=== PATIENT | male | born 1960 | race Caucasian/White ===

== ENCOUNTER 2017-09-15 20:49 | Emergency (ER) | payer MEDICARE, SELFPAY ==
[2017-09-15 20:50] VITALS: BP 157/110; PULSE 115; RESP 22; TEMP 37.2; O2SAT 95; BMI 29.1
[2017-09-15] MEDS: Silver Nitrate (BKC) 1 EACH TOPICAL (22:16)
[2017-09-15] MEDS: proCHLORPERazine 10 MG/2 ML Vial IV (22:17)
[2017-09-15] MEDS: Ketorolac 30 MG/ML Syringe IV (22:17)
[2017-09-15] MEDS: DiphenhydrAMINE 50 MG/ML Syringe 25 MG IV (22:17)
[2017-09-15] MEDS: 0.9% Normal Saline 1,000 ML 999 ML IV (22:17)
--- NOTE | 2017-09-15 22:54 | ED.DCSUM_ITS ---
- ER Visit Summary Date of Service: 09/15/17 Chief Complaint: Headache History of Present Illness: The patient is a 56 M with a history of migraine headaches. Patient states he developed a frontal migraine last evening around 9 PM that gradually worsened. He missed a few days of his migraine medications and he thinks this led to the current migraine. He denies trauma or URI symptoms. He has restarted his migraine medication and states he knows it will take a couple days to get built back up in his system. Patient states tonight while resting he scratched the left side of his nose and started bleeding. Is having difficulty controlling the area of bleeding. He is currently on Plavix. Physical Examination: Blood pressure is 157/110, heart rate 115, otherwise vitals normal. Patient sitting upright in bed no acute distress. Head and neck examination was a 2 mm round skin avulsion to the left lateral nose. There is no active bleeding at this time. Neck is supple with no meningismus. Heart is regular rate and rhythm. Lung sounds are clear. Abdomen is soft nontender. Neuro exam is normal. Test Results: [] Emergency Department Course and Treatment: Patient was treated Toradol, Compazine, Benadryl, and IV fluids. The skin avulsion area on his nose was cauterized with silver nitrate. On repeat evaluation patient's headache is significantly improved. He has had no further bleeding from the area of skin avulsion. He will be discharged home to continue his migraine medications at this time. Treatment Plan: [] Disposition: Discharge Impression: 1. Migraine, improved 2. Skin avulsion This note was generated with [employer] dictation software. It may contain incorrect words, spelling, and punctuation that were not noted in review of the chart prior to signing ED Disposition - Plan for ED Patient: Disposition: Home or Assisted Living Chief Complaint: Headache Instructions: ED Headache Migraine Referrals: Awa Chavez MD [Primary Care Provider] - As Needed
[2017-09-15 23:36] VITALS: BP 142/82; PULSE 80; RESP 18; O2SAT 96
== END 2017-09-15 23:42 | disposition home or self-care (01) ==
PROVIDERS: Emergency Provider Emergency Medicine; Family Provider Internal Medicine; PCP Internal Medicine
DX: G43.909 Migraine, unspecified, not intractable, without status migrainosus (principal); S01.20XA Unspecified open wound of nose, initial encounter; I25.10 Atherosclerotic heart disease of native coronary artery without angina pectoris; I10 Essential (primary) hypertension; E78.00 Pure hypercholesterolemia, unspecified; J44.9 Chronic obstructive pulmonary disease, unspecified; Z72.0 Tobacco use; W50.4XXA Accidental scratch by another person, initial encounter; Y93.9 Activity, unspecified; Y92.89 Other specified places as the place of occurrence of the external cause; Y99.9 Unspecified external cause status
CPT/HCPCS: 96361; 96374; 96375; 99283; J7030; A4216

== ENCOUNTER 2017-11-13 11:34 | Emergency (ER) | payer MEDICARE, SELFPAY ==
[2017-11-13 11:39] VITALS: BP 134/94; PULSE 76; RESP 16; TEMP 36.9; O2SAT 96; BMI 29.3
--- NOTE | 2017-11-13 12:11 | RAD_ITS ---
STUDY: X-RAY - RIGHT SHOULDER REASON FOR EXAM: Male, 57 years old. Shoulder pain following injury. TECHNIQUE: 4 view(s) of the shoulder. COMPARISON: Comparison is made with prior study dated October 26, 2016. FINDINGS: Normal glenohumeral articulation. Normal acromioclavicular joint. Normal acromion. Normal humeral head and visualized proximal humerus. The soft tissue structures are unremarkable. Normal visualized pulmonary apex. RAD/Shoulder min 2 Views IMPRESSION: Normal x-ray examination of the shoulder. Electronically Signed: Damir Cisneros MD at 12:45 EDT Tel [phone], Service support ,
[2017-11-13] MEDS: oxyCODONE 5 MG Tablet 10 MG PO (12:17)
--- NOTE | 2017-11-13 13:00 | ED.VISSUMM ---
- ER Visit Summary Date of Service: 11/13/17 Chief Complaint: [] Right shoulder pain History of Present Illness: The patient is a 57 M [] patient reports he was doing some weeding in his lawn using a weeding tool and felt a sudden pop in his right shoulder and is concerned for the possibility of a rotator cuff tear. Patient reports difficulty moving the right shoulder without significant pain. Reports minimal relief with NSAID use prior to arrival. No other complaints at this time. Physical Examination: [] Afebrile, vital signs stable. Examination of the right shoulder reveals tenderness over the supraspinatus insertion. Patient is unable to extend the shoulder without significant discomfort. There is no gross deformity noted. Axillary nerve is intact. Patient is neurovascularly intact distally to the right upper extremity. Test Results: [] 2 view right shoulder x-ray negative. Emergency Department Course and Treatment: [] Patient evaluated for right shoulder injury with concern for rotator cuff damage. Patient provided oxycodone orally in the emergency department. He reports he has a ride home. X-rays are negative. He is encouraged to follow-up with his primary care physician and return if symptoms worsen. Treatment Plan: [] Follow-up with PCP for possible MRI. Disposition: [] Discharge, stable. Impression: [] Right shoulder injury This note was generated with [employer] dictation software. It may contain incorrect words, spelling, and punctuation that were not noted in review of the chart prior to signing ED Disposition - Plan for ED Patient: Chief Complaint: Upper Extremity Injury Referrals: Awa Chavez MD [Primary Care Provider] -
--- NOTE | 2017-11-13 13:02 | ED.DEP ---
ED Disposition - Plan for ED Patient: Disposition: Home or Assisted Living Chief Complaint: Upper Extremity Injury Instructions: ED Sprain Shoulder Prescriptions: Naproxen [Naprosyn] 500 mg PO BID PRN PRN #20 tab PRN Reason: Pain Referrals: Awa Chavez MD [Primary Care Provider] -
[2017-11-13 13:11] VITALS: BP 132/90; PULSE 80; RESP 16; O2SAT 96
== END 2017-11-13 13:12 | disposition home or self-care (01) ==
PROVIDERS: Emergency Provider Emergency Medicine; Family Provider Internal Medicine; PCP Internal Medicine
DX: S49.91XA Unspecified injury of right shoulder and upper arm, initial encounter (principal); X50.3XXA Overexertion from repetitive movements, initial encounter; Y93.H2 Activity, gardening and landscaping; Y92.007 Garden or yard of unspecified non-institutional (private) residence as the place of occurrence of the external cause; Y99.8 Other external cause status; I25.10 Atherosclerotic heart disease of native coronary artery without angina pectoris; I10 Essential (primary) hypertension; E78.00 Pure hypercholesterolemia, unspecified; Z72.0 Tobacco use
CPT/HCPCS: 73030; 99283

== ENCOUNTER 2017-12-19 11:25 | Emergency (ER) | payer MEDICARE, SELFPAY ==
[2017-12-19 11:26] VITALS: BP 141/102; PULSE 111; RESP 18; TEMP 36.8; O2SAT 97
--- NOTE | 2017-12-19 12:08 | ED.VISSUMM ---
- ER Visit Summary Date of Service: 12/19/17 Chief Complaint: Shoulder pain History of Present Illness: The patient is a 57 M with bilateral shoulder pain for 3 weeks. Left side is worse than the right. It is worse with abduction more than 90?. No trauma. He has no neck pain, no fever or chills. His pain is confined between the shoulder and the elbow it does not radiate into his forearms or fingers or hand. Physical Examination: Patient has clear lungs, soft abdomen, he has no neck pain to palpation with full range of motion movement of the neck. He has normal strength in his hands. He has tenderness to palpation over both shoulders mostly posteriorly and superiorly. He has pain with abduction greater than 90? and with me placing his hand behind his back. He is otherwise neurovascularly intact. Test Results: [] Emergency Department Course and Treatment: This is likely rotator cuff in etiology, he has no neck pain no paresthesias no weakness. He is to follow-up with his primary care physician who had seen him for this in the past and wants to set him up with physical therapy, however the patient does not want to go. I did teach him some stretching exercises, if there are any new symptoms needs to return to the emergency department. He understands this. Disposition: Discharge stable condition Impression: Bilateral shoulder pain This note was generated with [employer] dictation software. It may contain incorrect words, spelling, and punctuation that were not noted in review of the chart prior to signing ED Disposition - Plan for ED Patient: Chief Complaint: Upper Extremity Injury Referrals: Awa Chavez MD [Primary Care Provider] -
--- NOTE | 2017-12-19 12:11 | ED.DEP ---
ED Disposition - Plan for ED Patient: Disposition: Home or Assisted Living Chief Complaint: Upper Extremity Injury Instructions: ED Shoulder Pain [facility] Referrals: Awa Chavez MD [Primary Care Provider] - 3-5 Days
== END 2017-12-19 12:21 | disposition home or self-care (01) ==
PROVIDERS: Emergency Provider Emergency Medicine; Family Provider Internal Medicine; PCP Internal Medicine
DX: M25.512 Pain in left shoulder (principal); M25.511 Pain in right shoulder; Z72.0 Tobacco use
CPT/HCPCS: 99282

== ENCOUNTER 2017-12-23 06:57 | Observation (INO) | payer MEDICARE, SELFPAY ==
[2017-12-23] VITALS (21 sets, daily range): BP systolic 130–164; BP diastolic 82–100; PULSE 66–104; RESP 16–24; TEMP 36.7–36.9; O2SAT 94–100; BMI 32.3; BMI 31.0; BMI 31.1
--- NOTE | 2017-12-23 07:00 | RAD_ITS ---
STUDY: X-RAY CHEST REASON FOR EXAM: Male, 57 years old. Intermittent chest pain TECHNIQUE: Single AP portable view of the chest. COMPARISON: None. FINDINGS: The lungs are clear and expanded. There is no demonstrated pleural abnormality. Normal size heart. Normal mediastinum and moni. Normal visualized pulmonary arteries. Normal visualized aortic arch and descending thoracic aorta. Normal visualized thoracic spine. Normal visualized ribs, clavicles, and shoulders. There is no demonstrated abnormality of the visualized soft tissue structures of the upper abdomen. RAD/Chest 1 View (Portable) IMPRESSION: Normal x-ray examination of the chest. Electronically Signed: Facundo Gonzalez DO at 7:27 EDT Tel , Service support ,
--- NOTE | 2017-12-23 07:00 | EKG12_ITS ---
Test Reason : CP Blood Pressure : / mmHG Vent. Rate : 085 BPM Atrial Rate : 085 BPM P-R Int : 140 ms QRS Dur : 098 ms QT Int : 368 ms P-R-T Axes : 000 080 061 degrees QTc Int : 437 ms Normal sinus rhythm Normal ECG Confirmed by BLESSING JONES, LEIGH ANN ([id number]), newspaper editor managing PRADIP ÁLVAREZ ([id number]) on 12/25/2017 2:12:07 PM Referred By: FELTON Confirmed By:LEIGH ANN FUNK MD
[2017-12-23] MEDS: Aspirin 81 MG TAB.CHEW 324 MG PO (07:05)
[2017-12-23 07:18] LABS: Absolute Lymphocyte Count 2.65 X10^3/ul (0.83-4.51); Absolute Neutrophil Count 2.9 X10^3/uL (2.0-7.7); Basophil# 0.02 X10^3/uL; Basophil% 0.3 % (0-1); Eosinophil# 0.25 X10^3/uL; Eosinophils% 4.1 % (0-5); Hematocrit 46.5 % (40-54); Lymphocyte # 2.65 X10^3/ul (4.0); Lymphocyte % 43.6 % (19-41); Mean Corp Hgb Conc 32.3 g/gl (32-36); Mean Corpuscular Hgb 30.1 pg (27.0-32.0); Mean Corpuscular Volume 93.2 fL (80-94); Mean Platelet Vol. 9.7 fl (6.2-12.0); Monocyte# 0.29 X10^3/uL; Monocyte% 4.8 % (0-10); Neutrophil # 2.87 X10^3/uL (2.7-7.7); Neutrophil % 47.2 % (47-70); Platelet Count 244 K/mm3 (150-450); RBC Distribution Width CV 13.8 % (11.6-14.6); RBC Distribution Width SD 46.8 fl (35.1-43.9); Red Blood Count 4.99 M/mm3 (4.6-6.2); White Blood Count 6.1 K/mm3 (4.4-11.0)
[2017-12-23 07:19] LABS: POSITIVE COUNT NO; POSITIVE DIFFERENTIAL NO; POSITIVE MORPHOLOGY NO
[2017-12-23] MEDS: Albuterol 2.5 MG/3 ML VIAL.NEB. INHALATION ×2 (07:27→19:35)
[2017-12-23 07:35] LABS: Anion Gap 6 (5-15); BUN 16 mg/dL (7-18); BUN/Creat Ratio 12.7 RATIO (10-20); Calcium,Total 8.9 mg/dL (8.5-10.1); Chloride 106 mmol/L (98-107); Creatinine, Serum 1.26 mg/dL (0.70-1.30); EST Glomerular Filtration Rate 63 mL/min (>60); Est Glom Filt Rate - Afr Amer 76 mL/min (>60); Estimated Creatinine Clearance 59.07 ml/min; Glucose 103 mg/dL (74-106); Potassium 3.4 mmol/L (3.5-5.1); Sodium Level 140 mmol/L (136-145)
--- NOTE | 2017-12-23 08:12 | ED.VISSUMM ---
- ER Visit Summary Date of Service: 12/23/17 Chief Complaint: Chest pain History of Present Illness: The patient is a [address] Roger Chavez. He reports that he was awakened from sleep at 2 AM by a substernal chest pain lasts approximately 30 seconds. States that it was a heaviness that was 6 out of 10 in severity. Seemed to resolve after drinking cold water. He went back to sleep and at 4:00 he was awakened by a similar pain. This time it resolved with nitro spray. He went back to sleep and at 615 he was awakened by similar pain and came to the emergency department. Patient reports the pain is accompanied by shortness of breath and nausea. He denies any vomiting or diaphoresis with this. It is worsened by nothing including exertion or breathing. Physical Examination: Vitals: Stable. Afebrile. General: Well-nourished and well-developed. Head: Normocephalic atraumatic. Neck: Supple, no lymphadenopathy. No JVD. Nontender. Cardiovascular: Regular rate and rhythm. No murmurs. Respiratory: No respiratory distress. Mild wheezing bilaterally with good air movement. Abdominal: Soft, nontender, nondistended, normal bowel sounds. No guarding, rebound, or peritoneal signs. Back: Nontender. Extremities: Nontender, no edema. Skin: Normal color, no rash. Neurologic: Alert and oriented ?3. Cranial nerves II through XII are intact. Normal strength and sensation. Psych: Normal affect. Test Results: EKG is sinus at 85 and is unchanged from December 2016. Troponins negative. Chem-7 marked potassium 3.4. CBC is more for lymphs at 44. Chest x-ray is normal. Emergency Department Course and Treatment: Patient was treated with aspirin and albuterol aerosol. He is resting comfortably and is pain-free. Treatment Plan: Patient was discussed with Dr. Duran. He will be admitted to the hospital for further evaluation and treatment. Disposition: Admitted in improved condition. Impression: 1. Chest pain. 2. DAVON score of 3. This note was generated with [employer] dictation software. It may contain incorrect words, spelling, and punctuation that were not noted in review of the chart prior to signing ED Disposition - Plan for ED Patient: Chief Complaint: Chest Pain Referrals: Awa Chavez MD [Primary Care Provider] -
--- NOTE | 2017-12-23 08:15 | ED.DCSUM_ITS ---
- ER Visit Summary Date of Service: 12/23/17 Chief Complaint: Chest pain History of Present Illness: The patient is a [address] Roger Chavez. He reports that he was awakened from sleep at 2 AM by a substernal chest pain lasts approximately 30 seconds. States that it was a heaviness that was 6 out of 10 in severity. Seemed to resolve after drinking cold water. He went back to sleep and at 4:00 he was awakened by a similar pain. This time it resolved with nitro spray. He went back to sleep and at 615 he was awakened by similar pain and came to the emergency department. Patient reports the pain is accompanied by shortness of breath and nausea. He denies any vomiting or diaphoresis with this. It is worsened by nothing including exertion or breathing. Physical Examination: Vitals: Stable. Afebrile. General: Well-nourished and well-developed. Head: Normocephalic atraumatic. Neck: Supple, no lymphadenopathy. No JVD. Nontender. Cardiovascular: Regular rate and rhythm. No murmurs. Respiratory: No respiratory distress. Mild wheezing bilaterally with good air movement. Abdominal: Soft, nontender, nondistended, normal bowel sounds. No guarding, rebound, or peritoneal signs. Back: Nontender. Extremities: Nontender, no edema. Skin: Normal color, no rash. Neurologic: Alert and oriented ?3. Cranial nerves II through XII are intact. Normal strength and sensation. Psych: Normal affect. Test Results: EKG is sinus at 85 and is unchanged from December 2016. Troponins negative. Chem-7 marked potassium 3.4. CBC is more for lymphs at 44. Chest x- ray is normal. Emergency Department Course and Treatment: Patient was treated with aspirin and albuterol aerosol. He is resting comfortably and is pain-free. Treatment Plan: Patient was discussed with Dr. Duran. He will be admitted to the hospital for further evaluation and treatment. Disposition: Admitted in improved condition. Impression: 1. Chest pain. 2. DAVON score of 3. This note was generated with [employer] dictation software. It may contain incorrect words, spelling, and punctuation that were not noted in review of the chart prior to signing ED Disposition - Plan for ED Patient: Chief Complaint: Chest Pain Referrals: Awa Chavez MD [Primary Care Provider] -
--- NOTE | 2017-12-23 08:33 | HP.PCM_ITS ---
Problem List (1) Chest pain Status: Acute (2) Benign essential hypertension Status: Chronic (3) CAD (coronary artery disease) Status: Chronic Qualifiers: Coronary Disease-Associated Artery/Lesion type: unspecified vessel or lesion type [place] vs. transplanted heart: unspecified whether [place] or transplanted heart Associated angina: angina presence unspecified Qualified Code(s): I25.10 - Atherosclerotic heart disease of [place] coronary artery without angina pectoris Comment: status post stent in LAD 2008; status post cardiac catheterization 2013 showing coronary artery disease but not requiring intervention, recommended aggressive medical management (4) COPD (chronic obstructive pulmonary disease) Status: Chronic Qualifiers: COPD type: unspecified COPD Qualified Code(s): J44.9 - Chronic obstructive pulmonary disease, unspecified (5) Complicated migraine Status: Chronic (6) Depression Status: Chronic Qualifiers: Depression Type: unspecified Qualified Code(s): F32.9 - Major depressive disorder, single episode, unspecified (7) HLD (hyperlipidemia) Status: Chronic Qualifiers: Hyperlipidemia type: unspecified Qualified Code(s): E78.5 - Hyperlipidemia , unspecified (8) History of coronary angioplasty Status: Chronic (9) History of medication noncompliance Status: Chronic (10) History of migraine Status: Chronic (11) Lumbar radiculopathy Status: Chronic (12) Tobacco user Status: Chronic History of Present Illness Date of Admission: 12/23/17 Chief Complaint: Chest pain today The patient is a 57 year old M with history of coronary artery disease with a stent in LAD 2008 with repeat cath in October 2013 which did not require PCI 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 Patient complained he felt chest heaviness that radiated to his right carotid and woke him up at 2 AM which lasted for about a minute and then it subsided after drinking cold water. He felt similar chest heaviness about 4 AM but subsided after taking nitro spray and repeat chest heaviness at 6 AM which made him to come to ER. He also felt mild shortness of breath at the time of chest pain, nausea but no palpitation or diaphoresis. He had some chest heaviness during lawnmowing about a week ago. He had last admission in December 2016 for chest pain. He had nuclear stress test done which was negative. He also had chest CTA which was negative for PE. In ER, his vitals were stable. EKG shows normal sinus rhythm at 85 bpm with no significant change from previous EKG of December 2016. Basic lab work in ER shows K3.4. [] Past Medical History Past Medical History (Chronic Problems): Chronic Problems History of coronary angioplasty (Chronic) History of medication noncompliance (Chronic) History of migraine (Chronic) Lumbar radiculopathy (Chronic) HLD (hyperlipidemia) (Chronic) Depression (Chronic) CAD (coronary artery disease) (Chronic) status post stent in LAD 2008; status post cardiac catheterization 10/2013 showing coronary artery disease but not requiring intervention, recommended aggressive medical management Complicated migraine (Chronic) COPD (chronic obstructive pulmonary disease) (Chronic) Tobacco user (Chronic) Benign essential hypertension (Chronic) Allergies celecoxib [From Celebrex] Allergy (Verified 12/23/17 07:00) Swelling pregabalin [From Lyrica] Allergy (Verified 12/23/17 07:00) Swelling Home Medications: Ambulatory Orders Medication Instructions Recorded Atorvastatin Calcium [Lipitor] 80 mg PO QHS 02/03/15 Metoprolol Tartrate [Lopressor 50 mg PO BID 02/03/15 (beta randa)] Pramipexole Di-HCl [Mirapex] 0.25 mg PO TID 02/03/15 Clopidogrel Bisulfate [Plavix] 75 mg PO DAILY 10/26/16 Surgical History: herniorrhaphy, - - Ready extent placement, bilateral carpal tunnel surgery, PCI x 1. Psychiatric History: Depression Smoking Status: Current every day smoker - *Family History Maternal History Items: No pertinent history Paternal History Items: Heart Disease Review of Systems Constitutional: Denies: Chills, Fever, Weight Change HEENT: Denies: Head Aches, Sinus Congestion, Sinus Drainage Cardiovascular: Reports: Chest Pressure. Denies: Palpitations Respiratory: Reports: Shortness of Breath. Denies: Cough, Shortness of breath at rest, Sputum production Gastrointestinal: Reports: Nausea. Denies: Abdominal Pain, Vomiting Genitourinary: Denies: Dysuria Musculoskeletal: Denies: Joint Pain, Joint Tenderness Skin: Denies: Rash, Wounds Neurological: Denies: Numbness, Tingling, Focal weakness Psychiatric: Denies: Anxiety, Depression, Homicidal Ideations, Suicidal Ideations Hematologic/ Lymphatic: Denies: Easy Bruising, Easy Bleeding VTE Information - Inpt Only VTE Present on Admission: No VTE Mechan Device Prophylaxis: SCD's VTE Pharm Prophylaxis ordered?: Yes - Physical Exam General: Alert, Oriented x3, Cooperative HEENT: Atraumatic, PERRLA, EOMI, Normocephalic Neck: Supple, No JVD, Negative Carotid Bruits Lungs: Clear to auscultation, Normal air movement, No rhonchi, No wheeze Cardiovascular: Regular rate, Regular Rhythm, Normal S1, Normal S2, No murmurs Abdomen: Bowel Sounds Present, Soft, Non Tender Extremities: No edema, Capillary Refill Less than 3 Seconds Skin: No rashes, No breakdown Musculoskeletal: No Tenderness to Palpation of Joints or Extremities Neurological: Cranial nerves II-XII grossly intact Psych/Mental Status: Normal Affect, Appropriate Vital Signs Temp Pulse Resp BP Pulse Ox 98.4 F 94 20 H 130/86 H 95 12/23/17 06:58 12/23/17 08:25 12/23/17 08:25 12/23/17 08:25 12/23/17 08:25 Oxygen Flow Rate (L/min) 1.5 Oxygen Delivery Method Nasal Cannula Weight: 199 lb 15.348 oz Body Mass Index (BMI) 32.3 Finger Stick Blood Glucose 120 Laboratory Tests Past 24 Hrs 12/23/17 12/23/17 07:00 07:00 WBC 6.1 RBC 4.99 Hgb 15.0 Hct 46.5 MCV 93.2 MCH 30.1 MCHC 32.3 RDW 13.8 RDW Differential 46.8 H Plt Count 244 MPV 9.7 Immature Gran % (Auto) 0.000 Neut % (Auto) 47.2 Lymph % (Auto) 43.6 H [place] % (Auto) 4.8 Eos % (Auto) 4.1 Baso % (Auto) 0.3 Absolute Neuts (auto) 2.9 Absolute Lymphs (auto) 2.65 Total Counted Not Reportable Sodium 140 Potassium 3.4 L Chloride 106 Carbon Dioxide 28.0 Anion Gap 6 BUN 16 Creatinine 1.26 Estim Creat Clear Calc 59.07 Est GFR (MDRD) Af Amer 76 Est GFR (MDRD) Non-Af 63 BUN/Creatinine Ratio 12.7 Glucose 103 Calcium 8.9 Troponin I < 0.015 Assessment/Plan All Active Problems Chest pain (Acute) The patient is a 57 year old M with history of coronary artery disease with a stent in LAD 2008 with repeat cath in October 2013 which did not require PCI 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 Patient complained he felt chest heaviness that radiated to his right carotid and woke him up at 2 AM which lasted for about a minute and then it subsided after drinking cold water. He felt similar chest heaviness about 4 AM but subsided after taking nitro spray and repeat chest heaviness at 6 AM which made him to come to ER. He also felt mild shortness of breath at the time of chest pain, nausea but no palpitation or diaphoresis. He had some chest heaviness during lawnmowing about a week ago. He had last admission in December 2016 for chest pain. He had nuclear stress test done which was negative. He also had chest CTA which was negative for PE. In ER, his vitals were stable. EKG shows normal sinus rhythm at 85 bpm with no significant change from previous EKG of December 2016. Basic lab work in ER shows K3.4. The patient follows Dr. Duran. 1. Atypical chest pressure with concern of unstable angina: Patient is being admitted in PCU. On ACS protocol with serial troponin enzymes. Patient is already on Plavix, metoprolol and atorvastatin but he is noncompliant and he agreed to that. Continue Plavix, metoprolol and atorvastatin. 2. Coronary artery disease status post stent: Currently on medical management as mentioned above 3. Dyslipidemia most probably secondary to noncompliance: Fasting lipid profile shows triglyceride 507, total cholesterol 256. Total cholesterol and VLDL could not be estimated because of triglyceride being too high. Continue atorvastatin. 3. COPD with chronic smoker: Patient said he is diagnosed COPD most probably based on PFT but the report is not available. Currently not in exacerbation. Continue inhalers. Mild hypokalemia, K3.4: Potassium replaced Mild hypertension: Blood pressure is 144/92. Start on low-dose of lisinopril. DVT prophylaxis: On heparin 5000 SQ twice daily and bilateral SCDs This note was generated with [employer] dictation software. Every effort was made to ensure accuracy, however computerized net front end developer mistakes may persist. Laboratory Results 12/23/17 07:00: WBC 6.1, RBC 4.99, Hgb 15.0, Hct 46.5, MCV 93.2, MCH 30.1, MCHC 32.3, RDW 13.8, RDW Differential 46.8 H, Plt Count 244, MPV 9.7, Immature Gran % (Auto) 0.000, Neut % (Auto) 47.2, Lymph % (Auto) 43.6 H, [place] % (Auto) 4.8, Eos % (Auto) 4.1, Baso % (Auto) 0.3, Absolute Neuts (auto) 2.9, Absolute Lymphs (auto) 2.65, Total Counted Not Reportable 12/23/17 07:00: Sodium 140, Potassium 3.4 L, Chloride 106, Carbon Dioxide 28.0, Anion Gap 6, BUN 16, Creatinine 1.26, Estim Creat Clear Calc 59.07, Est GFR ( MDRD) Af Amer 76, Est GFR (MDRD) Non-Af 63, BUN/Creatinine Ratio 12.7, Glucose 103, Calcium 8.9, Troponin I < 0.015 12/23/17 07:00: Triglycerides 507 H, Cholesterol 256 H, LDL Cholesterol TNP, VLDL Cholesterol TNP, HDL Cholesterol 30 L, TSH 2.95 12/23/17 10:18: Troponin I Pending Clinical Impression(s) from Imaging Studies Chest X-Ray 12/23/17 07:00 IMPRESSION: Normal x-ray examination of the chest. Code Visit OBSV E&M: 39064 Initial observation care L3
[2017-12-23 09:51] LABS: Cholesterol 256 mg/dL (200); High Density Lipoprotein 30 mg/dL; Thyroid Stim Hormone (TSH) 2.95 uIU/mL (0.358-3.74); Triglycerides 507 mg/dL
[2017-12-23] MEDS: Clopidogrel Bisulfate 75 MG Tablet PO (10:07)
[2017-12-23] MEDS: Metoprolol Tartrate 50 MG Tablet PO ×2 (10:07→21:29)
[2017-12-23] MEDS: Pramipexole Di-HCl 0.25 MG Tablet PO ×2 (12:48→21:30)
[2017-12-23] MEDS: Lisinopril 5 MG Tablet PO (12:48)
--- NOTE | 2017-12-23 14:00 | PCM.CONS.C ---
Problem List (1) Unstable angina Status: Acute (2) CAD (coronary artery disease) Status: Chronic Qualifiers: Coronary Disease-Associated Artery/Lesion type: unspecified vessel or lesion type [place] vs. transplanted heart: unspecified whether [place] or transplanted heart Associated angina: angina presence unspecified Qualified Code(s): I25.10 - Atherosclerotic heart disease of [place] coronary artery without angina pectoris Comment: status post stent in LAD 2008; status post cardiac catheterization 10/2013 showing coronary artery disease but not requiring intervention, recommended aggressive medical management (3) S/P PTCA (percutaneous transluminal coronary angioplasty) Status: Chronic (4) HLD (hyperlipidemia) Status: Chronic Qualifiers: Hyperlipidemia type: unspecified Qualified Code(s): E78.5 - Hyperlipidemia, unspecified (5) Benign essential hypertension Status: Chronic (6) COPD (chronic obstructive pulmonary disease) Status: Chronic Qualifiers: COPD type: unspecified COPD Qualified Code(s): J44.9 - Chronic obstructive pulmonary disease, unspecified (7) History of medication noncompliance Status: Chronic (8) History of illicit drug use Status: Chronic Reason for Consult Date of Consultation: 12/23/17 History of Present Illness: The patient is a 57 year old white male with a past cardiovascular history which is included underlying CAD, status post previous LAD PCI/stent, hyperlipidemia, hypertension, superimposed upon underlying COPD, medication noncompliance, and illicit drug use who was referred for evaluation of unstable angina pectoris. The patient's last outpatient cardiovascular visit appears to be on 04/13/2014. He admits since that time that he has been noncompliant with his outpatient cardiovascular visits as well as his medications. He states that he has been having increasing chest discomfort only with exertional activities but also at rest and at night requiring use of nitroglycerin sublingual spray. He has had shortness of breath and dyspnea. He has denied orthopnea, PND, peripheral pitting edema, near syncope or syncope. He states that he has undergone drug rehabilitation and has not been using any illicit substances as he has had in the past other than intermittent use of marijuana. He states he uses this for his back discomfort. He presented to the emergency department as he was having more nocturnal chest discomfort. He was using nitroglycerin sublingual spray. He was subsequently evaluated and brought into the hospital for further evaluation care. His cardiac enzymes have been negative thus far. His ECG demonstrated sinus rhythm with no acute ECG changes. He states he has not undergone any other outpatient or inpatient cardiovascular testing since his previous [facility] evaluation which included a pharmacologic stress nuclear imaging study performed on 12/27/2016 stated at that time he had underlying perfusion changes potentially compatible previous inferior infarct with no reversibility. [] Past Medical History Allergies/Adverse Reactions: Allergies celecoxib [From Celebrex] Allergy (Verified 12/23/17 07:00) Swelling pregabalin [From Lyrica] Allergy (Verified 12/23/17 07:00) Swelling Home Medications: Ambulatory Orders Medication Instructions Recorded Atorvastatin Calcium [Lipitor] 80 mg PO QHS 02/03/15 Metoprolol Tartrate [Lopressor 50 mg PO BID 02/03/15 (beta randa)] Pramipexole Di-HCl [Mirapex] 0.25 mg PO TID 02/03/15 Clopidogrel Bisulfate [Plavix] 75 mg PO DAILY 10/26/16 Past Medical History (Chronic Problems): Chronic Problems S/P PTCA (percutaneous transluminal coronary angioplasty) (Chronic) History of illicit drug use (Chronic) History of coronary angioplasty (Chronic) History of medication noncompliance (Chronic) History of migraine (Chronic) Lumbar radiculopathy (Chronic) HLD (hyperlipidemia) (Chronic) Depression (Chronic) CAD (coronary artery disease) (Chronic) status post stent in LAD 2008; status post cardiac catheterization 10/2013 showing coronary artery disease but not requiring intervention, recommended aggressive medical management Complicated migraine (Chronic) COPD (chronic obstructive pulmonary disease) (Chronic) Tobacco user (Chronic) Benign essential hypertension (Chronic) Surgical History: angioplasty, herniorrhaphy, - - Ready extent placement, bilateral carpal tunnel surgery, PCI x 1. Psychiatric History: Depression - *Family History Maternal History Items: No pertinent history Paternal History Items: Heart Disease Lives: Spouse/ Significant Other Smoking Status: Current every day smoker Alcohol: None Drugs: Marijuana Review of Systems - Review of Systems General: Denies: Fever, Night Sweats, Fatigue Cardiovascular: Reports: Chest Discomfort, Chest Discomfort at Rest, Chest Discomfort with Exertion, Shortness of Breath, Shortness of Breath with Exertion. Denies: Orthopnea, PND, Peripheral Edema, Palpitations, Lightheadedness, Dizziness, Near Syncope, Syncope Respiratory: Reports: Shortness of Breath. Denies: Cough, Sputum Production, Hemoptysis Gastrointestinal: Denies: Hematemesis, Hematochezia, Melena Genitourinary: Denies: Dysuria, Hematuria Skin: Denies: Rash Subjectve: This is a 57-year-old white male who appears to be resting reasonably comfortably at the moment in no acute distress. Objective: Vital Signs Temp Pulse Resp BP Pulse Ox 98.4 F 73 16 144/92 H 95 12/23/17 09:01 12/23/17 11:58 12/23/17 09:01 12/23/17 09:01 12/23/17 11:00 Oxygen Delivery Method Room Air Weight: 192 lb 7.417 oz Body Mass Index (BMI) 31.0 Intake and Output for Last 24 Hours 12/21/17 12/22/17 12/23/17 23:59 23:59 23:59 Intake Total 480 / 480 Balance 480 / 480 General: Awake, Alert, Oriented x 3, Cooperative, No Acute Distress HEENT: Atraumatic, Normocephalic, PERRL, EOMI, Sclera Non Icteric Oral: Moist Mucosa Neck: Supple, Good ROM, No JVD Lungs: Clear to auscultation Cardiovascular: Regular Rhythm, Normal S1, Normal S2 Vascular: No Carotid Bruits Abdomen: Bowel Sounds Present, Soft, Non Tender Extremities: No Cyanosis, No Clubbing, No edema Neurological: No Focal Motor or Sensory Deficit Psych/Mental Status: Flat Affect 12/23/17 10:18: Troponin I < 0.015 Rhythm: Sinus rhythm EKG: Sinus rhythm ECHO: 11/12/2013: Left ventricle: Normal LV systolic function; LVEF 65%; trivial MR/TR; mild focal aortic valve thickening; trivial PI; decreased diastolic compliance Stress Test: As noted above Cardiac Cath: 11/12/2013: Elevated left ventricular end-diastolic pressure; left ventricle normal with respect to LV size, wall motion, and systolic function with an estimated LVEF of 60%; left main coronary artery normal; LAD with a proximal to mid calcification and proximal to mid stent which was patent with minimal luminal irregularities; LCx being a small caliber vessel with following the OM the appearance of a 50-75% eccentric appearing stenosis at the level of the [place] band; RCA being a very large dominant vessel with proximal 25% appearing concentric stenosis followed by minimal luminal irregularities PCI: 06/04/2011: Oh issue: Summary: Single-vessel CAD with hemodynamically significant lesion in the LCx with an FFR greater than 0.76 with a comment that the LCx is a very small vessel-2 mm vessel in diameter-with recommendations for medical therapy and tobacco cessation unless angina pectoris refractory then would consider PCI CXR: Preliminary evaluation: No acute cardiopulmonary disease process appreciated: Please see official report Assessment/Plan 1. Unstable angina pectoris The patient presents with symptoms concerning for unstable angina pectoris. He is undergoing a rule out GA protocol which is been negative by cardiac enzymes and ECG changes thus far. At the present time the patient will be recommended for reinitiation of appropriate medical management. This would include his aspirin, antiplatelets as needed, nitrates, beta-blockers, possible afterload reducing agents, lipid-lowering agents, etc. However based upon the patient's symptom complex superimposed upon his previous cardiovascular history it was felt the patient should undergo reevaluation with diagnostic cardiac catheterization. The procedure and risks were discussed with him. He was agreeable to this approach. 2. CAD status post LAD PTCA/stent-remote She does have history of underlying CAD as noted above. He has been evaluated locally and at [facility] in the past. He does have residual LCx disease with a small caliber LCx with recommendations for continued medical management and smoking cessation and only if refractory to consider PCI. This was based upon the vessel being a small caliber vessel and not ideally amenable to a PCI procedure. Thus the patient is undergoing evaluation as noted above. In the interim he will need to continue medical management. 3. Hyperlipidemia The patient admits that he has not been compliant with medications. His lipids have been evaluated and the are elevated. He will need to reinitiate lipid-lowering therapy for cardiovascular risk factor modulation. 4. Hypertension The patient will need continue antihypertensive therapy as deemed appropriate. 5. COPD Patient will need continue I wish care by internal medicine and if need be by pulmonology. 6. Medication noncompliance The patient admits to medication noncompliance. He is been counseled on the importance of taking medications as directed to assist with his cardiovascular status. 7. Illicit medication use The patient midst of previous illicit medication use. However he states after drug rehabilitation he has not used any illicit medications other than marijuana which he claims to be using for medicinal purposes based upon his underlying chronic back discomfort. Of note, the patient does state he has been undergoing pain management. He states that he has been on antiplatelet therapy but it has been interrupted for upcoming pain management injections. He knows that if he does, from a cardiac standpoint, requiring new percutaneous intervention that he may be committed to antiplatelet therapy for prolonged period of time and his pain management back injections would most likely need to be placed on hold. He acknowledges this information as does his spouse. Comment: The patient's case was discussed with the patient and the [facility] emergency department staff and the [facility] hospitalist staff. This note was generated with [employer] dictation software. It may contain incorrect words, spelling, and punctuation that were not noted in checking the note before signing.
--- NOTE | 2017-12-23 14:15 | CON.PCM_ITS ---
Problem List (1) Unstable angina Status: Acute (2) CAD (coronary artery disease) Status: Chronic Qualifiers: Coronary Disease-Associated Artery/Lesion type: unspecified vessel or lesion type [place] vs. transplanted heart: unspecified whether [place] or transplanted heart Associated angina: angina presence unspecified Qualified Code(s): I25.10 - Atherosclerotic heart disease of [place] coronary artery without angina pectoris Comment: status post stent in LAD 2008; status post cardiac catheterization 2013 showing coronary artery disease but not requiring intervention, recommended aggressive medical management (3) S/P PTCA (percutaneous transluminal coronary angioplasty) Status: Chronic (4) HLD (hyperlipidemia) Status: Chronic Qualifiers: Hyperlipidemia type: unspecified Qualified Code(s): E78.5 - Hyperlipidemia , unspecified (5) Benign essential hypertension Status: Chronic (6) COPD (chronic obstructive pulmonary disease) Status: Chronic Qualifiers: COPD type: unspecified COPD Qualified Code(s): J44.9 - Chronic obstructive pulmonary disease, unspecified (7) History of medication noncompliance Status: Chronic (8) History of illicit drug use Status: Chronic Reason for Consult Date of Consultation: 12/23/17 History of Present Illness: The patient is a 57 year old white male with a past cardiovascular history which is included underlying CAD, status post previous LAD PCI/stent, hyperlipidemia, hypertension, superimposed upon underlying COPD, medication noncompliance, and illicit drug use who was referred for evaluation of unstable angina pectoris. The patient's last outpatient cardiovascular visit appears to be on 04/13/2014. He admits since that time that he has been noncompliant with his outpatient cardiovascular visits as well as his medications. He states that he has been having increasing chest discomfort only with exertional activities but also at rest and at night requiring use of nitroglycerin sublingual spray. He has had shortness of breath and dyspnea. He has denied orthopnea, PND, peripheral pitting edema, near syncope or syncope. He states that he has undergone drug rehabilitation and has not been using any illicit substances as he has had in the past other than intermittent use of marijuana. He states he uses this for his back discomfort. He presented to the emergency department as he was having more nocturnal chest discomfort. He was using nitroglycerin sublingual spray. He was subsequently evaluated and brought into the hospital for further evaluation care. His cardiac enzymes have been negative thus far. His ECG demonstrated sinus rhythm with no acute ECG changes. He states he has not undergone any other outpatient or inpatient cardiovascular testing since his previous [facility] evaluation which included a pharmacologic stress nuclear imaging study performed on 12/27/2016 stated at that time he had underlying perfusion changes potentially compatible previous inferior infarct with no reversibility. [] Past Medical History Allergies/Adverse Reactions: Allergies celecoxib [From Celebrex] Allergy (Verified 12/23/17 07:00) Swelling pregabalin [From Lyrica] Allergy (Verified 12/23/17 07:00) Swelling Home Medications: Ambulatory Orders Medication Instructions Recorded Atorvastatin Calcium [Lipitor] 80 mg PO QHS 02/03/15 Metoprolol Tartrate [Lopressor 50 mg PO BID 02/03/15 (beta randa)] Pramipexole Di-HCl [Mirapex] 0.25 mg PO TID 02/03/15 Clopidogrel Bisulfate [Plavix] 75 mg PO DAILY 10/26/16 Past Medical History (Chronic Problems): Chronic Problems S/P PTCA (percutaneous transluminal coronary angioplasty) (Chronic) History of illicit drug use (Chronic) History of coronary angioplasty (Chronic) History of medication noncompliance (Chronic) History of migraine (Chronic) Lumbar radiculopathy (Chronic) HLD (hyperlipidemia) (Chronic) Depression (Chronic) CAD (coronary artery disease) (Chronic) status post stent in LAD 2008; status post cardiac catheterization 10/2013 showing coronary artery disease but not requiring intervention, recommended aggressive medical management Complicated migraine (Chronic) COPD (chronic obstructive pulmonary disease) (Chronic) Tobacco user (Chronic) Benign essential hypertension (Chronic) Surgical History: angioplasty, herniorrhaphy, - - Ready extent placement, bilateral carpal tunnel surgery, PCI x 1. Psychiatric History: Depression - *Family History Maternal History Items: No pertinent history Paternal History Items: Heart Disease Lives: Spouse/ Significant Other Smoking Status: Current every day smoker Alcohol: None Drugs: Marijuana Review of Systems - Review of Systems General: Denies: Fever, Night Sweats, Fatigue Cardiovascular: Reports: Chest Discomfort, Chest Discomfort at Rest, Chest Discomfort with Exertion, Shortness of Breath, Shortness of Breath with Exertion. Denies: Orthopnea, PND, Peripheral Edema, Palpitations, Lightheadedness, Dizziness, Near Syncope, Syncope Respiratory: Reports: Shortness of Breath. Denies: Cough, Sputum Production, Hemoptysis Gastrointestinal: Denies: Hematemesis, Hematochezia, Melena Genitourinary: Denies: Dysuria, Hematuria Skin: Denies: Rash Subjectve: This is a 57-year-old white male who appears to be resting reasonably comfortably at the moment in no acute distress. Objective: Vital Signs Temp Pulse Resp BP Pulse Ox 98.4 F 73 16 144/92 H 95 12/23/17 09:01 12/23/17 11:58 12/23/17 09:01 12/23/17 09:01 12/23/17 11:00 Oxygen Delivery Method Room Air Weight: 192 lb 7.417 oz Body Mass Index (BMI) 31.0 Intake and Output for Last 24 Hours 12/21/17 12/22/17 12/23/17 23:59 23:59 23:59 Intake Total 480 / 480 Balance 480 / 480 General: Awake, Alert, Oriented x 3, Cooperative, No Acute Distress HEENT: Atraumatic, Normocephalic, PERRL, EOMI, Sclera Non Icteric Oral: Moist Mucosa Neck: Supple, Good ROM, No JVD Lungs: Clear to auscultation Cardiovascular: Regular Rhythm, Normal S1, Normal S2 Vascular: No Carotid Bruits Abdomen: Bowel Sounds Present, Soft, Non Tender Extremities: No Cyanosis, No Clubbing, No edema Neurological: No Focal Motor or Sensory Deficit Psych/Mental Status: Flat Affect 12/23/17 10:18: Troponin I < 0.015 Rhythm: Sinus rhythm EKG: Sinus rhythm ECHO: 11/12/2013: Left ventricle: Normal LV systolic function; LVEF 65%; trivial MR/TR; mild focal aortic valve thickening; trivial PI; decreased diastolic compliance Stress Test: As noted above Cardiac Cath: 11/12/2013: Elevated left ventricular end-diastolic pressure; left ventricle normal with respect to LV size, wall motion, and systolic function with an estimated LVEF of 60%; left main coronary artery normal; LAD with a proximal to mid calcification and proximal to mid stent which was patent with minimal luminal irregularities; LCx being a small caliber vessel with following the OM the appearance of a 50-75% eccentric appearing stenosis at the level of the [place] band; RCA being a very large dominant vessel with proximal 25% appearing concentric stenosis followed by minimal luminal irregularities PCI: 06/04/2011: Oh issue: Summary: Single-vessel CAD with hemodynamically significant lesion in the LCx with an FFR greater than 0.76 with a comment that the LCx is a very small vessel-2 mm vessel in diameter-with recommendations for medical therapy and tobacco cessation unless angina pectoris refractory then would consider PCI CXR: Preliminary evaluation: No acute cardiopulmonary disease process appreciated: Please see official report Assessment/Plan 1. Unstable angina pectoris The patient presents with symptoms concerning for unstable angina pectoris. He is undergoing a rule out [place] protocol which is been negative by cardiac enzymes and ECG changes thus far. At the present time the patient will be recommended for reinitiation of appropriate medical management. This would include his aspirin, antiplatelets as needed, nitrates, beta-blockers, possible afterload reducing agents, lipid- lowering agents, etc. However based upon the patient's symptom complex superimposed upon his previous cardiovascular history it was felt the patient should undergo reevaluation with diagnostic cardiac catheterization. The procedure and risks were discussed with him. He was agreeable to this approach. 2. CAD status post LAD PTCA/stent-remote She does have history of underlying CAD as noted above. He has been evaluated locally and at [facility] in the past. He does have residual LCx disease with a small caliber LCx with recommendations for continued medical management and smoking cessation and only if refractory to consider PCI. This was based upon the vessel being a small caliber vessel and not ideally amenable to a PCI procedure. Thus the patient is undergoing evaluation as noted above. In the interim he will need to continue medical management. 3. Hyperlipidemia The patient admits that he has not been compliant with medications. His lipids have been evaluated and the are elevated. He will need to reinitiate lipid- lowering therapy for cardiovascular risk factor modulation. 4. Hypertension The patient will need continue antihypertensive therapy as deemed appropriate. 5. COPD Patient will need continue I wish care by internal medicine and if need be by pulmonology. 6. Medication noncompliance The patient admits to medication noncompliance. He is been counseled on the importance of taking medications as directed to assist with his cardiovascular status. 7. Illicit medication use The patient midst of previous illicit medication use. However he states after drug rehabilitation he has not used any illicit medications other than marijuana which he claims to be using for medicinal purposes based upon his underlying chronic back discomfort. Of note, the patient does state he has been undergoing pain management. He states that he has been on antiplatelet therapy but it has been interrupted for upcoming pain management injections. He knows that if he does, from a cardiac standpoint, requiring new percutaneous intervention that he may be committed to antiplatelet therapy for prolonged period of time and his pain management back injections would most likely need to be placed on hold. He acknowledges this information as does his spouse. Comment: The patient's case was discussed with the patient and the [facility] emergency department staff and the [facility] hospitalist staff. This note was generated with [employer] dictation software. It may contain incorrect words, spelling, and punctuation that were not noted in checking the note before signing.
[2017-12-23] MEDS: Aspirin 325 MG Tablet PO (14:41)
[2017-12-23] MEDS: 0.9% Normal Saline 1,000 ML 15 ML IV (14:45)
[2017-12-23] MEDS: TICAGRELOR 90 MG TABLET 180 MG PO (14:47)
--- NOTE | 2017-12-23 15:00 | NURSING ---
report given to laboratory sample carrier SUDEEP kingsley
--- NOTE | 2017-12-23 16:27 | CL.D_ITS ---
Patient Name: BALJINDER CABRERA Study Date: 12/23/2017 Performing: Mesfin Duran MD Ht: 66.14 inches 168 cm : 1960 Wt: 191.8 lbs 87 kg Age: 57 Gender: male BSA: 1.97 PROCEDURE(S) PERFORMED [id number] CLINICAL PROFILE AND INDICATIONS Indications: Worsening Angina Heart Failure: None Stress/Imaging Stress/Image Study Performed: No Angina Classification Anginal Classification w/in 2 Weeks: CCS III CAD Presentations: Unstable angina. CONCLUSIONS Elevated Left Ventricular End Diastolic Pressure Segmented LV systolic dysfunction- Mild LVEF: by LV gram 50 % [place] Multivessel CAD RECOMMENDATIONS Risk factor modification Medical therapy Surgery consult for coronary revascularization DESCRIPTION OF PROCEDURE The patient arrived to the procedure lab. The risks and benefits of the procedure as well as a full d escription of our services here and current unavailability of surgical backup were fully explained to the patient and/or their significant other prior to the catheterization. The Timeout was completed, verifying the correct patient and procedure. The patient's procedural site was prepped and draped in the usual fashion. Local anesthetic was given subcutaneously to right groin region with Lidocaine 2%. Using a modified Seldinger technique, arterial access was obtained via the right femoral artery, a 4 Fr sheath was inserted Left Coronary Artery selective angiography was performed in multiple views us ing a 4 Fr. JL5 catheter. Right Coronary Artery selective angiography was then performed in multiple views using a 4 Fr. 3DRC catheter. Left Ventriculography was performed in HARVEY projection using a 4 Fr . Pigtail catheter. LV to AO pullback pressures were then recorded.The arterial sheath was pulled and manual compression applied until hemostasis is achieved. CORONARY ANGIOGRAPHY DOMINANCE: Right Dominant LEFT HEART ASSESSMENT Left Ventricular Ejection Fraction: by LV Gram 50 % Inferior Basal Hypokinesis - Severe. Inferior Mid Hypokinesis Elevated Left Ventricular End Diastolic Pressure LVEDP: 19 mmHg LEFT MAIN: Angiographically normal LEFT ANTERIOR DECENDING ARTERY: MID LAD: Previously placed stent is patent with minimal luminal irregularities CIRCUMFLEX ARTERY: PROX CIRC: Eccentric: 85 % Stenosis RIGHT CORONARY ARTERY: PROX RCA: is occluded DISTAL RCA: RPDA: RAVS: Fills from left to right collateral flow COLLATERAL FLOW: Collateral flow from Left to Right VALVE FINDINGS: Normal Aortic Valve function Normal Mitral Valve function AORTIC ROOT: Angiographically normal COMPLICATIONS No Complications PROCEDURE MEDICATIONS Versed 1 mg IV Versed 1 mg IV Oxygen: 2 L/min via nasal cannula Brilinta 180 mg PO @ 12/23/2017 14:48:40 SUMMARY OF HEMODYNAMIC DATA Time AIR REST ECG 15:18:06 AO 140/94 (115) SA 15:48:02 LV 137/13, 21 15:58:55 LV 138/14, 19 15:59:01 LV 140/8, 22 15:59:59 LVp 142/4, 15 16:00:05 AOp 143/87 (110) 16:00:10 Signed By Mesfin Duran MD On 12/23/2017 16:26:28 Mesfin Duran MD
--- NOTE | 2017-12-23 16:48 | NURSING ---
[facility]sa VS TAKEN LATE DUE TO PT OFF FLOOR FOR PROCEDURE
--- NOTE | 2017-12-23 16:56 | NURSING ---
juancarlos from transfer line wanted report on pt and will get transfer paper started.
--- NOTE | 2017-12-23 17:10 | PCM.DC.SUM ---
Discharge Date and Diagnosis Date of Admission: 12/23/17 Date of Discharge: 12/23/17 - Primary Discharge Diagnosis Active and Suspected Problems Unstable angina (Acute) unstable angina secondary to multivessel coronary artery disease and progression of coronary atherosclerosis Patient requires CABG and being transferred to [facility], CT surgery - Secondary Discharge Diagnosis Chronic Problems S/P PTCA (percutaneous transluminal coronary angioplasty) (Chronic) History of illicit drug use (Chronic) History of coronary angioplasty (Chronic) History of medication noncompliance (Chronic) History of migraine (Chronic) Lumbar radiculopathy (Chronic) HLD (hyperlipidemia) (Chronic) Depression (Chronic) CAD (coronary artery disease) (Chronic) status post stent in LAD 2008; status post cardiac catheterization 10/2013 showing coronary artery disease but not requiring intervention, recommended aggressive medical management Complicated migraine (Chronic) COPD (chronic obstructive pulmonary disease) (Chronic) Tobacco user (Chronic) Benign essential hypertension (Chronic) Hospital Course and Treatment Summary of Care Provided: [] The patient is a 57 year old M with history of coronary artery disease with a stent in LAD 2008 with repeat cath in October 2013 which did not require PCI and noncompliant to medications and office follow-up came to ER with chest pain that happened noteman on 12/23/2017. Patient complained he felt chest heaviness that radiated to his right carotid and woke him up at 2 AM which lasted for about a minute and then it subsided after drinking cold water. He felt similar chest heaviness about 4 AM but subsided after taking nitro spray and repeat chest heaviness at 6 AM which made him to come to ER. He also felt mild shortness of breath at the time of chest pain, nausea but no palpitation or diaphoresis. He had some chest heaviness during lawnmowing about a week ago. He had last admission in December 2016 for chest pain. He had nuclear stress test done which was negative. He also had chest CTA which was negative for PE. In ER, his vitals were stable. EKG shows normal sinus rhythm at 85 bpm with no significant change from previous EKG of December 2016. Basic lab work in ER shows K3.4. The patient follows Dr. Duran. 1. unstable angina secondary to multivessel coronary artery disease and progression of coronary atherosclerosis: Patient was being admitted in PCU. On ACS protocol. 3 serial troponin enzymes are negative patient is already on Plavix, metoprolol and atorvastatin but he is noncompliant. Patient was given Brilinta by government minister prior to cardiac cath. The patient had cardiac cath today through right femoral art access and reported as right dominant circulation with EF 50% by LV gram. Severe inferior mid hypokinesis with elevated left ventricular end-diastolic pressure. Proximal circumflex eccentric 85% stenosis. Proximal RCA occluded with distal RCA fills from left to right collateral flow. Normal mitral and aortic valve function. Previously placed stent in mid LAD patent. Continue Plavix, metoprolol and atorvastatin. 2. Coronary artery disease status post stent: 3. Dyslipidemia most probably secondary to noncompliance: Fasting lipid profile shows triglyceride 507, total cholesterol 256. Total cholesterol and VLDL could not be estimated because of triglyceride being too high. Continue atorvastatin. 3. COPD with chronic smoker: Patient said he is diagnosed COPD most probably based on PFT but the report is not available. Currently not in exacerbation. Continue inhalers. Started on Symbicort Mild hypokalemia, K3.4: Potassium replaced Mild hypertension: Blood pressure is 144/92. Start on low-dose of lisinopril. DVT prophylaxis: On heparin 5000 SQ twice daily and bilateral SCDs. Hold heparin for about 10-12 hours because of right femoral cardiac cath Refractive Surgeon, Dr. Duran discussed with Dr. Spencer, CT surgeon at [facility] and patient is accepted for cardiac bypass surgery. The patient is being transferred to [facility] for evaluation of CABG. This note was generated with [employer] dictation software. Every effort was made to ensure accuracy, however computerized board writer mistakes may persist. Home Medications: Medications to take at Discharge Atorvastatin Calcium [Lipitor] 80 mg PO QHS 02/03/15 Metoprolol Tartrate [Lopressor (beta randa)] 50 mg PO BID 02/03/15 Pramipexole Di-HCl [Mirapex] 0.25 mg PO TID 02/03/15 Clopidogrel Bisulfate [Plavix] 75 mg PO DAILY 10/26/16 Primary Care Physician: Awa Chavez MD [Primary Care Provider] - Medical Necessity - Tobacco Use Smoking Status: Current every day smoker Meaningful Use Info Meaningful Use Diagnoses (Choose all that apply): None applicable Code Visit OBSV E&M: 54908 Observ/hosp same date L3
--- NOTE | 2017-12-23 17:19 | DS.PCM_ITS ---
Discharge Date and Diagnosis Date of Admission: 12/23/17 Date of Discharge: 12/23/17 - Primary Discharge Diagnosis Active and Suspected Problems Unstable angina (Acute) unstable angina secondary to multivessel coronary artery disease and progression of coronary atherosclerosis Patient requires CABG and being transferred to [facility], CT surgery - Secondary Discharge Diagnosis Chronic Problems S/P PTCA (percutaneous transluminal coronary angioplasty) (Chronic) History of illicit drug use (Chronic) History of coronary angioplasty (Chronic) History of medication noncompliance (Chronic) History of migraine (Chronic) Lumbar radiculopathy (Chronic) HLD (hyperlipidemia) (Chronic) Depression (Chronic) CAD (coronary artery disease) (Chronic) status post stent in LAD 2008; status post cardiac catheterization 10/2013 showing coronary artery disease but not requiring intervention, recommended aggressive medical management Complicated migraine (Chronic) COPD (chronic obstructive pulmonary disease) (Chronic) Tobacco user (Chronic) Benign essential hypertension (Chronic) Hospital Course and Treatment Summary of Care Provided: [] The patient is a 57 year old M with history of coronary artery disease with a stent in LAD 2008 with repeat cath in October 2013 which did not require PCI and noncompliant to medications and office follow-up 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 Patient complained he felt chest heaviness that radiated to his right carotid and woke him up at 2 AM which lasted for about a minute and then it subsided after drinking cold water. He felt similar chest heaviness about 4 AM but subsided after taking nitro spray and repeat chest heaviness at 6 AM which made him to come to ER. He also felt mild shortness of breath at the time of chest pain, nausea but no palpitation or diaphoresis. He had some chest heaviness during lawnmowing about a week ago. He had last admission in December 2016 for chest pain. He had nuclear stress test done which was negative. He also had chest CTA which was negative for PE. In ER, his vitals were stable. EKG shows normal sinus rhythm at 85 bpm with no significant change from previous EKG of December 2016. Basic lab work in ER shows K3.4. The patient follows Dr. Duran. 1. unstable angina secondary to multivessel coronary artery disease and progression of coronary atherosclerosis: Patient was being admitted in PCU. On ACS protocol. 3 serial troponin enzymes are negative patient is already on Plavix, metoprolol and atorvastatin but he is noncompliant. Patient was given Brilinta by paver prior to cardiac cath. The patient had cardiac cath today through right femoral art access and reported as right dominant circulation with EF 50% by LV gram. Severe inferior mid hypokinesis with elevated left ventricular end-diastolic pressure. Proximal circumflex eccentric 85% stenosis. Proximal RCA occluded with distal RCA fills from left to right collateral flow. Normal mitral and aortic valve function. Previously placed stent in mid LAD patent. Continue Plavix, metoprolol and atorvastatin. 2. Coronary artery disease status post stent: 3. Dyslipidemia most probably secondary to noncompliance: Fasting lipid profile shows triglyceride 507, total cholesterol 256. Total cholesterol and VLDL could not be estimated because of triglyceride being too high. Continue atorvastatin. 3. COPD with chronic smoker: Patient said he is diagnosed COPD most probably based on PFT but the report is not available. Currently not in exacerbation. Continue inhalers. Started on Symbicort Mild hypokalemia, K3.4: Potassium replaced Mild hypertension: Blood pressure is 144/92. Start on low-dose of lisinopril. DVT prophylaxis: On heparin 5000 SQ twice daily and bilateral SCDs. Hold heparin for about 10-12 hours because of right femoral cardiac cath [facility] Office Supervisor, Dr. Duran discussed with Dr. Spencer, CT surgeon at [facility] and patient is accepted for cardiac bypass surgery. The patient is being transferred to [facility] for evaluation of CABG. This note was generated with [employer] dictation software. Every effort was made to ensure accuracy, however computerized instructor military science mistakes may persist. Home Medications: Medications to take at Discharge Atorvastatin Calcium [Lipitor] 80 mg PO QHS 02/03/15 Metoprolol Tartrate [Lopressor (beta randa)] 50 mg PO BID 02/03/15 Pramipexole Di-HCl [Mirapex] 0.25 mg PO TID 02/03/15 Clopidogrel Bisulfate [Plavix] 75 mg PO DAILY 10/26/16 Primary Care Physician: Awa Chavez MD [Primary Care Provider] - Medical Necessity - Tobacco Use Smoking Status: Current every day smoker Meaningful Use Info Meaningful Use Diagnoses (Choose all that apply): None applicable Code Visit OBSV E&M: 71754 Observ/hosp same date L3
[2017-12-23] MEDS: Budesonide Respules 0.5 MG/2 ML AMPUL.NEB. INHALATION (19:35)
--- NOTE | 2017-12-23 19:45 | NURSING ---
Received call from [facility] requesting report on patient Jeff Beckwith. Nurse Chrissie Cox from [facility] stated they had bed number [id number] available. report was given to this nurse and informed [facility] nurse that pt. was on bedrest until 2044. [facility] nurse verbalized understanding. [facility] nurse to be called when pt. leaving [facility].
--- NOTE | 2017-12-23 20:45 | NURSING ---
Pt. up out of bed walking, no distress noted,R groin site WNL. No bleeding , no edema, slight ecchymosis, no change from previous.
[2017-12-23] MEDS: Atorvastatin Calcium 80 MG Tablet PO (21:30)
[2017-12-23] MEDS: 0.9% NaCl Peripheral Flush Adult/Peds IV (22:00)
[2017-12-23] MEDS: HYDROmorphone 1 MG/ML Syringe IV (22:00)
== END 2017-12-23 23:05 | disposition short-term general hospital (02) ==
LOC: ED 07:34 → PCU 08:31
PROVIDERS: Admitting Provider Internal Medicine; Emergency Provider Emergency Medicine; Family Provider Internal Medicine; PCP Internal Medicine; Visit Provider Internal Medicine
DX: I25.110 Atherosclerotic heart disease of native coronary artery with unstable angina pectoris (principal); I10 Essential (primary) hypertension; E78.5 Hyperlipidemia, unspecified; J44.9 Chronic obstructive pulmonary disease, unspecified; Z91.14 Patient's other noncompliance with medication regimen; F12.90 Cannabis use, unspecified, uncomplicated; G43.909 Migraine, unspecified, not intractable, without status migrainosus; F17.200 Nicotine dependence, unspecified, uncomplicated; E87.6 Hypokalemia; Z95.5 Presence of coronary angioplasty implant and graft; Z79.02 Long term (current) use of antithrombotics/antiplatelets; Z79.899 Other long term (current) drug therapy
CPT/HCPCS: 36415; 71045; 80048; 80061; 84443; 84484; 85025; 93005; 93458; 94640; 96374; 99152; 99153; 99218; 99285; 99406; J7030; Q9967; A4216; C1769; C1894; G0378

== ENCOUNTER 2018-02-27 17:52 | Emergency (ER) | payer MEDICARE, SELFPAY ==
[2018-02-27 17:52] VITALS: BP 129/83; PULSE 95; RESP 16; TEMP 36.6; O2SAT 99; BMI 29.0
[2018-02-27 18:36] VITALS: PULSE 84; RESP 16; O2SAT 95
--- NOTE | 2018-02-27 18:39 | EKG12_ITS ---
Test Reason : CP RIGHT SIDED Blood Pressure : / mmHG Vent. Rate : 083 BPM Atrial Rate : 083 BPM P-R Int : 146 ms QRS Dur : 088 ms QT Int : 366 ms P-R-T Axes : 019 090 064 degrees QTc Int : 430 ms Normal sinus rhythm Possible Left atrial enlargement Rightward axis Borderline ECG Confirmed by JEFFERSON WHITAKER ([id number]), news editor PRADIP ÁLVAREZ ([id number]) on 03/03/2018 2:22:12 PM Referred By: Lj Ackerman Confirmed By:JEFFERSON WHITAKER
[2018-02-27] MEDS: Aspirin 81 MG TAB.CHEW 324 MG PO (19:11)
[2018-02-27 19:31] VITALS: BP 114/83; PULSE 82; RESP 15; O2SAT 98
[2018-02-27 19:35] LABS: Absolute Lymphocyte Count 2.02 X10^3/ul (0.83-4.51); Absolute Neutrophil Count 3.2 X10^3/uL (2.0-7.7); Basophil# 0.03 X10^3/uL; Basophil% 0.5 % (0-1); Eosinophils% 3.4 % (0-5); Hematocrit 42.9 % (40-54); Hemoglobin 13.8 g/dl (13.0-16.5); Lymphocyte # 2.02 X10^3/ul (4.0); Lymphocyte % 34.6 % (19-41); Mean Corp Hgb Conc 32.2 g/gl (32-36); Mean Corpuscular Hgb 29.2 pg (27.0-32.0); Mean Corpuscular Volume 90.9 fL (80-94); Mean Platelet Vol. 10.2 fl (6.2-12.0); Monocyte# 0.34 X10^3/uL; Monocyte% 5.8 % (0-10); Neutrophil # 3.24 X10^3/uL (2.7-7.7); Neutrophil % 55.5 % (47-70); Platelet Count 263 K/mm3 (150-450); RBC Distribution Width SD 46.1 fl (35.1-43.9); Red Blood Count 4.72 M/mm3 (4.6-6.2); White Blood Count 5.8 K/mm3 (4.4-11.0)
[2018-02-27 19:40] LABS: Anion Gap 7 (5-15); BUN 15 mg/dL (7-18); BUN/Creat Ratio 12.6 RATIO (10-20); Calcium,Total 9.2 mg/dL (8.5-10.1); Chloride 110 mmol/L (98-107); Creatinine, Serum 1.19 mg/dL (0.70-1.30); Differential Indicated SCAN CRITERIA MET; EST Glomerular Filtration Rate 67 mL/min (>60); Est Glom Filt Rate - Afr Amer 81 mL/min (>60); Estimated Creatinine Clearance 62.55 ml/min; Glucose 85 mg/dL (74-106); POSITIVE COUNT NO; POSITIVE DIFFERENTIAL NO; POSITIVE MORPHOLOGY YES; Potassium 4.1 mmol/L (3.5-5.1); Sodium Level 141 mmol/L (136-145)
[2018-02-27 21:04] LABS: Differential Comment SCANNED; Platelet Estimate ADEQUATE (ADEQ)
--- NOTE | 2018-02-27 21:46 | ED.DCSUM_ITS ---
- ER Visit Summary Date of Service: 02/27/18 Chief Complaint: Chest pain History of Present Illness: The patient is a [address] Roger Chavez. Patient has a history of a 2 vessel CABG December 27 at [facility]. Reports that yesterday he developed episodes of right-sided chest pain that are intermittent and lasts seconds at a time. Patient states pain is 410 at worst and is pain-free currently. Is brought on by laying on his right side or stooping down. Patient does report that he has been slightly short of breath. However, he denies any chest pain with exertion. He does state that he has been more fatigued than usual. He is actually scheduled to have a stress test in 4 days. Physical Examination: Vitals: Stable. Afebrile. General: Well-nourished and well-developed. Head: Normocephalic atraumatic. Neck: Supple, no lymphadenopathy. No JVD. Nontender. Cardiovascular: Regular rate and rhythm. No murmurs. Respiratory: No respiratory distress. Clear to auscultation bilaterally. Abdominal: Soft, nontender, nondistended, normal bowel sounds. No guarding, rebound, or peritoneal signs. Back: Nontender. Extremities: Nontender, no edema. Skin: Normal color, no rash. Neurologic: Alert and oriented ?3. Cranial nerves II through XII are intact. Normal strength and sensation. Psych: Normal affect. Test Results: EKG is sinus at 83 with no acute changes. CBC is normal. Chem-7 is remarkable for chloride 110. Troponin is negative. Chest x-ray is normal. Emergency Department Course and Treatment: Patient feels well. He refused pain medications. Treatment Plan: Patient was discussed with Dr. Cruz. His pain is very atypical. It is felt that he is a suitable candidate for outpatient stress test in 4 days as previously scheduled. Patient is happy with this plan. Return to the emergency department for any worsening symptoms. Disposition: To home in improved and stable condition. Impression: 1. Atypical chest pain. This note was generated with [employer] Data[employer] software. It may contain incorrect words, spelling, and punctuation that were not noted in review of the chart prior to signing ED Disposition - Plan for ED Patient: Disposition: Home or Assisted Living Chief Complaint: Chest Other Instructions: ED Chest Pain Atypical Unkn Cause Referrals: Mesfin Duran MD [STAFF PHYSICIAN] - Keep George appointment
[2018-02-27 22:03] VITALS: BP 122/86; PULSE 88; RESP 16; O2SAT 95
== END 2018-02-27 22:03 | disposition home or self-care (01) ==
PROVIDERS: Emergency Provider Emergency Medicine; Family Provider Internal Medicine; PCP Internal Medicine
DX: R07.89 Other chest pain (principal); R06.00 Dyspnea, unspecified; R61 Generalized hyperhidrosis; R53.83 Other fatigue; I25.10 Atherosclerotic heart disease of native coronary artery without angina pectoris; J44.9 Chronic obstructive pulmonary disease, unspecified; I10 Essential (primary) hypertension; E78.00 Pure hypercholesterolemia, unspecified; Z86.73 Personal history of transient ischemic attack (TIA), and cerebral infarction without residual deficits; Z95.1 Presence of aortocoronary bypass graft; Z79.82 Long term (current) use of aspirin; Z79.899 Other long term (current) drug therapy; F17.200 Nicotine dependence, unspecified, uncomplicated
CPT/HCPCS: 71045; 80048; 84484; 85025; 93005; 99285

== ENCOUNTER → 2018-03-10 11:50 | Outpatient (CLI) | payer MEDICARE, SELFPAY ==
--- NOTE | 2018-03-10 19:43 | STRESSREP_ITS ---
Stress Test Report Date: 03/10/2018 Procedure: Exercise tolerance test Indications: CAD; status post PCI; status post CABG; precardiac rehabilitation evaluation Consent: Per the patient Procedure: The patient exercised on a Wolfgang protocol for 9 minutes completing Stage 3 achieving a peak heart rate of 155 bpm (94 % predicted maximal heart rate) with a peak blood pressure 158/90 mmHg and a peak MET capacity of approximately 10 MET's. The baseline ECG demonstrated normal sinus rhythm. The peak exercise ECG demonstrated no obvious ECG changes. There a rare PVC during exercise and recovery. The functional capacity was considered good. The patient had no complaint of chest discomfort during exercise or recovery. The examination was discontinued secondary to dyspnea. Impression: 1. Technically adequate (percent predicted maximal heart rate greater than 85% ) exercise tolerance test 2. Peak exercise ECG with no obvious ECG changes 3. There was a rare PVC during exercise and recovery This note was generated with [employer] software. It may contain incorrect words, spelling, and punctuation that were not noted in checking the note before signing.
== END ==
PROVIDERS: Family Provider Internal Medicine; PCP Internal Medicine; Visit Provider Internal Medicine Cardiovascular Disease
DX: I25.10 Atherosclerotic heart disease of native coronary artery without angina pectoris (principal); Z95.5 Presence of coronary angioplasty implant and graft
CPT/HCPCS: 93017

== ENCOUNTER → 2018-03-30 13:04 | Outpatient (CLI) | payer MEDICARE, SELFPAY ==
--- NOTE | 2018-03-30 13:09 | PCM.CR.HP2 ---
CR - History & Physical - General Arrival date:: 03/30/18 Arrival time:: 13:09 Date of Referral:: 12/27/17 Date of CR Evaluation:: 03/30/18 Referring Physician: Dr. Mesfin Duran Primary Diagnosis: Z95.1 CABG - History of Present Cardiac Event Onset Date: Enter Onset Date of cardiac illnesses in Comment field below Coronary Artery Bypass Graft:: Yes - Medications Home Medications: Ambulatory Orders Medication Instructions Recorded Atorvastatin Calcium [Lipitor] 80 mg PO QHS 02/03/15 aspirin 81 mg tablet,delayed 81 mg PO QDAY 01/05/18 release escitalopram 20 mg tablet 20 mg PO QDAY 01/05/18 metoprolol tartrate 25 mg tablet 25 mg PO BID tab 01/05/18 multivitamin tablet 1 tab PO QAM 01/05/18 cyclobenzaprine 10 mg tablet 10 mg PO BID tab 01/15/18 mirtazapine 15 mg tablet 15 mg PO QHS tab 01/15/18 - Allergies Allergies/Adverse Reactions: Allergies celecoxib [From Celebrex] Allergy (Verified 02/27/18 17:54) Swelling pregabalin [From Lyrica] Allergy (Verified 02/27/18 17:54) Swelling - Sleep Disorder Evaluation Hx of Sleep Apnea: Yes Do you snore loudly (louder than talking or can be heard through closed doors)?: Yes Do you often feel tired/ fatigued/ sleepy during daytime?: Yes Has anyone observed you stop breathing during sleep?: Yes History of Hypertension (for STOP score): Yes - pt declines for now STOP Results: Positive Advanced Directives - Advanced Directives Power of Management Trainer: No Living Will: No Advance Directives Information Provided: No Advance Directives on File: No DNR Order?:: No Past Medical History - Past Medical Illness Medical History: Past Medical History (Last Reviewed 01/15/18 @ 15:16 by Radha Hyde) Atherosclerotic heart disease of [place] coronary artery without angina pectoris (Chronic) I25.10 PTCA/Stent to LAD 2008; CABG x2- AVALOS to OM, DANYELL to RCA 12/27/17 History of illicit drug use (Chronic) Z87.898 History of medication noncompliance (Chronic) Z91.14 Lumbar radiculopathy (Chronic) M54.16 HLD (hyperlipidemia) (Chronic) E78.5 Depression (Chronic) F32.9 Complicated migraine (Chronic) G43.109 COPD (chronic obstructive pulmonary disease) (Chronic) J44.9 Tobacco user (Chronic) Z72.0 Benign essential hypertension (Chronic) I10 Chest pain (Resolved) R07.9 Unstable angina (Resolved) I20.0 - Past Surgical History Surgical History: Past Surgical History (Last Updated 02/06/18 @ 08:20 by Anita Merritt) Aortocoronary bypass status (Chronic) Onset Date: ~12/27/17 Z95.1 CABG x2- AVALOS to OM2, DANYELL to RCA 12/27/17 @[facility] Surgical History: angioplasty, herniorrhaphy, - - Ready extent placement, bilateral carpal tunnel surgery, PCI x 1. - Family History Summary Family History: Family History (Last Updated 01/15/18 @ 15:34 by Radha Hyde) Father Myocardial infarction from [place] age 48 Uncle Myocardial infarction from [place] in 50's Social History - Smoking History Smoking Status: Current every day smoker Years Smokin Packs Smoked per Day: 1.5 Hx Tobacco Use: Yes - Alcohol Use Alcohol Usage: No - Substance Abuse Hx Substance Use: No - Occupation Occupation (List type of work in comments):: Unemployed - Hobbies, Recreation, Social Activities Hobbies: Other - [employer] pool Recreational Activities: I am able to engage in all my recreational activities Social Environment - Status Marital Status: - Current Living Arrangements Living Environment:: Spouse - Children How many children do you have?: 2 Do any of your children live nearby?: Yes - Safety Do you feel safe in your surroundings?: Yes - Assistance Do you need any assistance at home?: none Review of Systems - Review of Systems Hints: Right click = Denies (Slash). Left click = Reports ([place]) Review of Present Symptoms: Reports: Shortness of Breath at Rest, Shortness of Breath with Exertion, Fatigue, Appetite - Normal. Denies: PVD, Operative Discomfort, Angina, Wound Healing, Dizziness/Lightheadedness, Heart Arrhythmia/Irregularities, Appetite - Special Diet, Sleep - Normal, Sexual Changes - Pain Is Patient Pain Free?: Yes Pain Location: back Pain Level: 09/30 Risk Factor Assessment - Chief Complaint Chief Complaint: CABG - Vital Signs Pulse Ox: 95 - Pulse Pulse Rate: 84 Pulse Rhythm: Regular - Hypertension How long have you been treated?: 2008 Blood Pressure Sitting - Left Arm: 122/80 - Diabetes Nutrition Referral for Diabetes: No - Obesity Height: 1.68 m Weight:: 83.915 kg Weight in Pounds: 185.0 lbs Body Mass Index (BMI): 29.8 Nutritional Referral for Obesity: No - Physical Inactivity Physical Inactivity: Recreational activity - Risk Stratification Risk Guidelines: Moderate Risk: Risk Factor for Diabetes, Risk Factor for Obesity, Risk Factor for Sedentary Lifestyle, Risk Factor for Depression, Highest Risk: Risk Factor for Smoking, Risk Factor for Dyslipidemia, Risk Factor for Hypertension - For Smoking Smoking Risk Guidelines: Smoking Low Risk: None or quit greater than 6 months ago. Smoking Moderate Risk: Smoker or quit 6 months or less ago. Smoking High Risk: Smoker - For Dyslipidemia Dyslipidemia Risk Guidelines: Low Risk: Moderate Risk: High Risk: 15-25% fat 25.1-29% fat >/= 30% fat. <7% sat fat 7-9% sat fat >9% sat fat. <150 mg chol 150-299 mg chol >/= 300 mg chol. LDL <100 LDL 100-129 LDL >/= 130. Chol/HDL ratio <5.0 Chol/HDL ratio 5.0-6.0 Chol/HDL ratio >6.0. Triglycerides <100 Triglycerides 100-149 Triglycerides >/= 150 - For Diabetes Mellitus Diabetes Risk Guidelines: Diabetes Low Risk: HgA1c <6.5% and/or FBG <120. Diabetes Moderate Risk: HgA1c 6.6-7.9% and/or FBG 120-180. Diabetes High Risk: HgA1c >/= 8% and/or FBG >180 - For Obesity/Overweight Obesity/Overweight Risk Guidelines: Obesity Low Risk: BMI <25.0. Obesity Moderate Risk: BMI 25-29.9. Obesity High Risk: BMI >/= 30.0 - For Hypertension Hypertension Risk Guidelines: Hypertension Low Risk: Systolic <120 and Diastolic <80. Hypertension Moderate Risk: Systolic 120-139 and Diastolic 80-89. Hypertension High Risk: Systolic >/= 140 and Diastolic >/= 90 - For Sedentary Lifestyle Sedentary Lifestyle Risk Guidelines: Sedentary Lifestyle Low Risk: >/= 1,500 kcal/week. Sedentary Lifestyle Moderate Risk: 700-1,499 kcal/week. Sedentary Lifestyle High Risk: < 700 kcal/week - For Depression Depression Risk Guidelines: Depression Low Risk: Not clinically depressed. Depression Moderate Risk: Mildly depressed. Depression High Risk: Clinically depressed - Family History Family History: Family History (Last Updated 01/15/18 @ 15:34 by Radha Hyde) Father Myocardial infarction Uncle Myocardial infarction Motivation - Motivation to Participate On a scale of 1 to 10, how prepared are you to commit to attending program?: 7 What do you see as barriers to successfully being able to complete the program?: none What do you see as the benefits of succesfully completing the program? In other words, what do you hope to get out of participating in the program?: strenghten heart Are there issues you are dealing with that will interfere with completing the program?: none Do you have a spouse or signficant other, family or friends who will help support you to complete the program?: yes
[2018-03-30 13:57] VITALS: BP 122/80; PULSE 84; O2SAT 95; BMI 29.8
--- NOTE | 2018-03-30 13:58 | PCM.CR.ITP ---
General Information - General Information Admitting Diagnosis: Z95.1 CABG - Education/Goals Individual Counseling: Initial Assessment: Nicotine/Smoking Cardiac Rehabilitation Goals: 1. Maintain the individual as the primary focus of care. 2. To improve the patient's quality of life. 3. Identification of cardiac risk factors and provide cardiac risk factor management. 4. Enhance the psychosocial status of the patient. 5. Reconditioning enough to allow the patient to resume customary activities. 6. Control symptoms of cardiac disease Scale for measuring improvement of personal goals: Enter appropriate number in Comments. 2 = Unchanged. 3 = Slightly Better. 4 = Moderate Improvement. 5 = Met my Goal Personal Goals: Initial Assessment: Quit smoking (participate in smoking cessation, Improve energy level, Get back to work, or to resume activities faster, Improve knowledge of cardiac disease, Improve muscle strength and endurance, Improve diet and eating habits (eat healthier), Control risk factors (learn risk factor modification) Exercise - Initial Assessment - Visit Date of Eval: 03/30/18 - Inital Evvt - Stages of Change Stages of Change:: Contemplate - Exercise Prescription Mode:: Treadmill, Biodyne, Airdyne, NuStep, Arm Ergometer Angina with exercise?: No Target Heart Rate:: 122-131 - Hypertension Do any of the following apply?: Yes Resting Blood Pressure:: 122/80 - Intervention Home Exercise/Activity Goal:: Sitting Time <3 hrs/day - Education Goals:: Warm-up, RPE NATE Scale, S/S, Safe Exercise, Self-Monitoring - Exercise Program Goals Exercise Program Goals: Aerobic Activity >30 min, B/P <130/80 Nutrition - Initial Assessment - Program Goals Nutrition Program Goals: LDL <70. Total Cholesterol <200. HDL >45. Triglycerides <150. HgbA1C <7%. BMI <25 - Visit Date of Assessment:: 03/30/18 - Stages of Change Stages of Change:: Action - Diabetes Diabetes:: No - Weight Management Height: 1.68 m Weight:: 83.915 kg Total Score:: 5 - Intervention Referral to dietitian:: No Referral to Diabetic Clinic:: No Will attend diet classes:: Yes - Education Gave educational materials for:: Signs & symptoms of hypoglycemia, Signs & symptoms of hyperglycemia, Relate diabetes to coronary artery disease, Healthy eating Tobacco - Initial Assessment - Program Goals Tobacco Program Goals: Complete smoking cessation. Attend education classes. Improve Knowledge Test score - Stage of Change Stages of Change:: Maintenance - Learning Barriers Total Score:: 14 - Family Support Do you have family support?: Yes - Tobacco Use Tobacco Use: Cigarettes How many cigarettes do you smoke per day?: 30 Years Smokin Do you use smokeless tobacco?: No - Intervention Smoking Cessation Referral:: Yes Individual Education/Counseling:: Yes Education Schedule Given:: Yes - Education Gave educational material for:: Tobacco triggers, Coronary artery disease, Risk factors, Sexuality, Medical compliance, Cardiac A&P, Angina signs & symptoms Psychosocial - Initial Assess - Target Goals Target Goals: Assess presence or absence of depression. Using a valid screening tool, maximizes coping skills. Positive support system - Stages of Change Stages of Change:: Action - Psychosocial Test Tool Used:: HANDS Depression Questionnaire Total Mood Screening Score:: 17 Self-Efficacy Score:: 2 - Intervention PS - Interventions: Yes Attend Stress Management Classes, Yes Uses Stress Management Skills, No Referral to Mental Health, No Referral to [facility] Case Management, No Referral to Physician - Education Gave educational materials for:: Coping techniques, Signs & symptoms of depression, Stress management, Relaxation techniques - Assistive Devices Assistive Devices:: None Fall Risk Assessed:: Yes Patient Health Questionnaire Initial Assessment 1. Little interest or pleasure in doing things: Not at all 2. Feeling down, depressed, or hopeless: More than half the days 3. Trouble falling or staying asleep, or sleeping too much: Nearly every day 4. Feeling tired or having little energy: More than half the days 5. Poor appetite or overeating: Nearly every day 6. Feeling bad about yourself -- or that you are a failure or have let yourself or your family down: More than half the days 7. Trouble concentrating on things, such as reading the newspaper or watching television: Several days 8. Moving or speaking so slowly that other people could have noticed. Or the opposite - being so fidgety or restless that you have been moving around a lot more than usual: More than half the days 9. Thoughts that you would be better off , or of hurting yourself in some way: More than half the days - Information given for mental health eval. Pt an spouse decline at this time. How difficult have these problems made it for you to do your work, take care of things at home, or get along with other people?: Somewhat difficult Total Score: 17 JUVENAL-Q SV Test - Statements CAD is a disease of the arteries in the heart: True Examples of risk factors for heart disease: True Angina is chest pain or discomfort: True The benefits of resistance training include: True Eating more meat and dairy products: False Anti-platelet medications such as aspirin are important: True The only effective way to manage stress: True An exercise warm-up slowly increases heart rate: True Prepared, processed foods usually have high sodium: False Depression is common after a heart attack: False The statin medications lower cholesterol: True To control blood pressure, lower the amount of sodium: True If someone gets chest discomfort during walking: False Transfats are partially hydrogenated vegetable oils: True Sleep apnea that is not treated increases the risk: False To control cholesterol, one should become a vegetarian: True Someone knows if he/she is exercising at the right level: False Diabetes cannot be prevented with exercise & health eating: False Stress is a large risk for heart attack: True A diet that can help lower blood pressure is rich in: True - Total Score Total Correct Responses: 14 Self-Efficacy Initial Assessment We would like to know how confident you are in doing certain activities. Please select your confidence level for:: Select your confidence level for the following using the scale 1-10 where 1 is not at all confident and 10 is totally confident. Your score is the average of all 6 responses. Fatigue: How confident are you that you can keep the fatigue caused by your disease from interfering with the things you want to do? Select Number: 1 Physical Discomfort or Pain: How confident are you that you can keep the physical discomfort or pain of your disease from interfering with the things you want to do? Select Number: 3 Emotional Distress: How confident are you that you can keep the emotional distress caused by your disease from interfering with the things you want to do? Select Number: 2 Other Symptoms or Health Problems: How confident are you that you can keep other symptoms or health problems from interfering with the things you want to do? Select Number: 4 Different Tasks and Activities: How confident are you that you can do the different tasks and activities needed to manage your health condition so as to reduce your need to see a doctor? Select Number: 1 Medication: How confident are you that you can do things other than just taking medication to reduce how much your illness affects your everyday life? Select Number: 4 Total Score:: 2 Nutrition Survey - Nutrition Survey Instructions Scoring Instructions: Scoring is as follows: Yes = 1 points. No = 0 point. Patient score that is >/=12 is considered to be at potential nutritional risk and could benefit from a referral to a registered dietitian. - Nutrition Survey Initial Have you lost >10 lbs over the past 2 months without trying?: Yes Are you following a special diet at home for diabetes, low fat, or low salt?: Yes Are you interested in meeting with a dietitian for help understanding your diet?: No Do you eat less than 3 meals a day?: Yes Do you eat fatty meats (villafuerte, sausage, ribs, etc), fried foods, desserts, large amounts of salad dressings, margarine, butter, or cheese most days?: No Do you have food allergies? [Enter types in comment field]: No Do you eat in restaurants more than 3 times a week?: No Do you season food with salt, seasoning salt, or garlic salt?: Yes Do you used canned, boxed, frozen meals, or soups, seasoning packets?: Yes Total Score:: 5
[2018-03-30 14:15] VITALS: BP 122/80
== END ==
PROVIDERS: Family Provider Internal Medicine; PCP Internal Medicine; Referring Provider Internal Medicine Cardiovascular Disease; Visit Provider Internal Medicine Cardiovascular Disease
DX: Z95.1 Presence of aortocoronary bypass graft (principal)

== ENCOUNTER 2018-04-14 01:02 | Emergency (ER) | payer MEDICARE, SELFPAY ==
[2018-04-14 01:04] VITALS: BP 163/91; PULSE 98; RESP 13; TEMP 36.9; O2SAT 99; BMI 29.5
--- NOTE | 2018-04-14 01:15 | RAD_ITS ---
STUDY: X-RAY CHEST REASON FOR EXAM: Male, 57 years old. Chest pain TECHNIQUE: Single AP portable view of the chest. COMPARISON: None. FINDINGS: Segmental atelectases are noted in the right and left lung bases. There is no demonstrated pleural abnormality. Sternal cerclage wires are present from a prior sternotomy. Normal mediastinum and moni. Normal visualized pulmonary arteries. Normal visualized aortic arch and descending thoracic aorta. Normal visualized thoracic spine. There is degenerative osteoarthritis of the bilateral shoulders. There is no demonstrated abnormality of the visualized soft tissue structures of the upper abdomen. RAD/Chest 1 View (Portable) IMPRESSION: Degenerative changes, as described above. No demonstrated acute cardiopulmonary process. Electronically Signed: Geraldo Burleson MD at 1:49 EDT Tel , Service support ,
--- NOTE | 2018-04-14 01:15 | EKG12_ITS ---
Test Reason : CP Blood Pressure : / mmHG Vent. Rate : 101 BPM Atrial Rate : 101 BPM P-R Int : 150 ms QRS Dur : 094 ms QT Int : 348 ms P-R-T Axes : 073 090 061 degrees QTc Int : 451 ms Sinus tachycardia Possible Left atrial enlargement Rightward axis Borderline ECG Confirmed by ADRYAN JONES, MESFIN ([id number]), sound editor PRADIP ÁLVAREZ ([id number]) on 04/15/2018 1:31:54 PM Referred By: Mesfin Cornelius Confirmed By:MESFIN CORNELIUS MD
[2018-04-14 01:28] VITALS: BP 113/81; PULSE 98; RESP 15; O2SAT 94
[2018-04-14 01:30] LABS: Absolute Lymphocyte Count 2.68 X10^3/ul (0.83-4.51); Absolute Neutrophil Count 4.6 X10^3/uL (2.0-7.7); Basophil# 0.03 X10^3/uL; Basophil% 0.4 % (0-1); Eosinophil# 0.29 X10^3/uL; Eosinophils% 3.6 % (0-5); Hematocrit 43.8 % (40-54); Hemoglobin 14.5 g/dl (13.0-16.5); Lymphocyte # 2.68 X10^3/ul (4.0); Lymphocyte % 33.3 % (19-41); Mean Corp Hgb Conc 33.1 g/gl (32-36); Mean Corpuscular Hgb 29.2 pg (27.0-32.0); Mean Corpuscular Volume 88.1 fL (80-94); Mean Platelet Vol. 10.4 fl (6.2-12.0); Monocyte# 0.41 X10^3/uL; Monocyte% 5.1 % (0-10); Neutrophil # 4.62 X10^3/uL (2.7-7.7); Neutrophil % 57.5 % (47-70); Platelet Count 286 K/mm3 (150-450); RBC Distribution Width CV 14.2 % (11.6-14.6); RBC Distribution Width SD 45.5 fl (35.1-43.9); Red Blood Count 4.97 M/mm3 (4.6-6.2)
[2018-04-14 01:31] LABS: POSITIVE COUNT NO; POSITIVE DIFFERENTIAL NO; POSITIVE MORPHOLOGY NO
[2018-04-14] MEDS: Aspirin 81 MG TAB.CHEW 324 MG PO (01:31)
[2018-04-14] MEDS: Morphine 4 MG/ML Syringe IV (01:32)
[2018-04-14] MEDS: Ondansetron 4 MG/2 ML Vial IV (01:32)
[2018-04-14 01:37] LABS: Anion Gap 9 (5-15); BUN 12 mg/dL (7-18); BUN/Creat Ratio 10.2 RATIO (10-20); Calcium,Total 8.8 mg/dL (8.5-10.1); Chloride 105 mmol/L (98-107); Creatinine, Serum 1.18 mg/dL (0.70-1.30); EST Glomerular Filtration Rate 68 mL/min (>60); Est Glom Filt Rate - Afr Amer 82 mL/min (>60); Estimated Creatinine Clearance 63.08 ml/min; Glucose 111 mg/dL (74-106); Potassium 3.4 mmol/L (3.5-5.1); Sodium Level 140 mmol/L (136-145)
--- NOTE | 2018-04-14 01:38 | CT_ITS ---
STUDY: CTA CHEST REASON FOR EXAM: Male, 57 years old. Chest pain. Elevated d-dimer. RADIATION DOSAGE (If Supplied By Facility): CTDIvol = ( 11.92 ) mGy, DLP = ( 654.29 ) mGycm TECHNIQUE: The examination was performed with the intravenous administration of 100ML ml of Isovue 370 contrast material. Post-processing of the angiographic images was performed, with multiplanar reformation and 3D reconstruction. Individualized dose optimization techniques were used for this CT. COMPARISON: December 27, 2016. Chest x-ray April 14, 2018. FINDINGS: Normal enhancement of the main pulmonary artery and right and left pulmonary arteries. Normal enhancement of the bilateral peripheral pulmonary arteries. There is no demonstrated pulmonary embolism. Normal thoracic aorta and visualized great vessels. There is no demonstrated aortic dissection. The heart is not enlarged. Coronary artery calcifications. No pericardial effusion. Normal mediastinum. Normal hilar regions. Normal visualized trachea and bronchi. The lungs are well expanded. Lungs are hyperinflated. Bilateral lower lobe subsegmental atelectasis. No effusions. No pneumothorax. Normal pleura. Normal chest wall structures. Sternal wires are present. Mild degenerative changes of the thoracic spine. Normal visualized upper abdomen. CT/CTA Chest W/WO Contrast IMPRESSION: No pulmonary embolus or thoracic aortic dissection. COPD. Bilateral lower lobe subsegmental atelectasis unchanged. Coronary artery calcifications. Electronically Signed: Harsh Alvarez MD at 2:42 EDT , Service support ,
--- NOTE | 2018-04-14 01:40 | ED.RN ---
lab called with critical lab results. D dimer 0.7. Dr. Chery made aware. No new orders at this time
--- NOTE | 2018-04-14 01:51 | ED.DCSUM_ITS ---
- ER Visit Summary Date of Service: 04/14/18 Chief Complaint: Chest pain History of Present Illness: The patient is a 57 M presenting with chest pain. He states this started around 10 PM tonight. He states he has had daily chest pain since his CABG in December. He states he was told it was due to the way his chest was opened. He states the chest pain is really no different than previous. He complains of bilateral hand tingling. He has had this in the past also. He states this is worsened with laying down. He states when he sits or stands this tingling goes away. He is a smoker. Denies other complaints. Physical Examination: Vitals are stable. Patient is afebrile. Alert no acute distress. HEENT exam is unremarkable. Neck is supple. Lungs are clear and equal bilaterally. Heart is regular rate and rhythm. Abdomen is soft nontender nondistended. Extremities are unremarkable. Skin is warm and dry. No focal neurologic deficit. Normal strength and sensation. Remainder of exam is unremarkable. Emergency Department Course and Treatment: EKG is sinus tachycardia rate of 101 with no acute ischemic changes. He was given aspirin, morphine, Zofran. Chest x-ray shows no acute process. CBC, chemistries unremarkable other than potassium 3.4, glucose 111. Troponin is negative. D-dimer is elevated 0.70. Due to elevated d-dimer, CTA chest was obtained and shows no PE or dissection. Delta troponin was obtained and is negative. Patient has an appointment with his pain management physician today. He states he is awaiting MRI because of his hand tingling. He is advised to follow-up as scheduled. Advised return to ED for worsening complaints. Disposition: Discharge home Impression: Chest pain, bilateral hand paresthesias This note was generated with [employer] dictation software. It may contain incorrect words, spelling, and punctuation that were not noted in review of the chart prior to signing ED Disposition - Plan for ED Patient: Chief Complaint: Chest Pain Instructions: ED Chest Pain Atypical Unkn Cause Referrals: Awa Chavez MD [Primary Care Provider] - Mesfin Duran MD [STAFF PHYSICIAN] -
[2018-04-14 03:03] VITALS: BP 129/89; PULSE 92; RESP 16; O2SAT 93
[2018-04-14 04:44] VITALS: BP 114/71; PULSE 83; RESP 13; O2SAT 91
--- NOTE | 2018-04-14 04:58 | ED.DEP ---
ED Disposition - Plan for ED Patient: Chief Complaint: Chest Pain Instructions: ED Chest Pain Atypical Unkn Cause Referrals: Awa Chavez MD [Primary Care Provider] - Mesfin Duran MD [STAFF PHYSICIAN] -
[2018-04-14 05:18] VITALS: BP 138/93; PULSE 87; RESP 17; O2SAT 99
--- NOTE | 2018-04-14 05:19 | ED.RN ---
PT GIVEN WRITTEN AND VERBAL DISCHARGE INSTRUCTIONS. PT EDUCATED NOT TO DRIVE FOR 6 HOURS AFTER HAVING NARCOTIC MEDICATION. PT VERBALIZES UNDERSTANDING OF INSTRUCTIONS, AND REPORT HE IS CALLING HIS SON FOR A RIDE HOME. PT IV D/C AND COVERED WITH 2X2 GAUZE DRESSING AND PAPER TAPE. PT DRESSES SELF AND AMBULATES OUT OF DEPT BY SELF.
== END 2018-04-14 05:22 | disposition home or self-care (01) ==
PROVIDERS: Emergency Provider Emergency Medicine; Family Provider Internal Medicine; PCP Internal Medicine
DX: R07.9 Chest pain, unspecified (principal); R20.2 Paresthesia of skin; R00.0 Tachycardia, unspecified; F17.200 Nicotine dependence, unspecified, uncomplicated; Z95.1 Presence of aortocoronary bypass graft; I10 Essential (primary) hypertension; E78.00 Pure hypercholesterolemia, unspecified; R06.00 Dyspnea, unspecified; R19.7 Diarrhea, unspecified
CPT/HCPCS: 71045; 71275; 80048; 84484; 85025; 85379; 93005; 96374; 96375; 99284; Q9967; A4216; J2405

== ENCOUNTER 2018-04-22 14:15 | Outpatient (RCR) | payer MEDICARE, SELFPAY | END 2018-04-22 23:59 | LOC: CR 14:15 | PROVIDERS: Family Provider Internal Medicine; PCP Internal Medicine; Referring Provider Internal Medicine Cardiovascular Disease; Visit Provider Internal Medicine Cardiovascular Disease | DX: Z95.1 Presence of aortocoronary bypass graft (principal); E78.5 Hyperlipidemia, unspecified | CPT/HCPCS: 93798 ==

== ENCOUNTER 2018-05-22 14:15 | Outpatient (RCR) | payer MEDICARE, SELFPAY ==
--- NOTE | 2018-05-01 10:06 | PCM.CR.ITP ---
Exercise - 30-day Assessment - Visit Date of Eval: 05/01/18 Session #:: 12 - Stages of Change Stages of Change:: Action - Exercise Prescription Mode:: Treadmill, Rower, Airdyne, NuStep Frequency (x/week): 3 Duration:: 35 METs - Progression: 0.5-1 MET as tolerated: 5.5 Target Heart Rate:: 122-131 w.max HR 136 - Hypertension Resting Blood Pressure:: 152/90 - caffeine/smoking Peak Exercise Blood Pressure:: 152/90 Medication Changes:: No - Intervention Home Exercise/Activity Goal:: Moderate Exercise 30 min/day x 5 days/wk - Education Goals:: Warm-up, RPE NATE Scale, S/S, Safe Exercise, Self-Monitoring - Exercise Program Goals Exercise Program Goals: Aerobic Activity >30 min Nutrition - 30-Day Assessment - Program Goals Nutrition Program Goals: LDL <70. Total Cholesterol <200. HDL >45. Triglycerides <150. HgbA1C <7%. BMI <25 - Visit Date of Eval: 05/01/18 - Stages of Change Stages of Change:: Action - Lipids Has the patient seen the dietitian?: No - Diabetes Diabetes:: No - Weight Management Weight:: 180 lb - loss of 5 pounds - Intervention Referral to dietitian:: No Referral to Diabetic Clinic:: No Will attend diet classes:: Yes - Education Attended class for:: Healthy eating Tobacco - 30-Day Assessment - Program Goals Tobacco Program Goals: Complete smoking cessation. Attend education classes. Improve Knowledge Test score - Stage of Change Stages of Change:: Action - Learning Barriers Learning Barriers: Participates in education - Family Support Do you have family support?: Yes - Tobacco Use Tobacco Use: Cigarettes How many cigarettes do you smoke per day?: 20 - currently smoking Do you use smokeless tobacco?: No - Intervention Smoking Cessation Referral:: Yes - Smoking Cessation to see patient in CR Individual Education/Counseling:: Yes - Individual counseling with Smoking Cessation Education Schedule Given:: Yes - Education Attended class for:: Tobacco triggers, Coronary artery disease, Risk factors, Sexuality, Medical compliance, Cardiac A&P, Angina signs & symptoms Psychosocial - Initial Assess - Target Goals Target Goals: Assess presence or absence of depression. Using a valid screening tool, maximizes coping skills. Positive support system - Psychosocial Test Tool Used:: HANDS Depression Questionnaire - Assistive Devices Fall Risk Assessed:: Yes Psychosocial - 30-Day Assess - Target Goals Target Goals: Assess presence or absence of depression. Using a valid screening tool, maximizes coping skills. Positive support system - Stages of Change Stages of Change:: Action - Psychosocial Test Tool Used:: HANDS Depression Questionnaire - Intervention PS - Interventions: Yes Referral to Mental Health - Recommend referral to Behavioral Health Services, Yes Referral to Physician - Patient scored high on PHQ-9 , Yes Attend Stress Management Classes, No Referral to [facility] Case Management, No Uses Stress Management Skills - Education Attended classes for:: Coping techniques, Signs & symptoms of depression, Stress management, Relaxation techniques - Patient/Program Goal Preventative Medication(s):: Aspirin, Clopidogrel, Beta randa, Statin/lipid - Assistive Devices Assistive Devices:: None Fall Risk Assessed:: Yes Psychosocial - 60-Day Assess - Target Goals Target Goals: Assess presence or absence of depression. Using a valid screening tool, maximizes coping skills. Positive support system - Stages of Change Stages of Change:: Action - Psychosocial Test Tool Used:: HANDS Depression Questionnaire Patient Health Questionnaire 30-Day Re-eval Assessment 1. Little interest or pleasure in doing things: Not at all 2. Feeling down, depressed, or hopeless: Several days 3. Trouble falling or staying asleep, or sleeping too much: More than half the days 4. Feeling tired or having little energy: Several days 5. Poor appetite or overeating: More than half the days 6. Feeling bad about yourself -- or that you are a failure or have let yourself or your family down: Several days 7. Trouble concentrating on things, such as reading the newspaper or watching television: Not at all 8. Moving or speaking so slowly that other people could have noticed. Or the opposite - being so fidgety or restless that you have been moving around a lot more than usual: Several days 9. Thoughts that you would be better off , or of hurting yourself in some way: Several days How difficult have these problems made it for you to do your work, take care of things at home, or get along with other people?: Somewhat difficult Total Score: 9 Self-Efficacy 30-Day Re-eval Assessment We would like to know how confident you are in doing certain activities. Please select your confidence level for:: Select your confidence level for the following using the scale 1-10 where 1 is not at all confident and 10 is totally confident. Your score is the average of all 6 responses. Fatigue: How confident are you that you can keep the fatigue caused by your disease from interfering with the things you want to do? Select Number: 2 Physical Discomfort or Pain: How confident are you that you can keep the physical discomfort or pain of your disease from interfering with the things you want to do? Select Number: 4 Emotional Distress: How confident are you that you can keep the emotional distress caused by your disease from interfering with the things you want to do? Select Number: 3 Other Symptoms or Health Problems: How confident are you that you can keep other symptoms or health problems from interfering with the things you want to do? Select Number: 5 Different Tasks and Activities: How confident are you that you can do the different tasks and activities needed to manage your health condition so as to reduce your need to see a doctor? Select Number: 3 Medication: How confident are you that you can do things other than just taking medication to reduce how much your illness affects your everyday life? Select Number: 6 Total Score:: 3
[2018-05-01 10:13] VITALS: BP 152/90
== END 2018-05-22 23:59 ==
LOC: CR 14:15
PROVIDERS: Family Provider Internal Medicine; PCP Internal Medicine; Referring Provider Internal Medicine Cardiovascular Disease; Visit Provider Internal Medicine Cardiovascular Disease
DX: I25.10 Atherosclerotic heart disease of native coronary artery without angina pectoris (principal); E78.5 Hyperlipidemia, unspecified; Z95.1 Presence of aortocoronary bypass graft; Z95.5 Presence of coronary angioplasty implant and graft
CPT/HCPCS: 93798

== ENCOUNTER 2018-06-12 16:36 | Emergency (ER) | payer MEDICARE, SELFPAY ==
[2018-06-12 16:37] VITALS: BP 147/90; PULSE 86; RESP 16; TEMP 36.8; O2SAT 98; BMI 27.7
--- NOTE | 2018-06-12 17:39 | ED.VISSUMM ---
- ER Visit Summary Date of Service: 06/12/18 Chief Complaint: Not taking his medications History of Present Illness: The patient is a 57 M who is been off of his medications for 2-1/2 months. His crisis counselor was concerned and sent him in. He states he has been hallucinating since been off of his medications. When I asked about suicidal ideation he says he has no suicidal thoughts that I need to talk about. Physical Examination: Vital signs reviewed. HEENT exam unremarkable. Heart is regular rate and rhythm without murmurs. Lungs are clear to auscultation. Abdomen is soft and nontender. Extremities reveal no edema. Skin exam normal. Neurologic exam normal. Patient is hallucinating. He has poor insight and poor judgment. Test Results: Laboratory studies are unremarkable except for cannabis in the tox screen Emergency Department Course and Treatment: Patient was evaluated by crisis. This is more of a behavioral issue because he is off of his medications. He told the crisis counselor that he was not hallucinating. He is not suicidal. He never said he was suicidal to me. He states that when he is off his medications his serotonin levels go low. He is agreed to go back on all of his medications. He has these at home and will follow up with Dr. Chavez Treatment Plan: [] Disposition: Discharge Impression: Medication noncompliance This note was generated with [employer] dictation software. It may contain incorrect words, spelling, and punctuation that were not noted in review of the chart prior to signing ED Disposition - Plan for ED Patient: Chief Complaint: Mental Health Referrals: Awa Chavez MD [Primary Care Provider] -
[2018-06-12 18:41] LABS: Anion Gap 9 (5-15); BUN 14 mg/dL (7-18); BUN/Creat Ratio 15.4 RATIO (10-20); Calcium,Total 9.3 mg/dL (8.5-10.1); Chloride 106 mmol/L (98-107); Creatinine, Serum 0.91 mg/dL (0.70-1.30); EST Glomerular Filtration Rate 91 mL/min (>60); Est Glom Filt Rate - Afr Amer 111 mL/min (>60); Estimated Creatinine Clearance 81.79 ml/min; Glucose 94 mg/dL (74-106); Potassium 3.9 mmol/L (3.5-5.1); Sodium Level 139 mmol/L (136-145)
[2018-06-12 18:42] LABS: Absolute Lymphocyte Count 1.29 X10^3/ul (0.83-4.51); Absolute Neutrophil Count 3.3 X10^3/uL (2.0-7.7); Basophil# 0.02 X10^3/uL; Basophil% 0.4 % (0-1); Hematocrit 45.2 % (40-54); Hemoglobin 14.9 g/dl (13.0-16.5); Lymphocyte # 1.29 X10^3/ul (4.0); Lymphocyte % 25.9 % (19-41); Mean Corpuscular Hgb 29.4 pg (27.0-32.0); Mean Corpuscular Volume 89.2 fL (80-94); Mean Platelet Vol. 10.4 fl (6.2-12.0); Neutrophil # 3.28 X10^3/uL (2.7-7.7); Neutrophil % 65.7 % (47-70); Platelet Count 264 K/mm3 (150-450); RBC Distribution Width CV 14.3 % (11.6-14.6); RBC Distribution Width SD 46.1 fl (35.1-43.9); Red Blood Count 5.07 M/mm3 (4.6-6.2)
[2018-06-12 18:43] LABS: POSITIVE COUNT NO; POSITIVE DIFFERENTIAL NO; POSITIVE MORPHOLOGY NO
--- NOTE | 2018-06-12 18:52 | ED.RN ---
PT REPEATEDLY TELLING STAFF THAT HE IS GOING TO RUN. PT AWARE OF PINK SLIP STATUS.PT TELLS HOSPITAL RESOURCE OFFICER REMAINS IN DEPARTMENT AT THIS TIME
[2018-06-12 19:15] LABS: Amphetamine Urine VISTA NEGATIVE (<1000 ng/mL); Barbiturate Urine VISTA NEGATIVE (< 200 ng/mL); Benzodiazepine Urine VISTA NEGATIVE (< 200 ng/mL); Cocaine Urine VISTA NEGATIVE (< 300 ng/mL); Ecstacy Urine VISTA NEGATIVE (< 500 ng/mL); Methadone Urine VISTA NEGATIVE (< 300 ng/mL); PCP Urine VISTA NEGATIVE (< 25 ng/mL); THC Urine VISTA POSITIVE (< 50 ng/mL); Vista UDS pH Range 6
--- NOTE | 2018-06-12 19:28 | ED.RN ---
CALLED COUNSELING CENTER. BULKING MACHINE OPERATOR STATED SULMA WILL BE HERE TO SEE PT AFTER SHE IS DONE AT A DIFFERENT FACILITY.
[2018-06-12 19:29] VITALS: RESP 18
[2018-06-12 20:00] VITALS: RESP 18
--- NOTE | 2018-06-12 20:55 | ED.RN ---
SULMA FROM [facility] IS ON HER WAY FROM [facility].
[2018-06-12 21:00] VITALS: BP 157/104; PULSE 92; RESP 20; O2SAT 96
--- NOTE | 2018-06-12 21:28 | ED.RN ---
THIS RN DISCUSSED WITH PATIENT THAT HE WAS PINK SLIPPED AND NOT ALLOWED TO LEAVE. HE STATES HE WANTS THE DOCTOR IN HERE NOW. WHEN TOLD THE DOCTOR WAS SEEING OTHER PATIENTS AND THE CRISIS COUNSELORS ARE ON THEIR WAY TO THIS FACILITY NOW PT STATES I AM GOING TO LEAVE. HRO OFFICER HENRI INFORMED OF SITUATION
--- NOTE | 2018-06-12 21:32 | ED.RN ---
SULMA FROM CRISIS HERE TO SEE PT.
--- NOTE | 2018-06-12 21:45 | ED.RN ---
PT CAME TO THE NURSES STATION AND STATES I'M DONE WAITING. I'M GOING HOME. WHETHER THIS NEEDS TO GET VIOLENT OR WHATEVER I'M LEAVING. THIS NURSE INFORMED THE PT THAT HE IS PINK SLIPPED HE IS NOT ABLE TO LEAVE. THE PT CONTINUED TO GET CLOSER TO THIS NURSE. PT INFORMED HE NEEDED TO GO BACK TO HIS ROOM. PT STATES I'M LEAVING NO MATTER WHAT IT TAKES. PT CONTINUED TO STAND AT THE NURSES STATION. THIS NURSE INFORMED THAT MOTEL MANAGER TO CALL THE POLICE. DR SALGUERO INFORMED OF THE SITUATION. PT RELUCTANTLY RETURNED TO HIS ROOM.
[2018-06-12 22:00] VITALS: RESP 18
--- NOTE | 2018-06-12 22:05 | ED.RN ---
[employer] UP SPEAKING WITH THE PT. PT STATES I'M LEAVING. WILSON MILLER INFORMED THE PT HE IS NOT PERMITTED TO LEAVE BECAUSE HE IS PINK SLIPPED. PT CONFRONTATIONAL WITH THE WILDLIFE BIOSTATION RESEARCH ECOLOGIST. PT STATES GO AHEAD AND CALL YOUR BUDDIES. ABBIE RN IN THE ROOM AND SPOKE WITH THE PT. AFTER SPEAKING WITH THE PT FOR AN EXTENDED PERIOD OF TIME. THIS NURSE ALSO IN THE ROOM SPEAKING WITH THE PT. PT AGREED TO STAY IN THE BED AND COOPERATE. PT REQUESTING SOMETHING TO HELP HIM RELAX AND FOR HIS MIGRAINE
[2018-06-12] MEDS: LORazepam 0.5 MG Tablet PO (22:06)
[2018-06-12] MEDS: Topiramate 50 MG Tablet PO (22:13)
[2018-06-12 23:00] VITALS: RESP 18
--- NOTE | 2018-06-12 23:31 | ED.DEP ---
ED Disposition - Plan for ED Patient: Disposition: Home or Assisted Living Chief Complaint: Mental Health Instructions: Taking Your Medications Referrals: Awa Chavez MD [Primary Care Provider] -
--- NOTE | 2018-06-12 23:40 | ED.RN ---
PT BELONGINGS RETURNED TO THE PT. SITTER DISCONTINUED
--- NOTE | 2018-06-12 23:49 | ED.RN ---
PER CRISIS COUNSELOR PATIENT TO BE DISCHARGED AFTER HE SIGNS A SAFETY PLAN. PT GIVEN HIS CLOTHES AND SIGNED A SAFETY PLAN. PT THEN LEFT PRIOR TO BEING GIVEN HIS WRITTEN HOSPITAL D/C INSTRUCTIONS
== END 2018-06-12 23:53 | disposition home or self-care (01) ==
PROVIDERS: Emergency Provider Emergency Medicine; Family Provider Internal Medicine; PCP Internal Medicine
DX: R44.3 Hallucinations, unspecified (principal); Z91.14 Patient's other noncompliance with medication regimen; I25.10 Atherosclerotic heart disease of native coronary artery without angina pectoris; I10 Essential (primary) hypertension; Z72.0 Tobacco use; Z79.82 Long term (current) use of aspirin
CPT/HCPCS: 80048; 80307; 80320; 85025; 93798; 99285; A4216; G0480

== ENCOUNTER 2018-06-22 14:15 | Outpatient (RCR) | payer MEDICARE, SELFPAY ==
[2018-05-23 01:34] VITALS: BP 152/90
--- NOTE | 2018-06-01 09:13 | CR.ITP_ITS ---
General Information - General Information Admitting Diagnosis: CABG - Education/Goals Barriers to Learning: None Cardiac Rehabilitation Goals: 1. Maintain the individual as the primary focus of care. 2. To improve the patient's quality of life. 3. Identification of cardiac risk factors and provide cardiac risk factor management. 4. Enhance the psychosocial status of the patient. 5. Reconditioning enough to allow the patient to resume customary activities. 6. Control symptoms of cardiac disease Scale for measuring improvement of personal goals: Enter appropriate number in Comments. 2 = Unchanged. 3 = Slightly Better. 4 = Moderate Improvement. 5 = Met my Goal Exercise - 60-Day Assessment - Visit Date of Eval: 06/01/18 - ITP delayed due to technical issues Session #:: 24 - Stages of Change Stages of Change:: Action - Exercise Prescription Mode:: Treadmill, Rower, Airdyne Frequency (x/week): 3 Duration:: 35 METs: 5.5 Target Heart Rate:: 131-139 Max HR 132 - Hypertension Resting Blood Pressure:: 114/72 Peak Exercise Blood Pressure:: 162/80 - Intervention Home Exercise/Activity Goal:: Sitting Time <3 hrs/day - Education Goals:: Warm-up, RPE NATE Scale, S/S, Safe Exercise, Self-Monitoring - Exercise Program Goals Exercise Program Goals: Aerobic Activity >30 min, B/P <130/80 Nutrition - 60-Day Assessment - Program Goals Nutrition Program Goals: LDL <70. Total Cholesterol <200. HDL >45. Triglycerides <150. HgbA1C <7%. BMI <25 - Visit Date of Eval: 06/01/18 - Stages of Change Stages of Change:: Action - Weight Management Weight:: 79.379 kg - Intervention Referral to dietitian:: No Referral to Diabetic Clinic:: No Will attend diet classes:: Yes - Education Attended class for:: Signs & symptoms of hypoglycemia, Signs & symptoms of hyperglycemia, Relate diabetes to coronary artery disease, Healthy eating Tobacco - 60-Day Assessment - Program Goals Tobacco Program Goals: Complete smoking cessation. Attend education classes. Improve Knowledge Test score - Stage of Change Stages of Change:: Action - Learning Barriers Learning Barriers: Participates in education - Family Support Do you have family support?: Yes - Tobacco Use Tobacco Use: Cigarettes How many cigarettes do you smoke per day?: 20 Do you use smokeless tobacco?: No - Intervention Smoking Cessation Referral:: Yes Individual Education/Counseling:: Yes Education Schedule Given:: Yes - Education Attended class for:: Tobacco triggers, Coronary artery disease, Risk factors, Sexuality, Medical compliance, Cardiac A&P, Angina signs & symptoms Psychosocial - Initial Assess - Target Goals Target Goals: Assess presence or absence of depression. Using a valid screening tool, maximizes coping skills. Positive support system - Psychosocial Test Tool Used:: HANDS Depression Questionnaire - Assistive Devices Fall Risk Assessed:: Yes Psychosocial - 60-Day Assess - Target Goals Target Goals: Assess presence or absence of depression. Using a valid screening tool, maximizes coping skills. Positive support system - Stages of Change Stages of Change:: Action - Psychosocial Test Tool Used:: HANDS Depression Questionnaire - Intervention PS - Interventions: Yes Attend Stress Management Classes, Yes Uses Stress Management Skills, No Referral to Mental Health, No Referral to [facility] Case Management, No Referral to Physician Patient Health Questionnaire 60-Day Re-eval Assessment 1. Little interest or pleasure in doing things: Not at all 2. Feeling down, depressed, or hopeless: Several days 3. Trouble falling or staying asleep, or sleeping too much: More than half the days 4. Feeling tired or having little energy: Several days 5. Poor appetite or overeating: More than half the days 6. Feeling bad about yourself -- or that you are a failure or have let yourself or your family down: Several days 7. Trouble concentrating on things, such as reading the newspaper or watching television: Not at all 8. Moving or speaking so slowly that other people could have noticed. Or the opposite - being so fidgety or restless that you have been moving around a lot more than usual: Several days 9. Thoughts that you would be better off , or of hurting yourself in some way: Several days How difficult have these problems made it for you to do your work, take care of things at home, or get along with other people?: Somewhat difficult - pt has counselor Total Score: 9 Self-Efficacy 60-Day Re-eval Assessment We would like to know how confident you are in doing certain activities. Please select your confidence level for:: Select your confidence level for the following using the scale 1-10 where 1 is not at all confident and 10 is totally confident. Your score is the average of all 6 responses. Fatigue: How confident are you that you can keep the fatigue caused by your disease from interfering with the things you want to do? Select Number: 2 Physical Discomfort or Pain: How confident are you that you can keep the physical discomfort or pain of your disease from interfering with the things you want to do? Select Number: 4 Emotional Distress: How confident are you that you can keep the emotional distress caused by your disease from interfering with the things you want to do? Select Number: 3 Other Symptoms or Health Problems: How confident are you that you can keep other symptoms or health problems from interfering with the things you want to do? Select Number: 5 Different Tasks and Activities: How confident are you that you can do the different tasks and activities needed to manage your health condition so as to reduce your need to see a doctor? Select Number: 3 Medication: How confident are you that you can do things other than just taking medication to reduce how much your illness affects your everyday life? Select Number: 6 Total Score:: 3
[2018-06-01 09:18] VITALS: BP 114/72; BP 162/80
== END 2018-06-22 23:59 ==
LOC: CR 14:15
PROVIDERS: Family Provider Internal Medicine; PCP Internal Medicine; Referring Provider Internal Medicine Cardiovascular Disease; Visit Provider Internal Medicine Cardiovascular Disease
DX: I25.10 Atherosclerotic heart disease of native coronary artery without angina pectoris (principal); E78.5 Hyperlipidemia, unspecified; Z95.1 Presence of aortocoronary bypass graft; Z95.5 Presence of coronary angioplasty implant and graft
CPT/HCPCS: 93798

== ENCOUNTER 2018-10-05 21:22 | Emergency (ER) | payer MEDICARE, SELFPAY ==
[2018-07-13 15:14] VITALS: BMI 27.7
[2018-10-05 21:22] VITALS: BP 140/95; PULSE 99; RESP 18; TEMP 36.2; O2SAT 97; BMI 27.3
--- NOTE | 2018-10-05 22:22 | ED.VIS.GEN ---
History of Present Illness Chief Complaint: Wound Detail of Chief Complaint: Bleeding varicose vein left side of patient's nose Informant: Patient Onset: Today Context: Sudden Onset Timing: Continuous Quality: Bleeding from varicose vein Location: Left side near the bridge of the nose Current Severity: - - Slight ooze Maximum Severity: Moderate Worsened by: Blunt trauma Relieved by: Pressure Associated Symptoms: None Narrative: Patient is a middle-aged male who admits he scratched/picked at the outside of his nose. He reports bleeding secondary to varicose vein. He denies any other problems. He states this is happened in the past. Prior similar symptoms: Yes Recent Illness/Hospitalization: No - Past Medical History (1) Atherosclerotic heart disease of [place] coronary artery without angina pectoris Status: Chronic Comment: PTCA/Stent to LAD 2008; CABG x2- AVALOS to OM, DANYELL to RCA 12/27/17 (2) Benign essential hypertension Status: Chronic (3) COPD (chronic obstructive pulmonary disease) Status: Chronic (4) Complicated migraine Status: Chronic (5) Depression Status: Chronic (6) HLD (hyperlipidemia) Status: Chronic (7) History of illicit drug use Status: Chronic (8) Lumbar radiculopathy Status: Chronic (9) Tobacco user Status: Chronic Past Medical History - Allergies and Home Meds Allergies/Adverse Reactions: Allergies celecoxib [From Celebrex] Allergy (Verified 10/05/18 21:25) Swelling pregabalin [From Lyrica] Allergy (Verified 10/05/18 21:25) Swelling Primary Care Physician: Awa Chavez MD [Primary Care Provider] - Prior records reviewed: Yes - Patient is on aspirin no anticoagulant Surgical History: angioplasty, herniorrhaphy, - - Ready extent placement, bilateral carpal tunnel surgery, PCI x 1. Lives: Alone Smoking Status: Current every day smoker Alcohol: None - Family History Maternal Family History: Family History (Last Reviewed 07/13/18 @ 15:10 by Anita Merritt) Father Myocardial infarction Uncle Myocardial infarction Family History: Reports: No pertinent history Paternal Family History: Family History (Last Reviewed 07/13/18 @ 15:10 by Anita Merritt) Father Myocardial infarction Uncle Myocardial infarction Family History: Reports: Heart Disease Review of Systems Eyes: Denies: Visual changes - bilaterally, Blurred Vision - bilaterally, Diplopia ENT: Denies: Bilateral ear pain, Rhinorrhea, Sore throat Skin: Reports: Wounds - Left side of the nose near the bridge of the nose.. Denies: Rash Neurological: Denies: Headache Hematologic: Denies: Easy bruising, Easy bleeding Allergy: Denies: Uticaria Physical Exam Vital Signs/Narrative: Vital Signs Temp Pulse Resp BP Pulse Ox 10/05/18 21:22 97.2 F L 99 18 140/95 H 97 Inital Vital Signs reviewed: Yes General: Well nourished, Well developed, No Acute Distress Head: Normocephalic, Trauma - Bleeding noted varicosity near the bridge of the nose on the left side Eyes: Perrl, EOMI. Negative for: Pale conjunctiva, Scleral icterus ENT: Moist mucous membranes, No rhinorrhea Skin: Normal color, No rash, Trauma - Described in ENT portion of the physical exam Neurological: Alert, Oriented x3, Cranial nerves II-XII grossly intact Psychological: Normal affect, Normal Mood Diagnostic/Tx/Re-eval - Medical Decision Making There is slight oozing noted at this time. Will have nurse applied left. If this resolves the issue no further treatment is needed. If this does not resolve the issue patient will be anesthetized and will place a figure of 8 stitch using 6-0 Vicryl. Let was removed approximately half hour prior to reassessment. He was reassessed at midnight. There is no oozing or bleeding. Therefore patient be discharged to home ED Disposition - Plan for ED Patient: Disposition: Home or Assisted Living Diagnosis: Bleeding from varicose vein Instructions: ED Veins Varicose Referrals: Awa Chavez MD [Primary Care Provider] - As Needed
[2018-10-05] MEDS: Lidocaine/Epi/Tetracaine 50 ML 1 APPLIC TOPICAL (22:25)
[2018-10-06 00:16] VITALS: BP 131/80; PULSE 81; RESP 18; O2SAT 99
== END 2018-10-06 00:17 | disposition home or self-care (01) ==
PROVIDERS: Emergency Provider Emergency Medicine; Family Provider Internal Medicine; PCP Internal Medicine
DX: R58 Hemorrhage, not elsewhere classified (principal); I83.92 Asymptomatic varicose veins of left lower extremity; Z79.82 Long term (current) use of aspirin; I10 Essential (primary) hypertension; I25.10 Atherosclerotic heart disease of native coronary artery without angina pectoris; J44.9 Chronic obstructive pulmonary disease, unspecified; F32.9 Major depressive disorder, single episode, unspecified; E78.5 Hyperlipidemia, unspecified; M54.16 Radiculopathy, lumbar region; G43.109 Migraine with aura, not intractable, without status migrainosus; Z72.0 Tobacco use
CPT/HCPCS: 99282

== ENCOUNTER 2019-08-04 00:12 | Emergency (ER) | payer MEDICARE, SELFPAY ==
[2018-12-21 15:34] VITALS: BMI 28.4
[2019-08-04 00:13] VITALS: BP 152/88; PULSE 104; RESP 18; TEMP 36.6; O2SAT 99; BMI 27.9
--- NOTE | 2019-08-04 00:27 | ED.DCSUM_ITS ---
History of Present Illness Chief Complaint: Back Informant: Patient Narrative: Patient presents status post upper thoracic injection earlier today. Done by Dr. Quintero. Stated has not taken effect. He has chronic pain and arthritis. He denies any swelling or redness to the injection site. He is unsure if he had a facet injection or epidural. Patient was upset after the procedure as he did have procedural sedation. He stated they tried an IV 3 times in the left arm and one time infiltrated. He stated he did not feel the sedative and felt the pain of the procedure which angered him. He takes Tylenol for chronic pain. Comes in for pain control as well as evaluation of his left forearm as it is swollen after the infiltration. Wanted to make sure he did have a DVT or thrombophlebitis. Current severity is mild. Denies any other symptoms. - Past Medical History (1) Aortocoronary bypass status Status: Chronic Comment: CABG x2- AVALOS to OM2, DANYELL to RCA 12/27/17 @[facility] (2) Atherosclerotic heart disease of [place] coronary artery without angina pectoris Status: Chronic Comment: PTCA/Stent to LAD 2008; CABG x2- AVALOS to OM, DANYELL to RCA 12/27/17 (3) Benign essential hypertension Status: Chronic (4) COPD (chronic obstructive pulmonary disease) Status: Chronic (5) Complicated migraine Status: Chronic (6) Depression Status: Chronic (7) HLD (hyperlipidemia) Status: Chronic (8) History of coronary artery stent placement Status: Chronic Comment: PTCA/Stent to LAD 2008 (9) History of illicit drug use Status: Chronic (10) History of medication noncompliance Status: Chronic (11) Lumbar radiculopathy Status: Chronic (12) Tobacco user Status: Chronic Past Medical History - Allergies and Home Meds Allergies/Adverse Reactions: Allergies celecoxib [From Celebrex] Allergy (Verified 08/04/19 00:12) Swelling pregabalin [From Lyrica] Allergy (Verified 08/04/19 00:12) Swelling Primary Care Physician: Awa Chavez MD [Primary Care Provider] - Prior records reviewed: Yes Past Medical History: - - See problem list Surgical History: angioplasty, herniorrhaphy, - - Ready extent placement, bilateral carpal tunnel surgery, PCI x 1. Lives: With Family Smoking Status: Current every day smoker Alcohol: None Drugs: None - Family History Maternal Family History: Family History (Last Reviewed 12/21/18 @ 15:36 by Anita Merritt) Father Myocardial infarction Uncle Myocardial infarction Family History: Reports: No pertinent history Paternal Family History: Family History (Last Reviewed 12/21/18 @ 15:36 by Anita Merritt) Father Myocardial infarction Uncle Myocardial infarction Family History: Reports: Heart Disease Review of Systems General: Denies: Chills, Fever, Sweats Eyes: Denies: Visual changes - bilaterally, Diplopia ENT: Denies: Rhinorrhea, Sore throat Cardiovascular: Denies: Chest pain, Palpitations Respiratory: Denies: Dyspnea, Cough, Dyspnea on exertion Gastrointestinal: Denies: Abdominal pain, Nausea, Vomiting, Diarrhea, Melena, Hematochezia Genitourinary: Denies: Dysuria, Hematuria, Frequency Musculoskeletal: Reports: Neck pain, Back pain, Extremity Pain Skin: Denies: Rash, Wounds Neurological: Denies: Headache, Weakness, Numbness Physical Exam Vital Signs/Narrative: Vital Signs Temp Pulse Resp BP Pulse Ox 08/04/19 00:13 97.9 F 104 H 18 152/88 H 99 General: Well nourished, Well developed, No Acute Distress Head: Normocephalic, Atraumatic Eyes: Perrl, EOMI ENT: Moist mucous membranes, No rhinorrhea Neck: Supple, Nontender Cardiovascular: Regular rate, Regular rhythm, No murmurs Respiratory: No distress, CTA bilaterally, Chest nontender Abdomen: Soft, Nontender, Nondistended, Normal bowel sounds Back: Nontender, Normal Inspection, - - Patient's injection site in his upper thoracic midline of his spine is clean dry and intact. There is a pinpoint injection location. There is no swelling or deformity redness or warmth.. Negative for: Spinal tenderness Extremities: Tenderness, Edema - She has mild infiltration of his IV with mild soft tissue swelling measuring 2 cm x 2 cm. It is raised approximately 0.5 cm. There is no redness or warmth. There is no thrombophlebitis. It is not circumferential to suggest a DVT.. Negative for: Nontender, No edema Skin: Normal color, No rash Neurological: Alert, Oriented x3, Cranial nerves II-XII grossly intact, Normal S trength, Normal Sensation Psychological: Normal affect, Normal Mood Diagnostic/Tx/Re-eval - Medical Decision Making Patient has 2 separate complaints. Given a dose of morphine for his chronic upper back pain. I do not think he has a need for imaging at this time. It appears that the injection has not helped this pain however it may take several days for the steroid component to kick in. Patient understands this. Patient's left arm shows very mild swelling from infiltration. There is no infection or clot. He was reassured. Given Scout wrap for this. To follow-up as an outpatient ED Disposition - Plan for ED Patient: Disposition: Home or Assisted Living Diagnosis: Upper back pain, chronic, Edema of upper extremity Instructions: BACK PAIN (Acute or Chronic) Referrals: Awa Chavez MD [Primary Care Provider] -
[2019-08-04] MEDS: Morphine 4 MG/ML Syringe IM (00:37)
--- NOTE | 2019-08-04 00:56 | ED.RN ---
PT OBSERVED FOR SHOT TIME FOR GREATER THAN 15 MINUTES. NO REACTION NOTED BY THIS NURSE. PT D/C.
== END 2019-08-04 00:57 | disposition home or self-care (01) ==
PROVIDERS: Emergency Provider Emergency Medicine; PCP Internal Medicine
DX: M54.6 Pain in thoracic spine (principal); G89.29 Other chronic pain; R60.0 Localized edema; E78.5 Hyperlipidemia, unspecified; F32.9 Major depressive disorder, single episode, unspecified; I10 Essential (primary) hypertension; I25.10 Atherosclerotic heart disease of native coronary artery without angina pectoris; J44.9 Chronic obstructive pulmonary disease, unspecified; M19.90 Unspecified osteoarthritis, unspecified site; F17.200 Nicotine dependence, unspecified, uncomplicated; Z82.49 Family history of ischemic heart disease and other diseases of the circulatory system; Z88.6 Allergy status to analgesic agent; Z95.1 Presence of aortocoronary bypass graft; Z95.5 Presence of coronary angioplasty implant and graft
CPT/HCPCS: 99283

== ENCOUNTER 2019-11-27 10:49 | Emergency (ER) | payer MEDICARE, SELFPAY ==
[2019-11-27 10:50] VITALS: BP 131/78; PULSE 96; RESP 17; TEMP 36.3; O2SAT 96; BMI 25.4
--- NOTE | 2019-11-27 11:00 | ED.VISSUMM ---
- ER Visit Summary Date of Service: 11/27/19 Chief Complaint: [Laceration right hand] History of Present Illness: The patient is a 59 M [presents the emergency department with complaint of a laceration to his right hand sustained while trying to open up a paint can with a 5 and 1 tool. She is left-hand dominant. Patient is up-to-date on tetanus. Patient denies any difficulty using his thumb. Patient was seen in conjunction with physician kennel assistant Pedro Sorenson.] Physical Examination: [Right hand-patient has a 2.5 cm laceration over the thenar eminence of the right hand. Patient has normal range of motion of the thumb in flexion extension. He is neurovascular intact distally.] Test Results: [None indicated] Emergency Department Course and Treatment: [Laceration repair performed by physician kennel assistant Pedro Sorenson please see his report.] Treatment Plan: [Follow-up with primary care physician in 10 days for suture removal] Disposition: [Discharged home in stable condition] Impression: [Laceration right hand 2.5 cm-simple repair] This note was generated with [employer] dictation software. It may contain incorrect words, spelling, and punctuation that were not noted in review of the chart prior to signing ED Disposition - Plan for ED Patient: Referrals: Awa Chavez MD [Primary Care Provider] -
--- NOTE | 2019-11-27 11:02 | ED.DEP ---
ED Disposition - Plan for ED Patient: Instructions: ED Laceration Hand Referrals: Awa Chavez MD [Primary Care Provider] - 10 Day for suture removal
--- NOTE | 2019-11-27 11:15 | ED.VIS.UPPEX ---
History of Present Illness Chief Complaint: Laceration Informant: Patient Occurred: Today Mechanism/Context: Incised Onset: Today Context: Sudden Onset Timing: Continuous Quality of Pain: Sharp Current Severity: Mild Maximum Severity: Mild Worsened by: movement Relieved by: rest Associated Symptoms: Negative for: Parasthesia, Weakness, Loss of Funtion Narrative: 59-year-old [id number] male presents with a right hand laceration from a razor just prior to arrival. He is not on blood thinners. He denies numbness tingling or weakness. He denies any other injuries. Tetanus Immunization: 5-10 years Prior similar symptoms: No Recent Illness/Hospitalization: No Past Medical History - Allergies and Home Meds Allergies/Adverse Reactions: Allergies celecoxib [From Celebrex] Allergy (Verified 11/27/19 10:50) Swelling pregabalin [From Lyrica] Allergy (Verified 11/27/19 10:50) Swelling Primary Care Physician: Awa Chavez MD [Primary Care Provider] - 10 Day for suture removal Prior records reviewed: Yes Past Medical History: - - CAD, HTN, HPL, COPD Surgical History: angioplasty, herniorrhaphy, - - Ready extent placement, bilateral carpal tunnel surgery, PCI x 1. Lives: With Family Smoking Status: Current every day smoker Alcohol: Occasional Drugs: None - Family History Maternal Family History: Family History (Last Reviewed 12/21/18 @ 15:36 by Anita Merritt) Father Myocardial infarction Uncle Myocardial infarction Family History: Reports: No pertinent history Paternal Family History: Family History (Last Reviewed 12/21/18 @ 15:36 by Anita Merritt) Father Myocardial infarction Uncle Myocardial infarction Family History: Reports: Heart Disease Review of Systems All systems negative except as indicated General: Denies: Chills, Fever, Malaise Eyes: Denies: Visual changes - bilaterally, Diplopia ENT: Denies: Rhinorrhea, Sore throat Cardiovascular: Denies: Chest pain, Palpitations Respiratory: Denies: Dyspnea, Cough, Dyspnea on exertion Gastrointestinal: Denies: Abdominal pain, Nausea, Vomiting, Diarrhea, Melena, Hematochezia Genitourinary: Denies: Dysuria, Hematuria, Frequency Musculoskeletal: Denies: Back pain, Extremity Pain Skin: Reports: Abrasions, Wounds. Denies: Rash, Abscess Neurological: Denies: Headache, Weakness, Numbness Physical Exam Vital Signs/Narrative: Vital Signs Temp Pulse Resp BP Pulse Ox 11/27/19 10:50 97.3 F L 96 17 131/78 H 96 Inital Vital Signs reviewed: Yes Right Hand: - - 2.5 cm laceration over the right thenar eminence. No active bleeding. He has normal range of motion actively of his right thumb and all 4 of his other fingers including at his wrist. Normal radial pulse. Normal cap refill sensation all 5 fingers General: Well nourished, Well developed Head: Normocephalic, Atraumatic Eyes: Perrl, EOMI ENT: No Trauma, Moist Mucous Membranes Neck: Nontender, Full ROM Cardiovascular: Regular rate, Regular rhythm, No murmurs Respiratory: No distress, CTA bilaterally, Chest nontender Abdomen: Soft, Nontender, Nondistended, Normal bowel sounds Back: Nontender Skin: Normal color, No rash, No Trauma Neurological: Alert, Oriented x3, Cranial nerves II-XII grossly intact, Normal Strength, Normal Sensation Psychological: Normal affect, Normal Mood Diagnostic/Tx/Re-eval - Medical Decision Making Tetanus up-to-date. Laceration was anesthetized irrigated cleansed and closed with sutures. See procedure note. Advised to have sutures removed in 10 days. Will discharge home. Discussed proper wound care and signs of infection to monitor for. Procedures - Lacerations No standard instances Length: 2.5 cm Depth: Skin Shape: Linear Prep: Sterile Conditions, Betadine Laceration Repair: Lidocaine, Local, Nerve block, Wound explored Irrigated (ml): 120 Number of Sutures/[place]: 6 Suture Information: Ethilon, Simple, 4-0 ED Disposition - Plan for ED Patient: Disposition: Home or Assisted Living Diagnosis: Laceration of right hand, Atherosclerotic heart disease of [place] coronary artery without angina pectoris, Benign essential hypertension, COPD (chronic obstructive pulmonary disease), HLD (hyperlipidemia), History of coronary artery stent placement, Tobacco user Instructions: ED Laceration Hand Referrals: Awa Chavez MD [Primary Care Provider] - 10 Day for suture removal
[2019-11-27 11:38] VITALS: BP 121/84; PULSE 76; RESP 18
--- OUTSIDE RECORDS SUMMARY | 2020-04-09 08:57 | XMS RPT_ITS | CCD ---
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 Restless leg syndrome [G25.81] 11/24/2014 More... Low back pain with right-sided sciatica [M54.41]11/09/2015 Acute pain of right knee [M25.561] 12/18/2015 11/14/2017 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] 12/18/2015 Encounter Status:Closed by VIMAL BATISTA [facility] CNPN Telephone (NAVWST) Normal 04-03-2020 [facility] [place] BALJINDER BECKWITH ([id number]) 1960 [facility] Date Time Provider Department ([id number]) 04/03/20 KIARA LOMAX (GABBY) CYNTHIAWSRupert During your visit today, we recorded the following informati on about you: DESIREE Woody-SELENE 04/03/2020 12:37 PM Signed Patient and Sw spoke and he wanted Sw to give him referral to specialist at [place]. Gabby noted that referrals for specialist chang gonsalez come from primary care provider and or nurse practitioners. Juan valle states that recent pcp appt was cancelled due to computers being down. Sw advised patient to call in and request appt with ELECTRIC DEICER ASSEMBLER to see about discussing referral to [facility]. Patient states that he will call and see about seeing ELECTRIC DEICER ASSEMBLER for referral. Allergies As of Date: 04/03/2020 Noted Allergy Reaction CELECOXIB 11/15/2015 7 - Swelling PREGABALIN 10/26/2016 7 - Swelling Date Reviewed: 02/05/2020 Reviewed by: Rayna Raines Ma - Fully Assessed Reason for Visit: Social Work Services [507] Prescriptions as of 04/03/2020 Sig: CYCLOBENZAPRINE 10 MG TABLET Take 1 tablet by mouth at bed* ATORVASTATIN 80 MG TABLET Take 1 tablet by mouth once d* METOPROLOL SUCCINATE ER 25 MG* Take 1 tablet by mouth twice * ESCITALOPRAM 20 MG TABLET Take 1 tablet by mouth once d* GABAPENTIN 100 MG CAPSULE Take 3 capsules by mouth krysten* ASPIRIN 81 MG TABLET,DELAYED * Take 1 tablet by mouth once d * THERAPEUTIC MULTIVITAMIN TABL* Take 1 tablet by mouth once d * NITROGLYCERIN 400 MCG/SPRAY T* Dissolve 1 [place] under the to * Patient not taking: Reported on 12/09/2019 ALBUTEROL SULFATE HFA 90 MCG/* Inhale 2 Puffs as instructed * Patient not taking: Reported on 12/06/2019 Problem List As Of Date 04/03/2020 Noted Resolved Umbilical hernia without mention of obstruction*12/01/2007 0 02/01/2013 CAD (coronary artery disease) [I25.10] More... COPD (chronic obstructive pulmonary disease) (H* More... Hyperlipidemia [E78.5] More... Migraine headache [G43.909] More... Depression [F32.9] More... Anxiety [F41.9] More... History of drug abuse [F19.11] More... Tobacco use disorder [F17.200] More... Chronic pain [G89.29] 05/18/2014 More... Restless leg syndrome [G25.81] 11/24/2014 More... Low back pain with right-sided sciatica [M54.41]11/09/2015 Acute pain of right knee [M25.561] 12/18/2015 11/14/2017 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] 12/18/2015 Encounter Status:Closed by KIARA FROST on 04/03/20 obsolete on 2020-03 OBSOLETE Refill (INTMWS) Normal 03-30-2020 [facility] BALJINDER Castellanos ([id number]) 1960 [facility] Date Time Provider Department ([id number]) 03/30/20 VIMAL BATISTA INTMWS During your visit today, we recorded the following informati on about you: Apolonia Johns 03/30/2020 1:44 PM Signed Patient has been identified by name and date of : Yes Pending Prescriptions Disp Refills CYCLOBENZAPRINE 10 MG TABLET 30 tablet 1 Sig: Take 1 tablet by mouth at bedtime as needed for Muscle Spasm. RILEY: No RX INSTRUCTIONS: Patient aware RX will be sent to pharmacy. No need to notify patient. Apolonia Johns Celena Perera RN 03/30/2020 3:29 PM Signed Patient has been identified by name and date of : Yes Patient phones for refill(s): Pending Prescriptions Disp Refills CYCLOBENZAPRINE 10 MG TABLET 30 tablet 1 Sig: Take 1 tablet by mouth at bedtime as needed for Muscle Spasm. RILEY: No Date of last office visit in primary care: 01/26/20. No future appointment scheduled yet. Last 2 Encounter Wt Readings: Date: Wt: 02/05/2020 73 kg (161 lb) 01/28/2020 74.8 kg (165 lb) Previous labs/tests for medication: Blood Pressure: BUN (mg/dL) Date Value 05/03/2019 16 Sodium (mmol/L) Date Value 05/03/2019 142 Last 1 Encounter BP Readings: Date: BP: 02/05/2020 106/68 Liver Function: ALT (U/L) Date Value 09/16/2016 13 AST (U/L) Date Value 09/16/2016 20 Please advise. Thank you. Celena Sanders APRN.RADHA 03/30/2020 4:31 PM Signed The following approved medic ation requests have been transmitted electronically. Signed Prescriptions Disp Refills cyclobenzaprine (FLEXERIL) 10 mg tablet 30 tablet 1 Sig: Take 1 tablet by mouth at bedtime as needed for Muscle Spasm. RILEY: No Authorizing Provider: KERRY SANDERS ([facility]) Kerry Sanders APRN.POULTRY FARM WORKER Allergies As of Date: 03/30/2020 Noted Allergy Reaction CELECOXIB 11/15/2015 7 - Swelling PREGABALIN 10/26/2016 7 - Swelling Date Reviewed: 02/05/2020 Reviewed by: Rayna Raines Ma - Fully Assessed Reason for Visit: Refill Request [94] Visit Diagnosis:Chronic right-sided low back pain with rig ht-sided sciatica [M54.41, G89.29] Order(s):cyclobenzaprine (FLEXERIL) 10 mg tabletTake 1 table t by mouth at bedtime as needed for Muscle Spasm.Disp: 30 tabletRfl: 1 Prescriptions as of 03/30/2020 Sig: CYCLOBENZAPRINE 10 MG TABLET Take 1 tablet by mouth at bed* ATORVASTATIN 80 MG TABLET Take 1 tablet by mouth once d* METOPROLOL SUCCINATE ER 25 MG* Take 1 tablet by mouth twice * ESCITALOPRAM 20 MG TABLET Take 1 tablet by mouth once d* GABAPENTIN 100 MG CAPSULE Take 3 capsules by mouth krysten* ASPIRIN 81 MG TABLET,DELAYED * Take 1 tablet by mouth once d * THERAPEUTIC MULTIVITAMIN TABL* Take 1 tablet by mouth once d * NITROGLYCERIN 400 MCG/SPRAY T* Dissolve 1 [place] under the to * Patient not taking: Reported on 12/09/2019 ALBUTEROL SULFATE HFA 90 MCG/* Inhale 2 Puffs as instructed * Patient not taking: Reported on 12/06/2019 Problem List As Of Date 03/30/2020 Noted Resolved Umbilical hernia without mention of obstruction*12/01/2007 0 02/01/2013 CAD (coronary artery disease) [I25.10] More... COPD (chronic obstructive pulmonary disease) (H* More... Hyperlipidemia [E78.5] More... Migraine headache [G43.909] More... Depression [F32.9] More... Anxiety [F41.9] More... History of drug abuse [F19.11] More... Tobacco use disorder [F17.200] More... Chronic pain [G89.29] 05/18/2014 More... Restless leg syndrome [G25.81] 11/24/2014 More... Low back pain with right-sided sciatica [M54.41]11/09/2015 Acute pain of right knee [M25.561] 12/18/2015 11/14/2017 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] 12/18/2015 Prescriptions ordered this encounter Disp Refills Start End CYCLOBENZAPRINE 10 MG TABLET 30 t* 1 03/30/2020 Route: ORAL Sig: Take 1 tablet by mouth at bedtime as needed for Muscle Spasm. Medications Discontinued During This Encounter Prescriptions - cyclobenzaprine (FLEXERIL) 10 mg tablet (Discontinued) Take 1 tablet by mouth at bedtime as needed for Muscle Spasm . Encounter Status:Closed by KERRY SANDERS CNP on 03/30/20 cnpn on 2020-03-28 CNPN Telephone (NAVWST) Normal 03-28-2020 [facility] [place] BALJINDER BECKWITH ([id number]) 1960 [facility] Date Time Provider Department ([id number]) 03/28/20 KIARA LOMAX (GABBY) CYNTHIAWSRupert During your visit today, we recorded the following informati on about you: DESIREE Woody-NUTTER UP 03/28/2020 3:29 PM Signed Gabby received note that patient requesting call back. Gabby called patient and he was concerned that his appt was cancelled today due to feelings of conflict with is healthcare provider . Patient found out that appt was cancelled due to provider computer system be ing down. He is going to have phone call with provider for office visit. Zarina schuler notes that he has no other issues or concerns at this time. Allergies As of Date: 03/28/2020 Noted Allergy Reaction CELECOXIB 11/15/2015 7 - Swelling PREGABALIN 10/26/2016 7 - Swelling Date Reviewed: 02/05/2020 Reviewed by: Rayna Raines Ma - Fully Assessed Reason for Visit: Social Work Services [507] Prescriptions as of 03/28/2020 Sig: CYCLOBENZAPRINE 10 MG TABLET Take 1 tablet by mouth at bed* ATORVASTATIN 80 MG TABLET Take 1 tablet by mouth once d* METOPROLOL SUCCINATE ER 25 MG* Take 1 tablet by mouth twice * ESCITALOPRAM 20 MG TABLET Take 1 tablet by mouth once d* GABAPENTIN 100 MG CAPSULE Take 3 capsules by mouth krysten* ASPIRIN 81 MG TABLET,DELAYED * Take 1 tablet by mouth once d * THERAPEUTIC MULTIVITAMIN TABL* Take 1 tablet by mouth once d * NITROGLYCERIN 400 MCG/SPRAY T* Dissolve 1 [place] under the to * Patient not taking: Reported on 12/09/2019 ALBUTEROL SULFATE HFA 90 MCG/* Inhale 2 Puffs as instructed * Patient not taking: Reported on 12/06/2019 Problem List As Of Date 03/28/2020 Noted Resolved Umbilical hernia without mention of obstruction*12/01/2007 0 02/01/2013 CAD (coronary artery disease) [I25.10] More... COPD (chronic obstructive pulmonary disease) (H* More... Hyperlipidemia [E78.5] More... Migraine headache [G43.909] More... Depression [F32.9] More... Anxiety [F41.9] More... History of drug abuse [F19.11] More... Tobacco use disorder [F17.200] More... Chronic pain [G89.29] 05/18/2014 More... Restless leg syndrome [G25.81] 11/24/2014 More... Low back pain with right-sided sciatica [M54.41]11/09/2015 Acute pain of right knee [M25.561] 12/18/2015 11/14/2017 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] 12/18/2015 Encounter Status:Closed by KIARA FROST on 03/29/20 [facility]pn [facility]) [facility]-2020 [facility] [place] BALJINDER BECKWITH ([id number]) 1960 [facility] Date Time Provider Department ([id number]) 02/25/20 VIMAL BATISTA INTMWS During your visit today, we recorded the following informati on about you: Angelia Ackerman RN 02/25/2020 11:03 AM Signed Pt called, verified by name and birthdate. Pt states he wants to talk to Gianna. Offered to talk to pt and help him. Pt r efused. Offered to send her a message. Pt hung up call. Called pt and he did not answer phone Angelia Ackerman RN Allergies As of Date: 02/25/2020 Noted Allergy Reaction CELECOXIB 11/15/2015 7 - Swelling PREGABALIN 10/26/2016 7 - Swelling Date Reviewed: 02/05/2020 Reviewed by: Rayna Raines Ma - Fully Assessed Reason for Visit: Patient Question [9127] Reason For Visit History Recorded Prescriptions as of 02/25/2020 Sig: CYCLOBENZAPRINE 10 MG TABLET Take 1 tablet by mouth at bed* ATORVASTATIN 80 MG TABLET Take 1 tablet by mouth once d* METOPROLOL SUCCINATE ER 25 MG* Take 1 tablet by mouth twice * ESCITALOPRAM 20 MG TABLET Take 1 tablet by mouth once d* GABAPENTIN 100 MG CAPSULE Take 3 capsules by mouth krysten* ASPIRIN 81 MG TABLET,DELAYED * Take 1 tablet by mouth once d * THERAPEUTIC MULTIVITAMIN TABL* Take 1 tablet by mouth once d * NITROGLYCERIN 400 MCG/SPRAY T* Dissolve 1 [place] under the to * Patient not taking: Reported on 12/09/2019 ALBUTEROL SULFATE HFA 90 MCG/* Inhale 2 Puffs as instructed * Patient not taking: Reported on 12/06/2019 Problem List As Of Date 02/25/2020 Noted Resolved Umbilical hernia without mention of obstruction*12/01/2007 0 02/01/2013 CAD (coronary artery disease) [I25.10] More... COPD (chronic obstructive pulmonary disease) (H* More... Hyperlipidemia [E78.5] More... Migraine headache [G43.909] More... Depression [F32.9] More... Anxiety [F41.9] More... History of drug abuse [F19.11] More... Tobacco use disorder [F17.200] More... Chronic pain [G89.29] 05/18/2014 More... Restless leg syndrome [G25.81] 11/24/2014 More... Low back pain with right-sided sciatica [M54.41]11/09/2015 Acute pain of right knee [M25.561] 12/18/2015 11/14/2017 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] 12/18/2015 Encounter Status:Closed by ANGELIA ACKERMAN RN on 02/25/20 obsolete on 2020-02 OBSOLETE Refill (INTMWS) Normal 02-23-2020 [place] [facility] [place] BALJINDER BECKWITH ([id number]) 1960 [facility] Time Provider Department ([id number]) 02/23/20 VIMAL BATISTA During your visit today, we recorded the following informati on about you: Kaleigh Cannon 02/23/2020 1:51 PM Signed Patient has been identified by name and date of : Yes Pending Prescriptions Disp Refills CYCLOBENZAPRINE 10 MG TABLET 30 tablet 1 Sig: Take 1 tablet by mouth at bedtime as needed for Muscle Spasm. RILEY: No RX INSTRUCTIONS: Patient aware RX will be sent to pharmacy. No need to notify patient. Kaleigh Chaney LPN 02/23/2020 2:20 PM Signed Patient has been identified by name and date of : Yes Patient phones for refill(s): Pending Prescriptions Disp Refills CYCLOBENZAPRINE 10 MG TABLET 30 tablet 1 Sig: Take 1 tablet by mouth at bedtime as needed for Muscle Spasm. RILEY: No Date of last office visit in primary care: 01/26/2020 No future appt scheduled. Jennifer Chaney LPN Allergies As of Date: 02/23/2020 Noted Allergy Reaction CELECOXIB 11/15/2015 7 - Swelling PREGABALIN 10/26/2016 7 - Swelling Date Reviewed: 02/05/2020 Reviewed by: Rayna Raines Ma - Fully Assessed Reason for Visit: Refill Request [94] Visit Diagnosis:Chronic right-sided low back pain with rig ht-sided sciatica [M54.41, G89.29] Order(s):cyclobenzaprine (FLEXERIL) 10 mg tabletTake 1 table t by mouth at bedtime as needed for Muscle Spasm.Disp: 30 tabletRfl: 1 Prescriptions as of 02/23/2020 Sig: CYCLOBENZAPRINE 10 MG TABLET Take 1 tablet by mouth at bed* ATORVASTATIN 80 MG TABLET Take 1 tablet by mouth once d* METOPROLOL SUCCINATE ER 25 MG* Take 1 tablet by mouth twice * ESCITALOPRAM 20 MG TABLET Take 1 tablet by mouth once d* GABAPENTIN 100 MG CAPSULE Take 3 capsules by mouth krysten* ASPIRIN 81 MG TABLET,DELAYED * Take 1 tablet by mouth once d * THERAPEUTIC MULTIVITAMIN TABL* Take 1 tablet by mouth once d * NITROGLYCERIN 400 MCG/SPRAY T* Dissolve 1 [place] under the to * Patient not taking: Reported on 12/09/2019 ALBUTEROL SULFATE HFA 90 MCG/* Inhale 2 Puffs as instructed * Patient not taking: Reported on 12/06/2019 Problem List As Of Date 02/23/2020 Noted Resolved Umbilical hernia without mention of obstruction*12/01/2007 0 02/01/2013 CAD (coronary artery disease) [I25.10] More... COPD (chronic obstructive pulmonary disease) (H* More... Hyperlipidemia [E78.5] More... Migraine headache [G43.909] More... Depression [F32.9] More... Anxiety [F41.9] More... History of drug abuse [F19.11] More... Tobacco use disorder [F17.200] More... Chronic pain [G89.29] 05/18/2014 More... Restless leg syndrome [G25.81] 11/24/2014 More... Low back pain with right-sided sciatica [M54.41]11/09/2015 Acute pain of right knee [M25.561] 12/18/2015 11/14/2017 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] 12/18/2015 Prescriptions ordered this encounter Disp Refills Start End CYCLOBENZAPRINE 10 MG TABLET 30 t* 1 02/23/2020 Route: ORAL Sig: Take 1 tablet by mouth at bedtime as needed for Muscle Spasm. Medications Discontinued During This Encounter Prescriptions - cyclobenzaprine (FLEXERIL) 10 mg tablet (Discontinued) Take 1 tablet by mouth at bedtime as needed for Muscle Spasm . Encounter Status:Closed by DAT KABA CNP on 02/23/20 progress on 2020-01 PROGRESS HNO ID: [id number] Normal 02-05-2020 [facility] Author: Nereida Brantley (Dry Press Operator Poultry Hatchery Supervisor) Brandon Raymond ([id number]) Service: ? Author Type: Nurse Practitioner Type: Progress Notes Filed: 02/05/2020 3:12 PM Note Text: Baljinder Beckwith is a 59 year old male who presents with continue runny nose, body aches, and cough for the last 8 days. Improvements seen since last week. Patient here asking about his COVID-19 testing- says lito barriga went over to [facility] after my order was faxed and had an attempted test, but he could not tolerate it. He did not hear anything about the results- the re is none in the [facility] system per Rayna Raines MA. He is in no acute dis tress. VSS. Encouraged the patient to return to [facility] to see if COVID-19 t esting can be re-attempted. Nereida Taylor APRN.RAHDA cnov on 2020-02-05 CNOV Office Visit (UCWSTR) Normal 02-05-[address] [place] [address] [facility] [place] BALJINDRE BECKWITH ([id number]) 1960 [place] Date Time Provider Department ([id number]) 02/05/20 2:30 PM NEREIDA TAYLOR (TOOL POLISHING MACHINE OPERATOR, POULTRY FARM WORKER)[facility] During your visit today, we recorded the following informati on about you: Temperature Pulse Respiration Blood pressure 97.4 degrees 82/minute 16/minute 106/68 Weight 73 kg Nereida Taylor APRN.POULTRY FARM WORKER 02/05/2020 3:12 PM Signed Baljinder Beckwith is a 59 year old male who presents w ith continue runny nose, body aches, and cough for the last 8 days. Improvements seen sin e last week. Patient here asking about his COVID-19 t esting- says he went over to [facility] after my order was faxed and had an attempted test, but he could not tolerate it. He did not hear anything about the results- there is none in the [facility] system per Rayna Raines MA. He is in no acute di stress. VSS. Encouraged the patient to return to [facility] to see if COVID-19 testing can be re-attempted . Nereida Taylor, TOOL POLISHING MACHINE OPERATOR.POULTRY FARM WORKER Referring Provider: SELF [200] Allergies As of Date: 02/05/2020 Noted Allergy Reaction CELECOXIB 11/15/2015 7 - Swelling PREGABALIN 10/26/2016 7 - Swelling Date Reviewed: 02/05/2020 Reviewed by: Rayna Raines Ma - Fully Assessed Reason for Visit: Diarrhea [35] Cmt: muscle pain, runny nose and cough x 8 day s Primary Visit Diagnosis:Suspected COVID-19 virus infection [ Z20.828] Prescriptions as of 02/05/2020 Sig: ATORVASTATIN 80 MG TABLET Take 1 tablet by mouth once d* METOPROLOL SUCCINATE ER 25 MG* Take 1 tablet by mouth twice * ESCITALOPRAM 20 MG TABLET Take 1 tablet by mouth once d* CYCLOBENZAPRINE 10 MG TABLET Take 1 tablet by mouth at bed* GABAPENTIN 100 MG CAPSULE Take 3 capsules by mouth krysten* ASPIRIN 81 MG TABLET,DELAYED * Take 1 tablet by mouth once d * THERAPEUTIC MULTIVITAMIN TABL* Take 1 tablet by mouth once d * NITROGLYCERIN 400 MCG/SPRAY T* Dissolve 1 [place] under the to * Patient not taking: Reported on 12/09/2019 ALBUTEROL SULFATE HFA 90 MCG/* Inhale 2 Puffs as instructed * Patient not taking: Reported on 12/06/2019 Problem List As Of Date 02/05/2020 Noted Resolved Umbilical hernia without mention of obstruction*12/01/2007 0 02/01/2013 CAD (coronary artery disease) [I25.10] More... COPD (chronic obstructive pulmonary disease) (H* More... Hyperlipidemia [E78.5] More... Migraine headache [G43.909] More... Depression [F32.9] More... Anxiety [F41.9] More... History of drug abuse [F19.11] More... Tobacco use disorder [F17.200] More... Chronic pain [G89.29] 05/18/2014 More... Restless leg syndrome [G25.81] 11/24/2014 More... Low back pain with right-sided sciatica [M54.41]11/09/2015 Acute pain of right knee [M25.561] 12/18/2015 11/14/2017 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] 12/18/2015 Encounter Status:Closed by BRANDON LEPE.NEREIDA RAND on 02/04 progress on 2020-01 PROGRESS HNO ID: [id number] Normal 01-28-2020 [facility] Author: Nereida Brantley (Steven Rand) Brandon Raymond ([id number]) Service: ? Author Type: Nurse Practitioner Type: Progress Notes Filed: 01/28/2020 1:00 PM Note Text: This Team Access Model visit is a walk in encounter. It requ ired patient-provider interaction for the medical decision making as documented below. No video was used for evaluation of this patient. Location of patient: [facility] Telemedicine Evaluation for COVID-19 Infection SUBJECTIVE: Baljinder Beckwith is a 59 year old year old male who presents for the past 1 day with symptoms that are:gradually worsening. Symptoms include: Positive for Fever, Chills/Sweats, Cough, Nasal congestion, Rhinorrhea, Headache, Sore throat and Fatigue, Negative for Face pain/pr essure, Teeth pain , Otalgia, Nausea, Emesis and Diarrhea Oral intake: decreased Tobacco use: Yes Recent exposure to strep:No Recent travel: none OTC meds/remedies that patient has tried: none. Has the patient had any ill contacts? No Has the patient had contact with anyone confirmed or a proba ble case with COVID-19 infection in the last 14 days? No Does the patient have family with confirmed COVID-19 infecti on: No Has the patient traveled or resided in an area with sustaine d or ongoing community transmission of COVID-19? No REVIEW OF SYSTEMS: Nasal congestion: Yes Decreased appetite: No Signs of dehydration (low fluid intake or voiding, diarrhea, dry mucus membranes): No Decreased level of consciousness: No MAJOR COVID-19 SYMPTOMS: *Coughing: Yes *Shortness of breath: Yes *Difficulty breathing: No MINOR COVID-19 SYMPTOMS: Fever: (Temp 100.4F or greater) Yes Chills: Yes Headache: Yes Acute loss of smell or taste: No Sore throat: Yes Muscle aches: Yes Vomiting: No Diarrhea: No *If the patient has one major COVID-19 symptom or two minor COVID-19 symptoms, may clinically have COVID-19 as long as there is n o other clinical explanation for the symptom(s). *If the patient is in [place] and in a high risk category and h as at least 2 symptoms of : fever, cough, shortness of breath, myalgia, di arrhea, anosmia, loss of taste, and sore throat then the patient may qualify for an ambulatory [facility] COVID-19 test. Route the chart to the COVID-19 HOTLINE POOL for testing determination. PATIENT'S HIGH RISK CATEGORY ASSESSMENT: Coronary artery disease Chronic lung disease One major COVID-19 symptom or two minor COVID-19 symptoms OBJECTIVE: Physical Exam Constitutional: He is oriented to person, place, and time an d well-developed, well-nourished, and in no distress. HENT: Head: Normocephalic and atraumatic. Mouth/Throat: No uvula swelling. Posterior oropharyngeal loy thema present. No oropharyngeal exudate or posterior oropharyngeal edema. Eyes: Conjunctivae are normal. Cardiovascular: Normal rate, regular rhythm, normal heart so unds and intact distal pulses. Exam reveals no gallop and no friction rub. No murmur heard. Pulmonary/Chest: Effort normal and breath sounds normal. No respiratory distress. He has no wheezes. He has no rales. He exhibits no tenderness. Musculoskeletal: General: No edema. Lymphadenopathy: He has no cervical adenopathy. Neurological: He is alert and oriented to person, place, and time. Gait normal. Skin: Skin is warm and dry. He is not diaphoretic. Centor Criteria - Age (2-14=+1, 15-44=0, >=45 -1): -1 - Tonsillar exudates: 0 - Tender anterior cervical adenopathy: 0 - Fever by history (>38 or 100.4): +1 - Absence of cough: 0 0 points- probability of strep is 1-2.5% 1 point- probability of strep is 5-10% 2 points- probability of strep is 11-17% 3 points- probability of strep is 28-35% 4 points- probability of strep is 51-53% ASSESSMENT/PLAN: See encounter diagnoses and orders for additional plan. ASSESSMENT/PLAN: 1. Suspected COVID-19 virus infection - ICD9: , ICD10: Z20.8 28 Baljinder eBckwith is an 59 year old who appears to have COVID-19 i nfection and is high risk or with concerning symptoms, recommend COVID-19 testing. This patient encounter involved the screening or treatment o f novel coronavirus infection (COVID-19). Order faxed to [facility]. Patient given number to call and schedul e for COVID-19 testing. - Red flags discussed for need for in person care - All questions answered SIGNATURE: Nereida Taylor APRN.RADHA DATE: January 28, 2020 cnov on 2020-01-28 CNOV Office Visit (UCWSTR) Normal 01-28-20 20 [facility] DEBORAHBALJINDER ADAMS ([id number]) 1960 M [facility] Time Provider Department ([id number]) 01/28/20 12:15 PM NEREIDA TAYLOR (TOOL POLISHING MACHINE OPERATOR, POULTRY FARM WORKER)WSTR During your visit today, we recorded the following informati on about you: Temperature Pulse Respiration Blood pressure 97.6 degrees 100/minute 18/minute 134/80 Weight 74.8 kg Nereida Taylor APRN.POULTRY FARM WORKER 01/28/2020 12:33 PM Signed Avoid Tobacco Smoke ? Tobacco smoke makes coughs much worse. ? Separate yourself from other people in your home, this is kn own as home isolation. Stay away from others: As mu ch as possible, you should stay in a specific ?sick room? and away from other people in your home. Use a separat e bathroom, if available. Limit contact with pets AND animals: You should restrict contact with pets and other animals, just like you would around other people. Although there have not been reports of pets or other anim als becoming sick with COVID-19, it is still r ecommended that people with the virus limit contact with animals until more information is known. When possible, have another member of your household care fo r your animals while you are sick with COVID-19. If you must care for your pet or be around animals while you are sick, wash your dominguez nds before and after you interact with them. Nereida Taylor APRN.RADHA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 mcg/spray spray - albuterol HFA (PROAIR HFA) 90 mcg/actuation inhaler Review of Systems CONSTITUTIONAL: No fevers, chills night sweats, unintended w eight loss CARDIOVASCULAR: No chest pain, dyspnea, palpitations, orth opnea, PND, ankle edema. PULM: No dyspnea, unexplained cough. GI: No dysphagia/odynophagia, problematic reflux, constipati on, diarrhea, changes in stool habits, hematochezia, melena. : No new urinary complaints, including dysuria, abi s hematuria or pyuria. NEURO: No new balance problems, peripheral weakness/pa resthesias or numbness of concern. Physical Exam BP 112/80 (BP Site: Left Arm, BP Position: Sitting, BP Cuff Size: Regular Adult) Pulse 84 Resp 16 Wt 74.4 kg (164 lb) BMI 26.4 7 kg/m? General appearance: Well jenn earing, alert, in no acute distress, well nourished. Skin: Skin color, texture, turgor normal, no suspicious rash es or lesions Head: Normocephalic, no masses, lesions, tenderness or abnor malities Eyes: Anicteric sclera. Pupils are equally round and reactiv e to light. Extraocular movements are intact. Lungs: Lungs clear to auscultation. No wheezing, rhonchi, ra les Heart: RRR without murmur, gallop, or rubs. Extremities: No deformities, edema, skin discolo ration, clubbing or cyanosis. Good capillary refill. ASSESSMENT/PLAN: 1. Coronary artery disease involving iliamna coronary arter y of iliamna heart without angina pectoris - ICD9: 414.01, ICD10: I25.10 (prima ry diagnosis) No chest pain or sob 2. Need for vaccination - ICD9: V05.9, ICD10: Z23 - INFLUENZA VACCINE QUADRIVALENT AGE 3 YRS PLUS + IM 3. Mixed hyperlipidemia - ICD9: 272.2, ICD10: E78.2 - good control - Continue current medication. 4. Anxiety - ICD9: 300.00, ICD10: F41.9 5. Severe episode of recurrent major depressive disorder, without psychotic features (HCC) - ICD9: 296.33, ICD10: F33.2 6. Other migraine with status migrainosus, not intractable - ICD9: 346.82, ICD10: G43.801 - KETOROLAC 60 MG/2 ML INTRAMUSCULAR SOLUTION 7. Chronic right-sided low back pain with right- sided sciatica - ICD9: 724.2, 724.3, 338.29, ICD10: M54.41, - CYCLOBENZAPRINE 10 MG TABLET 8. Non-compliant patient - ICD9: V15.81, ICD10: Z91.19 VIMAL BATISTA MD Referring Provider: VIMAL BATISTA [[id number]] Allergies As of Date: 05/14/2019 Noted Allergy Reaction CELECOXIB 11/15/2015 7 - Swelling PREGABALIN 10/26/2016 7 - Swelling Date Reviewed: 05/14/2019 Reviewed by: Re Ludwig LPN - Fully Assessed Reason for Visit: F/U 3 Month [443] Imm/Inj [58] Cmt: Flu Vaccine Reason For Visit History Recorded Primary Visit Diagnosis:Coronary artery disease involving na tive coronary artery of iliamna heart without angina pectoris [I25.10] Other Visit Diagnoses:Need for vaccination [Z23] Mixed hyperlipidemia [E78.2] Anxiety [F41.9] Severe episode of recurrent major depressive disorder, without psychotic features (HCC) [F33.2] Other migraine with status migrainosus, not intractable [G43.801] Chronic right-sided low back pain with right-sided sciatica [M54.41, G89.29] Non-compliant patient [Z91.19] Order(s):INFLUENZA VACCINE QUADRIVALENT AGE 3 YRS PLUS + IM [[id number]] Order #: [id number] [] ketorolac (TORADOL) 60 mg/2 mL solnInject 2 mL intramuscularly one time only for 1 dose.Disp: 1 mLRfl: 0 cyclobenzaprine (FLEXERIL) 10 mg tabletTake 1 tablet by mout h at bedtime as needed for Muscle Spasm.Disp: 15 tabletRfl: 0 [] ketorolac 60 mg injection (TORADOL)Disp: Rfl: Prescriptions as of 05/14/2019 Sig: ATORVASTATIN 80 MG TABLET Take 1 tablet by mouth once d* ESCITALOPRAM 20 MG TABLET Take 1 tablet by mouth once d* ASPIRIN 81 MG TABLET,DELAYED * Take 1 tablet by mouth once d * METOPROLOL SUCCINATE ER 25 MG* Take 1 tablet by mouth twice * KETOROLAC 60 MG/2 ML INTRAMUS* Inject 2 mL intramuscularly o * CYCLOBENZAPRINE 10 MG TABLET Take 1 tablet by mouth at bed* THERAPEUTIC MULTIVITAMIN TABL* Take 1 tablet by mouth once d * NITROGLYCERIN 400 MCG/SPRAY T* Dissolve 1 [place] under the to * Patient not taking: Reported on 05/14/2019 ALBUTEROL SULFATE HFA 90 MCG/* Inhale 2 Puffs as instructed * Problem List As Of Date 05/14/2019 Noted Resolved Umbilical hernia without mention of obstruction*12/01/2007 0 02/01/2013 CAD (coronary artery disease) [I25.10] More... COPD (chronic obstructive pulmonary disease) (H* More... Hyperlipidemia [E78.5] More... Migraine headache [G43.909] More... Depression [F32.9] More... Anxiety [F41.9] More... History of drug abuse [F19.11] More... Tobacco use disorder [F17.200] More... Chronic pain [G89.29] 05/18/2014 More... Restless leg syndrome [G25.81] 11/24/2014 More... Low back pain with right-sided sciatica [M54.41]11/09/2015 Acute pain of right knee [M25.561] 12/18/2015 11/14/2017 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] 12/18/2015 Prescriptions ordered this encounter Disp Refills Start End KETOROLAC 60 MG/2 ML INTRAMUSCULAR S* 1 mL 0 05/14/201904/24 Class: Back Office Route: INTRAMUSCULA Sig: Inject 2 mL intramuscularly one time only for 1 dose. CYCLOBENZAPRINE 10 MG TABLET 15 t* 0 05/14/2019 Route: ORAL Sig: Take 1 tablet by mouth at bedtime as needed for Muscle Spasm. KETOROLAC 60 MG/2 ML INTRAMUSCULAR S* 05/14/2019 05/14/2019 Route: INTRAMUSCULA Encounter Status:Closed by VIMAL BATISTA MD on 05/14/19 lipid panel, basic on 2019-05-03 Cholesterol [Mass/Vol] 181 <200 mg/dL Normal 019 [facility] ([id number]) Comment: Result Comment: <200 mg/dL, Desirable 200-239 mg/dL, Borderline hi gh >239 mg/dL, High Performed By: #### LIPB #### [address] [phone] Cholesterol in HDL 41 >39 mg/dL Normal 05-03-2019 [facility] [Mass/Vol] ([id number]) Comment: Result Comment: 40-59 mg/dL, Acceptable >59 mg/dL, High: Negative ri sk factor for coronary heart disease <40 mg/dL, Low: Positive ris k factor for coronary heart disease Performed By: #### LIPB #### [address] [phone] Cholesterol in LDL 114 <100 mg/dL High 05-03-2019 [facility] [Mass/Vol] ([id number]) Comment: Result Comment: <100 mg/dL, Optimal 100-129 mg/dL, Near optimal/ above optimal 130-159 mg/dL, Borderline hi gh 160-189 mg/dL, High >189 mg/dL, Very high Secondary prevention optimal LDL Cholesterol levels are recommended to be < 70 mg/dL Performed By: #### LIPB #### [address] [phone] Fasting Time 10 hrs Normal 05-03-2019 [facility] ([id number]) Comment: Performed By: #### LIPB #### [id number] [place], [place] [phone]- [phone] LDL:HDL Ratio 2.78 <2.54 High 05-03-2019 [facility] ([id number]) Comment: Result Comment: Reference: 1. National Cholesterol Educ ation Program ATP III Guideline At-A-Glance Quick Desk Reference: National Heart, Lung, and Blood [place]. National Institutes of Health. 2001: NIH Publication No. 01-3305. 2. An International Atherosc lerosis Society position paper: global recommendations for the management of dyslipidemia: executive summary, Atherosclerosis. 2014: 232(2):410-413. Performed By: #### LIPB #### [place] [address], [place] [phone]- [phone] Non HDL Cholesterol 140 <130 mg/dL High 05-03-2019 [facility] ([id number]) Comment: Result Comment: <130 mg/dL, Optimal 130-159 mg/dL, Near optimal/ above optimal 160-189 mg/dL, Borderline hi gh 190-219 mg/dL, High >219 mg/dL, Very high Secondary prevention optimal non HDL Cholesterol levels are recommended to be < 100 mg/dL Performed By: #### LIPB #### [address], [place] [phone] TC:HDL Ratio 4.41 <5.10 Normal 05-03-2019 [facility] (69494) Comment: Performed By: #### LIPB #### [address], [place] [phone]- [phone] Triglyceride [Mass/Vol] 129 <150 mg/dL Normal 2018 [facility] ([id number]) Comment: Result Comment: <150 mg/dL, Normal 150-199 mg/dL, Borderline hi gh 200-499 mg/dL, High >499 mg/dL, Very high Performed By: #### LIPB #### [place] [address], [place] [phone]- [phone] VLDL Cholesterol 26 <30 mg/dL Normal 05-03-2019 [facility] (06085) Comment: Performed By: #### LIPB #### [address], [place] [phone]- [phone] cbc on 2019-05-03 Absolute nRBC <0.01 <0.01 Normal 05-03-2019 [facility] (45696) Comment: Performed By: #### CBC, BMP ####[facility], [place] [phone]- [phone] Erythrocyte distribution 13.2 11.5-15.0 % Normal 05-03 [facility] width (RBC) [Ratio] [facility] (65739) Comment: Performed By: #### CBC, BMP ####[place] [address], [place] [phone]- [phone] Hematocrit (Bld) [Volume 48.5 39.0-51.0 % Normal 05-03 [facility] fraction] [facility] (22770) Comment: Performed By: #### CBC, BMP ####[place] [address], [place] [phone]- [phone] Hemoglobin (Bld) 15.2 13.0-17.0 g/dL Normal 05-03-2019 [facility] [Mass/Vol] [facility] (79094) Comment: Performed By: #### CBC, BMP ####[place] [address], [place] [phone]- [phone] MCH (RBC) [Entitic mass] 30.2 26.0-34.0 pG Normal 05-03 [facility] (81063) Comment: Performed By: #### CBC, BMP ####[address], [place] [phone]- [phone] MCHC (RBC) [Mass/Vol] 31.3 30.5-36.0 g/dL Normal 05-03-20 19 [facility] (30374) Comment: Performed By: #### CBC, BMP ####[place] [address], [place] [phone]- [phone] MCV (RBC) [Entitic vol] 96.4 80.0-100.0 fL Normal 05-03 [facility] (69508) Comment: Performed By: #### CBC, BMP ####[place] [address], [place] [phone]- [phone] Platelet mean volume 10.3 9.0-12.7 fL Normal 9 [facility] (Bld) [Entitic vol] [facility] (14605) Comment: Performed By: #### CBC, BMP ####[place] [address] [place], [place] [phone] Platelets (Bld) [#/Vol] 294 150-400 k/uL Normal 2018 [facility] ([id number]) Comment: Performed By: #### CBC, BMP ####[address] [place], [place] [phone] RBC (Bld) [#/Vol] 5.03 4.20-6.00 m/uL Normal 05-03-2019 [facility] (61653) Comment: Performed By: #### CBC, BMP ####[address] [place], [place] [phone]- [phone] WBC (d) [#/Vol] 5.17 3.70-11.00 k/uL Normal 05-03-2019 [facility] (62690) Comment: Performed By: #### CBC, BMP ####[place] [address] [place], [place] [phone]- [phone] basic metabolic panl on 2019-05-03 Anion gap [Moles/Vol] 12 9-18 mmol/L Normal 05-03-20 19 [facility] (27178) Comment: Performed By: #### CBC, BMP ####[address] [place], [place] [phone] Calcium [Mass/Vol] 9.4 8.5-10.2 mg/dL Normal 05-03-2019 [facility] (21266) Comment: Performed By: #### CBC, BMP ####[address] [place], [place] [phone] Chloride [Moles/Vol] 105 97-105 mmol/L Normal 9 [facility] (93788) Comment: Performed By: #### CBC, BMP ####[facility] [address], [place] [phone]- [phone] CO2 [Moles/Vol] 25 22-30 mmol/L Normal 05-03-2019 [facility] (33393) Comment: Performed By: #### CBC, BMP ####[facility], [place] [phone]- [phone] Creatinine [Mass/Vol] 1.00 0.73-1.22 mg/dL Normal 05-03-20 19 [facility] (45993) Comment: Performed By: #### CBC, BMP ####[facility], [place] [phone]- [phone] eGFR- Amer. >60 Normal 05-03-2019 [facility] (08310) Comment: Performed By: #### CBC, BMP ####[place] [address], [place] [phone]- [phone] GFR/1.73 sq M predicted >60 mL/min/{1.73_m2} Normal 05-03-2019 [facility] among non-blacks [facility] (86846) (S/P/Bld) [Vol rate/Area] Comment: Result Comment: eGFR (Estima michael GFR) Units of measure: mL/min/1.73 meters squared eGFR is derived from the ree xpressed MDRD Study equation using the following parameters: serum creatinine, age, gender and race. The creatinine assay has been calibrated to be traceable to IDMS. An eGFR <60 mL/min/1.73m2 fo r >3 months is consistent with chronic kidney disease. Refer to KDOQI guidelines for clinical interpretation. In patients with unstable re nal function, e.g. those with acute kidney injury, the eGFR may not accurately reflect actual GFR. Performed By: #### CBC, BMP ####[facility], [place] [phone]- [phone] Glucose [Mass/Vol] 86 74-99 mg/dL Normal 05-03-2019 [facility] (70540) Comment: Result Comment: The [place] Diabetes Association (ADA) provides guidance for cutoff values for fasting glucose and random glucose. The ADA defines fasting as no caloric intake for at least 8 hours. Fas ting plasma glucose results between 100 to 125 mg/dL indicate increased risk for diabetes (prediabetes). Fasting plasma glucose resul ts greater than or equal to 126 mg/dL meet the criteria for diagnosis of diabetes. In the absence of unequivocal hyperglycemia, results should be confirmed by repeat testing. In a patient with classic s ymptoms of hyperglycemia or hyperglycemic crisis, random plasma glucose results greater than or equal to 200 mg/dL meet the criteria for diagnosis of diabetes. Reference: Standards of [facility] Care in Diabetes 2016, [place] Diabetes Association. Diabetes Care. 2016.39(Suppl 1). Performed By: #### CBC, BMP ####[address] [phone] Potassium [Moles/Vol] 4.7 3.7-5.1 mmol/L Normal 05-03-20 19 [facility] (50432) Comment: Performed By: #### CBC, BMP ####[address] [phone] Sodium [Moles/Vol] 142 136-144 mmol/L Normal 05-03-2019 [facility] (93764) Comment: Performed By: #### CBC, BMP ####[address] [phone] Urea nitrogen [Mass/Vol] 16 9-24 mg/dL Normal 05-03 [facility] (07629) Comment: Performed By: #### CBC, BMP ####[address] [phone] cnptoutreach on 201 03-03-05 CNPTOUTREACH Patient Outreach (FAMPST) Normal 1 06-27-2018 [facility] DEBORAHBALJINDER ([id number]) 1960 [facility] Date Time Provider Department ([id number]) 04/27/19 VIMAL BATISTA During your visit today, we recorded the following informati on about you: Allergies As of Date: 04/27/2019 Noted Allergy Reaction CELECOXIB 11/15/2015 7 - Swelling PREGABALIN 10/26/2016 7 - Swelling Date Reviewed: 02/09/2019 Reviewed by: Marisol Huffman LPN - Fully Assessed Visit Diagnosis:Medication management [Z79.899] Order(s):BASIC METABOLIC PNL [SQBMP] Order #: [id number] FUT URE Prescriptions as of 04/27/2019 Sig: ATORVASTATIN 80 MG TABLET Take 1 tablet by mouth once d* ESCITALOPRAM 20 MG TABLET Take 1 tablet by mouth once d* ASPIRIN 81 MG TABLET,DELAYED * Take 1 tablet by mouth once d * METOPROLOL SUCCINATE ER 25 MG* Take 1 tablet by mouth twice * THERAPEUTIC MULTIVITAMIN TABL* Take 1 tablet by mouth once d * NITROGLYCERIN 400 MCG/SPRAY T* Dissolve 1 [place] under the to * ALBUTEROL SULFATE HFA 90 MCG/* Inhale 2 Puffs as instructed * Problem List As Of Date 04/27/2019 Noted Resolved Umbilical hernia without mention of obstruction*12/01/2007 0 02/01/2013 CAD (coronary artery disease) [I25.10] More... COPD (chronic obstructive pulmonary disease) (H* More... Hyperlipidemia [E78.5] More... Migraine headache [G43.909] More... Depression [F32.9] More... Anxiety [F41.9] More... History of drug abuse [F19.11] More... Tobacco use disorder [F17.200] More... Chronic pain [G89.29] 05/18/2014 More... Restless leg syndrome [G25.81] 11/24/2014 More... Low back pain with right-sided sciatica [M54.41]11/09/2015 Acute pain of right knee [M25.561] 12/18/2015 11/14/2017 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] 12/18/2015 Encounter Status:Closed by MARYANNE PASTRANAUSER on 05/12/19 *activated*clot time, poc on 2018-01-22 *Activated*Clot Time, poc 551 89-169 sec High 08-0 2-2018 [facility] [place] ([id number]) *Activated*Clot Time, poc 481 89-169 sec High 08-0 -2018 [facility] [place] ([id number]) *Activated*Clot Time, poc 484 89-169 sec High 08-0 2-2018 [facility] [place] ([id number]) *Activated*Clot Time, poc 482 89-169 sec High 08-0 -2018 [facility] [place] (46593) *Activated*Clot Time, poc 108 89-169 sec Normal 08-0 -2017 [facility] [place] ([id number]) *Activated*Clot Time, poc 433 89-169 sec High 08-0 2-2018 [facility] [place] ([id number]) *Activated*Clot Time, poc 108 89-169 sec Normal 08-0 -2018 [facility] [place] ([id number]) xr chest portable o n 2018-01-01 XR CHEST EXAM: XR CHEST PORTABLE, Normal 01-01 [place] [facility] PORTABLE 01/01/2018 06:04 [facility] vers[facility] AMCOMPARISON: 1 day Medical Center earlierCLINICAL INDICATIONS: ([id number]) post op heart surgeryRELEVANT CLINICAL HISTORY:FINDINGS: (Adequate technique)Postop changes. Linear atelectasis at both bases. Stable heart size.IMPRESSION:No change. type and cross on 2 Type and Cross ABO/RH(D): A POSITIVE Normal [facility] ANTIBODY SCREEN: NEGATIVE [facility] (04493) Comment: Performed By: #### PTPTT ### #[facility] (DEFAULT)[address] [place] [address]#### FT4, TSH, PALB ####[facility] [address] [place] [address] 43 210[facility] [place] [address] prealbumin on 01-01 Prealbumin mass conc 14 17-34 mg/dL Low 8 [facility] nter (14325) Comment: Performed By: #### CBCDFC, P TPTT, CA, CHM7, HFP, IPB, MGO, LIPDR, TROP ####[facility] [address] [place] [phone] [facility] Hospital[address] [place] [phone] magnesium on 01-01 Magnesium mass conc 1.9 1.6-2.6 mg/dL Normal 01-01-2018 [facility] nter (30482) Comment: Performed By: #### PTPTT ### #[facility] (DEFAULT)[address] [place] [address]#### FT4, TSH, PALB ####[facility] [place] [address] 43 210[facility] [place] [phone] hemogram (cbc and platelet) on 2018-01-01 Hematocrit Auto Volume 33.4 40.1-51.0 % Low 018 [facility] (67039) Comment: Performed By: #### CBCDFC, P TPTT, CA, CHM7, HFP, IPB, MGO, LIPDR, TROP ####[facility] [address] [place] [address] [place], [place] [phone] [place] [address] Hemoglobin mass conc 10.9 13.7-17.5 g/dL Low 8 [facility] (46238) Comment: Performed By: #### CBCDFC, P TPTT, CA, CHM7, HFP, IPB, MGO, LIPDR, TROP ####[facility] [address] [place] [phone] [place], [place] [phone] [place] [address]9948 MCV Auto Entitic volume 92.3 79.0-92.2 fL High 2017 [facility] (RBC) [facility] (69617) Comment: Performed By: #### CBCDFC, P TPTT, CA, CHM7, HFP, IPB, MGO, LIPDR, TROP ####[facility] [address] [place], [place] [phone] [place] [address] Mean Cell Hgb 30.1 25.7-32.2 pg Normal 01-01-2018 [facility] nter ([id number]) Comment: Performed By: #### CBCDFC, P TPTT, CA, CHM7, HFP, IPB, MGO, LIPDR, TROP ####[facility] [address] [place], [place] [phone] [address] [place] [id number] Mean Cell Hgb Conc 32.6 32.3-36.5 g/dL Normal 01-01-2018 [facility] nter ([id number]) Comment: Performed By: #### CBCDFC, P TPTT, CA, CHM7, HFP, IPB, MGO, LIPDR, TROP ####[facility] [address] [place], [place] [id number] [address] [place] [address] 23819 Nucleated RBC #/vol 0.2 0.0-0.2 /100 WBC Normal 01-01-2018 [facility] (Bld) [facility] (94720) Comment: Performed By: #### CBCDFC, P TPTT, CA, CHM7, HFP, IPB, MGO, LIPDR, TROP ####[facility] [address] [place], [place] [id number] [address] [place] [address] 52339 Platelet mean volume 10.1 9.4-12.4 fL Normal 8 [facility] Auto Entitic volume [facility] ([facility]) (40045) Comment: Performed By: #### CBCDFC, P TPTT, CA, CHM7, HFP, IPB, MGO, LIPDR, TROP ####[facility] [address] [place], [place] [id number] [address] [place] [address] 64896 Platelets Auto #/vol 274 163-337 K/uL Normal 8 [facility] (d) [facility] (06133) Comment: Performed By: #### CBCDFC, P TPTT, CA, CHM7, HFP, IPB, MGO, LIPDR, TROP ####[facility] [address] [place], [place] [id number] [address] [place] [address] 36669 RBC Auto #/vol (d) 13.2 11.6-14.4 % Normal 8 [facility] nter (49362) Comment: Performed By: #### CBCDFC, P TPTT, CA, CHM7, HFP, IPB, MGO, LIPDR, TROP ####[facility] [address] [place], [place] [id number] [address] [place] [address] 65851 RBC Auto #/vol (d) 3.62 4.63-6.08 M/uL Low 8 [facility] nter (65480) Comment: Performed By: #### CBCDFC, P TPTT, CA, CHM7, HFP, IPB, MGO, LIPDR, TROP ####[facility] [address] [place], [place] [id number] [address] [place] [address] 60614 WBC Auto #/vol (Bld) 8.71 4.23-9.07 K/uL Normal 8 [facility] [place] (74106) Comment: Performed By: #### CBCDFC, P TPTT, CA, CHM7, HFP, IPB, MGO, LIPDR, TROP ####[facility] [address] [place], [place] [id number] [address] [place] [address] 19939 chem 7 on 2017-12-21 2 Anion gap 3 molar conc 15 7-17 mmol/L Normal 018 [facility] nter (31611) Comment: Performed By: #### CBCDFC, P TPTT, CA, CHM7, HFP, IPB, MGO, LIPDR, TROP ####[facility] [address] [place], [place] [id number] [address] [place] [address] 30610 Chloride molar conc 100 98-108 mmol/L Normal 01-01-2018 [facility] nter (68981) Comment: Performed By: #### CBCDFC, P TPTT, CA, CHM7, HFP, IPB, MGO, LIPDR, TROP ####[facility] [address] [place], [place] [id number] [address] [place] [address] 34500 CO2 molar conc 23 22-30 mmol/L Normal 01-01-2018 [facility] (00 000) Comment: Performed By: #### CBCDFC, P TPTT, CA, CHM7, HFP, IPB, MGO, LIPDR, TROP ####[facility] [address] [place], [place] [address] [address] [place] [address] 44111 Creatinine mass conc 0.88 0.70-1.30 mg/dL Normal 8 [facility] [place] (24400) Comment: Performed By: #### CBCDFC, P TPTT, CA, CHM7, HFP, IPB, MGO, LIPDR, TROP ####[facility] [address] [place], [place] [address] [address] [place] [address] 69320 Est GFR, >60 >60 Normal 12-21 [facility] nter (83460) Comment: Performed By: #### CBCDFC, P TPTT, CA, CHM7, HFP, IPB, MGO, LIPDR, TROP ####[facility] [address] [place], [place] [address] [address] [place] [address] 72327 Est GFR,non >60 >60 Normal 0 01-01-2018 [facility] nter (26233) Comment: Performed By: #### CBCDFC, P TPTT, CA, CHM7, HFP, IPB, MGO, LIPDR, TROP ####[facility] [address] [place], [place] [address] [address] [place] [address] 96804 Glucose mass conc 131 70-99 mg/dL High 01-01-[address] [facility] nter (38498) Comment: Performed By: #### CBCDFC, P TPTT, CA, CHM7, HFP, IPB, MGO, LIPDR, TROP ####[facility] [address] [place], [place] [address] [address] [place] [address] 69261 Osmolality 284 278-305 mOsm/kg Normal 01-01-2018 [facility] (00 000) Comment: Performed By: #### CBCDFC, P TPTT, CA, CHM7, HFP, IPB, MGO, LIPDR, TROP ####[facility] [address] [place], [place] [address] [place] [address] 93478 Potassium molar conc 3.9 3.5-5.0 mmol/L Normal 8 [facility] [place] (81529) Comment: Performed By: #### CBCDFC, P TPTT, CA, CHM7, HFP, IPB, MGO, LIPDR, TROP ####[facility] [address] [place] [address] [place], [place] [address] [address] [place] [address] 32670 Sodium molar conc 134 133-143 mmol/L Normal 01-01-[address] [facility] nter (42588) Comment: Performed By: #### CBCDFC, P TPTT, CA, CHM7, HFP, IPB, MGO, LIPDR, TROP ####[facility] [address] [place], [place] [id number] [address] [place] [address] 53734 Urea nitrogen mass conc 14 7-22 mg/dL Normal 2017 [facility] nter (38116) Comment: Performed By: #### CBCDFC, P TPTT, CA, CHM7, HFP, IPB, MGO, LIPDR, TROP ####[facility] [address] [place], [place] [address] [place] [address] 42617 Urea nitrogen/Creatinine mass 16 mg/mg Normal 01-01-2018 [facility] (46340) Comment: Performed By: #### CBCDFC, P TPTT, CA, CHM7, HFP, IPB, MGO, LIPDR, TROP ####[facility] [address] [place], [place] [address] [address] [place] [address] 67632 c reactive protein on 2018-01-01 CRP mass conc 114.70 <10.00 mg/L High 01-01-2018 [facility] (00 000) Comment: Performed By: #### CBCDFC, P TPTT, CA, CHM7, HFP, IPB, MGO, LIPDR, TROP ####[facility] [address] [place], [place] [address]AwaxmgPaulding County Hospital[address] [place], [place] [address] *poc glucose battery on 2018-01-01 *POC SAMPLE TYPE Capillary Blood Normal 018 [facility] [place] (63428) Glucose mass conc 103 70-99 mg/dL High 01-01-2018 [facility] (12221) Comment: Result Comment: No BRAVE per RN: PATIENT TYPE xr chest portable o n 2017-12-31 XR CHEST EXAM: XR CHEST PORTABLE, Normal 12-31 [facility] PORTABLE 12/31/2017 05:51 AMCOMPARISON: University Compared to prior day.CLINICAL [facility] INDICATIONS: post op heart Center ([id number]) surgeryRELEVANT CLINICAL HISTORY:FINDINGS: (Adequate technique)Life Support Devices: None Chest Wall: Status post sternotomy.Crissy: NormalMediastinum: Stable.Pleural Spaces: No definite pleural effusion. No definite pneumothorax.Lungs: Bilateral basilar atelectasis.Cardiac Silhouette: Stable contour Thoracic Aorta: NormalPulmonary Vessels: Normal, without PVHIMPRESSION:No significant change from previous examination. magnesium on 12-31 Magnesium mass conc 1.9 1.6-2.6 mg/dL Normal 12-31-2017 [facility] Ce n[facility] (04558) Comment: Performed By: #### CBCDFC, P TPTT, CA, CHM7, HFP, IPB, MGO, LIPDR, TROP ####[facility] [address] [place] [address]MzyyziPaulding County Hospital410 [address] [place] [address] 75048 hemogram (cbc and platelet) on 2017-12-31 Hematocrit Auto Volume 29.9 40.1-51.0 % Low 018 [facility] Fraction (Bld) [facility] (37566) Comment: Performed By: #### CBCDFC, P TPTT, CA, CHM7, HFP, IPB, MGO, LIPDR, TROP ####[facility] [address] [place] [address] [place], [place] [address] [place] [address] 27629 Hemoglobin mass conc (Bld) 9.8 13.7-17.5 g/dL Low [facility] [place] (39673) Comment: Performed By: #### CBCDFC, P TPTT, CA, CHM7, HFP, IPB, MGO, LIPDR, TROP ####[facility] [address] [place], [place] [address] [address] [place] [address] 38530 MCV Auto Entitic volume 91.4 79.0-92.2 fL Normal 2017 [facility] (RBC) [facility] (89195) Comment: Performed By: #### CBCDFC, P TPTT, CA, CHM7, HFP, IPB, MGO, LIPDR, TROP ####[facility] [address] [place], [place] [address] [address] [place] [address] 36867 Mean Cell Hgb 30.0 25.7-32.2 pg Normal 12-31-2017 [facility] Ce nter (15789) Comment: Performed By: #### CBCDFC, P TPTT, CA, CHM7, HFP, IPB, MGO, LIPDR, TROP ####[facility] [address] [place] [address] [place], [place] [address] [place] [address] 39178 Mean Cell Hgb Conc 32.8 32.3-36.5 g/dL Normal 12-31-2017 [facility] nter (54559) Comment: Performed By: #### CBCDFC, P TPTT, CA, CHM7, HFP, IPB, MGO, LIPDR, TROP ####[facility] r[address] [place], [place] [id number] [place] [address] 72923 Nucleated RBC #/vol 0.3 0.0-0.2 /100 WBC High 12-31-2017 [facility] ([facility] (71938) Comment: Performed By: #### CBCDFC, P TPTT, CA, CHM7, HFP, IPB, MGO, LIPDR, TROP ####[facility] [address] [place], [place] [address] [place] [address] 22771 Platelet mean volume 10.2 9.4-12.4 fL Normal 8 [facility] Auto Entitic volume [facility] ([facility]) (23553) Comment: Performed By: #### CBCDFC, P TPTT, CA, CHM7, HFP, IPB, MGO, LIPDR, TROP ####[facility] [address] [place], [place] [address] [place] [address] 42594 Platelets Auto #/vol 226 163-337 K/uL Normal 8 [facility] ([facility]) [facility] (36027) Comment: Performed By: #### CBCDFC, P TPTT, CA, CHM7, HFP, IPB, MGO, LIPDR, TROP ####[facility] [address] [place], [place] [address] [address] [place] [address] 93189 RBC Auto #/vol (d) 13.2 11.6-14.4 % Normal 8 [facility] Ce nter (67110) Comment: Performed By: #### CBCDFC, P TPTT, CA, CHM7, HFP, IPB, MGO, LIPDR, TROP ####[facility] [address] [place], [place] [address] [place] [address] 74172 RBC Auto #/vol (Bld) 3.27 4.63-6.08 M/uL Low 8 [facility] nter (27732) Comment: Performed By: #### CBCDFC, P TPTT, CA, CHM7, HFP, IPB, MGO, LIPDR, TROP ####[facility] [address] [place] [address] [place], [place] [address] [place] [address] 55431 WBC Auto #/vol (Bld) 7.53 4.23-9.07 K/uL Normal 8 [facility] [place] (36461) Comment: Performed By: #### CBCDFC, P TPTT, CA, CHM7, HFP, IPB, MGO, LIPDR, TROP ####[facility] [address] [place], [place] [address] [address] [place] [address] 88585 chem 7 on 2017-12-21 1 Anion gap 3 molar conc 15 7-17 mmol/L Normal 018 [facility] nter (28385) Comment: Performed By: #### CBCDFC, P TPTT, CA, CHM7, HFP, IPB, MGO, LIPDR, TROP ####[facility] [address] [place] [address] [place], [place] [address] [address] [place] [address] 38241 Chloride molar conc 100 98-108 mmol/L Normal 12-31-2017 [facility] nter (44899) Comment: Performed By: #### CBCDFC, P TPTT, CA, CHM7, HFP, IPB, MGO, LIPDR, TROP ####[facility] [address] [place] [address] [place] [address] [place] [address] 37066 CO2 molar conc 24 22-30 mmol/L Normal 12-31-2017 [facility] (00 000) Comment: Performed By: #### CBCDFC, P TPTT, CA, CHM7, HFP, IPB, MGO, LIPDR, TROP ####[facility] [address] [place] [address] [place] [address] [place] [address] 12275 Creatinine mass conc 0.76 0.70-1.30 mg/dL Normal 8 [facility] [place] (32365) Comment: Performed By: #### CBCDFC, P TPTT, CA, CHM7, HFP, IPB, MGO, LIPDR, TROP ####[facility] [address] [place], [place] [address] [address] [place] [address] 37900 Est GFR, >60 >60 Normal 12-21 [facility] nter (99948) Comment: Performed By: #### CBCDFC, P TPTT, CA, CHM7, HFP, IPB, MGO, LIPDR, TROP ####[facility] [address] [place], [place] [address] [place] [address] 29654 Est GFR,non >60 >60 Normal 0 12-31-2017 [facility] nter (77131) Comment: Performed By: #### CBCDFC, P TPTT, CA, CHM7, HFP, IPB, MGO, LIPDR, TROP ####[facility] [address] [place], [place] [address] [place] [address] 39821 Glucose mass conc 109 70-99 mg/dL High 12-31-[address] [facility] nter (72021) Comment: Performed By: #### CBCDFC, P TPTT, CA, CHM7, HFP, IPB, MGO, LIPDR, TROP ####[facility] [address] [place], [place] [address] [place] [address] 86390 Osmolality 284 278-305 mOsm/kg Normal 12-31-2017 [facility] (00 000) Comment: Performed By: #### CBCDFC, P TPTT, CA, CHM7, HFP, IPB, MGO, LIPDR, TROP ####[facility] [address] [place] [address] [place] [address] [place] [address] 58214 Potassium molar conc 3.8 3.5-5.0 mmol/L Normal 8 [facility] [place] (36151) Comment: Performed By: #### CBCDFC, P TPTT, CA, CHM7, HFP, IPB, MGO, LIPDR, TROP ####[facility] [address] [place], [place] [address] [place] [address] 32837 Sodium molar conc 135 133-143 mmol/L Normal 12-31-2017 [facility] Ce nter (74726) Comment: Performed By: #### CBCDFC, P TPTT, CA, CHM7, HFP, IPB, MGO, LIPDR, TROP ####[facility] [address] [place] [address] [place], [place] [address] [place] [address] 56293 Urea nitrogen mass conc 15 7-22 mg/dL Normal 2017 [facility] nter (83916) Comment: Performed By: #### CBCDFC, P TPTT, CA, CHM7, HFP, IPB, MGO, LIPDR, TROP ####[facility] [address] [place], [place] [address] [place] [address] 70396 Urea nitrogen/Creatinine mass 20 mg/mg Normal 12-31-2017 [facility] (30845) Comment: Performed By: #### CBCDFC, P TPTT, CA, CHM7, HFP, IPB, MGO, LIPDR, TROP ####[facility] [address] [place], [place] [address]FfregwPaulding County Hospital[address] [place], [place] [address] *poc glucose battery on 2017-12-31 *POC SAMPLE TYPE Capillary Blood Normal 018 [facility] [place] (86949) Glucose mass conc 111 70-99 mg/dL High 12-31-2017 [facility] (12261) Comment: Result Comment: Notified RNr ead backNo BRAVE per RN: PATIENT TYPE *POC SAMPLE TYPE Capillary Blood Normal 018 [facility] [place] (99189) Glucose mass conc 143 70-99 mg/dL High 12-31-2017 [facility] (25518) Comment: Result Comment: Notified RNr ead backNo BRAVE per RN: PATIENT TYPE *POC SAMPLE TYPE Capillary Blood Normal 018 [facility] [place] (76443) Glucose mass conc 110 70-99 mg/dL High 12-31-2017 [facility] (64711) Comment: Result Comment: Notified RNr ead backNo BRAVE per RN: PATIENT TYPE *POC SAMPLE TYPE Capillary Blood Normal 018 [facility] [place] (36937) Glucose mass conc 113 70-99 mg/dL High 12-31-2017 [facility] (39947) Comment: Result Comment: No BRAVE per RN: PATIENT TYPE xr chest portable o n 2017-12-30 XR CHEST EXAM: XR CHEST PORTABLE, Normal 12-30 [facility] PORTABLE 12/30/2017 15:45 PMCOMPARISON: [facility] December 30[facility] 2017[facility] INDICATIONS: post plueral (83467) chest tube removalRELEVANT CLINICAL HISTORY:FINDINGS: (Adequate technique)Life Support Devices: None Chest Wall: Status post sternotomy.Crissy: NormalMediastinum: Stable.Pleural Spaces: No definite pleural effusion. No definite pneumothorax.Lungs: Patchy bilateral basilar atelectasis.Cardiac Silhouette: Stable. Thoracic Aorta: NormalPulmonary Vessels: Normal, without PVHIMPRESSION:Patchy basilar atelectasis. Stable cardiomegaly, postop changes. CHEST EXAM: XR CHEST PORTABLE, Normal 12-30 [facility] PORTABLE 12/30/2017 06:03 AMCOMPARISON: [facility] Compared to prior day.CLINICAL Medical Center INDICATIONS: post op heart (93056) surgeryRELEVANT CLINICAL HISTORY:FINDINGS: (Adequate technique)Life Support Devices: Stable Chest Wall: Stable sternotomyHila: NormalMediastinum: NormalPleural Spaces: No definite pleural effusion. No definite pneumothoraxLungs: Improved basilar atelectasisCardiac Silhouette: Stable contour Thoracic Aorta: NormalPulmonary Vessels: Normal, without PVHIMPRESSION:Improved basilar atelectasis. magnesium on 12-30 Magnesium mass conc 1.9 1.6-2.6 mg/dL Normal 12-30-2017 [facility] Ce nter (81522) Comment: Performed By: #### CBCDFC, P TPTT, CA, CHM7, HFP, IPB, MGO, LIPDR, TROP ####[facility] [address] [place] [address] 08667 hemogram (cbc and platelet) on 2017-12-30 Hematocrit Auto Volume 31.1 40.1-51.0 % Low 018 [facility] ([facility]) [facility] (14558) Comment: Performed By: #### CBCDFC, P TPTT, CA, CHM7, HFP, IPB, MGO, LIPDR, TROP ####[facility] [address] [place], [place] [address] [address] [place] [address] 96363 Hemoglobin mass conc 10.1 13.7-17.5 g/dL Low 8 [facility] ([facility]) [facility] (73439) Comment: Performed By: #### CBCDFC, P TPTT, CA, CHM7, HFP, IPB, MGO, LIPDR, TROP ####[facility] [address] [place] [address] [place] [address] [place] [address] 91170 MCV Auto Entitic volume 92.0 79.0-92.2 fL Normal 2017 [facility] (RBC) [facility] (56992) Comment: Performed By: #### CBCDFC, P TPTT, CA, CHM7, HFP, IPB, MGO, LIPDR, TROP ####[facility] [address] [place], [place] [address] [place] [address] 96408 Mean Cell Hgb 29.9 25.7-32.2 pg Normal 12-30-2017 [facility] Ce [facility]ter (88441) Comment: Performed By: #### CBCDFC, P TPTT, CA, CHM7, HFP, IPB, MGO, LIPDR, TROP ####[facility] [address] [place], [place] [address] [place] [address] 67834 Mean Cell Hgb Conc 32.5 32.3-36.5 g/dL Normal 12-30-2017 [facility] nter (41967) Comment: Performed By: #### CBCDFC, P TPTT, CA, CHM7, HFP, IPB, MGO, LIPDR, TROP ####[facility] [address] [place], [place] [address] [place] [address] 07112 Nucleated RBC #/vol 0.0 0.0-0.2 /100 WBC Normal 12-30-2017 [facility] (Bld) [facility] (14028) Comment: Performed By: #### CBCDFC, P TPTT, CA, CHM7, HFP, IPB, MGO, LIPDR, TROP ####[facility] [address] [place] [address]MewziyPaulding County Hospital[address] [place] [address] 15295 Platelet mean volume 10.9 9.4-12.4 fL Normal 8 [facility] Auto Entitic volume [facility] ([facility]) (54492) Comment: Performed By: #### CBCDFC, P TPTT, CA, CHM7, HFP, IPB, MGO, LIPDR, TROP ####[facility] [address] [place] [address] [place] [address] [place] [address] 55122 Platelets Auto #/vol 183 163-337 K/uL Normal 8 [facility] (d) [facility] (98356) Comment: Performed By: #### CBCDFC, P TPTT, CA, CHM7, HFP, IPB, MGO, LIPDR, TROP ####[facility] [address] [place] [address] [place], [place] [address] [place] [address] 04894 RBC Auto #/vol (d) 13.2 11.6-14.4 % Normal 8 [facility] Ce [facility] (40641) Comment: Performed By: #### CBCDFC, P TPTT, CA, CHM7, HFP, IPB, MGO, LIPDR, TROP ####[facility] [address] [place] [address] [place], [place] [address] [place] [address] 56192 RBC Auto #/vol (Bld) 3.38 4.63-6.08 M/uL Low 8 [facility] nter (83282) Comment: Performed By: #### CBCDFC, P TPTT, CA, CHM7, HFP, IPB, MGO, LIPDR, TROP ####[facility] [address] [place], [place] [address] [place] [address] 89369 WBC Auto #/vol (Bld) 7.25 4.23-9.07 K/uL Normal 8 [facility] [place] (33399) Comment: Performed By: #### CBCDFC, P TPTT, CA, CHM7, HFP, IPB, MGO, LIPDR, TROP ####[facility] [address] [place], [place] [address] [place] [address] 07037 chem 7 on 2017-12-21 0 Anion gap 3 molar conc 12 7-17 mmol/L Normal 018 [facility] nter (16477) Comment: Performed By: #### CBCDFC, P TPTT, CA, CHM7, HFP, IPB, MGO, LIPDR, TROP ####[facility] [address] [place], [place] [address] [place] [address] 99816 Chloride molar conc 98 98-108 mmol/L Normal 12-30-2017 [facility] nter (44992) Comment: Performed By: #### CBCDFC, P TPTT, CA, CHM7, HFP, IPB, MGO, LIPDR, TROP ####[facility] [address] [place] [address] [place] [address] 77763 CO2 molar conc 26 22-30 mmol/L Normal 12-30-2017 [facility] (00 000) Comment: Performed By: #### CBCDFC, P TPTT, CA, CHM7, HFP, IPB, MGO, LIPDR, TROP ####[facility] [address] [place], [place] [address] [place] [address] 08017 Creatinine mass conc 0.78 0.70-1.30 mg/dL Normal 8 [facility] (52484) Comment: Performed By: #### CBCDFC, P TPTT, CA, CHM7, HFP, IPB, MGO, LIPDR, TROP ####[facility] [address] [place] [address] [place] [address] [place] [address] 37164 Est GFR, >60 >60 Normal 12-21 [facility] nter (32637) Comment: Performed By: #### CBCDFC, P TPTT, CA, CHM7, HFP, IPB, MGO, LIPDR, TROP ####[facility] [address] [place], [place] [address] [place] [address] 05830 Est GFR,non >60 >60 Normal 0 12-30-2017 [facility] nter (56968) Comment: Performed By: #### CBCDFC, P TPTT, CA, CHM7, HFP, IPB, MGO, LIPDR, TROP ####[facility] [address] [place], [place] [address] [place] [address] 13962 Glucose mass conc 99 70-99 mg/dL Normal 12-30-[address] [facility] nter (64679) Comment: Performed By: #### CBCDFC, P TPTT, CA, CHM7, HFP, IPB, MGO, LIPDR, TROP ####[facility] [address] [place], [place] [address] [address] [place] [address] 62918 Osmolality 280 278-305 mOsm/kg Normal 12-30-2017 [facility] (00 000) Comment: Performed By: #### CBCDFC, P TPTT, CA, CHM7, HFP, IPB, MGO, LIPDR, TROP ####[facility] [address] [place] [address] [place], [place] [id number] [address] [place] [address] 75719 Potassium molar conc 3.8 3.5-5.0 mmol/L Normal 8 [facility] [place] (03261) Comment: Performed By: #### CBCDFC, P TPTT, CA, CHM7, HFP, IPB, MGO, LIPDR, TROP ####[facility] [address] [place], [place] [id number] [address] [place] [address] 32338 Sodium molar conc 132 133-143 mmol/L Low 12-30-[address] [facility] nter (24778) Comment: Performed By: #### CBCDFC, P TPTT, CA, CHM7, HFP, IPB, MGO, LIPDR, TROP ####[facility] [address] [place], [place] [id number] [address] [place] [address] 88258 Urea nitrogen mass conc 19 7-22 mg/dL Normal 2017 [facility] nter (24672) Comment: Performed By: #### CBCDFC, P TPTT, CA, CHM7, HFP, IPB, MGO, LIPDR, TROP ####[facility] [address] [place], [place] [id number] [address] [place] [address] 99652 Urea nitrogen/Creatinine mass 24 mg/mg Normal 12-30-2017 [facility] (94387) Comment: Performed By: #### CBCDFC, P TPTT, CA, CHM7, HFP, IPB, MGO, LIPDR, TROP ####[facility] [address] [place] [address] [place], [place] [id number] [address] [place] [address] 30057 *poc glucose battery on 2017-12-30 *POC SAMPLE TYPE Capillary Blood Normal 018 [facility] [place] (84838) Glucose mass conc 134 70-99 mg/dL High 12-30-2017 O [facility] (07477) Comment: Result Comment: No BRAVE per RN: PATIENT TYPE *POC SAMPLE TYPE Capillary Blood Normal 018 [facility] [place] (33213) Glucose mass conc 110 70-99 mg/dL High 12-30-2017 O [facility] (38889) Comment: Result Comment: Notified RNr ead backNo BRAVE per RN: PATIENT TYPE *POC SAMPLE TYPE Capillary Blood Normal 018 [facility] [place] (10455) Glucose mass conc 110 70-99 mg/dL High 12-30-2017 O [facility] (94380) Comment: Result Comment: Notified RNr ead backNo BRAVE per RN: PATIENT TYPE *POC SAMPLE TYPE Capillary Blood Normal 018 [facility] [place] (86906) Glucose mass conc 158 70-99 mg/dL High 12-30-2017 [facility] (85369) Comment: Result Comment: No BRAVE per RN: PATIENT TYPE *POC SAMPLE TYPE Capillary Blood Normal 018 [facility] [place] (04377) Glucose mass conc 127 70-99 mg/dL High 12-30-2017 O [facility] (46971) Comment: Result Comment: Notified RNr ead backNo BRAVE per RN: PATIENT TYPE xr chest portable o n 2017-12-29 XR CHEST EXAM: XR CHEST PORTABLE, Normal 12-29 [facility] PORTABLE 12/29/2017 05:31 AMCOMPARISON: University Compared to prior day.CLINICAL [facility] INDICATIONS: post op heart Center ([id number]) surgeryRELEVANT CLINICAL HISTORY:FINDINGS: (Adequate technique)Life Support Devices: Vascular sheath removed, otherwise stable Chest Wall: Stable sternotomyHila: NormalMediastinum: NormalPleural Spaces: No definite pleural effusion. Equivocal tiny right apicalpneumothorax.Lungs: Worsening bilateral basilar aeration Cardiac Silhouette: Stable contour Thoracic Aorta: NormalPulmonary Vessels: Normal, without PVHIMPRESSION:1. Worsening aeration in the lung bases likely from progressed atelectasis.2. Vascular sheath removed with possible small right apical pneumothorax. type and cross on 2 Type and Cross ABO/RH(D): A POSITIVE Normal [facility] ANTIBODY SCREEN: NEGATIVE [facility] (35412) Comment: Performed By: #### CBCDFC, P TPTT, CA, CHM7, HFP, IPB, MGO, LIPDR, TROP ####[facility] [address] [place], [place] [id number] [address] [place] [address] 71276 pt*ptt on aPTT Coag time (Bld) 34.7 24.0-34.3 sec High 8 [facility]ter (68911) Comment: Result Comment: Results inco nsistent with the patient's previous results Performed By: #### CBCDFC, P TPTT, CA, CHM7, HFP, IPB, MGO, LIPDR, TROP ####[facility] [address] [place] [id number] [place], [place] [id number] [address] [place] [address] 12906 INR Coag RelTime (PPP) 1.1 0.9-1.1 {INR} Normal 018 [facility] [place] (43743) Comment: Performed By: #### CBCDFC, P TPTT, CA, CHM7, HFP, IPB, MGO, LIPDR, TROP ####[facility] [address] [place] [address] [place], [place] [address] [address] [place] [address] 14310 Prothrombin time (PT) Coag 14.4 11.9-14.2 sec High [facility] time (PPP) [facility] (90866) Comment: Performed By: #### CBCDFC, P TPTT, CA, CHM7, HFP, IPB, MGO, LIPDR, TROP ####[facility] [address] [place] [address] 82707OkuvqrPaulding County Hospital410 [address] [place] [address] 51869 prealbumin on 12-29 Prealbumin mass conc 17 17-34 mg/dL Normal 8 [facility] nter (85162) Comment: Performed By: #### CBCDFC, P TPTT, CA, CHM7, HFP, IPB, MGO, LIPDR, TROP ####[facility] [address] [place], [place] [id number] [address] [place] [address] 46615 magnesium on 12-29 Magnesium mass conc 2.2 1.6-2.6 mg/dL Normal 12-29-2017 [facility] nter (98285) Comment: Performed By: #### CBCDFC, P TPTT, CA, CHM7, HFP, IPB, MGO, LIPDR, TROP ####[facility] [address] [place], [place] [id number] [address] [place] [address] 73897 hemogram (cbc and platelet) on 2017-12-29 Hematocrit Auto Volume 28.9 40.1-51.0 % Low 018 [facility] Fraction (Bld) [facility] (50169) Comment: Performed By: #### CBCDFC, P TPTT, CA, CHM7, HFP, IPB, MGO, LIPDR, TROP ####[facility] [address] [place] [address] [place] [address] [address] [place] [address] 61631 Hemoglobin mass conc (Bld) 9.8 13.7-17.5 g/dL Low [facility] [place] (23088) Comment: Performed By: #### CBCDFC, P TPTT, CA, CHM7, HFP, IPB, MGO, LIPDR, TROP ####[facility] [address] [place] [address] 60658UmnmurPaulding County Hospital410 [address] [place] [address] 12009 MCV Auto Entitic volume 91.5 79.0-92.2 fL Normal 2017 [facility] (RBC) [facility] (83874) Comment: Performed By: #### CBCDFC, P TPTT, CA, CHM7, HFP, IPB, MGO, LIPDR, TROP ####[facility] [address] [place] [address] [place], [place] [address] [address] [place] [address] 10603 Mean Cell Hgb 31.0 25.7-32.2 pg Normal 12-29-2017 [facility] (40072) Comment: Performed By: #### CBCDFC, P TPTT, CA, CHM7, HFP, IPB, MGO, LIPDR, TROP ####[facility] [address] [place] [address] [place] [address] [address] [place] [address] 79194 Mean Cell Hgb Conc 33.9 32.3-36.5 g/dL Normal 12-29-2017 [facility] nter (74280) Comment: Performed By: #### CBCDFC, P TPTT, CA, CHM7, HFP, IPB, MGO, LIPDR, TROP ####[facility] [address] [place] [address] [place], [place] [address] [address] [place] [address] 63293 Nucleated RBC #/vol 0.0 0.0-0.2 /100 WBC Normal 12-29-2017 [facility] (Bld) [facility] (74299) Comment: Performed By: #### CBCDFC, P TPTT, CA, CHM7, HFP, IPB, MGO, LIPDR, TROP ####[facility] [address] [place] [id number] [address] [place] [address] 32821 Platelet mean volume 10.5 9.4-12.4 fL Normal 8 [facility] Auto Entitic volume [facility] (Bld) (68132) Comment: Performed By: #### CBCDFC, P TPTT, CA, CHM7, HFP, IPB, MGO, LIPDR, TROP ####[facility] [address] [place], [place] [id number] [address] [place] [address] 91392 Platelets Auto #/vol (Bld) 162 163-337 K/uL Low [facility] (87151) Comment: Performed By: #### CBCDFC, P TPTT, CA, CHM7, HFP, IPB, MGO, LIPDR, TROP ####[facility] [address] [place], [place] [id number] [address] [place] [address] 84047 RBC Auto #/vol (Bld) 13.3 11.6-14.4 % Normal 8 [facility] (10104) Comment: Performed By: #### CBCDFC, P TPTT, CA, CHM7, HFP, IPB, MGO, LIPDR, TROP ####[facility] [address] [place], [place] [id number] [address] [place] [address] 18636 RBC Auto #/vol (Bld) 3.16 4.63-6.08 M/uL Low 8 [facility] (53047) Comment: Performed By: #### CBCDFC, P TPTT, CA, CHM7, HFP, IPB, MGO, LIPDR, TROP ####[facility] [address] [place], [place] [id number] [address] [place] [address] 26396 WBC Auto #/vol (Bld) 9.12 4.23-9.07 K/uL High 8 [facility] nter (03485) Comment: Performed By: #### CBCDFC, P TPTT, CA, CHM7, HFP, IPB, MGO, LIPDR, TROP ####[facility] [address] [place], [place] [address] [address] [place] [address] 91290 chem 7 on 9 Anion gap 3 molar conc 10 7-17 mmol/L Normal 018 [facility] nter (82010) Comment: Performed By: #### CBCDFC, P TPTT, CA, CHM7, HFP, IPB, MGO, LIPDR, TROP ####[facility] [address] [place], [place] [address] [address] [place] [address] 65398 Chloride molar conc 101 98-108 mmol/L Normal 12-29-2017 [facility] nter (51300) Comment: Performed By: #### CBCDFC, P TPTT, CA, CHM7, HFP, IPB, MGO, LIPDR, TROP ####[facility] [address] [place], [place] [address] [address] [place] [address] 98444 CO2 molar conc 25 22-30 mmol/L Normal 12-29-2017 [facility] (00 000) Comment: Performed By: #### CBCDFC, P TPTT, CA, CHM7, HFP, IPB, MGO, LIPDR, TROP ####[facility] [address] [place], [place] [address] [address] [place] [address] 31120 Creatinine mass conc 0.83 0.70-1.30 mg/dL Normal 8 [facility] [place] (36049) Comment: Performed By: #### CBCDFC, P TPTT, CA, CHM7, HFP, IPB, MGO, LIPDR, TROP ####[facility] [address] [place] [address] [place], [place] [address] [address] [place] [address] 98359 Est GFR, >60 >60 Normal 07-0 [facility] nter (91325) Comment: Performed By: #### CBCDFC, P TPTT, CA, CHM7, HFP, IPB, MGO, LIPDR, TROP ####[facility] [address] [place], [place] [address] [address] [place] [address] 89374 Est GFR,non >60 >60 Normal 0 12-29-2017 [facility] nter (54706) Comment: Performed By: #### CBCDFC, P TPTT, CA, CHM7, HFP, IPB, MGO, LIPDR, TROP ####[facility] [address] [place], [place] [address] [address] [place] [address] 73482 Glucose mass conc 110 70-99 mg/dL High 12-29-2017 [facility] nter (61954) Comment: Performed By: #### CBCDFC, P TPTT, CA, CHM7, HFP, IPB, MGO, LIPDR, TROP ####[facility] [address] [place], [place] [address] [address] [place] [address] 92163 Osmolality 281 278-305 mOsm/kg Normal 12-29-2017 [facility] (00 000) Comment: Performed By: #### CBCDFC, P TPTT, CA, CHM7, HFP, IPB, MGO, LIPDR, TROP ####[facility] [address] [place], [place] [address] [address] [place] [address] 86978 Potassium molar conc 4.1 3.5-5.0 mmol/L Normal 8 [facility] [place] (12123) Comment: Performed By: #### CBCDFC, P TPTT, CA, CHM7, HFP, IPB, MGO, LIPDR, TROP ####[facility] [address] [place], [place] [address] [address] [place] [address] 40767 Sodium molar conc 132 133-143 mmol/L Low 12-29-[address] [facility] nter (58792) Comment: Performed By: #### CBCDFC, P TPTT, CA, CHM7, HFP, IPB, MGO, LIPDR, TROP ####[facility] [address] [place], [place] [address] [address] [place] [address] 18930 Urea nitrogen mass conc 20 7-22 mg/dL Normal 2017 [facility] nter (41925) Comment: Performed By: #### CBCDFC, P TPTT, CA, CHM7, HFP, IPB, MGO, LIPDR, TROP ####[facility] [address] [place], [place] [address] [address] [place] [address] 59403 Urea nitrogen/Creatinine mass 24 mg/mg Normal 12-29-2017 [facility] (39298) Comment: Performed By: #### CBCDFC, P TPTT, CA, CHM7, HFP, IPB, MGO, LIPDR, TROP ####[facility] [address] [place], [place] [id number] [place] [address] 48024 c reactive protein on 2017-12-29 CRP mass conc 220.70 <10.00 mg/L High 12-29-2017 [facility] (00 000) Comment: Performed By: #### CBCDFC, P TPTT, CA, CHM7, HFP, IPB, MGO, LIPDR, TROP ####[facility] [address] [place], [place] [address]FjobusPaulding County Hospital[address] [place], [place] [address] *poc glucose battery on 2017-12-29 *POC SAMPLE TYPE Capillary Blood Normal 018 [facility] [place] (53426) Glucose mass conc 110 70-99 mg/dL High 12-29-2017 [facility] (25055) Comment: Result Comment: Notified RNr ead backNo BRAVE per RN: PATIENT TYPE *POC SAMPLE TYPE Capillary Blood Normal 018 [facility] [place] (24923) Glucose mass conc 109 70-99 mg/dL High 12-29-2017 [facility] (49508) Comment: Result Comment: Notified RNr ead backNo BRAVE per RN: PATIENT TYPE *POC SAMPLE TYPE Capillary Blood Normal 018 [facility] [place] (86239) Glucose mass conc 152 70-99 mg/dL High 12-29-2017 [facility] (03467) Comment: Result Comment: No BRAVE per RN: PATIENT TYPE *POC SAMPLE TYPE Capillary Blood Normal 018 [facility] [place] (50500) Glucose mass conc 125 70-99 mg/dL High 12-29-2017 [facility] (08055) Comment: Result Comment: No BRAVE per RN: PATIENT TYPE xr chest portable o n 2017-12-28 XR CHEST EXAM: XR CHEST PORTABLE, Normal 12-28 [facility] PORTABLE 12/28/2017 05:34 AMCOMPARISON: University Compared to prior day.CLINICAL [facility] Medical INDICATIONS: post op Center (90075) CABGRELEVANT CLINICAL HISTORY:FINDINGS: (Adequate technique)Life Support Devices: Interval removal of endotracheal tube, nasogastric tubeand Jachin-Ramsey catheter. The right-sided chest tube and right jugular vascularsheath remain in place. Chest Wall: Median sternotomy wires are noted.Crissy: NormalMediastinum: NormalPleural Spaces: No definite pleural effusion. No definite pneumothorax.Lungs: Low lung volumes. Bibasilar atelectasis.Cardiac Silhouette: Stable. Thoracic Aorta: Atheromatous vascular calcifications are present. Tortuousaorta.Pulmonary Vessels: Normal, without PVHIMPRESSION:Interval removal of endotracheal tube, nasogastric tube and Jachin-Ganzcatheter. Remaining life support devices are stable.Low lung volumes with bibasilar atelectasis. xr abdomen 1 view portable on 2017-12-28 XR ABDOMEN 1 EXAM: XR ABDOMEN 1 VIEW Normal [facility] PORTABLE PORTABLE, 12/27/2017 16:55 University PMCOMPARISON: No prior abdominal [facility] radiographs available for Center (66628) comparison.CLINICAL INDICATIONS: post operative heart surgery Upon arrival to unit;FINDINGS: Tubes: Enteric tube tip terminates within the stomach. Multiple large boresurgical drains project over the abdomen and lower chest. Median sternotomywires incidentally noted.No gross free air. Nonobstructive bowel gas pattern. No gross evidenceorganomegaly. No large soft tissue calcifications. Bony structures grosslyintact. IMPRESSION:Nonobstructive bowel gas pattern.Enteric tube positioned within the stomach. pt*ptt on 8 aPTT Coag time (Bld) 28.5 24.0-34.3 sec Normal 8 [facility] [place] (50504) Comment: Performed By: #### CBCDFC, P TPTT, CA, CHM7, HFP, IPB, MGO, LIPDR, TROP ####[facility] [address] [place], [place] [address] [address] [place], [place] [address] INR Coag RelTime (PPP) 1.1 0.9-1.1 {INR} Normal 018 [facility] [place] (34937) Comment: Performed By: #### CBCDFC, P TPTT, CA, CHM7, HFP, IPB, MGO, LIPDR, TROP ####[facility] [address] [place] [address] [place], [place] [address] [address] [place] [address] 85543 Prothrombin time (PT) 14.0 11.9-14.2 sec Normal 12-29-19 18 [facility] Coag time (PPP) [facility] (51570) Comment: Performed By: #### CBCDFC, P TPTT, CA, CHM7, HFP, IPB, MGO, LIPDR, TROP ####[facility] [address] [place], [place] [id number] [address] [place] [address] 98904 potassium on 2017-0 7-08 Potassium molar conc 4.0 3.5-5.0 mmol/L Normal 8 [facility] [place] (87308) Comment: Performed By: #### CBCDFC, P TPTT, CA, CHM7, HFP, IPB, MGO, LIPDR, TROP ####[facility] [address] [place], [place] [address] [address] [place] [address] 98764 magnesium on 2017-0 7-08 Magnesium mass conc 2.4 1.6-2.6 mg/dL Normal 12-28-2017 [facility] nter (78216) Comment: Performed By: #### CBCDFC, P TPTT, CA, CHM7, HFP, IPB, MGO, LIPDR, TROP ####[facility] [address] [place], [place] [address] [address] [place] [address] 21096 Magnesium mass conc 2.8 1.6-2.6 mg/dL High 12-28-2017 [facility] (75125) Comment: Performed By: #### CBCDFC, P TPTT, CA, CHM7, HFP, IPB, MGO, LIPDR, TROP ####[facility] [address] [place] [address] [place], [place] [address] [address] [place] [address] 97567 Magnesium mass conc 2.2 1.6-2.6 mg/dL Normal 12-28-2017 [facility] nter (97302) Comment: Performed By: #### CBCDFC, P TPTT, CA, CHM7, HFP, IPB, MGO, LIPDR, TROP ####[facility] [address] [place] [address] [place], [place] [address] [address] [place] [address] 40642 ionized calcium on 2017-12-28 Ionized Calcium 4.53 4.60-5.30 mg/dL Low 12-28-2017 [facility] nter (94241) Comment: Performed By: #### CBCDFC, P TPTT, CA, CHM7, HFP, IPB, MGO, LIPDR, TROP ####[facility] [address] [place] [address] [place], [place] [address] [place] [address] 96400 hemogram (cbc and platelet) on 2017-12-28 Hematocrit Auto Volume 31.7 40.1-51.0 % Low 018 [facility] (89253) Comment: Performed By: #### CBCDFC, P TPTT, CA, CHM7, HFP, IPB, MGO, LIPDR, TROP ####[facility] [address] [place] [address] [place], [place] [address] [place] [address] 74635 Hemoglobin mass conc 10.7 13.7-17.5 g/dL Low 8 [facility] ([facility]) [facility] (04112) Comment: Performed By: #### CBCDFC, P TPTT, CA, CHM7, HFP, IPB, MGO, LIPDR, TROP ####[facility] [address] [place] [address] [place] [address] [place] [address] 10759 MCV Auto Entitic volume 90.8 79.0-92.2 fL Normal 2017 [facility] (RBC) [facility] (04036) Comment: Performed By: #### CBCDFC, P TPTT, CA, CHM7, HFP, IPB, MGO, LIPDR, TROP ####[facility] [address] [place], [place] [address] [place] [address] 37784 Mean Cell Hgb 30.7 25.7-32.2 pg Normal 12-28-2017 [facility] nter (74871) Comment: Performed By: #### CBCDFC, P TPTT, CA, CHM7, HFP, IPB, MGO, LIPDR, TROP ####[facility] [address] [place], [place] [address] [place] [address] 58648 Mean Cell Hgb Conc 33.8 32.3-36.5 g/dL Normal 12-28-2017 [facility] nter (69054) Comment: Performed By: #### CBCDFC, P TPTT, CA, CHM7, HFP, IPB, MGO, LIPDR, TROP ####[facility] [address] [place], [place] [address] [place] [address] 23757 Nucleated RBC #/vol 0.0 0.0-0.2 /100 WBC Normal 12-28-2017 [facility] (Bld) [facility] (35344) Comment: Performed By: #### CBCDFC, P TPTT, CA, CHM7, HFP, IPB, MGO, LIPDR, TROP ####[facility] [address] [place], [place] [address] [place] [address] 89379 Platelet mean volume 10.4 9.4-12.4 fL Normal 8 [facility] Auto Entitic volume [facility] ([facility] (65985) Comment: Performed By: #### CBCDFC, P TPTT, CA, CHM7, HFP, IPB, MGO, LIPDR, TROP ####[facility] [address] [place] [address] [place] [address] [place] [address] 37780 Platelets Auto #/vol 186 163-337 K/uL Normal 8 [facility] (Bld) [facility] (39837) Comment: Performed By: #### CBCDFC, P TPTT, CA, CHM7, HFP, IPB, MGO, LIPDR, TROP ####[facility] [address] [place], [place] [address] [place] [address] 60421 RBC Auto #/vol (Bld) 13.3 11.6-14.4 % Normal 8 [facility] (59086) Comment: Performed By: #### CBCDFC, P TPTT, CA, CHM7, HFP, IPB, MGO, LIPDR, TROP ####[facility] [address] [place], [place] [address] [place] [address] 96308 RBC Auto #/vol (Bld) 3.49 4.63-6.08 M/uL Low 8 [facility] (32814) Comment: Performed By: #### CBCDFC, P TPTT, CA, CHM7, HFP, IPB, MGO, LIPDR, TROP ####[facility] [address] [place], [place] [address] [place] [address] 67989 WBC Auto #/vol (Bld) 9.63 4.23-9.07 K/uL High 8 [facility] nter (43342) Comment: Performed By: #### CBCDFC, P TPTT, CA, CHM7, HFP, IPB, MGO, LIPDR, TROP ####[facility] [address] [place], [place] [address] [place] [address] 09218 chem 7 on 8 Anion gap 3 molar conc 10 7-17 mmol/L Normal 018 [facility] nter (13656) Comment: Performed By: #### CBCDFC, P TPTT, CA, CHM7, HFP, IPB, MGO, LIPDR, TROP ####[facility] [address] [place], [place] [address] [place] [address] 99251 Chloride molar conc 107 98-108 mmol/L Normal 12-28-2017 [facility] nter (71186) Comment: Performed By: #### CBCDFC, P TPTT, CA, CHM7, HFP, IPB, MGO, LIPDR, TROP ####[facility] [address] [place], [place] [address] [place] [address] 23702 CO2 molar conc 25 22-30 mmol/L Normal 12-28-2017 [facility] (00 000) Comment: Performed By: #### CBCDFC, P TPTT, CA, CHM7, HFP, IPB, MGO, LIPDR, TROP ####[facility] [address] [place], [place] [address] [place] [address] 32979 Creatinine mass conc 0.89 0.70-1.30 mg/dL Normal 8 [facility] ([id number]) Comment: Performed By: #### CBCDFC, P TPTT, CA, CHM7, HFP, IPB, MGO, LIPDR, TROP ####[facility] [address] [place], [place] [id number] [address] [place] [address] 03144 Est GFR, >60 >60 Normal 07-0 [facility] nter (96401) Comment: Performed By: #### CBCDFC, P TPTT, CA, CHM7, HFP, IPB, MGO, LIPDR, TROP ####[facility] [address] [place], [place] [id number] [address] [place] [address] 84760 Est GFR,non >60 >60 Normal 0 12-28-2017 [facility] nter (09781) Comment: Performed By: #### CBCDFC, P TPTT, CA, CHM7, HFP, IPB, MGO, LIPDR, TROP ####[facility] [address] [place], [place] [id number] [address] [place] [address] 37142 Glucose mass conc 130 70-99 mg/dL High 12-28-[address] [facility] nter ([id number]) Comment: Performed By: #### CBCDFC, P TPTT, CA, CHM7, HFP, IPB, MGO, LIPDR, TROP ####[facility] [address] [place], [place] [id number] [address] [place] [address] 41362 Osmolality 294 278-305 mOsm/kg Normal 12-28-2017 [facility] (00 000) Comment: Performed By: #### CBCDFC, P TPTT, CA, CHM7, HFP, IPB, MGO, LIPDR, TROP ####[facility] [address] [place], [place] [id number] [address] [place] [address] 91630 Potassium molar conc 4.3 3.5-5.0 mmol/L Normal 8 [facility] (36026) Comment: Performed By: #### CBCDFC, P TPTT, CA, CHM7, HFP, IPB, MGO, LIPDR, TROP ####[facility] [address] [place], [place] [id number] [address] [place] [address] 33509 Sodium molar conc 138 133-143 mmol/L Normal 12-28-2017 O [facility] nter (26002) Comment: Performed By: #### CBCDFC, P TPTT, CA, CHM7, HFP, IPB, MGO, LIPDR, TROP ####[facility] [address] [place], [place] [id number] [address] [place] [address] 30198 Urea nitrogen mass conc 21 7-22 mg/dL Normal 2017 [facility] nter (13392) Comment: Performed By: #### CBCDFC, P TPTT, CA, CHM7, HFP, IPB, MGO, LIPDR, TROP ####[facility] [address] [place], [place] [id number] [address] [place] [address] 57419 Urea nitrogen/Creatinine mass 24 mg/mg Normal 12-28-2017 [facility] ical [place] (20478) Comment: Performed By: #### CBCDFC, P TPTT, CA, CHM7, HFP, IPB, MGO, LIPDR, TROP ####[facility] [address] [place], [place] [id number] [address] [place] [address] 92549 Anion gap 3 molar conc 11 7-17 mmol/L Normal 018 [facility] nter (37529) Comment: Performed By: #### CBCDFC, P TPTT, CA, CHM7, HFP, IPB, MGO, LIPDR, TROP ####[facility] [address] [place], [place] [id number] [address] [place] [address] 20532 Chloride molar conc 107 98-108 mmol/L Normal 12-28-2017 [facility] nter (36536) Comment: Performed By: #### CBCDFC, P TPTT, CA, CHM7, HFP, IPB, MGO, LIPDR, TROP ####[facility] [address] [place], [place] [id number] [address] [place] [address] 98543 CO2 molar conc 25 22-30 mmol/L Normal 12-28-2017 [facility] (00 000) Comment: Performed By: #### CBCDFC, P TPTT, CA, CHM7, HFP, IPB, MGO, LIPDR, TROP ####[facility] [address] [place], [place] [id number] [address] [place] [address] 71169 Creatinine mass conc 0.91 0.70-1.30 mg/dL Normal 8 [facility] (88949) Comment: Performed By: #### CBCDFC, P TPTT, CA, CHM7, HFP, IPB, MGO, LIPDR, TROP ####[facility] [address] [place], [place] [id number] [address] [place] [address] 91570 Est GFR, >60 >60 Normal 07- [facility] nter (88465) Comment: Performed By: #### CBCDFC, P TPTT, CA, CHM7, HFP, IPB, MGO, LIPDR, TROP ####[facility] [address] [place], [place] [id number] [address] [place] [address] 32545 Est GFR,non >60 >60 Normal 0 12-28-2017 [facility] nter (34417) Comment: Performed By: #### CBCDFC, P TPTT, CA, CHM7, HFP, IPB, MGO, LIPDR, TROP ####[facility] [address] [place] [address] [place], [place] [address] [address] [place] [address] 58771 Glucose mass conc 141 70-99 mg/dL High 12-28-[address] [facility] nter (08328) Comment: Performed By: #### CBCDFC, P TPTT, CA, CHM7, HFP, IPB, MGO, LIPDR, TROP ####[facility] [address] [place], [place] [id number] [address] [place] [address] 18063 Osmolality 296 278-305 mOsm/kg Normal 12-28-2017 [facility] (00 000) Comment: Performed By: #### CBCDFC, P TPTT, CA, CHM7, HFP, IPB, MGO, LIPDR, TROP ####[facility] [address] [place], [place] [id number] [place] [address] 82635 Potassium molar conc 4.1 3.5-5.0 mmol/L Normal 8 [facility] (24289) Comment: Performed By: #### CBCDFC, P TPTT, CA, CHM7, HFP, IPB, MGO, LIPDR, TROP ####[facility] [address] [place], [place] [address] [place] [address] 57872 Sodium molar conc 139 133-143 mmol/L Normal 12-28-2017 [facility] nter (12358) Comment: Performed By: #### CBCDFC, P TPTT, CA, CHM7, HFP, IPB, MGO, LIPDR, TROP ####[facility] [address] [place], [place] [id number] [place] [address] 36922 Urea nitrogen mass conc 20 7-22 mg/dL Normal 2017 [facility] nter (68543) Comment: Performed By: #### CBCDFC, P TPTT, CA, CHM7, HFP, IPB, MGO, LIPDR, TROP ####[facility] [address] [place] [address] 30928HgudtpPaulding County Hospital410 [address] [place] [address] 76871 Urea nitrogen/Creatinine mass 22 mg/mg Normal 12-28-2017 [facility] (26512) Comment: Performed By: #### CBCDFC, P TPTT, CA, CHM7, HFP, IPB, MGO, LIPDR, TROP ####[facility] [address] [place] [address] 24859RzloenPaulding County Hospital[address] [place] [address] 24959 *poc glucose battery on 2017-12-28 *POC SAMPLE TYPE Venous Normal 12-28-2017 [facility] nter (29933) Glucose mass conc 117 70-99 mg/dL High 12-28-[address] [facility] nter (30693) Comment: Result Comment: Meets BRAVE per RN: PATIENT TYPE *POC SAMPLE TYPE Venous Normal 12-28-2017 [facility] nter (68168) Glucose mass conc 131 70-99 mg/dL High 12-28-[address] [facility] nter (65789) Comment: Result Comment: Meets BRAVE per RN: PATIENT TYPE *POC SAMPLE TYPE Capillary Blood Normal 018 [facility] (20814) Glucose mass conc 142 70-99 mg/dL High 12-28-2017 O [facility] (84424) Comment: Result Comment: Notified RNr kai Edouard BRAVE per RN: PATIENT TYPE Result Comment: No BRAVE per RN: PATIENT TYPE xr chest portable o n 2017-12-27 XR CHEST EXAM: XR CHEST PORTABLE, Normal 12-27 [facility] 12/27/2017 16:56 PMCOMPARISON: [place] 12/25/2017CLINICAL INDICATIONS[facility] (82403) CLINICAL HISTORY: On arrival to unit.;FINDINGS: (Adequate technique)FINDINGS: Implanted Devices: Interval placement of endotracheal tube with it's tip atmid trachea, NG tube passing below the left hemidiaphragm with its tip isexcluded from the image, Jachin Ramsey catheter with it's tip in proximal rightpulmonary artery, and bilateral chest tubes with probable mediastinal drain.Chest Wall: Interval median sternotomyHila: IndistinctMediastinum: Post operative surgical clips.Pleural Spaces: No pleural effusion No pneumothorax.Lungs: Bibasilar atelectasis. No consolidation.Cardiac Silhouette: Stable contour. Thoracic Aorta: Stable Pulmonary Vessels: IndistinctIMPRESSION:Status post interval median sternotomy and placement of life support devicesas above. No acute process. pt*ptt on 7 aPTT Coag time (Bld) 37.5 24.0-34.3 sec High 8 [facility] nter (43362) Comment: Result Comment: Results inco nsistent with the patient's previous results Performed By: #### CBCDFC, P TPTT, CA, CHM7, HFP, IPB, MGO, LIPDR, TROP ####[facility] [address] [place] [address] [place] [id number] [place] [address] 17686 INR Coag RelTime (PPP) 1.1 0.9-1.1 {INR} Normal 018 [facility] (07023) Comment: Performed By: #### CBCDFC, P TPTT, CA, CHM7, HFP, IPB, MGO, LIPDR, TROP ####[facility] [address] [place] [address] [place] [address] [place] [address] 15167 Prothrombin time (PT) Coag 14.5 11.9-14.2 sec High [facility] time (PPP) [facility] (02169) Comment: Performed By: #### CBCDFC, P TPTT, CA, CHM7, HFP, IPB, MGO, LIPDR, TROP ####[facility] [place] [address] 71640KpyxgpPaulding County Hospital[address] [place] [address] 97277 aPTT Coag time (Bld) 29.3 24.0-34.3 sec Normal 8 [facility] (85780) Comment: Performed By: #### PTPTT ### #[facility] (DEFAULT)[address] [place] [address] 15062#### FT4, TSH, PALB ####[facility] [place] [address] 43 210[facility] [place] [address] 82692 INR Coag RelTime (PPP) 1.3 0.9-1.1 {INR} High 018 [facility] nter (78157) Comment: Performed By: #### PTPTT ### #[facility] (DEFAULT)[address] [place] [address] 88201#### FT4, TSH, PALB ####[facility] [place] [address] 43 210[facility] [place] [address] 20123 Prothrombin time (PT) Coag 16.0 11.9-14.2 sec High [facility] time (PPP) [facility] (02943) Comment: Performed By: #### PTPTT ### #[facility] (DEFAULT)[address] [place] [address] 26236#### FT4, TSH, PALB ####[facility] [place] [address] 43 210[facility] [place] [address] 29885 magnesium on 12-27 Magnesium mass conc 1.6 1.6-2.6 mg/dL Normal 12-27-2017 [facility] nter (12194) Comment: Performed By: #### CBCDFC, P TPTT, CA, CHM7, HFP, IPB, MGO, LIPDR, TROP ####[facility] [address] [place] [address] 87056YlhyamPaulding County Hospital[address] [place] [address] 11911 ionized calcium on 2017-12-27 Ionized Calcium 4.88 4.60-5.30 mg/dL Normal 12-27-2017 [facility] nter (28112) Comment: Performed By: #### CBCDFC, P TPTT, CA, CHM7, HFP, IPB, MGO, LIPDR, TROP ####[facility] [address] [place] [address] 13848LjejcaPaulding County Hospital[address] [place] [address] 23417 Ionized Calcium 5.06 4.60-5.30 mg/dL Normal 12-27-2017 [facility] nter (71184) Comment: Performed By: #### PTPTT ### #[facility] (DEFAULT)[address] [place] [address] 98907#### FT4, TSH, PALB ####[facility] [place] [address] 43 210[facility] [place] [address] 28462 inorganic phosphate on 2017-12-27 Inorg Phosphate 3.5 2.2-4.6 mg/dL Normal 12-27-2017 [facility] nter (84001) Comment: Performed By: #### CBCDFC, P TPTT, CA, CHM7, HFP, IPB, MGO, LIPDR, TROP ####[facility] [address] [place] [address] [place] [address] [place] [address] 62324 hemogram (cbc and platelet) on 2017-12-27 Hematocrit Auto Volume 32.5 40.1-51.0 % Low 018 [facility] ([facility]) [facility] (87970) Comment: Performed By: #### CBCDFC, P TPTT, CA, CHM7, HFP, IPB, MGO, LIPDR, TROP ####[facility] [address] [place], [place] [address] [address] [place] [address] 84809 Hemoglobin mass conc 11.0 13.7-17.5 g/dL Low 8 [facility] ([facility]) [facility] (17885) Comment: Performed By: #### CBCDFC, P TPTT, CA, CHM7, HFP, IPB, MGO, LIPDR, TROP ####[facility] [address] [place], [place] [address] [address] [place] [address] 51429 MCV Auto Entitic volume 91.0 79.0-92.2 fL Normal 2017 [facility] (RBC) [facility] (13363) Comment: Performed By: #### CBCDFC, P TPTT, CA, CHM7, HFP, IPB, MGO, LIPDR, TROP ####[facility] [address] [place], [place] [address] [address] [place] [address] 55052 Mean Cell Hgb 30.8 25.7-32.2 pg Normal 12-27-2017 [facility] nter (28154) Comment: Performed By: #### CBCDFC, P TPTT, CA, CHM7, HFP, IPB, MGO, LIPDR, TROP ####[facility] [address] [place], [place] [address] [address] [place] [address] 87024 Mean Cell Hgb Conc 33.8 32.3-36.5 g/dL Normal 12-27-2017 [facility] nter (63346) Comment: Performed By: #### CBCDFC, P TPTT, CA, CHM7, HFP, IPB, MGO, LIPDR, TROP ####[facility] [address] [place], [place] [address] [place] [address] [place] [address] 74225 Nucleated RBC #/vol 0.0 0.0-0.2 /100 WBC Normal 12-27-2017 [facility] ([facility]) [facility] (27648) Comment: Performed By: #### CBCDFC, P TPTT, CA, CHM7, HFP, IPB, MGO, LIPDR, TROP ####[facility] [address] [place], [place] [address] [address] [place] [address] 38499 Platelet mean volume 10.3 9.4-12.4 fL Normal 8 [facility] Auto Entitic volume [facility] ([facility]) (65508) Comment: Performed By: #### CBCDFC, P TPTT, CA, CHM7, HFP, IPB, MGO, LIPDR, TROP ####[facility] [address] [place] [address] [place] [address] [place] [address] 60769 Platelets Auto #/vol 194 163-337 K/uL Normal 8 [facility] ([facility]) [facility] (39110) Comment: Performed By: #### CBCDFC, P TPTT, CA, CHM7, HFP, IPB, MGO, LIPDR, TROP ####[facility] r[address] [place], [place] [address] [place] [address] 49494 RBC Auto #/vol ([facility]) 13.2 11.6-14.4 % Normal 8 [facility] Ce nter (21002) Comment: Performed By: #### CBCDFC, P TPTT, CA, CHM7, HFP, IPB, MGO, LIPDR, TROP ####[facility] r[address] [place] [address] 00511AtctjgPaulding County Hospital[address] [place] [address] 93196 RBC Auto #/vol (Bld) 3.57 4.63-6.08 M/uL Low 8 [facility] Ce nter (52289) Comment: Performed By: #### CBCDFC, P TPTT, CA, CHM7, HFP, IPB, MGO, LIPDR, TROP ####[facility] r[address] [place] [address] 98735NehivnPaulding County Hospital[address] [place] [address] 64047 WBC Auto #/vol (Bld) 10.09 4.23-9.07 K/uL High 8 [facility] (94390) Comment: Performed By: #### CBCDFC, P TPTT, CA, CHM7, HFP, IPB, MGO, LIPDR, TROP ####[facility] r[address] [place] [address] 62850HrsnmfPaulding County Hospital[address] [place] [address] 23724 Hematocrit Auto Volume 29.8 40.1-51.0 % Low 018 [facility] Fraction (Bld) [facility] (16593) Comment: Performed By: #### PTPTT ### #[facility] (DEFAULT)[address] [place] [address] 92871#### FT4, TSH, PALB ####[facility] [place] [address] 43 210[facility] [place] [address] 74964 Hemoglobin mass conc (Bld) 9.9 13.7-17.5 g/dL Low [facility] (87189) Comment: Result Comment: Called to an d read back by Performed By: #### PTPTT ### #[facility] (DEFAULT)[address] [place] [address] 37564#### FT4, TSH, PALB ####[facility] [place] [address] 210[facility] [place] [address] 96265 MCV Auto Entitic volume 91.4 79.0-92.2 fL Normal 2017 [facility] (RBC) [facility] (59805) Comment: Performed By: #### PTPTT ### #[facility] (DEFAULT)[address] [place] [address] 05196#### FT4, TSH, PALB ####[facility] [place] [address] 210[facility] [place] [address] 43868 Mean Cell Hgb 30.4 25.7-32.2 pg Normal 12-27-2017 [facility] nter (73956) Comment: Performed By: #### PTPTT ### #[facility] (DEFAULT)[address] [place] [address] 23960#### FT4, TSH, PALB ####[facility] [place], [place] [address] [place] [address] 84701 Mean Cell Hgb Conc 33.2 32.3-36.5 g/dL Normal 12-27-2017 [facility] nter (90699) Comment: Performed By: #### PTPTT ### #[facility] (DEFAULT)[address] [place] [address] 82055#### FT4, TSH, PALB ####[facility] [place] [address] 210[facility] [place] [address] 68754 Nucleated RBC #/vol 0.0 0.0-0.2 /100 WBC Normal 12-27-2017 [facility] (Bld) [facility] (90273) Comment: Performed By: #### PTPTT ### #[facility] (DEFAULT)[address] [place] [address] 63860#### FT4, TSH, PALB ####[facility] [place] [address] 210[facility] [place] [address] 38932 Platelet mean volume Auto 9.9 9.4-12.4 fL Normal 0 [facility] Entitic volume (Bld) [facility] (04088) Comment: Performed By: #### PTPTT ### #[facility] (DEFAULT)[address] [place] [address] 16688#### FT4, TSH, PALB ####[facility] [place] [address] 210[facility] [place] [address] Platelets Auto #/vol (Bld) 151 163-337 K/uL Low [facility] (58522) Comment: Performed By: #### PTPTT ### #[facility] (DEFAULT)[address] [place] [address] 25929#### FT4, TSH, PALB ####[facility] [place] [address] 210[facility] [place] [address] 45890 RBC Auto #/vol (Bld) 13.1 11.6-14.4 % Normal 8 [facility] nter (14594) Comment: Performed By: #### PTPTT ### #[facility] (DEFAULT)[address] [place] [address] 23952#### FT4, TSH, PALB ####[facility] [place] [address] 210[facility] [place] [address] 88623 RBC Auto #/vol (Bld) 3.26 4.63-6.08 M/uL Low 8 [facility] nter (74154) Comment: Performed By: #### PTPTT ### #[facility] (DEFAULT)[address] [place] [address] 81812#### FT4, TSH, PALB ####[facility] [place] [address] 210[facility] [place] [address] 13024 WBC Auto #/vol (Bld) 9.74 4.23-9.07 K/uL High 8 [facility] nter (04684) Comment: Performed By: #### PTPTT ### #[facility] (DEFAULT)[address] [place] [address] 33385#### FT4, TSH, PALB ####[facility] [place] [address] 210[facility] [place] [address] 65756 Hematocrit Auto Volume 46.4 40.1-51.0 % Normal 018 [facility] (Bld) [facility] (62582) Comment: Performed By: #### PTPTT ### #[facility] (DEFAULT)[address] [place] [address] 35618#### FT4, TSH, PALB ####[facility] [place] [address] 210[facility] [place] [address] 63137 Hemoglobin mass conc 15.6 13.7-17.5 g/dL Normal 8 [facility] (Bld) [facility] (76894) Comment: Performed By: #### PTPTT ### #[facility] (DEFAULT)[address] [place] [address] 07280#### FT4, TSH, PALB ####[facility] [place], [place] [address] [place] [address] 14986 MCV Auto Entitic volume 89.9 79.0-92.2 fL Normal 2017 [facility] (RBC) [facility] (05460) Comment: Performed By: #### PTPTT ### #[facility] (DEFAULT)[address] [place] [address] 59890#### FT4, TSH, PALB ####[facility] [place], [place] [address] [place] [address] Mean Cell Hgb 30.2 25.7-32.2 pg Normal 12-27-2017 [facility] nter (74064) Comment: Performed By: #### PTPTT ### #[facility] (DEFAULT)[address] [place] [address] 03019#### FT4, TSH, PALB ####[facility] [place], [place] [address] [place] [address] 57991 Mean Cell Hgb Conc 33.6 32.3-36.5 g/dL Normal 12-27-2017 [facility] nter (35572) Comment: Performed By: #### PTPTT ### #[facility] (DEFAULT)[address] [place] [address] 74226#### FT4, TSH, PALB ####[facility] [place], [place] [address] [place] [address] 38533 Nucleated RBC #/vol 0.0 0.0-0.2 /100 WBC Normal 12-27-2017 [facility] (Bld) [facility] (00599) Comment: Performed By: #### PTPTT ### #[facility] (DEFAULT)[address] [place] [address] 69653#### FT4, TSH, PALB ####[facility] [place] [address] 210[facility] [place] [address] 83767 Platelet mean volume 10.1 9.4-12.4 fL Normal 8 [facility] Auto Entitic volume [facility] ([facility]) (72021) Comment: Performed By: #### PTPTT ### #[facility] (DEFAULT)[address] [place] [address] 63874#### FT4, TSH, PALB ####[facility] [place] [address] 210[facility] [place] [address] 88630 Platelets Auto #/vol 283 163-337 K/uL Normal 8 [facility] (d) [facility] (37890) Comment: Performed By: #### PTPTT ### #[facility] (DEFAULT)[address] [place] [address] 50379#### FT4, TSH, PALB ####[facility] [place] [address] 210[facility] [place] [address] 98059 RBC Auto #/vol (d) 5.16 4.63-6.08 M/uL Normal 8 [facility] (36318) Comment: Performed By: #### PTPTT ### #[facility] (DEFAULT)[address] [place] [address] 58112#### FT4, TSH, PALB ####[facility] [place] [address] [facility] [place] [address] 05941 RBC Auto #/vol (d) 13.1 11.6-14.4 % Normal 8 [facility] nter ([id number]) Comment: Performed By: #### PTPTT ### #[facility] (DEFAULT)[address] [place] [address] 10371#### FT4, TSH, PALB ####[facility] [place] [address] [facility] [place] [address] 92823 WBC Auto #/vol (Bld) 8.17 4.23-9.07 K/uL Normal 8 [facility] ([id number]) Comment: Performed By: #### PTPTT ### #[facility] (DEFAULT)[address] [place] [address] 75701#### FT4, TSH, PALB ####[facility] [place] [address] [facility] [place] [address] 16156 fibrinogen-clottable on 2017-12-27 Fibrinogen-Clottable 205 220-410 mg/dL Low 8 [facility] nter ([id number]) Comment: Performed By: #### PTPTT ### #[facility] (DEFAULT)[address] [place] [address] 26587#### FT4, TSH, PALB ####[facility] [place] [address] [facility] [place] [address] 87545 chem 7 on 7 Anion gap 3 molar conc 9 7-17 mmol/L Normal 018 [facility] nter ([id number]) Comment: Performed By: #### PTPTT ### #[facility] (DEFAULT)[address] [place] [address] 30378#### FT4, TSH, PALB ####[facility] [place] [address] [facility] [place] [address] 00679 Chloride molar conc 109 98-108 mmol/L High 12-27-2017 [facility] nter ([id number]) Comment: Performed By: #### PTPTT ### #[facility] (DEFAULT)[address] [place] [address] 41987#### FT4, TSH, PALB ####[facility] [place] [address] 43 [facility] [place] [address] 88141 CO2 molar conc 25 22-30 mmol/L Normal 12-27-2017 [facility] (00 000) Comment: Performed By: #### PTPTT ### #[facility] (DEFAULT)[address] [place] [address] 85286#### FT4, TSH, PALB ####[facility] [place] [address] [facility] [place] [address] 93321 Creatinine mass conc 0.89 0.70-1.30 mg/dL Normal 8 [facility] ([id number]) Comment: Performed By: #### PTPTT ### #[facility] (DEFAULT)[address] [place] [address] 48349#### FT4, TSH, PALB ####[facility] [place] [address] [facility] [place] [address] 89646 Est GFR, >60 >60 Normal [facility] nter (01219) Comment: Performed By: #### PTPTT ### #[facility] (DEFAULT)[address] [place] [address] 16231#### FT4, TSH, PALB ####[facility] [place] [address] [facility] [place] [address] 48917 Est GFR,non >60 >60 Normal 0 12-27-2017 [facility] nter ([id number]) Comment: Performed By: #### PTPTT ### #[facility] (DEFAULT)[address] [place] [address] 51452#### FT4, TSH, PALB ####[facility] [place] [address] 43 [facility] [place] [address] 54435 Glucose mass conc 142 70-99 mg/dL High 12-27-[address] [facility] nter (27902) Comment: Performed By: #### PTPTT ### #[facility] (DEFAULT)[address] [place] [address] 69743#### FT4, TSH, PALB ####[facility] [place] [address] [facility] [place] [address] 46153 Osmolality 297 278-305 mOsm/kg Normal 12-27-2017 [facility] (00 000) Comment: Performed By: #### PTPTT ### #[facility] (DEFAULT)[address] [place] [address] 38445#### FT4, TSH, PALB ####[facility] [place] [address] 43 [facility] [place] [address] 49860 Potassium molar conc 4.3 3.5-5.0 mmol/L Normal 8 [facility] [place] (48633) Comment: Performed By: #### PTPTT ### #[facility] (DEFAULT)[address] [place] [address] 18503#### FT4, TSH, PALB ####[facility] [place] [address] [facility] [place] [address] 06023 Sodium molar conc 139 133-143 mmol/L Normal 12-27-[address] [facility] nter (87328) Comment: Performed By: #### PTPTT ### #[facility] (DEFAULT)[address] [place] [address] 48437#### FT4, TSH, PALB ####[facility] [place] [address] 43 [facility] [place] [address] 10329 Urea nitrogen mass conc 21 7-22 mg/dL Normal 2017 [facility] nter (74674) Comment: Performed By: #### PTPTT ### #[facility] (DEFAULT)[address] [place] [address] 11937#### FT4, TSH, PALB ####[facility] [place] [address] [facility] [place] [address] 67489 Urea nitrogen/Creatinine mass 24 mg/mg Normal 12-27-2017 [facility] (65537) Comment: Performed By: #### PTPTT ### #[facility] (DEFAULT)[address] [place] [address] 33791#### FT4, TSH, PALB ####[facility] [place] [address] 43 [facility] [place] [address] 56466 Anion gap 3 molar conc 13 7-17 mmol/L Normal 018 [facility] nter (68870) Comment: Performed By: #### PTPTT ### #[facility] (DEFAULT)[address] [place] [address] 72832#### FT4, TSH, PALB ####[facility] [place] [address] 43 [facility] [place] [address] 58679 Chloride molar conc 104 98-108 mmol/L Normal 12-27-2017 [facility] Ce nter (28039) Comment: Performed By: #### PTPTT ### #[facility] (DEFAULT)[address] [place] [address] 14682#### FT4, TSH, PALB ####[facility] [place] [address] 43 [facility] [place] [address] 71139 CO2 molar conc 25 22-30 mmol/L Normal 12-27-2017 [facility] (00 000) Comment: Performed By: #### PTPTT ### #[facility] (DEFAULT)[address] [place] [address] 45628#### FT4, TSH, PALB ####[facility] [place] [address] [facility] [place] [address] 27556 Creatinine mass conc 1.09 0.70-1.30 mg/dL Normal 8 [facility] (42543) Comment: Performed By: #### PTPTT ### #[facility] (DEFAULT)[address] [place] [address] 69308#### FT4, TSH, PALB ####[facility] [place] [address] [facility] [place] [address] 44057 Est GFR, >60 >60 Normal [facility] nter (50693) Comment: Performed By: #### PTPTT ### #[facility] (DEFAULT)[address] [place] [address] 59278#### FT4, TSH, PALB ####[facility] [place] [address] [facility] [place] [address] 26972 Est GFR,non >60 >60 Normal 0 12-27-2017 [facility] nter (00376) Comment: Performed By: #### PTPTT ### #[facility] (DEFAULT)[address] [place] [address] 31597#### FT4, TSH, PALB ####[facility] [place] [address] 43 [facility] [place] [address] 74326 Glucose mass conc 116 70-99 mg/dL High 12-27-[address] [facility] nter (20277) Comment: Performed By: #### PTPTT ### #[facility] (DEFAULT)[address] [place] [address] 09883#### FT4, TSH, PALB ####[facility] [place] [address] [facility] [place] [address] 63148 Osmolality 293 278-305 mOsm/kg Normal 12-27-2017 [facility] (00 000) Comment: Performed By: #### PTPTT ### #[facility] (DEFAULT)[address] [place] [address] 48820#### FT4, TSH, PALB ####[facility] [place] [address] 43 [facility] [place] [address] 09058 Potassium molar conc 3.9 3.5-5.0 mmol/L Normal 8 [facility] [place] (71136) Comment: Performed By: #### PTPTT ### #[facility] (DEFAULT)[address] [place] [address] 56634#### FT4, TSH, PALB ####[facility] [place] [address] [facility] [place] [address] 32283 Sodium molar conc 138 133-143 mmol/L Normal 12-27-2017 [facility] Ce nter (18822) Comment: Performed By: #### PTPTT ### #[facility] (DEFAULT)[address] [place] [address] 92114#### FT4, TSH, PALB ####[facility] [place], [place] 43 210[facility] [place] [address] Urea nitrogen mass conc 21 7-22 mg/dL Normal 2017 [facility] nter (92597) Comment: Performed By: #### PTPTT ### #[facility] (DEFAULT)[address] [place] [address] 86990#### FT4, TSH, PALB ####[facility] [place], [place] 43 210[facility] [place] [address] 28844 Urea nitrogen/Creatinine mass 19 mg/mg Normal 12-27-2017 [facility] (69421) Comment: Performed By: #### PTPTT ### #[facility] (DEFAULT)[address] [place] [address] 29589#### FT4, TSH, PALB ####[facility] [place], [place] 43 210[facility] [place] [address] 45335 *poc glucose battery on 2017-12-27 *POC SAMPLE TYPE Arterial Normal 12-27-2017 [facility] nter (99654) Glucose mass conc 138 70-99 mg/dL High 12-27-[address] [facility] nter (75647) Comment: Result Comment: No BRAVE per RN: PATIENT TYPE *POC SAMPLE TYPE Arterial Normal 12-27-2017 [facility] nter (76292) Glucose mass conc 128 70-99 mg/dL High 12-27-[address] [facility] nter (95971) Comment: Result Comment: Meets BRAVE per RN: PATIENT TYPE Glucose mass conc 127 70-99 mg/dL High 12-27-[address] [facility] nter (22953) Comment: Result Comment: Meets BRAVE per RN: PATIENT TYPE Glucose mass conc 130 70-99 mg/dL High 12-27-[address] [facility] nter (17407) Comment: Result Comment: Meets BRAVE per RN: PATIENT TYPE *POC SAMPLE TYPE Arterial Normal 12-27-2017 [facility] nter (20176) Glucose mass conc 142 70-99 mg/dL High 12-27-[address] [facility] nter (59148) Comment: Result Comment: Meets BRAVE per RN: PATIENT TYPE *blood*gas*panel 1 -ross on 2017-12-27 Base Deficit 3.4 0-3.0 mmol/L High 12-27-2017 [facility] (00 000) COMMENT Yard [employer] Normal 12-27-2017 [facility] (00 000) Glucose mass 156 70-99 mg/dL High 12-27-2017 [facility] (00 000) HCO3 molar conc 22 22-26 mmol/L Normal 12[place]27-2017 [place] [facility] (00 000) Hematocrit Auto 34 40.1-51.0 % Low 12-27-2017 [place] [facility] (Bld) [facility] (00 000) Hemoglobin mass 11.1 13.7-17.5 g/dL Low 12-27-2017 [place] [facility] (Bld[facility] Univers[facility] (00 000) Lactate, Whole 1.2 0.5-1.6 mmol/L Normal 12-27-2017 [facility] (00 000) Oxygen ppres 112 83-108 mm Hg High 12-27-2017 [facility] (BldA) [facility] (00 000) Oxygen 98 94-98 % Normal 12-27-2017 [place] [facility] saturation in Univer sity Blood [facility] (00 000) PCO2 48 32-48 mm Hg Normal 12-27-2017 [place] [facility] ( 000) pH (Bld) 7.29 7.35-7.45 [pH] Low 12-27-2017 [place] [facility] ( 000) Potassium molar 3.8 3.5-5.0 mmol/L Normal 12-27-[address] [facility] ( 000) Sodium molar 138 133-143 mmol/L Normal 12-27-2017 [facility] ( 000) Specimen type Arterial Normal 12-27-2017 [facility] [place] ( 000) Whole Bld 5.07 4.60-5.30 mg/dL Normal 12-27-2017 [place] [facility] [place] Ionized CA [facility] ( 000) Base Deficit 0.6 0-3.0 mmol/L Normal 12-27-2017 [facility] ( 000) COMMENT [employer] Normal 12-27-2017 [facility] ( 000) Glucose mass 175 70-99 mg/dL High 12-27-2017 [facility] ( 000) HCO3 molar conc 24 22-26 mmol/L Normal 12-27-2017 [place] [facility] (d) [facility] ( 000) Hematocrit Auto 35 40.1-51.0 % Low 12-27-2017 [place] [facility] (d) [facility] ( 000) Hemoglobin mass 11.3 13.7-17.5 g/dL Low 12-27-2017 [place] [facility] (d) Univers y [facility] ( 000) Lactate, Whole 1.2 0.5-1.6 mmol/L Normal 12-27-2017 [facility] ( 000) Oxygen ppres >488 83-108 mm[Hg] High 12-27-2017 [facility] (BldA) [facility] (00 000) Oxygen 100 94-98 % High 12-27-2017 [place] [facility] [place] saturation in Univer sity Blood [facility] ( 000) PCO2 46 32-48 mm Hg Normal 12-27-2017 [place] [facility] () pH (Bld) 7.35 7.35-7.45 [pH] Normal 12-27-2017 [place] [facility] ( 000) Potassium molar 4.6 3.5-5.0 mmol/L Normal 12-27-[address] [facility] () Sodium molar 136 133-143 mmol/L Normal 12-27-2017 [facility] () Specimen type Arterial Normal 12-27-2017 [facility] [place] () Whole Bld 4.57 4.60-5.30 mg/dL Low 12-27-2017 [place] [facility] [place] Ionized CA [facility] () BASE EXCESS 0.5 mmol/L Normal 12-27-2017 [facility] () COMMENT [employer] Normal 12-27-2017 [facility] () Glucose mass 165 70-99 mg/dL High 12-27-2017 [facility] ( 000) HCO3 molar conc 25 22-26 mmol/L Normal 12-27-2017 [place] (d[place] [facility] ( 000) Hematocrit Auto 34 40.1-51.0 % Low 12-27-2017 [place] [facility] (Bld) [facility] ( 000) Hemoglobin mass 11.0 13.7-17.5 g/dL Low 12-27-2017 [place] [facility] (Bld) [facility] ( 000) Lactate, Whole 0.9 0.5-1.6 mmol/L Normal 12-27-2017 [facility] ( 000) Oxygen ppres >488 83-108 mm[Hg] High 12-27-2017 [place] (BldA) [facility] ( 000) Oxygen 100 94-98 % High 12-27-2017 [place] [facility] [place] saturation in Univer sity Blood [facility] ( 000) PCO2 45 32-48 mm Hg Normal 12-27-2017 [place] [facility] ( 000) pH (Bld) 7.37 7.35-7.45 [pH] Normal 12-27-2017 [place] [facility] ( 000) Potassium molar 4.6 3.5-5.0 mmol/L Normal 12-27-[address] [facility] ( 000) Sodium molar 138 133-143 mmol/L Normal 12-27-2017 [facility] ( 000) Specimen type Arterial Normal 12-27-2017 [facility] [place] ( 000) Whole Bld 4.45 4.60-5.30 mg/dL Low 12-27-2017 [place] [facility] [place] Ionized CA [facility] () BASE EXCESS 4.2 mmol/L Normal 12-27-2017 [facility] ( 000) COMMENT [employer] Normal 12-27-2017 [facility] ( 000) Glucose mass 141 70-99 mg/dL High 12-27-2017 [facility] ( 000) HCO3 molar conc 27 22-26 mmol/L High 12-27-2017 [place] [facility] ( 000) Hematocrit Auto 35 40.1-51.0 % Low 12-27-2017 [place] [facility] (Bld) [facility] ( 000) Hemoglobin mass 11.5 13.7-17.5 g/dL Low 12-27-2017 [place] (d) [facility] ( 000) Lactate, Whole 0.7 0.5-1.6 mmol/L Normal 12-27-2017 [facility] ( 000) Oxygen ppres >488 83-108 mm[Hg] High 12-27-2017 [facility] (BldA) [facility] ( 000) Oxygen 100 94-98 % High 12-27-2017 [place] [facility] [place] saturation in Univer sity Blood [facility] ( 000) PCO2 51 32-48 mm Hg High 12-27-2017 [place] [facility] [place] [facility] ( 000) pH (Bld) 7.37 7.35-7.45 [pH] Normal 12-27-2017 [place] [facility] [place] [facility] () Potassium molar 4.6 3.5-5.0 mmol/L Normal 12-27-[address] [facility] ( 000) Sodium molar 141 133-143 mmol/L Normal 12-27-2017 [facility] ( 000) Specimen type Arterial Normal 12-27-2017 [facility] [place] ( 000) Whole Bld 4.58 4.60-5.30 mg/dL Low 12-27-2017 [place] [facility] [place] Ionized CA [facility] ( 000) Base Deficit 3.8 0-3.0 mmol/L High 12-27-2017 [facility] ( 000) COMMENT [employer] Normal 12-27-2017 [facility] ( 000) Glucose mass 124 70-99 mg/dL High 12-27-2017 [facility] ( 000) HCO3 molar conc 22 22-26 mmol/L Normal 12-27-2017 [place] [facility]) [facility] ( 000) Hematocrit Auto 39 40.1-51.0 % Low 12-27-2017 [place] [facility] (d) [facility] ( 000) Hemoglobin mass 12.8 13.7-17.5 g/dL Low 12-27-2017 [place] [facility] ( [facility]) Lactate, Whole 0.9 0.5-1.6 mmol/L Normal 12-27-2017 [facility] ( 000) Oxygen ppres 197 83-108 mm Hg High 12-27-2017 [place] (BldA) [facility] ( 000) Oxygen 99 94-98 % High 12-27-2017 [place] [facility] [place] saturation in Univer sity Blood [facility] ( 000) PCO2 40 32-48 mm Hg Normal 12-27-2017 [place] [facility] ( 000) pH (Bld) 7.34 7.35-7.45 [pH] Low 12-27-2017 [place] [facility] [place] [facility] ( 000) Potassium molar 4.1 3.5-5.0 mmol/L Normal 12-27-[address] [facility] () Sodium molar 139 133-143 mmol/L Normal 12-27-2017 [facility] ( 000) Specimen type Arterial Normal 12-27-2017 [facility] [place] () Whole Bld 4.65 4.60-5.30 mg/dL Normal 12-27-2017 [place] [facility] [place] Ionized CA [facility] ( 000) Base Deficit 3.9 0-3.0 mmol/L High 12-27-2017 [facility] ( 000) COMMENT Yard [employer] Normal 12-27-2017 [facility] ( 000) Glucose mass 119 70-99 mg/dL High 12-27-2017 [facility] ( 000) HCO3 molar conc 21 22-26 mmol/L Low 12-27-2017 [place] (Bld) [facility] ( 000) Hematocrit Auto 41 40.1-51.0 % Normal 12-27-2017 [place] [facility] (Bld) [facility] ( 000) Hemoglobin mass 13.5 13.7-17.5 g/dL Low 12-27-2017 [place] (Bld) Universit y [facility] ( 000) Oxygen ppres 91 83-108 mm Hg Normal 12-27-2017 [facility] (BldA) [facility] (00 000) Oxygen 96 94-98 % Normal 12-27-2017 [place] [facility] [place] saturation in Univer sity Blood [facility] ( 000) PCO2 46 32-48 mm Hg Normal 12-27-2017 [place] [facility] [place] [facility] ( 000) pH (Bld) 7.30 7.35-7.45 [pH] Low 12-27-2017 [place] [facility] [place] [facility] ( 000) Potassium molar 3.7 3.5-5.0 mmol/L Normal 12-27-[address] [facility] ( 000) Sodium molar 140 133-143 mmol/L Normal 12-27-2017 [facility] ( 000) Specimen type Arterial Normal 12-27-2017 [facility] [place] ( 000) Whole Bld 4.42 4.60-5.30 mg/dL Low 12-27-2017 [place] [facility] [place] [facility] ( 000) Base Deficit 0.7 0-3.0 mmol/L Normal 12-27-2017 [facility] ( 000) COMMENT Yard [employer] Normal 12-27-2017 [facility] ( 000) Glucose mass 112 70-99 mg/dL High 12-27-2017 [facility] ( 000) HCO3 molar conc 23 22-26 mmol/L Normal 12-27-2017 [facility] [facility]) [facility] ( 000) Hematocrit Auto 44 40.1-51.0 % Normal 12-27-2017 [place] [facility] (Bld) [facility] ( 000) Hemoglobin mass 14.4 13.7-17.5 g/dL Normal 12-27-2017 [place] (Bld) Univers[facility] y [facility] (00 000) Lactate, Whole 0.6 0.5-1.6 mmol/L Normal 12-27-2017 [facility] () Oxygen ppres 261 83-108 mm Hg High 12-27-2017 [place] (BldA) [facility] () Oxygen 99 94-98 % High 12-27-2017 [place] [facility] [place] saturation in Univer sity Blood [facility] () PCO2 54 32-48 mm Hg High 12-27-2017 [place] [facility] [place] [facility] () pH (Bld) 7.29 7.35-7.45 [pH] Low 12-27-2017 [place] [facility] () Potassium molar 4.0 3.5-5.0 mmol/L Normal 12-27-[address] [facility] () Sodium molar 140 133-143 mmol/L Normal 12-27-2017 [facility] () Specimen type Arterial Normal 12-27-2017 [facility] [place] () Whole Bld 4.87 4.60-5.30 mg/dL Normal 12-27-2017 [place] Ionized CA Universit y [facility] () urinalysis reflex culture on 2017-12-26 Appearance Nom (U) Clear Clear Normal 12-26-2017 [facility] nter ([id number]) Comment: Performed By: #### PTPTT ### #[facility] (DEFAULT)[address] [place] [address] 59291#### FT4, TSH, PALB ####[facility] [place] [address] 43 210[facility] [place] [address] 06264 Bacteria Absent Absent Normal 12-26-2017 [place] [facility] ( 000) Comment: Performed By: #### PTPTT ### #[facility] (DEFAULT)[address] [place] [address] 00297#### FT4, TSH, PALB ####[facility] [place] [address] 43 210[facility] [place] [address] 50002 Blood Urine Negative Negative Normal 12-26-2017 [facility] Ce nter ([id number]) Comment: Performed By: #### PTPTT ### #[facility] (DEFAULT)[address] [place] [address] 14509#### FT4, TSH, PALB ####[facility] [place] [address] 43 210[facility] [place] [address] 26525 Color Yellow Yellow Normal 12-26-2017 [facility] ([id number]) Comment: Performed By: #### PTPTT ### #[facility] (DEFAULT)[address] [place] [address] 33444#### FT4, TSH, PALB ####[facility] [place] [address] [facility] [place] [address] 94183 COMMENT URINE None Normal 12-26-2017 [facility] ([id number]) Comment: Performed By: #### PTPTT ### #[facility] (DEFAULT)[address] [place] [address] 00587#### FT4, TSH, PALB ####[facility] [place] [address] 43 210[facility] [place] [address] 56003 Glucose Ql (U) Negative Negative Normal 12-26-2017 [facility] Ce nter ([id number]) Comment: Performed By: #### PTPTT ### #[facility] (DEFAULT)[address] [place] [address] 29628#### FT4, TSH, PALB ####[facility] [place] [address] 43 210[facility] [place] [address] 40008 Ketones Ql (U) Negative Negative Normal 12-26-2017 [facility] (40423) Comment: Performed By: #### PTPTT ### #[facility] (DEFAULT)[address] [place] [address] 85392#### FT4, TSH, PALB ####[facility] [facility], [place] 43 210[facility] [place] [address] 38192 Leukocyte Esterase Negative Negative Normal 12-26-2017 [facility] Ce nter (65721) Comment: Performed By: #### PTPTT ### #[facility] (DEFAULT)[address] [place] [address] 43392#### FT4, TSH, PALB ####[facility] [place] [address], [place] 43 210[facility] [place] [address] 93220 Nitrites Urine Negative Negative Normal 12-26-2017 [facility] nter (28595) Comment: Performed By: #### PTPTT ### #[facility] (DEFAULT)[address] [place] [address] 70373#### FT4, TSH, PALB ####[facility] [place] [address] 43 210[facility] [place] [address] 36043 pH Test strip (U) 5.5 5.0-7.0 [pH] Normal 12-26-[address] [facility] nter (60890) Comment: Performed By: #### PTPTT ### #[facility] (DEFAULT)[address] [place] [address] 19809#### FT4, TSH, PALB ####[facility] [place] [address] 43 210[facility] [place] [address] Protein Urine Negative Negative Normal 12-26-2017 [facility] nter (76540) Comment: Performed By: #### PTPTT ### #[facility] (DEFAULT)[address] [place] [address] 21245#### FT4, TSH, PALB ####[facility] [place] [address], [place] 43 210[facility] [place] [address] 26621 RBC LM.HPF #/area (Urine 0-2 0-2 Normal 12-26 [facility] [place] [facility]) Medical Ce nter (73373) Comment: Performed By: #### PTPTT ### #[facility] (DEFAULT)[address] [place] [address] 98578#### FT4, TSH, PALB ####[facility] [place] [address] 210[facility] [place] [address] 99409 Specific [place] urine 1.019 1.001-1.035 Normal 12-26 [facility] (06990) Comment: Performed By: #### PTPTT ### #[facility] (DEFAULT)[address] [place] [address] 21624#### FT4, TSH, PALB ####[facility] [place] [address] 210[facility] [place] [address] 42444 Squamous Epithelial Absent Normal 12-26-2017 [facility] (00 000) Comment: Performed By: #### PTPTT ### #[facility] (DEFAULT)[address] [place] [address] 20934#### FT4, TSH, PALB ####[facility] [place] [address] 210[facility] [place] [address] 77001 Urobilinogen urine 0.2 <2.0 EU/dL Normal 12-26-2017 [facility] Ce nter (50943) Comment: Performed By: #### PTPTT ### #[facility] (DEFAULT)[address] [place] [address] 44673#### FT4, TSH, PALB ####[facility] [place] [address], [place] 43 210[facility] [place] [address] 36795 WBC LM.HPF #/area (Urine 0-5 0-5 Normal 12-26 [facility] sed) Medical Ce nter (93324) Comment: Performed By: #### PTPTT ### #[facility] (DEFAULT)[address] [place] [address] 86551#### FT4, TSH, PALB ####[facility] [place] [address], [place] 43 210[facility] [place] [address] 35409 type and cross on Type and ABO/RH(D): A POSITIVEANTIBODY Normal 12-26-2017 [facility] SCREEN: NEGATIVEUNIT NUMBER: [facility] [id number] COMPONENT TYPE: [facility] Red Cells, ([id number]) Leukoreduced_[id number] OF UNIT: REL FROM ALLOCTRANSFUSION STATUS: OK TO TRANSFUSECROSSMATCH RESULT: Electronically CompatibleUNIT NUMBER: [id number] COMPONENT TYPE: Red Cells, Leukoreduced_[id number] OF UNIT: REL FROM ALLOCTRANSFUSION STATUS: OK TO TRANSFUSECROSSMATCH RESULT: Electronically Compatible Comment: Performed By: #### CBCDFC, P TPTT, CA, CHM7, HFP, IPB, MGO, LIPDR, TROP ####[facility] [place] [address] 70795Fel[facility] [place] [address] 45138 hemogram (cbc and platelet) on 2017-12-26 Hematocrit Auto Volume 42.0 40.1-51.0 % Normal 018 [facility] Fraction (Bld) [facility] (13489) Comment: Performed By: #### PTPTT ### #[facility] (DEFAULT)[address] [place] [address] 81576#### FT4, TSH, PALB ####[facility] [place] [address] 43 210[facility] [place] [address] 66652 Hemoglobin mass conc 14.0 13.7-17.5 g/dL Normal 8 [facility] (Bld) [facility] (23712) Comment: Performed By: #### PTPTT ### #[facility] (DEFAULT)[address] [place] [address] 18724#### FT4, TSH, PALB ####[facility] [place] [address], [facility] 210[facility] [place] [address] 31043 MCV Auto Entitic volume 90.3 79.0-92.2 fL Normal 2017 [facility] (RBC) [facility] (56284) Comment: Performed By: #### PTPTT ### #[facility] (DEFAULT)[address] [place] [address] 52874#### FT4, TSH, PALB ####[facility] [place] [address] 210[facility] [place] [address] 80307 Mean Cell Hgb 30.1 25.7-32.2 pg Normal 12-26-2017 [facility] nter (89974) Comment: Performed By: #### PTPTT ### #[facility] (DEFAULT)[address] [place] [address] 38605#### FT4, TSH, PALB ####[facility] [place] [address] 43 210[facility] [place] [address] 31875 Mean Cell Hgb Conc 33.3 32.3-36.5 g/dL Normal 12-26-2017 [facility] nter (06091) Comment: Performed By: #### PTPTT ### #[facility] (DEFAULT)[address] [place] [address] 21704#### FT4, TSH, PALB ####[facility] [place] [address] 210[facility] [place] [address] 37146 Nucleated RBC #/vol 0.0 0.0-0.2 /100 WBC Normal - [facility] ([facility]) [facility] (66734) Comment: Performed By: #### PTPTT ### #[facility] (DEFAULT)[address] [place] [address] 11108#### FT4, TSH, PALB ####[facility] [place] [address] 210[facility] [place] [address] Platelet mean volume Auto 9.8 9.4-12.4 fL Normal [facility] Entitic volume (d) [facility] (38688) Comment: Performed By: #### PTPTT ### #[facility] (DEFAULT)[address] [place] [address] 89388#### FT4, TSH, PALB ####[facility] [place] [address] 210[facility] [place] [address] 56905 Platelets Auto #/vol 240 163-337 K/uL Normal 8 [facility] ([facility]) [facility] (20169) Comment: Performed By: #### PTPTT ### #[facility] (DEFAULT)[address] [place] [address] 31809#### FT4, TSH, PALB ####[facility] [place] [address] 210[facility] [place] [address] 16693 RBC Auto #/vol (Bld) 4.65 4.63-6.08 M/uL Normal 8 [facility] [place] (53875) Comment: Performed By: #### PTPTT ### #[facility] (DEFAULT)[address] [place] [address] 48768#### FT4, TSH, PALB ####[facility] [place] [address] 210[facility] [place] [address] 53055 RBC Auto #/vol (Bld) 13.1 11.6-14.4 % Normal 8 [facility] nter (40486) Comment: Performed By: #### PTPTT ### #[facility] (DEFAULT)[address] [place] [address] 94699#### FT4, TSH, PALB ####[facility] [place] [address], [facility] 210[facility] [place] [address] 45368 WBC Auto #/vol (Bld) 5.82 4.23-9.07 K/uL Normal 8 [facility] [place] (58539) Comment: Performed By: #### PTPTT ### #[facility] (DEFAULT)[address] [place] [address] 53932#### FT4, TSH, PALB ####[facility] [place] [address] 210[facility] [place] [address] 46913 echocardiogram on 2 ECHOCARDIOGRAM ? Left Ventricle: Chamber Normal 12-26-2017 [facility] size is normal. Normal wall [facility] thickness. There may be a (80693) subtle apical WMA. Ejection fraction normal (55 %). Diastolic dysfunction is consistent with impaired relaxation (grade I).? Right Ventricle: Chamber size is normal. Normal wall thickness. Segmental wall motion is normal. Systolic function is normal.? Ascending Aorta: Sinuses of Valsalva/aortic root size is mildly enlarged. Ascending aorta size is mildly enlarged.? Trivial pericardial effusion.? No significant valve disease. chem 7 on 6 Anion gap 3 molar conc 10 7-17 mmol/L Normal 018 [facility] nter (33413) Comment: Performed By: #### PTPTT ### #[facility] (DEFAULT)[address] [place] [address] 53869#### FT4, TSH, PALB ####[facility] [place] [address] 210[facility] [place] [address] 26271 Chloride molar conc 107 98-108 mmol/L Normal 12-26-2017 [facility] nter (25781) Comment: Performed By: #### PTPTT ### #[facility] (DEFAULT)[address] [place] [address] 92463#### FT4, TSH, PALB ####[facility] [place] [address] 210[facility] [place] [address] 25236 CO2 molar conc 25 22-30 mmol/L Normal 12-26-2017 [facility] (00 000) Comment: Performed By: #### PTPTT ### #[facility] (DEFAULT)[address] [place] [address] 27938#### FT4, TSH, PALB ####[facility] [place] [address] 210[facility] [place] [address] 05831 Creatinine mass conc 1.02 0.70-1.30 mg/dL Normal 8 [facility] [place] (52790) Comment: Performed By: #### PTPTT ### #[facility] (DEFAULT)[address] [place] [address] 42923#### FT4, TSH, PALB ####[facility] [place] [address], [place] 43 210[facility] [place] [address] 78877 Est GFR, >60 >60 Normal 0 [facility] nter (01965) Comment: Performed By: #### PTPTT ### #[facility] (DEFAULT)[address] [place] [address] 17429#### FT4, TSH, PALB ####[facility] [place] [address] 43 210[facility] [place] [address] 56445 Est GFR,non >60 >60 Normal 0 12-26-2017 [facility] nter (97172) Comment: Performed By: #### PTPTT ### #[facility] (DEFAULT)[address] [place] [address] 75801#### FT4, TSH, PALB ####[facility] [place] [address] 210[facility] [place] [address] 94049 Glucose mass conc 88 70-99 mg/dL Normal 12-26-2017 [facility] nter (77876) Comment: Performed By: #### PTPTT ### #[facility] (DEFAULT)[address] [place] [address] 88885#### FT4, TSH, PALB ####[facility] [place] [address] 43 210[facility] [place] [address] 06046 Osmolality 290 278-305 mOsm/kg Normal 12-26-2017 [facility] (00 000) Comment: Performed By: #### PTPTT ### #[facility] (DEFAULT)[address] [place] [address] 83335#### FT4, TSH, PALB ####[facility] [place] [address] 210[facility] [place] [address] 87462 Potassium molar conc 4.0 3.5-5.0 mmol/L Normal 8 [facility] [place] (73546) Comment: Performed By: #### PTPTT ### #[facility] (DEFAULT)[address] [place] [address] 79006#### FT4, TSH, PALB ####[facility] [place] [address] 43 210[facility] [place] [address] Sodium molar conc 138 133-143 mmol/L Normal 12-26-2017 [facility] nter (27721) Comment: Performed By: #### PTPTT ### #[facility] (DEFAULT)[address] [place] [address] 67547#### FT4, TSH, PALB ####[facility] [place] [address] 210[facility] [place], [place] [address] Urea nitrogen mass conc 18 7-22 mg/dL Normal 2017 [facility] nter (88096) Comment: Performed By: #### PTPTT ### #[facility] (DEFAULT)[address] [place] [address] 38460#### FT4, TSH, PALB ####[facility] [place] [address] 43 210[facility] [place] [address] 29083 Urea nitrogen/Creatinine mass 18 mg/mg Normal 12-26-2017 [facility] (55410) Comment: Performed By: #### PTPTT ### #[facility] (DEFAULT)[address] [place] [address] 47632#### FT4, TSH, PALB ####[facility] [place] [address] 210[facility] [place] [address] 39244 xr chest portable o n 2017-12-25 XR CHEST EXAM: XR CHEST PORTABLE, Normal 12-25 [facility] PORTABLE 12/25/2017 05:54 AMCOMPARISON: [facility] INDICATIONS: pleural (49404) effusionRELEVANT CLINICAL HISTORY:FINDINGS: (Adequate technique)Life Support Devices: None Chest Wall: NormalHila: NormalMediastinum: NormalPleural Spaces: No definite pleural effusion. No definite pneumothorax.Lungs: ClearCardiac Silhouette: Normal, without overall or specific chamber enlargement,or abnormal calcification Thoracic Aorta: NormalPulmonary Vessels: Normal, without PVHIMPRESSION:No acute cardiopulmonary disease. hemogram (cbc and platelet) on 2017-12-25 Hematocrit Auto Volume 41.7 40.1-51.0 % Normal 018 [facility] (d) [facility] (80979) Comment: Performed By: #### PTPTT ### #[facility] (DEFAULT)[address] [place] [address] 11343#### FT4, TSH, PALB ####[facility] [place] [address] 43 210[facility] [place] [address] 28795 Hemoglobin mass conc 13.9 13.7-17.5 g/dL Normal 8 [facility] (d) [facility] (24594) Comment: Performed By: #### PTPTT ### #[facility] (DEFAULT)[address] [place] [address] 66994#### FT4, TSH, PALB ####[facility] [place] [address] 43 210[facility] [place] [address] 35408 MCV Auto Entitic volume 91.4 79.0-92.2 fL Normal 2017 [facility] (RBC) [facility] (58548) Comment: Performed By: #### PTPTT ### #[facility] (DEFAULT)[address] [place] [address] 20112#### FT4, TSH, PALB ####[facility] [place] [address] 210[facility] [place] [address] 75873 Mean Cell Hgb 30.5 25.7-32.2 pg Normal 12-25-2017 [facility] nter (22051) Comment: Performed By: #### PTPTT ### #[facility] (DEFAULT)[address] [place] [address] 81287#### FT4, TSH, PALB ####[facility] [place] [address] 210[facility] [place] [address] 24113 Mean Cell Hgb Conc 33.3 32.3-36.5 g/dL Normal 12-25-2017 [facility] Ce nter (67021) Comment: Performed By: #### PTPTT ### #[facility] (DEFAULT)[address] [place] [address] 19675#### FT4, TSH, PALB ####[facility] [place] [address] 210[facility] [place] [address] 66434 Nucleated RBC #/vol 0.0 0.0-0.2 /100 WBC Normal 12-25-2017 [facility] (Bld) [facility] (63971) Comment: Performed By: #### PTPTT ### #[facility] (DEFAULT)[address] [place] [address] 51218#### FT4, TSH, PALB ####[facility] [place] [address] 210[facility] [place] [address] 84637 Platelet mean volume 10.0 9.4-12.4 fL Normal 8 [facility] Auto Entitic volume [facility] ([facility]) (72672) Comment: Performed By: #### PTPTT ### #[facility] (DEFAULT)[address] [place] [address] 35550#### FT4, TSH, PALB ####[facility] [place] [address] 43 210[facility] [place] [address] 89393 Platelets Auto #/vol 253 163-337 K/uL Normal 8 [facility] (d) [facility] (13404) Comment: Performed By: #### PTPTT ### #[facility] (DEFAULT)[address] [place] [address] 01252#### FT4, TSH, PALB ####[facility] [place] [address] 210[facility] [place] [address] 73406 RBC Auto #/vol (d) 4.56 4.63-6.08 M/uL Low 8 [facility] nter (57350) Comment: Performed By: #### PTPTT ### #[facility] (DEFAULT)[address] [place] [address] 10477#### FT4, TSH, PALB ####[facility] [place] [address] 210[facility] [place] [address] 05060 RBC Auto #/vol (d) 13.3 11.6-14.4 % Normal 8 [facility] nter (08837) Comment: Performed By: #### PTPTT ### #[facility] (DEFAULT)[address] [place] [address] 97361#### FT4, TSH, PALB ####[facility] [place] [address] 43 210[facility] [place] [address] 14668 WBC Auto #/vol (Bld) 7.32 4.23-9.07 K/uL Normal 8 [facility] [place] (48105) Comment: Performed By: #### PTPTT ### #[facility] (DEFAULT)[address] [place] [address] 66747#### FT4, TSH, PALB ####[facility] [place] [address] 210[facility] [place] [address] 20988 chem 7 on 5 Anion gap 3 molar conc 9 7-17 mmol/L Normal 018 [facility] nter (76501) Comment: Performed By: #### PTPTT ### #[facility] (DEFAULT)[address] [place] [address] 01397#### FT4, TSH, PALB ####[facility] [place] [address] 210[facility] [place] [address] 95637 Chloride molar conc 107 98-108 mmol/L Normal 12-25-2017 [facility] nter (55466) Comment: Performed By: #### PTPTT ### #[facility] (DEFAULT)[address] [place] [address] 26270#### FT4, TSH, PALB ####[facility] [place] [address] 210[facility] [place] [address] 86959 CO2 molar conc 24 22-30 mmol/L Normal 12-25-2017 [facility] (00 000) Comment: Performed By: #### PTPTT ### #[facility] (DEFAULT)[address] [place] [address] 51283#### FT4, TSH, PALB ####[facility] [place] [address] 210[facility] [place] [address] 66421 Creatinine mass conc 0.93 0.70-1.30 mg/dL Normal 8 [facility] [place] (48164) Comment: Performed By: #### PTPTT ### #[facility] (DEFAULT)[address] [place] [address] 10271#### FT4, TSH, PALB ####[facility] [place] [address] 43 210[facility] [place] [address] 17862 Est GFR, >60 >60 Normal [facility] nter (43231) Comment: Performed By: #### PTPTT ### #[facility] (DEFAULT)[address] [place] [address] 40985#### FT4, TSH, PALB ####[facility] [place] [address] 43 210[facility] [place] [address] 80827 Est GFR,non >60 >60 Normal 0 12-25-2017 [facility] nter (17450) Comment: Performed By: #### PTPTT ### #[facility] (DEFAULT)[address] [place] [address] 25446#### FT4, TSH, PALB ####[facility] [place] [address] 210[facility] [place] [address] 18699 Glucose mass conc 85 70-99 mg/dL Normal 12-25-[address] [facility] nter (19425) Comment: Performed By: #### PTPTT ### #[facility] (DEFAULT)[address] [place] [address] 92736#### FT4, TSH, PALB ####[facility] [place] [address] 43 210[facility] [place] [address] 66438 Osmolality 286 278-305 mOsm/kg Normal 12-25-2017 [facility] (00 000) Comment: Performed By: #### PTPTT ### #[facility] (DEFAULT)[address] [place] [address] 91276#### FT4, TSH, PALB ####[facility] [place] [address] 43 210[facility] [place] [address] 40702 Potassium molar conc 4.1 3.5-5.0 mmol/L Normal 8 [facility] [place] (36435) Comment: Performed By: #### PTPTT ### #[facility] (DEFAULT)[address] [place] [address] 67942#### FT4, TSH, PALB ####[facility] [place], [place] [id number] [place] [address] 78049 Sodium molar conc 136 133-143 mmol/L Normal 12-25-2017 [facility] Ce nter (63111) Comment: Performed By: #### PTPTT ### #[facility] (DEFAULT)[address] [place] [address] 99810#### FT4, TSH, PALB ####[facility] [place], [place] [id number] [place] [address] 95555 Urea nitrogen mass conc 16 7-22 mg/dL Normal 2017 [facility] nter (08968) Comment: Performed By: #### PTPTT ### #[facility] (DEFAULT)[address] [place] [address] 57383#### FT4, TSH, PALB ####[facility] [place], [place] [id number] [place] [address] 38290 Urea nitrogen/Creatinine mass 17 mg/mg Normal 12-25-2017 [facility] (03462) Comment: Performed By: #### PTPTT ### #[facility] (DEFAULT)[address] [place] [address] 55222#### FT4, TSH, PALB ####[facility] [place] [address] 210[facility] [place] [address] 49116 xr chest portable o n 2017-12-24 XR CHEST EXAM: XR CHEST PORTABLE, Normal 12-24 [facility] [place] 12/24/2017 04:50 AMCOMPARISON: [facility] No prior studies available for Medical Center comparison.CLINICAL ([id number]) INDICATIONS: chest painRELEVANT CLINICAL HISTORY:FINDINGS: (Adequate technique)Life Support Devices: None Chest Wall: NormalHila: NormalMediastinum: NormalPleural Spaces: No definite pleural effusion. No definite pneumothorax.Lungs: ClearCardiac Silhouette: Normal, without overall or specific chamber enlargement,or abnormal calcification Thoracic Aorta: NormalPulmonary Vessels: Normal, without PVHIMPRESSION:No acute cardiopulmonary disease. type and cross on 2 Type and Cross ABO/RH(D): A POSITIVE Normal [facility] ANTIBODY SCREEN: NEGATIVE [facility] (41593) Comment: Performed By: #### PTPTT ### #[facility] (DEFAULT)[address] [place] [address] 79476#### FT4, TSH, PALB ####[facility] [place], [place] [id number] [place] [address] 40166 tsh, high sensitivity on 2017-12-24 Thyrotropin Qn 3.726 0.550-4.780 uIU/mL Normal 12-24-2017 [facility] (26636) Comment: Performed By: #### PTPTT ### #[facility] (DEFAULT)[address] [place] [address], [place] [address]#### FT4, TSH, PALB ####[facility] [place] [address], [place] 43 210[facility] [place] [address] 05603 troponin i on 12-24 Troponin I.cardiac mass 0.01 <0.11 ng/mL Normal 2017 [facility] (99146) Comment: Performed By: #### PTPTT ### #[facility] (DEFAULT)[address] [place] [address], [place] [address]#### FT4, TSH, PALB ####[facility] [place] [address], [place] 43 210[facility] [place] [address] 64445 Troponin I.cardiac mass <0.01 <0.11 ng/mL Normal 2017 [facility] (39193) Comment: Performed By: #### PTPTT ### #[facility] (DEFAULT)[address] [place] [address] 19740#### FT4, TSH, PALB ####[facility] [place] [address], [place] 43 210[facility] [place] [address] 98467 Troponin I.cardiac mass <0.01 <0.11 ng/mL Normal 2017 [facility] (24070) Comment: Performed By: #### PTPTT ### #[facility] (DEFAULT)[address] [place] [address], [place] [address]#### FT4, TSH, PALB ####[facility] [place] [address], [place] 43 210[facility] [place] [address] 12725 screen: resp staph (high risk surgery) - e on 2017-12-24 Screen: Resp NARES:NegativeNegative This Normal 12-24-2017 [facility] (high risk test was performed using [facility]) - E real time PCR assay. Results Medical Center should be interpreted in (97685) conjunction with other clinical and laboratory findings. A positive result does not necessarily indicate the presence of viable organism. This test should not be used as a test of cure. For E-swab specimens, this test was developed and its performance characteristics determined by the Clinical Microbiology Laboratory at [facility]. It has not been cleared or approved by the FDA.The laboratory is regulated under CLIA as qualified to perform high-complexity testing. This test is used for clinical purposes. It should not be regarded as investigational or for research. Comment: Performed By: #### PTPTT ### #[facility] (DEFAULT)[address] [place] [address] 88278#### FT4, TSH, PALB ####[facility] 43 210[facility] [place] [address] 55035 pt*ptt on 4 aPTT Coag time (Bld) 27.6 24.0-34.3 sec Normal 8 [facility] [place] (82657) Comment: Performed By: #### CBCDFC, P TPTT, CA, CHM7, HFP, IPB, MGO, LIPDR, TROP ####[facility] r[address] [place] [address] 76870EbanaiPaulding County Hospital[address] [address] INR Coag RelTime (PPP) 1.0 0.9-1.1 {INR} Normal 018 [facility] [place] (20020) Comment: Performed By: #### CBCDFC, P TPTT, CA, CHM7, HFP, IPB, MGO, LIPDR, TROP ####[facility] r[address] [place] [address] 91766AwwlhuPaulding County Hospital[address] [place] [address] 29726 Prothrombin time (PT) 12.5 11.9-14.2 sec Normal 12-25-19 18 [facility] Coag time (PPP) [facility] (11450) Comment: Performed By: #### CBCDFC, P TPTT, CA, CHM7, HFP, IPB, MGO, LIPDR, TROP ####[facility] r[address] [place] [address] 72492ZrdwzuPaulding County Hospital[address] [place] [address] 88850 aPTT Coag time This result has been Normal [facility] (Bld) cancelled. [facility] (75732) Comment: Performed By: #### PTPTT ### #[facility] (DEFAULT)[address] [place] [address] 82879#### FT4, TSH, PALB ####[facility] [place] [address] 43 210[facility] [place] [address] 88346 prealbumin on 12-24 Prealbumin mass conc 31 17-34 mg/dL Normal 8 [facility] Ce nter (30964) Comment: Performed By: #### PTPTT ### #[facility] (DEFAULT)[address] [place] [address] 13352#### FT4, TSH, PALB ####[facility] [place] [address] 43 210[facility] [place] [address] 36747 magnesium on 12-24 Magnesium mass conc 2.2 1.6-2.6 mg/dL Normal 12-24-2017 [facility] Ce nter (20263) Comment: Performed By: #### PTPTT ### #[facility] (DEFAULT)[address] [place] [address] 71369#### FT4, TSH, PALB ####[facility] [place] [address] 210[facility] [place] [address] 50163 lipid panel with reflex to johnathon ldl on 2017-12-24 Glucose mass conc 114 mg/dL Normal 12-24-2017 [facility] (00 000) Comment: Performed By: #### PTPTT ### #[facility] (DEFAULT)[address] [place] [address] 84051#### FT4, TSH, PALB ####[facility] [place] [address] 210[facility] [place] [address] 43670 Hemoglobin A1c/Hemoglobin.total 5.6 4.7-5.6 % Normal 12-24-2017 [facility] mass fraction (Bld) [facility] (66670) Comment: Performed By: #### PTPTT ### #[facility] (DEFAULT)[address] [place] [address] 75787#### FT4, TSH, PALB ####[facility] [place], [place] [address] [place] [address] 58927 inorganic phosphate on 2017-12-24 Inorg Phosphate 3.3 2.2-4.6 mg/dL Normal 12-24-2017 [facility] Ce nter (94540) Comment: Performed By: #### CBCDFC, P TPTT, CA, CHM7, HFP, IPB, MGO, LIPDR, TROP ####[facility] r[address] [place] [address] 39541EygjmjPaulding County Hospital[address] [place] [address] 09425 hepatic function panel on 2017-12-24 Albumin mass conc 4.0 3.5-5.0 g/dL Normal 12-24-2017 [facility] nter (00542) Comment: Performed By: #### CBCDFC, P TPTT, CA, CHM7, HFP, IPB, MGO, LIPDR, TROP ####[facility] r[address] [place] [address] 44105KiuwtgPaulding County Hospital[address] [place] [address] 89257 ALP enzyme act/vol 99 32-126 U/L Normal 12-24-2017 [facility] nter (49485) Comment: Performed By: #### CBCDFC, P TPTT, CA, CHM7, HFP, IPB, MGO, LIPDR, TROP ####[facility] r[address] [place], [place] [address] [place] [address] 84836 ALT enzyme act/vol 5 10-52 U/L Low 12-24-2017 [facility] (00 000) Comment: Performed By: #### CBCDFC, P TPTT, CA, CHM7, HFP, IPB, MGO, LIPDR, TROP ####[facility] r[address] [place] [address] [place], [place] [address] [place] [address] 25757 AST enzyme act/vol 14 14-40 U/L Normal 12-24-2017 [facility] nter (52355) Comment: Performed By: #### CBCDFC, P TPTT, CA, CHM7, HFP, IPB, MGO, LIPDR, TROP ####[facility] r[address] [place], [place] [address] [place] [address] 00027 Bilirubin mass conc 0.5 <1.5 mg/dL Normal 12-24-2017 [facility] nter (95711) Comment: Performed By: #### CBCDFC, P TPTT, CA, CHM7, HFP, IPB, MGO, LIPDR, TROP ####[facility] r[address] [place] [address] [place] [address] [place] [address] 82534 Bilirubin.direct mass conc 0.1 <0.3 mg/dL Normal [facility] (01299) Comment: Performed By: #### CBCDFC, P TPTT, CA, CHM7, HFP, IPB, MGO, LIPDR, TROP ####[facility] r[address] [place] [address] 65698ItkenuPaulding County Hospital[address] [place] [address] 53041 Protein mass conc 6.5 6.4-8.3 g/dL Normal 12-24-[address] [facility] nter (17160) Comment: Performed By: #### CBCDFC, P TPTT, CA, CHM7, HFP, IPB, MGO, LIPDR, TROP ####[facility] r[address] [place] [address] [place] [address] [place] [address] 79615 free t4 on T4 free mass conc 1.15 0.89-1.76 ng/dL Normal 12-24-[address] [facility] nter (59511) Comment: Performed By: #### PTPTT ### #[facility] (DEFAULT)[address] [place] [address] 47465#### FT4, TSH, PALB ####[facility] [place] [address] 43 210[facility] [place] [address] 56597 chem 7 on 4 Anion gap 3 molar conc 13 7-17 mmol/L Normal 018 [facility] nter (05967) Comment: Performed By: #### CBCDFC, P TPTT, CA, CHM7, HFP, IPB, MGO, LIPDR, TROP ####[facility] r[address] [place] [address] 87117AgbgrsPaulding County Hospital[address] [place] [address] 66729 Chloride molar conc 107 98-108 mmol/L Normal 12-24-2017 [facility] nter (90858) Comment: Performed By: #### CBCDFC, P TPTT, CA, CHM7, HFP, IPB, MGO, LIPDR, TROP ####[facility] r[address] [place] [address] [place], [place] [address] [place] [address] 88711 CO2 molar conc 20 22-30 mmol/L Low 12-24-2017 [facility] (00 000) Comment: Performed By: #### CBCDFC, P TPTT, CA, CHM7, HFP, IPB, MGO, LIPDR, TROP ####[facility] r[address] [place], [place] [address] [place] [address] 25488 Creatinine mass conc 1.04 0.70-1.30 mg/dL Normal 8 [facility] [place] (15485) Comment: Performed By: #### CBCDFC, P TPTT, CA, CHM7, HFP, IPB, MGO, LIPDR, TROP ####[facility] r[address] [place], [place] [address] [place] [address] 08424 Est GFR, >60 >60 Normal 07- [facility] Ce nter (67876) Comment: Performed By: #### CBCDFC, P TPTT, CA, CHM7, HFP, IPB, MGO, LIPDR, TROP ####[facility] r[address] [place], [place] [address] [place] [address] 19327 Est GFR,non >60 >60 Normal 0 12-24-2017 [facility] Ce nter (95715) Comment: Performed By: #### CBCDFC, P TPTT, CA, CHM7, HFP, IPB, MGO, LIPDR, TROP ####[facility] r[address] [place], [place] [address] [place] [address] 22948 Glucose mass conc 107 70-99 mg/dL High 12-24-[address] [facility] nter (23583) Comment: Performed By: #### CBCDFC, P TPTT, CA, CHM7, HFP, IPB, MGO, LIPDR, TROP ####[facility] r[address] [place], [place] [address] [place] [address] 24325 Osmolality 286 278-305 mOsm/kg Normal 12-24-2017 [facility] (00 000) Comment: Performed By: #### CBCDFC, P TPTT, CA, CHM7, HFP, IPB, MGO, LIPDR, TROP ####[facility] r[address] [place], [place] [address] [place] [address] 53285 Potassium molar conc 3.8 3.5-5.0 mmol/L Normal 8 [facility] (56279) Comment: Performed By: #### CBCDFC, P TPTT, CA, CHM7, HFP, IPB, MGO, LIPDR, TROP ####[facility] r[address] [place], [place] [address] [place] [address] 73401 Sodium molar conc 136 133-143 mmol/L Normal 12-24-2017 [facility] nter (25480) Comment: Performed By: #### CBCDFC, P TPTT, CA, CHM7, HFP, IPB, MGO, LIPDR, TROP ####[facility] r[address] [place], [place] [address] [place] [address] 89488 Urea nitrogen mass conc 14 7-22 mg/dL Normal 2017 [facility] nter (21151) Comment: Performed By: #### CBCDFC, P TPTT, CA, CHM7, HFP, IPB, MGO, LIPDR, TROP ####[facility] r[address] [place], [place] [address] [place] [address] 19756 Urea nitrogen/Creatinine mass 13 mg/mg Normal 12-24-2017 [facility] (82237) Comment: Performed By: #### CBCDFC, P TPTT, CA, CHM7, HFP, IPB, MGO, LIPDR, TROP ####[facility] r[address] [place], [place] [address] [place] [address] cbc,platelet,differential - ccl on 2017-12-24 Abs Baso 0.05 <0.09 K/uL Normal 12-24-2017 [facility] (00 000) Comment: Performed By: #### CBCDFC, P TPTT, CA, CHM7, HFP, IPB, MGO, LIPDR, TROP ####[facility] r[address] [place], [place] [address] [place] [address] Abs Eos 0.24 <0.55 K/uL Normal 12-24-2017 [facility] (47424) Comment: Performed By: #### CBCDFC, P TPTT, CA, CHM7, HFP, IPB, MGO, LIPDR, TROP ####[facility] r[address] [place], [place] [address] [place] [address] 07975 Abs Mercer 0.40 0.30-0.82 K/uL Normal 12-24-2017 [facility] (00 000) Comment: Performed By: #### CBCDFC, P TPTT, CA, CHM7, HFP, IPB, MGO, LIPDR, TROP ####[facility] r[address] [place], [place] [address] [place] [address] 89921 Basophils/100 WBC Auto (Bld) 0.8 % Normal 0 12-24-2017 [facility] nter (70530) Comment: Performed By: #### CBCDFC, P TPTT, CA, CHM7, HFP, IPB, MGO, LIPDR, TROP ####[facility] r[address] [place], [place] [address] [place] [address] 30931 DIFFERENTIAL TYPE Electronic Differential Normal 12-24-2017 [facility] [place] (81233) Comment: Performed By: #### CBCDFC, P TPTT, CA, CHM7, HFP, IPB, MGO, LIPDR, TROP ####[facility] r[address] [place], [place] [address] [place] [address] 15512 Eosinophils/100 WBC Auto (Bld) 3.9 % Normal 12-24-2017 [facility] nter (21755) Comment: Performed By: #### CBCDFC, P TPTT, CA, CHM7, HFP, IPB, MGO, LIPDR, TROP ####[facility] r[address] [place], [place] [address] [place] [address] 75446 Hematocrit Auto Volume 42.6 40.1-51.0 % Normal 018 [facility] (d) [facility] (90417) Comment: Performed By: #### CBCDFC, P TPTT, CA, CHM7, HFP, IPB, MGO, LIPDR, TROP ####[facility] r[address] [place], [place] [address] [place] [address] 31788 Hemoglobin mass conc 14.2 13.7-17.5 g/dL Normal 8 [facility] (d) [facility] (78739) Comment: Performed By: #### CBCDFC, P TPTT, CA, CHM7, HFP, IPB, MGO, LIPDR, TROP ####[facility] r[address] [place] [address] [place] [address] [place] [address] 52191 IMMATURE GRANS % 0.6 % Normal 12-24-2017 [facility] (00 000) Comment: Performed By: #### CBCDFC, P TPTT, CA, CHM7, HFP, IPB, MGO, LIPDR, TROP ####[facility] r[address] [place], [place] [address] [place] [address] 84371 IMMATURE GRANS ABSOLUTE 0.04 <0.04 K/uL High 2017 [facility] nter (77266) Comment: Performed By: #### CBCDFC, P TPTT, CA, CHM7, HFP, IPB, MGO, LIPDR, TROP ####[facility] r[address] [place], [place] [address] [place] [address] 95434 Lymphocytes Auto #/vol 2.05 1.32-3.57 K/uL Normal [address] [place] [address] ([facility]) [facility]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 patient.[facility] the event this information is protected by the Federal Confidentiality of Alcohol and Drug Abuse Patient Records regulations: The Federal rules restrict any use of the information to criminally investigate or prosecute any alcohol or drug abuse patient.[facility] the event this information is protected by the Federal Confidentiality of Alcohol and Drug Abuse Patient Records regulations: The Federal rules restrict any use of the information to criminally investigate or prosecute any alcohol or drug abuse patient.[facility] UNRECOGNIZED CONTENT PROVIDED BELOW FOR UNRECOGNIZED SECTION Reason for Visit Reason Comments Diarrhea muscle pain, runny nose and cough x 8 days Reason Onset Date Comments Refill Request 02/23/2020 Reason Onset Date Comments Referral Information 12/08/2019 Reason Onset Date Comments Refill Request 03/30/2020 Reason Comments Social Work Services Reason Comments Established Patient spine surgeon referral UNRECOGNIZED CONTENT PROVIDED BELOW FOR UNRECOGNIZED SECTION Miscellaneous Notes Telephone Encounter - Jennifer Chaney LPN - 02/23/2020 2:19 PM EDT Patient has been identified by name and date of : Yes Patient phones for refill(s): Pending Prescriptions Disp Refills CYCLOBENZAPRINE 10 MG TABLET 30 tablet 1 Sig: Take 1 tablet by mouth at bedtime as needed for Muscle Spasm. RILEY: No Date of last office visit in primary care: 01/26/2020 No future appt scheduled. Jennifer Chaney LPN Telephone Encounter - Kaleigh Cannon - 02/23/2020 1:50 PM EDT Patient has been identified by name and date of : Yes Pending Prescriptions Disp Refills CYCLOBENZAPRINE 10 MG TABLET 30 tablet 1 Sig: Take 1 tablet by mouth at bedtime as needed for Muscle Spasm. RILEY: No RX INSTRUCTIONS: Patient aware RX will be sent to pharmacy. No need to notify patient. Kaleigh Emlectronically signed by Kaleigh Cannon at 02/23/2020 1:51 PM EDTdocumented in this encounterTelephone Encounter - Re Ludwig LPN - 12/09/2019 10:07 AM EDTNo answer and voice mail is not set up. elephone Encounter - Vimal Batista - 12/08/2019 6:39 PM EDTWe have put xr orders elephone Encounter - Marbella Guerra LPN - 12/08/2019 3:[address] Clement d/t unable to travel to [place] for any procedures. Will need updated imaging. 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 Could we possi ble get these so we can fax them AILYN. elephone Encounter - Hope Jordan - 12/08/2019 2:21 PM EDTPain referral, demographics, and last office note was faxed to Dr Clement. Was unable to schedule atthis time as they require imaging and this patient does not currently have any in his chart to provide them today. Please advise Dr Clement office if there is any to provide them. Was advise Dr Clementwidg review. documented in this encounterTelephone Encounter - Kerry Sanders) - 03/30/2020 4:30 PM EDT The following approved medication requests have been transmitted electronically. Signed Prescriptions Disp Refills cyclobenzaprine (FLEXERIL) 10 mg tablet 30 tablet 1 Sig: Take 1 tablet by mouth at bedtime as needed for Muscle Spasm. RILEY: No Authorizing Provider: KERRY SANDERS) Kerry Sanders APRN.[employer] elephone Encounter - Celena Perera RN - 03/30/2020 3:28 PM EDT Patient has been identified by name and date of : Yes Patient phones for refill(s): Pending Prescriptions Disp Refills CYCLOBENZAPRINE 10 MG TABLET 30 tablet 1 Sig: Take 1 tablet by mouth at bedtime as needed for Muscle Spasm. RILEY: No Date of last office visit in primary care: 01/26/20. No future appointment scheduled yet. Last 2 Encounter Wt Readings: Date: Wt: 02/05/2020 73 kg (161 lb) 01/28/2020 74.8 kg (165 lb) Previous labs/tests for medication: Blood Pressure: BUN (mg/dL) Date Value 05/03/2019 16 Sodium (mmol/L) Date Value 05/03/2019 142 Last 1 Encounter BP Readings: Date: BP: 02/05/2020 106/68 Liver Function: ALT (U/L) Date Value 09/16/2016 13 AST (U/L) Date Value 09/16/2016 20 Please advise. Thank you. Celena Perera RN elephone Encounter - Apolonia Johns - 03/30/2020 1:43 PM EDT Patient has been identified by name and date of : Yes Pending Prescriptions Disp Refills CYCLOBENZAPRINE 10 MG TABLET 30 tablet 1 Sig: Take 1 tablet by mouth at bedtime as needed for Muscle Spasm. RILEY: No RX INSTRUCTIONS: Patient aware RX will be sent to pharmacy. No need to notify patient. Apolonia Johns documented in this encounterTelephone Encounter - Kiara Lomax (Gabby) - 04/03/2020 12:32 PM EDTPatient and Gabby spoke and he wanted Sw to give him referral to specialist at [facility]. Gabby noted that referrals for specialist typically come from primary care provider and or nurse practitioners. Patient states that recent pcp appt was cancelled due to computers being down. Gabby advised patient to call in and request appt with [employer] to see about discussing referral to specialist. Patient states that he will call and see about seeing [employer] for referral. documented in this encounter
--- OUTSIDE RECORDS SUMMARY | 2020-04-09 08:57 | XMS RPT_ITS | CCD ---
:1960 External Reference #:[id number] Author Organization [facility] Care Team Providers Name Role Phone LUISNG, D Unavailable Unavailable HERIBERTO, D Unavailable Unavailable MOODISAIAHPALoyd, F Unavailable Unavailable Shayy NUÑEZ Unavailable Unavailable Kathy Primary Care Provider Roger, F Unavailable Allergies Reported Allergen Reaction(s) Severity Date of Onset Location celecoxib Swelling 11-15-2015 - [facility] ([id number]) pregabalin Swelling 10-26-2016 - [facility] ([id number]) Medications Medication Name Sig Date Prescriber Location albuterol HFA (PROAIR albuterol HFA (PROAIR 06-13-2015 [facility] HFA) 90 mcg/actuation HFA) 90 mcg/actuation (58744) inhaler inhaler Indications: Tobacco use disorder Inhale 2 Puffs as instructed every 4 hours as needed. 1 Inhaler 3 06/13/2015 Active albuterol HFA (PROAIR HFA) 90 06-13-2015 [facility] (18392) mcg/actuation inhaler Indications: Tobacco use disorder Inhale 2 Puffs as instructed every 4 hours as needed. 1 Inhaler 3 06/13/2015 Active albuterol HFA (PROAIR HFA) 90 06-13-2015 [facility] (29255) mcg/actuation inhaler Indications: Tobacco use disorder Inhale 2 Puffs as instructed every 4 hours as needed. 1 Inhaler 3 06/13/2015 Active albuterol HFA (PROAIR HFA) 90 06-13-2015 [facility] (87453) mcg/actuation inhaler Indications: Tobacco use disorder Inhale 2 Puffs as instructed every 4 hours as needed. 1 Inhaler 3 06/13/2015 Active albuterol HFA (PROAIR HFA) 90 06-13-2015 [facility] (25887) mcg/actuation inhaler Indications: Tobacco use disorder Inhale 2 Puffs as instructed every 4 hours as needed. 1 Inhaler 3 06/13/2015 Active albuterol HFA (PROAIR HFA) 90 06-13-2015 [facility] (52620) mcg/actuation inhaler Indications: Tobacco use disorder Inhale 2 Puffs as instructed every 4 hours as needed. 1 Inhaler 3 06/13/2015 Active albuterol HFA (PROAIR HFA) 90 06-13-2015 [facility] (13317) mcg/actuation inhaler Indications: Tobacco use disorder Inhale 2 Puffs as instructed every 4 hours as needed. 1 Inhaler 3 06/13/2015 Active Comment: Inhale 2 Puffs as instructed every 4 hours as needed. Aspirin aspirin, enteric coated 09-30-2018 Kerry ([facility] (ASPIRIN, ENTERIC COATED) (4 4195) 81 mg EC tablet Indications: Coronary artery disease involving guid[place] coronary artery of guid[place]le heart without angina pectoris Take 1 tablet by mouth once daily. 30 tablet 5 09/30/2018 Active Comment: Take 1 tablet by mouth once daily. atorvastatin atorvastatin (LIPITOR) 80 01-26-2020 [facility] mg tablet Indications: (4419 5) Mixed hyperlipidemia Take 1 tablet by mouth once daily. 90 tablet 3 01/26/2020 Active Comment: Take 1 tablet by mouth once daily. cyclobenzaprine cyclobenzaprine 12-08-2019 - Kerry ([facility] (FLEXERIL) 10 mg tablet 03-30-2020 [facility] (441 95) Indications: Chronic right-sided low back pain with right-sided sciatica Take 1 tablet by mouth at bedtime as needed for Muscle Spasm. 30 tablet 1 03/30/2020 Active Comment: Take 1 tablet by mouth at be dtime as needed for Muscle Spasm. Escitalopram escitalopram oxalate 01-26-2020 [facility] (LEXAPRO) 20 mg tablet (4419 5) Indications: Severe episode of recurrent major depressive disorder, without psychotic features (HCC) , Depression with anxiety Take 1 tablet by mouth once daily. 90 tablet 3 01/26/2020 Active Comment: Take 1 tablet by mouth once daily. gabapentin gabapentin (NEURONTIN) 11-30-2019 - [facility] 100 mg capsule Take 3 05-28-2020 (50769 ) capsules by mouth daily at bedtime for 180 days. 90 capsule 5 11/30/2019 05/28/2020 Active Comment: Take 3 capsules by mouth adama ly at bedtime for 180 days. Metoprolol metoprolol succinate ER 01-26-2020 [facility] (TOPROL XL) 25 mg 24 hr (441 95) tablet Indications: Coronary artery disease involving guid[place]le coronary artery of guid[place]le heart without angina pectoris Take 1 tablet by mouth twice daily. 90 tablet 3 01/26/2020 Active Comment: Take 1 tablet by mouth twice daily. Nitroglycerin nitroglycerin 06-13-2015 [facility] Cli amanda (NITROLINGUAL) 400 (64572) mcg/spray spray Dissolve 1 Ledbetter under the tongue every 5 minutes as needed. 1 Bottle 0 06/13/2015 Active Comment: Dissolve 1 Ledbetter under the t ongue every 5 minutes as needed. therapeutic therapeutic 01-07-2018 [facility] multivitamin (THERA multivitamin (THERA ( 87490) VITAMIN) tablet VITAMIN) tablet Indications: S/P gastric bypass Take 1 tablet by mouth once daily. 0 01/07/2018 Active therapeutic multivitamin (THERA 01-07-2018 [facility] (31134) VITAMIN) tablet Indications: S/P gastric bypass Take 1 tablet by mouth once daily. 0 01/07/2018 Active therapeutic multivitamin (THERA 01-07-2018 [facility] (39809) VITAMIN) tablet Indications: S/P gastric bypass Take 1 tablet by mouth once daily. 0 01/07/2018 Active therapeutic multivitamin (THERA 01-07-2018 [facility] (68170) VITAMIN) tablet Indications: S/P gastric bypass Take 1 tablet by mouth once daily. 0 01/07/2018 Active therapeutic multivitamin (THERA 01-07-2018 [facility] (65450) VITAMIN) tablet Indications: S/P gastric bypass Take 1 tablet by mouth once daily. 0 01/07/2018 Active therapeutic multivitamin (THERA 01-07-2018 [facility] (27265) VITAMIN) tablet Indications: S/P gastric bypass Take 1 tablet by mouth once daily. 0 01/07/2018 Active therapeutic multivitamin (THERA 01-07-2018 [facility] (11321) VITAMIN) tablet Indications: S/P gastric bypass Take 1 tablet by mouth once daily. 0 01/07/2018 Active Comment: Take 1 tablet by mouth once daily. Problems Active Problems Category Problem Name Status Date Location Anxiety disorders Anxiety Active [place] (24897) Chronic obstructive Chronic obstructive lung Active [place] pulmonary disease and disease (99584 ) bronchiectasis Coronary atherosclerosis Presence of Active 12-24-2017 - [facility] and other heart disease aortocoronary [facility] (24293) Disorders of lipid Hyperlipidemia Active [facility] metabolism (14142) Headache; including Migraine Active [facility] migraine (84366) Immunizations and Contact with and Active [facility] screening for infectious (suspected) exposure to (41290) disease other viral communicable diseases Mood disorders Depressive disorder Active [facility] (62179) Other hereditary and Restless legs Active 11-24-2014 - [facility] degenerative nervous (93764) system conditions Residual codes; Chronic pain Active 05-18-2014 - [facility] inic unclassified (12074) Residual codes; Tobacco user Active [facility] in unclassified (74926) Residual codes; Requires vaccination Active [facility] unclassified (83267) Spondylosis; Lumbago co-occurrent Active 11-09-2015 - [facility] intervertebral disc with right-side sciatica (04849) disorders; other back problems Substance-related History of drug abuse Active [facility] disorders (02034) Unclassified Atherosclerotic heart Active 12-24-2017 - [facility] pickering disease of [facility] coronary artery with Medical Center unspecified angina (24017) pectoris / I25.119(ICD-10) Unclassified Presence of Active 12-24-2017 - [facility] aortocoronary bypass [facility] graft / Z95.1(ICD-10) Medica l Center (95860) Unclassified Encounter for Active 12-24-2017 - [facility] examination / (08324) Z01.810(ICD-10) Past or Other Problems Category Problem Name Status Date Location Other connective Synovial cyst of knee Completed 12-18-2015 - [facility] tissue disease (10649) Unclassified Encounter for 12-24-2017 - [facility] cardiovascular Medical Cent[facility] r examination (24166) Unclassified Atherosclerotic heart 12-24-2017 - [facility] disease [facility] [place] coronary artery with Medical Center unspecified angina (96054) pectoris Results Result Name Value Range Unit Interpretation Flag Date Location cnpn on 2020-04-06 CNPN Telephone (INTMWS) Normal 04-06-2020 [facility] BALJINDER BECKWITH ([id number]) 1960 [facility] Date Time Provider Department ([id number]) 04/06/20 VIMAL BATISTA INTWS During your visit today, we recorded the following informati on about you: Juju Hernandez [facility] 04/06/2020 8:12 AM Signed ----- Message from Vimal Batista sent at 04/05/2020 1:34 PM E DT ----- The xr of the 5 lower vertebrae are really not showing major issues. I will review records from [facility] to see if it i s upper ribs that are causing you the issue. I know the neck is causing you some issues too Juju Hernandez [facility] 04/06/2020 9:43 AM Signed Left message for [...] * NITROGLYCERIN 400 MCG/SPRAY T* Dissolve 1 Ledbetter under the to * Patient not taking: [...] * *Final Report* * * Normal 03-23 [place] AP/LAT/L5-S1 DATE OF EXAM: Apr 04 2020 5:26PM Clinic WOX 5228 - XR LUMBAR 3V AP/LAT/L5-S1 / [place] PROCEDURE REASON: multiple diagnoses (82139) * * * * Physician Interpretation * * * * EXAM TITLE: XR LUMBAR 3V AP/LAT/L5-S1 EXAM DATE/TIME: 04/04/2020 5:26 PM COMPARISON: None. CLINICAL INDICATION/HISTORY: Low back pain. TECHNIQUE: AP, lateral and cone down lateral views of the terry mbar spine are presented. FINDINGS: There are five jdx-trc-[id number] lumbar vertebrae. No fracture or subluxations are noted. The disc spaces are well preserved. There is mild osteophyte formation. Others: Questionable AAA. IMPRESSION: Lumbar spine mild degenerative changes. Detention Officer: PSCB Transcribe Date/Time: Apr 05 2020 11:51A Dictated by : CAITLIN ASH MD This examination was interpreted and the report reviewed and electronically signed by: CAITLIN ASH MD on Apr 05 2020 11:55AM EST [id number] progress on 2020-03 PROGRESS HNO ID: [id number] Normal 04-04-2020 [place] Author: Sharon Cramer (Rt) [place] ([id number]) Service: ? Author Type: Warehouse Coordinator Type: Progress Notes Filed: 04/04/2020 5:28 PM [...] 04, 2020 5:18 PM PROGRESS HNO ID: [id number] Normal 04-04-2020 [place] Author: Vimal Batista [place] ([id number]) Service: ? Author Type: Physician Type: Progress [...] history of suicidal admission - Emphysema lung ([facility]) 02/14/2020 imaging [facility] - History of drug abuse ([facility]) - Hyperlipidemia - Low back pain with right-sided sciatica 11/09/2015 - Migraine headache - Mood disorder ([facility]) - Opioid type dependence, abuse ([facility]) - Restless leg syndrome 11/24/2014 - Tobacco [...] 2020-04-04 CNOV Office Visit (INTMWS) Normal 04-04-[address] [place] [address] Clinic BALJINDER BECKWITH ([id number]) 1960 M [place] Date Time Provider Department ([id number]) 04/04/20 4:00 PM VIMAL BATISTA INTMWS During [...] since. - COPD (chronic obstructive pulmonary disease) ([facility]) - Depression remote history of suicidal admission - Emphysema lung ([facility]) 02/14/2020 imaging [facility] - History of drug abuse ([facility]) - Hyperlipidemia - Low back pain with right-sided sciatica 11/09/2015 - Migraine headache - Mood disorder ([facility]) - Opioid type dependence, abuse ([facility]) - Restless leg syndrome 11/24/2014 - Tobacco [...] sciatica [M54.41, G89.29] Order(s):ADMIN OF INFLUENZA VACCINE [[id number]] Order #: [id number]: 1 INFLUENZA VACCINE QUADRIVALENT 6 MO - 64 YRS IM [[id number]] O rder #: [id number] Prescriptions as of 04/04/2020 Sig: CYCLOBENZAPRINE 10 [...] * NITROGLYCERIN 400 MCG/SPRAY T* Dissolve 1 Ledbetter under the to * Patient not taking: [...] Status:Closed by VIMAL BATISTA MD [facility]04/20 [facility] on 2020-04-03 CNPN Telephone (NAVWST) Normal 04-03-2020 [place] [facility] BALJINDER BECKWITH ([id number]) 1960 [facility] Date Time Provider Department ([id number]) 04/03/20 KIARA LOMAX (GABBY) CYNTHIAWSRupert During your visit today, we recorded the following informati on about you: DESIREE Woody-SELENE 04/03/2020 12:37 PM Signed Patient and Sw spoke and he wanted Sw to give him referral to specialist at [facility]. Gabby noted that referrals for specialist chang gonsalez come from primary care provider and or nurse practitioners. Juan valle states that recent pcp appt was cancelled due to computers being down. Sw advised patient to call in and request appt with AUTO BODY SERVICE MECHANIC to see about discussing referral to [facility]. Patient states that he will call and see about seeing AUTO BODY SERVICE MECHANIC for referral. Allergies As of Date: 04/03/2020 [...] * NITROGLYCERIN 400 MCG/SPRAY T* Dissolve 1 Ledbetter under the to * Patient not taking: [...] on 2020-03 OBSOLETE Refill (INTMWS) Normal 03-30-2020 [facility] BALJINDER Castellanos ([id number]) 1960 [facility] Date Time Provider Department ([id number]) 03/30/20 VIMAL BATISTA INTMWS During your visit [...] Spasm. RILEY: No Authorizing Provider: KERRY SANDERS ([facility]) Kerry Sanders APRN.VENEER REDRIER Allergies As of Date: 03/30/2020 Noted Allergy [...] * NITROGLYCERIN 400 MCG/SPRAY T* Dissolve 1 Ledbetter under the to * Patient not taking: [...] on 2020-03-28 CNPN Telephone (NAVWST) Normal 03-28-2020 [place] [facility] BALJINDER BECKWITH ([id number]) 1960 [facility] Date Time Provider Department ([id number]) 03/28/20 KIARA LOMAX (GABBY) CYNTHIAWSRupert During your visit today, we recorded the following informati on about you: DESIREE Woody-BENDER MACHINE OPERATOR 03/28/2020 3:29 PM Signed Gabby received note [...] * NITROGLYCERIN 400 MCG/SPRAY T* Dissolve 1 Ledbetter under the to * Patient not taking: [...] 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] 12/18/2015 Encounter Status:Closed by KIAAR FROST on 03/29/20 cnpn on 2020-02-25 [facility] Tele[facility] (INTMWS) Normal 02-25-2020 [place] [facility] BALJINDER BECKWITH ([id number]) 1960 [facility] Date Time Provider Department ([id number]) 02/25/20 VIMAL BATISTA INTMWS During your visit [...] Fully Assessed Reason for Visit: Patient Question [4007] Reason For Visit History Recorded Prescriptions as [...] * NITROGLYCERIN 400 MCG/SPRAY T* Dissolve 1 Ledbetter under the to * Patient not taking: [...] OBSOLETE Refill (INTMWS) Normal 02-23-2020 [facility] BALJINDER BECKWITH ([id number]) 1960 [facility] Time Provider Department ([id number]) 02/23/20 VIMAL BATISTA During your visit today, [...] * NITROGLYCERIN 400 MCG/SPRAY T* Dissolve 1 Ledbetter under the to * Patient not taking: [...] 02/23/20 progress on 2020-01 PROGRESS HNO ID: [id number] Normal 02-05-2020 [place] Author: Nereida Brantley (It Coordinator Joiners Supervisor) Brandon Raymond ([id number]) Service: ? Author Type: Nurse Practitioner Type: Progress Notes Filed: 02/05/2020 3:12 PM Note Text: Baljinder Beckwith is a 59 year old male who presents with continue runny nose, body aches, and cough for the last 8 days. Improvements seen since last week. Patient here asking about his COVID-19 testing- says lito barriga went over to [facility] after my order was faxed and had an attempted test, but he could not tolerate it. He did not hear anything about the results- the re is none in the [facility] system per Rayna Raines MA. He is in no acute dis tress. VSS. Encouraged the patient to return to [facility] to see if COVID-19 t esting can be re-attempted. Nereida Taylor APRN.RADHA cnov on 2020-02-05 CNOV Office Visit (UCWSTR) Normal 02-05-[address] [place] [address] [facility] BALJINDER BECKWITH ([id number]) 1960 M [place] Date Time Provider Department ([id number]) 02/05/20 2:30 PM NEREIDA TAYLOR (FINGER WAVER, VENEER REDRIER)[email or web address] During your visit today, we recorded the following informati on about you: Temperature Pulse Respiration Blood pressure 97.4 degrees 82/minute 16/minute 106/68 Weight 73 kg Nereida Taylor APRN.VENEER REDRIER 02/05/2020 3:12 PM Signed Baljinder Beckwith is a 59 year old male who presents w ith continue runny nose, body aches, and cough for the last 8 days. Improvements seen sin e last week. Patient here asking about his COVID-19 t esting- says he went over to [facility] after my order was faxed and had an attempted test, but he could not tolerate it. He did not hear anything about the results- there is none in the [facility] system per Rayna Raines MA. He is in no acute di stress. VSS. Encouraged the patient to return to [facility] to see if COVID-19 testing can be re-attempted . Nereida Taylor, FINGER WAVER.VENEER REDRIER Referring Provider: SELF [200] Allergies As of [...] * NITROGLYCERIN 400 MCG/SPRAY T* Dissolve 1 Ledbetter under the to * Patient not taking: [...] 02/04 progress on 2020-01 PROGRESS HNO ID: [id number] Normal 01-28-2020 [place] Author: Nereida Brantley (Steven Rand) Brandon Raymond ([id number]) Service: ? Author Type: Nurse Practitioner Type: Progress Notes Filed: 01/28/2020 1:00 PM Note Text: This Team Access Model visit is a walk in encounter. It requ ired patient-provider interaction for the medical decision making as documented below. No video was used for evaluation of this patient. Location of patient: [place] Telemedicine Evaluation for COVID-19 Infection SUBJECTIVE: Baljinder [...] the symptom(s). *If the patient is in [place] and in a high risk category and h as at least 2 symptoms of : fever, cough, shortness of breath, myalgia, di arrhea, anosmia, loss of taste, and sore throat then the patient may qualify for an ambulatory [facility] COVID-19 test. Route the chart to [...] novel coronavirus infection (COVID-19). Order faxed to [facility]. Patient given number to call and schedul e for COVID-19 testing. - Red flags discussed for need for in person care - All questions answered SIGNATURE: Nereida Taylor APRN.RADHA DATE: January 28, 2020 cnov on 2020-01-28 CNOV Office Visit (UCWSTR) Normal 01-28-20 20 [place] DEBORAHBALJINDER ADAMS ([id number]) 1960 M [facility] Time Provider Department ([id number]) 01/28/20 12:15 PM NEREIDA TAYLOR (FINGER WAVER, VENEER REDRIER)WSTR During your visit today, we recorded the following informati on about you: Temperature Pulse Respiration Blood pressure 97.6 degrees 100/minute 18/minute 134/80 Weight 74.8 kg Nereida Taylor APRN.VENEER REDRIER 01/28/2020 12:33 PM Signed Avoid Tobacco Smoke [...] evaluation of this patient. Location of patient: [place] Telemedicine Evaluation for COVID-19 Infection SUBJECTIVE: Baljinder [...] the symptom(s). *If the patient is in [place] and in a high risk category and h as at least 2 symptoms of : fever, cough, shortness of breath, myalg ia, diarrhea, anosmia, loss of taste, and sore throat then the patient may qualify for an ambulatory [facility] COVID-19 test. Route the chart t [...] novel coronavirus infection (COVID-19). Order faxed to [facility]. Patient given number to call and schedul e for COVID-19 testing. - Red flags discussed for need for in person care - All questions answered SIGNATURE: Nereida Taylor APRN.VENEER REDRIER DATE: January 28, 2020 Referring Provider: SELF [200] Allergies As of Date: 01/28/2020 Noted Allergy Reaction CELECOXIB 11/15/2015 7 - Swelling PREGABALIN 10/26/2016 7 - Swelling Date Reviewed: 01/28/2020 Reviewed by: Nereida Brantley (It Coordinator [facility]) Brandon - Fully Assessed Reason for Visit: [...] * NITROGLYCERIN 400 MCG/SPRAY T* Dissolve 1 Ledbetter under the to * Patient not taking: [...] on progress on 2020-01 PROGRESS HNO ID: [id number] Normal 01-26-2020 [place] Author: Vimal Raymond ([id number]) Service: ? Author Type: Physician Type: Progress [...] the ER. 59-year-old male sent over from [facility] for [facility] roke symptoms. But the past [...] since. - COPD (chronic obstructive pulmonary disease) ([facility]) - Depression remote history of suicidal admission - History of drug abuse ([facility]) - Hyperlipidemia - Low back pain with right-sided sciatica 11/09/2015 - Migraine headache - Mood disorder ([facility]) - Opioid type dependence, abuse ([facility]) - Restless leg syndrome 11/24/2014 - Tobacco [...] + DIFF 3. Coronary artery disease involving [place] coronary artery of [place] heart without angina pectoris - ICD9: 414.01, [...] 2020-01-26 CNOV Office Visit (INTMWS) Normal 01-26-[address] [place] [address] [facility] BALJINDER BECKWITH ([id number]) 1960 M [place] Date Time Provider Department ([id number]) 01/26/20 3:40 PM VIMAL BATISTA INTMWS During [...] the ER. 59-year-old male sent over from [facility] for stroke symptoms. But the past 3 [...] since. - COPD (chronic obstructive pulmonary disease) ([facility]) - Depression remote history of suicidal admission - History of drug abuse ([facility]) - Hyperlipidemia - Low back pain with right-sided sciatica 11/09/2015 - Migraine headache - Mood disorder ([facility]) - Opioid type dependence, abuse ([facility]) - Restless leg syndrome 11/24/2014 - Tobacco [...] + DIFF 3. Coronary artery disease involving [place] coronary arter y of [place] heart without angina pectoris - ICD9: 414.01, [...] Diagnoses:Mixed hyperlipidemia [E78.2] Coronary artery disease involving [place] coronary artery of [place] heart without angina pectoris [I25.10] Severe episode [...] tabletRfl: 3 TSH BLD [SQTSH] Order #: [id number] FUTURE LIPID PANEL BASIC [SQLIPB] Order #: [id number] FUTURE COMP METABOLIC PANEL [SQCMP] Order #: [id number] FUTURE CBC + DIFF [SQCBCDIF] Order #: [id number] FUTURE Prescriptions as of 01/26/2020 Sig: METOPROLOL [...] * NITROGLYCERIN 400 MCG/SPRAY T* Dissolve 1 Ledbetter under the to * Patient not taking: [...] OBSOLETE Refill (INTMWS) Normal 01-24-2020 [facility] BALJINDER BECKWITH ([id number]) 1960 [facility] Time Provider Department ([id number]) 01/24/20 VIMAL BATISTA During your visit today, we recorded the following informati on about you: Ines Welchmary lou [facility] 01/24/2020 1:19 PM Signed Patient has been [...] No need to notify patient. Ines Fulton [facility] Juju Hernandez [facility] 01/24/2020 1:46 PM Signed [...] 11/30/2019 Please advise. Thank you. Juju Hernandez [facility] Kerry Sanders APRN.CNP 01/24/2020 2:19 PM Signed [...] Authorizing Provider: KERRY SANDERS (RADHA) Kerry Sanders APRN.VENEER REDRIER Allergies As of Date: 01/24/2020 Noted Allergy [...] * NITROGLYCERIN 400 MCG/SPRAY T* Dissolve 1 Ledbetter under the to * Patient not taking: [...] SANDERS CNP on 01/24/20 radhan on 2019-12-27 [facility] Telephone (INTMWS) Normal 12-27-2019 [place] [facility] BALJINDER BECKWITH ([id number]) 1960 [facility] Time Provider Department ([id number]) 12/27/19 VIMAL BATISTA INTMWS During your visit [...] if he is still interested. Kerry Sanders APRN.VENEER REDRIER Allergies As of Date: 12/27/2019 Noted Allergy [...] * NITROGLYCERIN 400 MCG/SPRAY T* Dissolve 1 Ledbetter under the to * Patient not taking: [...] SANDERS CNP on 12/28/19 radhan on 2019-12-13 [facility] Telephone (INTMWS) Normal 12-13-2019 [place] BALJINDER Castellanos ([id number]) 1960 [facility] Date Time Provider Department ([id number]) 12/13/19 VIMAL BATISTA INTMWS During your visit today, we recorded the following informati on about you: Vero Vega 12/13/2019 4:28 PM Signed Patient called to apologize for missing appointment this morning for ER follow up. Patient states he was at [facility] for arm numbness and slight stroke. Patient declined to reschedule when this PSS offered. Patient stat es he has started taking his medication again and his symp toms have calmed down. States he feels fine now. Patient informs this PSS he will plan to be at [facility] for 01/25 appointment with PCP. VIMAL BATISTA [...] * NITROGLYCERIN 400 MCG/SPRAY T* Dissolve 1 Ledbetter under the to * Patient not taking: [...] 12/13/19 progress on 2019-11 PROGRESS HNO ID: [id number] Normal 12-09-2019 [place] Author: Sharath (Joiners Supervisor) [facility] ([id number]) Service: ? Author Type: Nurse Practitioner Type: [...] since. - COPD (chronic obstructive pulmonary disease) ([facility]) - Depression remote history of suicidal admission - History of drug abuse ([facility]) - Hyperlipidemia - Low back pain with right-sided sciatica 11/09/2015 - Migraine headache - Mood disorder ([facility]) - Opioid type dependence, abuse ([facility]) - Restless leg syndrome 11/24/2014 - Tobacco [...] nitroglycerin (NITROLINGUAL) 400 mcg/spray spray Dissolve 1 Ledbetter under the tongue every 5 minutes as [...] crack cocaine use s/p rehab, Currently smokes [employer] twice a month ROS Objective Blood pressure [...] ER evaluation/treatment. Declined squad, to take to [facility] ER via POV. 2. Weakness of right lower extremity - ICD9: 729.89, ICD10: R29.898 As above. Sharath Parsons APRN.CNP cnov on 2019-12-09 CNOV Office Visit (UCWSTR) Normal 12-09-[address] [place] [address] [place] BALJINDER BECKWITH ([id number]) 1960 M [place] Date Time Provider Department ([id number]) 12/09/19 11:15 AM SHARATH PARSONS (RADHA) WSTR During your visit today, we recorded the following informati on about you: Pulse Respiration Blood pressure Weight 108/minute 20/minute 136/100 73.9 kg Sharath Parsons APRN.CNP 12/09/2019 11:58 AM Signed Subjective HPI HPI Baljinder Beckwith is a 59 year [facility] and [...] since. - COPD (chronic obstructive pulmonary disease) ([facility]) - Depression remote history of suicidal admission - History of drug abuse ([facility]) - Hyperlipidemia - Low back pain with right-sided sciatica 11/09/2015 - Migraine headache - Mood disorder ([facility]) - Opioid type dependence, abuse ([facility]) - Restless leg syndrome 11/24/2014 - Tobacco [...] nitroglycerin (NITROLINGUAL) 400 mcg/spray spray Dissolve 1 Ledbetter under the tongue every 5 minutes as [...] evaluation/tr eatment. Declined squad, to take to [facility] ER via POV. 2. Weakness of right lower extremity - ICD9: 729.89, ICD10: R29.898 As above. Sharath Parsons APRN.[facility] Referring Provider: SELF [200] Allergies As of [...] * NITROGLYCERIN 400 MCG/SPRAY T* Dissolve 1 Ledbetter under the to * Patient not taking: [...] on 2019-12-08 CNPN Telephone (INTMWS) Normal 12-08-2019 [place] [facility] BALJINDER BECKWITH ([id number]) 1960 [facility] Date Time Provider Department ([id number]) 12/08/19 VIMAL BATISTA INTMWS During your visit [...] just called me back stated that the [facility] reviewed what we did fax to them and prior to scheduling they would need records faxed to them from Dr Quintero's off ice. Could we possible get these so we can fax them AILYN. Marbella Charlie MANAGER TECHNOLOGY 12/08/2019 3:53 PM Signed Pt prefers Dr. Clement d/t unable to tra pato to [place] for any procedures. Will need updated imaging. VIMAL BATISTA MD 12/08/2019 6:39 PM Signed We have put xr orders Re Ludwig MANAGER TECHNOLOGY 12/09/2019 10:08 AM Signed No answer and [...] G89.29] Order(s):XR LUMBAR GENERAL 3 V AP/LAT/L5-S1 [[id number]] Order #: [id number] FUTURE Prescriptions as of 12/08/2019 Sig: X [...] * NITROGLYCERIN 400 MCG/SPRAY T* Dissolve 1 Ledbetter under the to * Patient not taking: [...] 03/07/20 progress on 2019-11 PROGRESS HNO ID: [id number] Normal 12-06-2019 [place] Author: Jose (Joiners Supervisor) Bernice [place] ([id number]) Service: ? Author Type: Nurse Practitioner Type: Progress Notes Filed: 12/06/2019 8:18 AM Note Text: Subjective HPI Nontoxic male presents urgent care with chief complaint sutu re removal. Patient states he cut his hand so that is here with was a [facility] had 6 sutures placed. Patient denies any [...] since. - COPD (chronic obstructive pulmonary disease) ([facility]) - Depression remote history of suicidal admission - History of drug abuse ([facility]) - Hyperlipidemia - Low back pain with right-sided sciatica 11/09/2015 - Migraine headache - Mood disorder ([facility]) - Opioid type dependence, abuse ([facility]) - Restless leg syndrome 11/24/2014 - Tobacco [...] nitroglycerin (NITROLINGUAL) 400 mcg/spray spray Dissolve 1 Ledbetter under the tongue every 5 minutes as [...] care. This no te was generated using [employer] software. It may contain errors in wo rding, punctuation, or spelling. Jose Queen APRN.RADHA berkowitz on 2019-12-06 CNOV Office Visit (UCWSTR) Normal 12-06-19 [place] BALJINDER Castellanos ([id number]) 1960 M [place] Date Time Provider Department ([id number]) 12/06/19 7:30 AM JOSE QUEEN (RADHA) UCWSTR During your visit today, we recorded the following informati on about you: Temperature Pulse Respiration Blood pressure 98.1 degrees 88/minute 16/minute 122/64 Weight 73.5 kg Jose Queen FINGER WAVER.[facility] REDRIER 12/06/2019 8:18 AM Signed Subjective HPI Nontoxic male presents urgent care with chief complaint sutu re removal. Patient states he cut his hand so that is here with [place] [facility] [place] [facility]ures placed. Patient denies any [...] since. - COPD (chronic obstructive pulmonary disease) ([facility]) - Depression remote history of suicidal admission - History of drug abuse ([facility]) - Hyperlipidemia - Low back pain with right-sided sciatica 11/09/2015 - Migraine headache - Mood disorder ([facility]) - Opioid type dependence, abuse ([facility]) - Restless leg syndrome 11/24/2014 - Tobacco use disorder PAST SURGICAL HISTORY Procedure Laterality Date - CARPAL TUNNEL RIGHT WRIST - EGD [facility] - HEART CATHETERIZATION 04/2009 stent mid LAD [...] nitroglycerin (NITROLINGUAL) 400 mcg/spray spray Dissolve 1 Ledbetter under the tongue every 5 minutes as [...] care . This note was generated using [employer] software. It may contain errors in wording, punctuation, or spelling. Jose Queen APRN.[facility]ER Referring Provider: SELF [200] Allergies As of [...] * NITROGLYCERIN 400 MCG/SPRAY T* Dissolve 1 Ledbetter under the to * Patient not taking: [...] on progress on 2019-11 PROGRESS HNO ID: [id number] Normal 11-30-2019 [place] Author: Vimal Batista [place] ([id number]) Service: ? Author Type: Physician Type: Progress [...] like to try the gabapentin. He will oyster picker a brace , today or tomorrow. [...] MD progress on 2019-09 PROGRESS HNO ID: [id number] Normal 09-24-2019 [place] Author: Vimal Raymond ([id number]) Service: ? Author Type: Physician Type: Progress [...] like to try the gabapentin. He will oyster picker a brace , today or tomorrow, [...] the lexapro. 3. Coronary artery disease involving guid[place] coronary artery of guid[place] heart without angina pectoris - ICD9: 414.01, ICD10: I25.10 To cont the statin ,asa, and the metoprolol the only medicat ion he will take 4. Mixed hyperlipidemia - ICD9: 272.2, ICD10: E78.2 - good control - Continue current medication. Spent 10 mins with the patient MD walter LANDIS [facility] 2019-09-[facility]) Normal 09-21-2019 [place] [facility] BALJINDER BECKWITH ([id number]) 1960 M [place] Date Time Provider Department ([id number]) 09/21/19 VIMAL BATISTA INTWS During your visit [...] Patient given below recommendation. Scheduled Phone Visit [facility] Dr. Batista, 09/23/2019. Jennifer Chaney LPN Allergies [...] * NITROGLYCERIN 400 MCG/SPRAY T* Dissolve 1 Ledbetter under the to * Patient not taking: [...] 09/22/19 progress on 2019-07 PROGRESS HNO ID: [id number] Normal 08-16-2019 [place] Author: Vimal Batista [place] ([id number]) Service: ? Author Type: Physician Type: Progress [...] to RCA and AVALOS To LAD, both guid[place]le arteries w ere severely occluded in the [...] since. - COPD (chronic obstructive pulmonary disease) ([facility]) - Depression remote history of suicidal admission - History of drug abuse ([facility]) - Hyperlipidemia - Low back pain with right-sided sciatica 11/09/2015 - Migraine headache - Mood disorder ([facility]) - Opioid type dependence, abuse ([facility]) - Restless leg syndrome 11/24/2014 - Tobacco [...] crack cocaine use s/p rehab, Currently smokes [facility] twice a month Past medical history, [...] MG TABLET 3. Coronary artery disease involving guidiville coronary artery of guid[place] heart without angina pectoris - ICD9: 414.01, [...] 2019-08-16 CNOV Office Visit (INTMWS) Normal 08-16-[address] [place] [address] [facility] BALJINDER BECKWITH ([id number]) 1960 M [place] Date Time Provider Department ([id number]) 08/16/19 11:00 AM VIMAL BATISTA INTMWS During [...] to RCA and AVALOS To LAD, both [place] arteries w ere severely occluded in the [...] since. - COPD (chronic obstructive pulmonary disease) ([facility]) - Depression remote history of suicidal admission - History of drug abuse ([facility]) - Hyperlipidemia - Low back pain with right-sided sciatica 11/09/2015 - Migraine headache - Mood disorder ([facility]) - Opioid type dependence, abuse ([facility]) - Restless leg syndrome 11/24/2014 - Tobacco [...] MG TABLET 3. Coronary artery disease involving guid[place]le coronary arter y of guid[place]le heart without angina pectoris - ICD9: 414.01, [...] VIMAL BATISTA MD Referring Provider: VIMAL BATISTA [[id number]] Allergies As of Date: 08/16/2019 Noted Allergy Reaction CELECOXIB 11/15/2015 7 - Swelling PREGABALIN 10/26/2016 7 - Swelling Date Reviewed: 08/16/2019 Reviewed by: Adrianna Gonzalez LPN - Fully Assessed Reason for Visit: Established Patient [175] Cmt: 3 month follow up Primary Visit Diagnosis:Tobacco use disorder [F17.200] Other Visit Diagnoses:Chronic right-sided low back pain with right-sided sciatica [M54.41, G89.29] Coronary artery disease involving guidiville coronary artery of guidiville heart without angina pectoris [I25.10] Migraine without [...] * NITROGLYCERIN 400 MCG/SPRAY T* Dissolve 1 Ledbetter under the to * Patient not taking: [...] 08/16/19 progress on 2019-04 PROGRESS HNO ID: [id number] Normal 05-14-2019 [place] Author: Vimal Batista [place] ([id number]) Service: ? Author Type: Physician Type: Progress [...] to RCA and AVALOS To LAD, both [place] arteries w ere severely occluded in the [...] since. - COPD (chronic obstructive pulmonary disease) ([facility]) - Depression remote history of suicidal admission - History of drug abuse ([facility]) - Hyperlipidemia - Low back pain with right-sided sciatica 11/09/2015 - Migraine headache - Mood disorder ([facility]) - Opioid type dependence, abuse ([facility]) - Restless leg syndrome 11/24/2014 - Tobacco [...] cocaine use s/p rehab, Currently smokes [employer] twice a month Past medical history, appointments, [...] refill. ASSESSMENT/PLAN: 1. Coronary artery disease involving guidiville coronary artery of guidiville heart without angina pectoris - ICD9: 414.01, [...] episode of recurrent major depressive disorder, [place] [facility] psychotic features (HCC) - ICD9: 296.33, [...] 2019-05-14 CNOV Office Visit (INTMWS) Normal 05-14-20 [place] BALJINDER Castellanos ([id number]) 1960 M [place] Date Time Provider Department ([id number]) 05/14/19 2:00 PM VIMAL BATISTA During your [...] to RCA and AVALOS To LAD, both guid[place] arteries w ere severely occluded in the [...] since. - COPD (chronic obstructive pulmonary disease) ([facility]) - Depression remote history of suicidal admission - History of drug abuse ([facility]) - Hyperlipidemia - Low back pain with right-sided sciatica 11/09/2015 - Migraine headache - Mood disorder ([facility]) - Opioid type dependence, abuse ([facility]) - Restless leg syndrome 11/24/2014 - Tobacco [...] refill. ASSESSMENT/PLAN: 1. Coronary artery disease involving guidiville coronary arter y of guidiville heart without angina pectoris - ICD9: 414.01, [...] VIMAL BATISTA MD Referring Provider: VIMAL BATISTA [[id number]] Allergies As of Date: 05/14/2019 Noted Allergy Reaction CELECOXIB 11/15/2015 7 - Swelling PREGABALIN 10/26/2016 7 - Swelling Date Reviewed: 05/14/2019 Reviewed by: Re Ludwig LPN - Fully Assessed Reason for Visit: F/U 3 Month [443] Imm/Inj [58] Cmt: Flu Vaccine Reason For Visit History Recorded Primary Visit Diagnosis:Coronary artery disease involving na tive coronary artery of guidiville heart without angina pectoris [I25.10] Other Visit Diagnoses:Need for vaccination [Z23] Mixed hyperlipidemia [E78.2] Anxiety [F41.9] Severe episode of recurrent major depressive disorder, without psychotic features (HCC) [F33.2] Other migraine with status migrainosus, not intractable [G43.801] Chronic right-sided low back pain with right-sided sciatica [M54.41, G89.29] Non-compliant patient [Z91.19] Order(s):INFLUENZA VACCINE QUADRIVALENT AGE 3 YRS PLUS + IM [[id number]] Order #: [id number] [] ketorolac (TORADOL) 60 mg/2 mL solnInject [...] * NITROGLYCERIN 400 MCG/SPRAY T* Dissolve 1 Ledbetter under the to * Patient not taking: [...] Cholesterol [Mass/Vol] 181 <200 mg/dL Normal [address] [facility] ([id number]) Comment: Result Comment: <200 mg/dL, Desirable 200-239 mg/dL, Borderline hi gh >239 mg/dL, High Performed By: #### LIPB #### [address] [phone] Cholesterol in HDL 41 >39 mg/dL Normal 05-03-[address] [facility] [Mass/Vol] ([id number]) Comment: Result Comment: 40-59 mg/dL, Acceptable >59 mg/dL, High: Negative ri sk factor for coronary heart disease <40 mg/dL, Low: Positive ris k factor for coronary heart disease Performed By: #### LIPB #### [address] [phone] Cholesterol in LDL 114 <100 mg/dL High 05-03-[address] [facility] [Mass/Vol] ([id number]) Comment: Result Comment: <100 mg/dL, Optimal 100-129 mg/dL, Near optimal/ above optimal 130-159 mg/dL, Borderline hi gh 160-189 mg/dL, High >189 mg/dL, Very high Secondary prevention optimal LDL Cholesterol levels are recommended to be < 70 mg/dL Performed By: #### LIPB #### [address] [phone] Fasting Time 10 hrs Normal 05-03-2019 [facility] ([id number]) Comment: Performed By: #### LIPB #### [place] [address] [place], [place] [phone]- [phone] LDL:HDL Ratio 2.78 <2.54 High 05-03-2019 [facility] (92705) Comment: Result Comment: Reference: 1. National Cholesterol Educ ation Program ATP III Guideline At-A-Glance Quick Desk Reference: National Heart, Lung, and Blood [place]. National Institutes of Health. 2001: NIH Publication No. 01-3305. 2. An International Atherosc lerosis Society position paper: global recommendations for the management of dyslipidemia: executive summary, Atherosclerosis. 2014: 232(2):410-413. Performed By: #### LIPB #### [place] [address] [address], [place] [phone]- [phone] Non HDL Cholesterol 140 <130 mg/dL High 05-03-[address] [facility] ([id number]) Comment: Result Comment: <130 mg/dL, Optimal 130-159 mg/dL, Near optimal/ above optimal 160-189 mg/dL, Borderline hi gh 190-219 mg/dL, High >219 mg/dL, Very high Secondary prevention optimal non HDL Cholesterol levels are recommended to be < 100 mg/dL Performed By: #### LIPB #### [address], [place] [phone]- [phone] TC:HDL Ratio 4.41 <5.10 Normal 05-03-2019 [facility] (40562) Comment: Performed By: #### LIPB #### [address], [place] [phone]- [phone] Triglyceride [Mass/Vol] 129 <150 mg/dL Normal [address] [facility] (35931) Comment: Result Comment: <150 mg/dL, Normal 150-199 mg/dL, Borderline hi gh 200-499 mg/dL, High >499 mg/dL, Very high Performed By: #### LIPB #### [place] [address] [address], [place] [phone]- [phone] VLDL Cholesterol 26 <30 mg/dL Normal 05-03-2019 [facility] (57088) Comment: Performed By: #### LIPB #### [address], [place] [phone]- [phone] cbc on 2019-05-03 Absolute nRBC <0.01 <0.01 Normal 05-03-2019 [facility] (07999) Comment: Performed By: #### CBC, BMP ####[facility], [place] [phone]- [phone] Erythrocyte distribution 13.2 11.5-15.0 % Normal 05-03 [place] width (RBC) [Ratio] [place] (66564) Comment: Performed By: #### CBC, BMP ####[place] [address] [address], [place] [phone]- [phone] Hematocrit (Bld) [Volume 48.5 39.0-51.0 % Normal 05-03 [place] fraction] [place] (03512) Comment: Performed By: #### CBC, BMP ####[place] [address] [address], [place] [phone]- [phone] Hemoglobin (Bld) 15.2 13.0-17.0 g/dL Normal 05-03-2019 [facility] [Mass/Vol] [place] (70011) Comment: Performed By: #### CBC, BMP ####[place] [address] [address], [place] [phone]- [phone] MCH (RBC) [Entitic mass] 30.2 26.0-34.0 pG Normal 05-[address] [facility] (71989) Comment: Performed By: #### CBC, BMP ####[address], [place] [phone]- [phone] MCHC (RBC) [Mass/Vol] 31.3 30.5-36.0 g/dL Normal 05-03-[address] [facility] (00336) Comment: Performed By: #### CBC, BMP ####[place] [address] [address]level[place], [place] [phone]- [phone] MCV (RBC) [Entitic vol] 96.4 80.0-100.0 fL Normal 05-[address] [facility] (88874) Comment: Performed By: #### CBC, BMP ####[place] [address] [address], [place] [phone]- [phone] Platelet mean volume 10.3 9.0-12.7 fL Normal 9 [place] (Bld) [Entitic vol] [place] (68283) Comment: Performed By: #### CBC, BMP ####[place] [address] [place], [place] [phone] Platelets (Bld) [#/Vol] 294 150-400 k/uL Normal [address] [facility] (29031) Comment: Performed By: #### CBC, BMP ####[address] [place], [place] [phone] RBC (Bld) [#/Vol] 5.03 4.20-6.00 m/uL Normal 05-03-2019 [facility] (73146) Comment: Performed By: #### CBC, BMP ####[address] [place], [place] [phone]- [phone] WBC (d) [#/Vol] 5.17 3.70-11.00 k/uL Normal 05-03-[address] [facility] (90614) Comment: Performed By: #### CBC, BMP ####[place] [address] [address] [place], [place] [phone]- [phone] basic metabolic panl on 2019-05-03 Anion gap [Moles/Vol] 12 9-18 mmol/L Normal 05-03-[address] [facility] (75316) Comment: Performed By: #### CBC, BMP ####[address] [place], [place] [phone] Calcium [Mass/Vol] 9.4 8.5-10.2 mg/dL Normal 05-03-[address] [facility] (29598) Comment: Performed By: #### CBC, BMP ####[address] [place], [place] [phone] Chloride [Moles/Vol] 105 97-105 mmol/L Normal [address] [facility] (90299) Comment: Performed By: #### CBC, BMP ####[place] [address], [place] [phone]- [phone] CO2 [Moles/Vol] 25 22-30 mmol/L Normal 05-03-2019 [facility] (22972) Comment: Performed By: #### CBC, BMP ####[facility], [place] [phone]- [phone] Creatinine [Mass/Vol] 1.00 0.73-1.22 mg/dL Normal 05-03-[address] [facility] (21787) Comment: Performed By: #### CBC, BMP ####[facility], [place] [phone]- [phone] eGFR- Amer. >60 Normal 05-03-[address] [facility] (64660) Comment: Performed By: #### CBC, BMP ####[place] [address] [address], [place] [phone]- [phone] GFR/1.73 sq M predicted >60 mL/min/{1.73_m2} Normal 05-03-2019 [place] among non-blacks [facility] (51945) (S/P/Bld) [Vol rate/Area] Comment: Result Comment: eGFR [...] actual GFR. Performed By: #### CBC, BMP ####[facility], [place] [phone]- [phone] Glucose [Mass/Vol] 86 74-99 mg/dL Normal 05-03-[address] [facility] (15123) Comment: Result Comment: The [place] Diabetes Association (ADA) provides guidance for cutoff [...] for diagnosis of diabetes. Reference: Standards of [facility] Care in Diabetes 2016, [place] Diabetes Association. Diabetes Care. 2016.39(Suppl 1). Performed By: #### CBC, BMP ####[address] [phone]- [phone] Potassium [Moles/Vol] 4.7 3.7-5.1 mmol/L Normal 05-03-[address] [facility] (44809) Comment: Performed By: #### CBC, BMP ####[address] [phone]- [phone] Sodium [Moles/Vol] 142 136-144 mmol/L Normal 05-03-[address] [facility] (18810) Comment: Performed By: #### CBC, BMP ####[address] [phone]- [phone] Urea nitrogen [Mass/Vol] 16 9-24 mg/dL Normal 05-[address] [facility] (94899) Comment: Performed By: #### CBC, BMP ####[address] [phone]- [phone] cnptoutreach on 201 03-03-05 CNPTOUTREACH Patient Outreach (FAMPST) Normal 1 06-27-2018 [place] [facility] DEBORAHBALJINDER ([id number]) 1960 [facility] Date Time Provider Department (78152) 04/27/19 VIMAL BATSITA During your visit today, we recorded the following informati on about you: Allergies As of Date: 04/27/2019 Noted Allergy Reaction CELECOXIB 11/15/2015 7 - Swelling PREGABALIN 10/26/2016 7 - Swelling Date Reviewed: 02/09/2019 Reviewed by: Marisol Huffman LPN - Fully Assessed Visit Diagnosis:Medication management [Z79.899] Order(s):BASIC METABOLIC PNL [SQBMP] Order #: [id number] FUT URE Prescriptions as of 04/27/2019 Sig: [...] * NITROGLYCERIN 400 MCG/SPRAY T* Dissolve 1 Ledbetter under the to * ALBUTEROL SULFATE HFA [...] poc 551 89-169 sec High 08-0 2-2018 [facility] (67096) *Activated*Clot Time, poc 481 89-169 sec High 08-0 -2018 [facility] (10533) *Activated*Clot Time, poc 484 89-169 sec High 08-0 2-2018 [facility] (16976) *Activated*Clot Time, poc 482 89-169 sec High 08-0 -2018 [facility] (37615) *Activated*Clot Time, poc 108 89-169 sec Normal 08-0 -2017 [facility] (37146) *Activated*Clot Time, poc 433 89-169 sec High 08-0 2-2018 [facility] (26583) *Activated*Clot Time, poc 108 89-169 sec Normal 08-0 -2018 [facility] (64515) xr chest portable o n 2018-01-01 XR CHEST EXAM: XR CHEST PORTABLE, Normal 01-01 [facility] PORTABLE 01/01/2018 06:04 [facility] AMCOMPARISON: 1 day Medical Center earlierCLINICAL INDICATIONS: ([id number]) post op heart surgeryRELEVANT CLINICAL HISTORY:FINDINGS: (Adequate technique)Postop changes. Linear atelectasis at both bases. Stable heart size.IMPRESSION:No change. type and cross on 2 Type and Cross ABO/RH(D): A POSITIVE Normal [facility] ANTIBODY SCREEN: NEGATIVE [facility] (02590) Comment: Performed By: #### PTPTT ### #[facility] (DEFAULT)[address] [place] [address]#### FT4, TSH, PALB ####[facility] [address] [place] [address] 43 210[facility] [place] [address] [id number] prealbumin on 01-01 Prealbumin mass conc 14 17-34 mg/dL Low 8 [facility] nter ([id number]) Comment: Performed By: #### CBCDFC, P TPTT, CA, CHM7, HFP, IPB, MGO, LIPDR, TROP ####U [facility] r[address] [place] [address] [id number] Cross Hospital[address] [place] [address] 27423 magnesium on 01-01 Magnesium mass conc 1.9 1.6-2.6 mg/dL Normal 01-01-2018 [facility] nter ([id number]) Comment: Performed By: #### PTPTT ### #[facility] (DEFAULT)[address] [place] [address] [id number]#### FT4, TSH, PALB ####[facility] [place] [address] 43 210[facility] [place] [address] 44253 hemogram (cbc and platelet) on 2018-01-01 Hematocrit Auto Volume 33.4 40.1-51.0 % Low 018 [facility] ([facility]) [facility] (57480) Comment: Performed By: #### CBCDFC, P TPTT, CA, CHM7, HFP, IPB, MGO, LIPDR, TROP ####[facility] r[address] [place] [id number] [place], [place] [id number] [place] [address] 67578 Hemoglobin mass conc 10.9 13.7-17.5 g/dL Low 8 [facility] ([facility]) [facility] (05878) Comment: Performed By: #### CBCDFC, P TPTT, CA, CHM7, HFP, IPB, MGO, LIPDR, TROP ####[facility] r[address] [place] [id number] [place], [place] [id number] [place] [address] 59040 MCV Auto Entitic volume 92.3 79.0-92.2 fL High 2017 [facility] (RBC) [facility] (04293) Comment: Performed By: #### CBCDFC, P TPTT, CA, CHM7, HFP, IPB, MGO, LIPDR, TROP ####U [facility] r[address] [place], [place] [address] [place] [address] 09917 Mean Cell Hgb 30.1 25.7-32.2 pg Normal 01-01-2018 [facility] nter (09989) Comment: Performed By: #### CBCDFC, P TPTT, CA, CHM7, HFP, IPB, MGO, LIPDR, TROP ####[facility] r[address] [place], [place] [address] [place] [address] 80208 Mean Cell Hgb Conc 32.6 32.3-36.5 g/dL Normal 01-01-2018 [facility] n[facility] (50463) Comment: Performed By: #### CBCDFC, P TPTT, CA, CHM7, HFP, IPB, MGO, LIPDR, TROP ####U [facility] r[address] [place], [place] [address] [place] [address] 21803 Nucleated RBC #/vol 0.2 0.0-0.2 /100 WBC Normal 01-01-2018 [facility] (Bld) [facility] (78106) Comment: Performed By: #### CBCDFC, P TPTT, CA, CHM7, HFP, IPB, MGO, LIPDR, TROP ####U [facility] r[address] [place], [place] [address] [place] [address] 63130 Platelet mean volume 10.1 9.4-12.4 fL Normal 8 [facility] Auto Entitic volume [facility] ([facility]) (08203) Comment: Performed By: #### CBCDFC, P TPTT, CA, CHM7, HFP, IPB, MGO, LIPDR, TROP ####[facility] r[address] [place], [place] [address] [place] [address] 39646 Platelets Auto #/vol 274 163-337 K/uL Normal 8 [facility] (d) [facility] (26822) Comment: Performed By: #### CBCDFC, P TPTT, CA, CHM7, HFP, IPB, MGO, LIPDR, TROP ####[facility] r[address] [place], [place] [address] [place] [address] 81157 RBC Auto #/vol (d) 13.2 11.6-14.4 % Normal 8 [facility] nter (51083) Comment: Performed By: #### CBCDFC, P TPTT, CA, CHM7, HFP, IPB, MGO, LIPDR, TROP ####[facility] r[address] [place], [place] [address] [place] [address] 17553 RBC Auto #/vol (d) 3.62 4.63-6.08 M/uL Low 8 [facility] nter (74436) Comment: Performed By: #### CBCDFC, P TPTT, CA, CHM7, HFP, IPB, MGO, LIPDR, TROP ####[facility] r[address] [place], [place] [address] [place] [address] 14109 WBC Auto #/vol (Bld) 8.71 4.23-9.07 K/uL Normal 8 [facility] (52200) Comment: Performed By: #### CBCDFC, P TPTT, CA, CHM7, HFP, IPB, MGO, LIPDR, TROP ####[facility] r[address] [place], [place] [address] [place] [address] 11219 chem 7 on 2017-12-21 2 Anion gap 3 molar conc 15 7-17 mmol/L Normal 018 [facility] n[facility] (72800) Comment: Performed By: #### CBCDFC, P TPTT, CA, CHM7, HFP, IPB, MGO, LIPDR, TROP ####U [facility] r[address] [place], [place] [address] [place] [address] 82757 Chloride molar conc 100 98-108 mmol/L Normal 01-01-2018 [facility] n[facility] (27107) Comment: Performed By: #### CBCDFC, P TPTT, CA, CHM7, HFP, IPB, MGO, LIPDR, TROP ####[facility] r[address] [place], [place] [address] [place] [address] 41458 CO2 molar conc 23 22-30 mmol/L Normal 01-01-2018 [facility] (00 000) Comment: Performed By: #### CBCDFC, P TPTT, CA, CHM7, HFP, IPB, MGO, LIPDR, TROP ####U [facility] r[address] [place], [place] [address] [place] [address] 20559 Creatinine mass conc 0.88 0.70-1.30 mg/dL Normal 8 [facility] (24332) Comment: Performed By: #### CBCDFC, P TPTT, CA, CHM7, HFP, IPB, MGO, LIPDR, TROP ####[facility] r[address] [place], [place] [address] [place] [address] 29561 Est GFR, >60 >60 Normal 12-21 [facility] n[facility] (43878) Comment: Performed By: #### CBCDFC, P TPTT, CA, CHM7, HFP, IPB, MGO, LIPDR, TROP ####U [facility] r[address] [place], [place] [address] [place] [address] 37763 Est GFR,non >60 >60 Normal 0 01-01-2018 [facility] n[facility] (56301) Comment: Performed By: #### CBCDFC, P TPTT, CA, CHM7, HFP, IPB, MGO, LIPDR, TROP ####[facility] r[address] [place], [place] [address] [place] [address] 58535 Glucose mass conc 131 70-99 mg/dL High 01-01-2018 [facility] nter (68364) Comment: Performed By: #### CBCDFC, P TPTT, CA, CHM7, HFP, IPB, MGO, LIPDR, TROP ####[facility] r[address] [place], [place] [address] [place] [address] 73275 Osmolality 284 278-305 mOsm/kg Normal 01-01-2018 [facility] (00 000) Comment: Performed By: #### CBCDFC, P TPTT, CA, CHM7, HFP, IPB, MGO, LIPDR, TROP ####[facility] r[address] [place], [place] [address] [place] [address] 46644 Potassium molar conc 3.9 3.5-5.0 mmol/L Normal 8 [facility] (36854) Comment: Performed By: #### CBCDFC, P TPTT, CA, CHM7, HFP, IPB, MGO, LIPDR, TROP ####[facility] r[address] [place] [address] [place], [place] [id number] [place] [address] 96588 Sodium molar conc 134 133-143 mmol/L Normal 01-01-2018 [facility] nter (48391) Comment: Performed By: #### CBCDFC, P TPTT, CA, CHM7, HFP, IPB, MGO, LIPDR, TROP ####[facility] r[address] [place], [place] [address] [place] [address] 05741 Urea nitrogen mass conc 14 7-22 mg/dL Normal 2017 [facility] n[facility] (93393) Comment: Performed By: #### CBCDFC, P TPTT, CA, CHM7, HFP, IPB, MGO, LIPDR, TROP ####[facility] r[address] [place], [place] [address] [place] [address] 63310 Urea nitrogen/Creatinine mass 16 mg/mg Normal 01-01-2018 [facility] (99411) Comment: Performed By: #### CBCDFC, P TPTT, CA, CHM7, HFP, IPB, MGO, LIPDR, TROP ####[facility] r[address] [place], [place] [address] [place] [address] 43419 c reactive protein on 2018-01-01 CRP mass conc 114.70 <10.00 mg/L High 01-01-2018 [facility] (00 000) Comment: Performed By: #### CBCDFC, P TPTT, CA, CHM7, HFP, IPB, MGO, LIPDR, TROP ####[facility] r[address] [place], [place] [address]YgmajrGreen Cross Hospital[address] [place], [place] [address] *poc glucose battery on 2018-01-01 *POC SAMPLE TYPE Capillary Blood Normal 018 [facility] (79058) Glucose mass conc 103 70-99 mg/dL High 01-01-2018 [facility] (03024) Comment: Result Comment: No BRAVE per RN: PATIENT TYPE xr chest portable o n 2017-12-31 XR CHEST EXAM: XR CHEST PORTABLE, Normal 12-31 [facility] PORTABLE 12/31/2017 05:51 AMCOMPARISON: [facility] Compared to prior day.CLINICAL [facility] INDICATIONS: post op heart Center ([id number]) surgeryRELEVANT CLINICAL HISTORY:FINDINGS: (Adequate technique)Life Support Devices: None Chest Wall: Status post sternotomy.Crissy: NormalMediastinum: Stable.Pleural Spaces: No definite pleural effusion. No definite pneumothorax.Lungs: Bilateral basilar atelectasis.Cardiac Silhouette: Stable contour Thoracic Aorta: NormalPulmonary Vessels: Normal, without PVHIMPRESSION:No significant change from previous examination. magnesium on 12-31 Magnesium mass conc 1.9 1.6-2.6 mg/dL Normal 12-31-2017 [facility] (66484) Comment: Performed By: #### CBCDFC, P TPTT, CA, CHM7, HFP, IPB, MGO, LIPDR, TROP ####[facility] r[address] [place] [address] [id number] Cross Hospital[address] [place] [address] 00499 hemogram (cbc and platelet) on 2017-12-31 Hematocrit Auto Volume 29.9 40.1-51.0 % Low 018 [facility] Fraction (Bld) [facility] (76745) Comment: Performed By: #### CBCDFC, P TPTT, CA, CHM7, HFP, IPB, MGO, LIPDR, TROP ####[facility] [address] [place] [address] [place], [place] [address] [place] [address] 18402 Hemoglobin mass conc (Bld) 9.8 13.7-17.5 g/dL Low [facility] (24992) Comment: Performed By: #### CBCDFC, P TPTT, CA, CHM7, HFP, IPB, MGO, LIPDR, TROP ####[facility] r[address] [place], [place] [address] [place] [address] 07655 MCV Auto Entitic volume 91.4 79.0-92.2 fL Normal 2017 [facility] (RBC) [facility] (02360) Comment: Performed By: #### CBCDFC, P TPTT, CA, CHM7, HFP, IPB, MGO, LIPDR, TROP ####[facility] r[address] [place], [place] [address] [place] [address] 46562 Mean Cell Hgb 30.0 25.7-32.2 pg Normal 12-31-2017 [facility] n[facility] (28794) Comment: Performed By: #### CBCDFC, P TPTT, CA, CHM7, HFP, IPB, MGO, LIPDR, TROP ####[facility] [address] [place] [id number] [place], [place] [address] [place] [address] 08913 Mean Cell Hgb Conc 32.8 32.3-36.5 g/dL Normal 12-31-2017 [facility] n[facility] (09571) Comment: Performed By: #### CBCDFC, P TPTT, CA, CHM7, HFP, IPB, MGO, LIPDR, TROP ####[facility] [place], [place] [address] [place] [address] 95739 Nucleated RBC #/vol 0.3 0.0-0.2 /100 WBC High 12-31-2017 [facility] ([facility] ([id number]) Comment: Performed By: #### CBCDFC, P TPTT, CA, CHM7, HFP, IPB, MGO, LIPDR, TROP ####[facility] r[address] [place], [place] [address] [place] [address] 21725 Platelet mean volume 10.2 9.4-12.4 fL Normal 8 [facility] Auto Entitic volume [facility] ([facility]) (46478) Comment: Performed By: #### CBCDFC, P TPTT, CA, CHM7, HFP, IPB, MGO, LIPDR, TROP ####[facility] r[address] [place], [place] [address] [place] [address] 23098 Platelets Auto #/vol 226 163-337 K/uL Normal 8 [facility] ([facility]) [facility] (31350) Comment: Performed By: #### CBCDFC, P TPTT, CA, CHM7, HFP, IPB, MGO, LIPDR, TROP ####[facility] r[address] [place], [place] [address] [place] [address] 60304 RBC Auto #/vol (d) 13.2 11.6-14.4 % Normal 8 [facility] n[facility] (11448) Comment: Performed By: #### CBCDFC, P TPTT, CA, CHM7, HFP, IPB, MGO, LIPDR, TROP ####[facility] r[address] [place], [place] [address] [place] [address] 87830 RBC Auto #/vol (Bld) 3.27 4.63-6.08 M/uL Low 8 [facility] nter (65714) Comment: Performed By: #### CBCDFC, P TPTT, CA, CHM7, HFP, IPB, MGO, LIPDR, TROP ####[facility] [address] [place] [address] [place], [place] [address] [place] [address] 34552 WBC Auto #/vol (Bld) 7.53 4.23-9.07 K/uL Normal 8 [facility] (65839) Comment: Performed By: #### CBCDFC, P TPTT, CA, CHM7, HFP, IPB, MGO, LIPDR, TROP ####[facility] r[address] [place], [place] [address] [place] [address] 00130 chem 7 on 2017-12-21 1 Anion gap 3 molar conc 15 7-17 mmol/L Normal 018 [facility] nter (90959) Comment: Performed By: #### CBCDFC, P TPTT, CA, CHM7, HFP, IPB, MGO, LIPDR, TROP ####U [facility] [address] [place] [id number] [place] [address] [place] [address] 59450 Chloride molar conc 100 98-108 mmol/L Normal 12-31-2017 [facility] nter (98354) Comment: Performed By: #### CBCDFC, P TPTT, CA, CHM7, HFP, IPB, MGO, LIPDR, TROP ####[facility] [address] [place] [address] [place] [address] [place] [address] 31917 CO2 molar conc 24 22-30 mmol/L Normal 12-31-2017 [facility] (00 000) Comment: Performed By: #### CBCDFC, P TPTT, CA, CHM7, HFP, IPB, MGO, LIPDR, TROP ####[facility] [address] [place] [address] [place], [place] [address] [place] [address] 44463 Creatinine mass conc 0.76 0.70-1.30 mg/dL Normal 8 [facility] (34259) Comment: Performed By: #### CBCDFC, P TPTT, CA, CHM7, HFP, IPB, MGO, LIPDR, TROP ####[facility] [address] [place], [place] [address] [place] [address] 18559 Est GFR, >60 >60 Normal 12-21 [facility] nter (37964) Comment: Performed By: #### CBCDFC, P TPTT, CA, CHM7, HFP, IPB, MGO, LIPDR, TROP ####[facility] [address] [place], [place] [address] [place] [address] 82521 Est GFR,non >60 >60 Normal 0 12-31-2017 [facility] nter (20272) Comment: Performed By: #### CBCDFC, P TPTT, CA, CHM7, HFP, IPB, MGO, LIPDR, TROP ####[facility] [address] [place], [place] [address] [place] [address] 00138 Glucose mass conc 109 70-99 mg/dL High 12-31-2017 [facility] nter (61040) Comment: Performed By: #### CBCDFC, P TPTT, CA, CHM7, HFP, IPB, MGO, LIPDR, TROP ####[facility] [address] [place], [place] [address] [place] [address] 24490 Osmolality 284 278-305 mOsm/kg Normal 12-31-2017 [facility] (00 000) Comment: Performed By: #### CBCDFC, P TPTT, CA, CHM7, HFP, IPB, MGO, LIPDR, TROP ####[facility] [address] [place] [address] [place] [address] [place] [address] 30358 Potassium molar conc 3.8 3.5-5.0 mmol/L Normal 8 [facility] (47766) Comment: Performed By: #### CBCDFC, P TPTT, CA, CHM7, HFP, IPB, MGO, LIPDR, TROP ####[facility] [address] [place], [place] [address] [place] [address] 30947 Sodium molar conc 135 133-143 mmol/L Normal 12-31-2017 [facility] Ce nter (74910) Comment: Performed By: #### CBCDFC, P TPTT, CA, CHM7, HFP, IPB, MGO, LIPDR, TROP ####[facility] [address] [place] [address] [place] [address] [place] [address] 50552 Urea nitrogen mass conc 15 7-22 mg/dL Normal 2017 [facility] n[facility] (83912) Comment: Performed By: #### CBCDFC, P TPTT, CA, CHM7, HFP, IPB, MGO, LIPDR, TROP ####[facility] [address] [place], [place] [address] [place] [address] 22805 Urea nitrogen/Creatinine mass 20 mg/mg Normal 12-31-2017 [facility] (05521) Comment: Performed By: #### CBCDFC, P TPTT, CA, CHM7, HFP, IPB, MGO, LIPDR, TROP ####[facility] [address] [place], [place] [address]OdhjfuGreen Cross Hospital[address] [place], [place] [address] *poc glucose battery on 2017-12-31 *POC SAMPLE TYPE Capillary Blood Normal 018 [facility] (30976) Glucose mass conc 111 70-99 mg/dL High 12-31-2017 [facility] (40962) Comment: Result Comment: Notified RNr ead backNo BRAVE per RN: PATIENT TYPE *POC SAMPLE TYPE Capillary Blood Normal 018 [facility] (23063) Glucose mass conc 143 70-99 mg/dL High 12-31-2017 [facility] (13741) Comment: Result Comment: Notified RNr ead backNo BRAVE per RN: PATIENT TYPE *POC SAMPLE TYPE Capillary Blood Normal 018 [facility] (32715) Glucose mass conc 110 70-99 mg/dL High 12-31-2017 [facility] (48844) Comment: Result Comment: Notified RNr ead backNo BRAVE per RN: PATIENT TYPE *POC SAMPLE TYPE Capillary Blood Normal 018 [facility] (83719) Glucose mass conc 113 70-99 mg/dL High 12-31-2017 [facility] (15224) Comment: Result Comment: No BRAVE per RN: PATIENT TYPE xr chest portable o n 2017-12-30 XR CHEST EXAM: XR CHEST PORTABLE, Normal 12-30 [facility] PORTABLE 12/30/2017 15:45 PMCOMPARISON: [facility] 30[facility] 2017[facility] INDICATIONS: post plueral (04677) chest tube removalRELEVANT CLINICAL HISTORY:FINDINGS: (Adequate technique)Life Support Devices: None Chest Wall: Status post sternotomy.Crissy: NormalMediastinum: Stable.Pleural Spaces: No definite pleural effusion. No definite pneumothorax.Lungs: Patchy bilateral basilar atelectasis.Cardiac Silhouette: Stable. Thoracic Aorta: NormalPulmonary Vessels: Normal, without PVHIMPRESSION:Patchy basilar atelectasis. Stable cardiomegaly, postop changes. CHEST EXAM: XR CHEST PORTABLE, Normal 12-30 [facility] PORTABLE 12/30/2017 06:03 AMCOMPARISON: [facility] Compared to prior day.CLINICAL [facility] INDICATIONS: post op heart ([id number]) surgeryRELEVANT CLINICAL HISTORY:FINDINGS: (Adequate technique)Life Support Devices: Stable Chest Wall: Stable sternotomyHila: NormalMediastinum: NormalPleural Spaces: No definite pleural effusion. No definite pneumothoraxLungs: Improved basilar atelectasisCardiac Silhouette: Stable contour Thoracic Aorta: NormalPulmonary Vessels: Normal, without PVHIMPRESSION:Improved basilar atelectasis. magnesium on 12-30 Magnesium mass conc 1.9 1.6-2.6 mg/dL Normal 12-30-2017 [facility] (72220) Comment: Performed By: #### CBCDFC, P TPTT, CA, CHM7, HFP, IPB, MGO, LIPDR, TROP ####[facility] [address] [place] [address] 98299 hemogram (cbc and platelet) on 2017-12-30 Hematocrit Auto Volume 31.1 40.1-51.0 % Low 018 [facility] ([facility]) [facility] (45208) Comment: Performed By: #### CBCDFC, P TPTT, CA, CHM7, HFP, IPB, MGO, LIPDR, TROP ####[facility] [address] [place], [place] [address] [address] [place] [address] 12197 Hemoglobin mass conc 10.1 13.7-17.5 g/dL Low 8 [facility] ([facility]) [facility] (52069) Comment: Performed By: #### CBCDFC, P TPTT, CA, CHM7, HFP, IPB, MGO, LIPDR, TROP ####[facility] [address] [place] [id number] [place] [address] [place] [address] 46622 MCV Auto Entitic volume 92.0 79.0-92.2 fL Normal 2017 [facility] (RBC) [facility] (29102) Comment: Performed By: #### CBCDFC, P TPTT, CA, CHM7, HFP, IPB, MGO, LIPDR, TROP ####[facility] [address] [place], [place] [address] [place] [address] 77058 Mean Cell Hgb 29.9 25.7-32.2 pg Normal 12-30-2017 [facility] (21175) Comment: Performed By: #### CBCDFC, P TPTT, CA, CHM7, HFP, IPB, MGO, LIPDR, TROP ####[facility] [address] [place], [place] [address] [place] [address] 80583 Mean Cell Hgb Conc 32.5 32.3-36.5 g/dL Normal 12-30-2017 [facility] n[facility] (97645) Comment: Performed By: #### CBCDFC, P TPTT, CA, CHM7, HFP, IPB, MGO, LIPDR, TROP ####[facility] [address] [place], [place] [address] [place] [address] 97786 Nucleated RBC #/vol 0.0 0.0-0.2 /100 WBC Normal 12-30-2017 [facility] (Bld) [facility] (25098) Comment: Performed By: #### CBCDFC, P TPTT, CA, CHM7, HFP, IPB, MGO, LIPDR, TROP ####[facility] [address] [place] [address] 23067UflhdiGreen Cross Hospital[address] [place] [address] 51684 Platelet mean volume 10.9 9.4-12.4 fL Normal 8 [facility] Auto Entitic volume [facility] ([facility]) (67309) Comment: Performed By: #### CBCDFC, P TPTT, CA, CHM7, HFP, IPB, MGO, LIPDR, TROP ####[facility] [address] [place] [address] [place] [address] [place] [address] 74004 Platelets Auto #/vol 183 163-337 K/uL Normal 8 [facility] (d) [facility] (24353) Comment: Performed By: #### CBCDFC, P TPTT, CA, CHM7, HFP, IPB, MGO, LIPDR, TROP ####[facility] [address] [place] [address] [place] [address] [place] [address] 32726 RBC Auto #/vol (d) 13.2 11.6-14.4 % Normal 8 [facility] Ce [facility] (68112) Comment: Performed By: #### CBCDFC, P TPTT, CA, CHM7, HFP, IPB, MGO, LIPDR, TROP ####[facility] [address] [place] [address] [place], [place] [address] [place] [address] 01781 RBC Auto #/vol (Bld) 3.38 4.63-6.08 M/uL Low 8 [facility] nter (89925) Comment: Performed By: #### CBCDFC, P TPTT, CA, CHM7, HFP, IPB, MGO, LIPDR, TROP ####[facility] [address] [place], [place] [address] [place] [address] 95965 WBC Auto #/vol (Bld) 7.25 4.23-9.07 K/uL Normal 8 [facility] (70492) Comment: Performed By: #### CBCDFC, P TPTT, CA, CHM7, HFP, IPB, MGO, LIPDR, TROP ####[facility] [address] [place], [place] [id number] [address] [place] [address] 86870 chem 7 on 2017-12-21 0 Anion gap 3 molar conc 12 7-17 mmol/L Normal 018 [facility] nter ([id number]) Comment: Performed By: #### CBCDFC, P TPTT, CA, CHM7, HFP, IPB, MGO, LIPDR, TROP ####[facility] [address] [place], [place] [id number] [address] [place] [address] 50878 Chloride molar conc 98 98-108 mmol/L Normal 12-30-2017 [facility] nter (67183) Comment: Performed By: #### CBCDFC, P TPTT, CA, CHM7, HFP, IPB, MGO, LIPDR, TROP ####[facility] [address] [place], [place] [address] [address] [place] [address] 93576 CO2 molar conc 26 22-30 mmol/L Normal 12-30-2017 [facility] (00 000) Comment: Performed By: #### CBCDFC, P TPTT, CA, CHM7, HFP, IPB, MGO, LIPDR, TROP ####[facility] [address] [place], [place] [address] [address] [place] [address] 25927 Creatinine mass conc 0.78 0.70-1.30 mg/dL Normal 8 [facility] (80657) Comment: Performed By: #### CBCDFC, P TPTT, CA, CHM7, HFP, IPB, MGO, LIPDR, TROP ####[facility] [address] [place] [id number] [place], [place] [id number] [address] [place] [address] 13511 Est GFR, >60 >60 Normal 12-21 [facility] nter (08497) Comment: Performed By: #### CBCDFC, P TPTT, CA, CHM7, HFP, IPB, MGO, LIPDR, TROP ####[facility] [address] [place], [place] [address] [address] [place] [address] 93353 Est GFR,non >60 >60 Normal 0 12-30-2017 [facility] nter (15570) Comment: Performed By: #### CBCDFC, P TPTT, CA, CHM7, HFP, IPB, MGO, LIPDR, TROP ####[facility] [address] [place], [place] [address] [address] [place] [address] 63436 Glucose mass conc 99 70-99 mg/dL Normal 12-30-2017 [facility] nter ([id number]) Comment: Performed By: #### CBCDFC, P TPTT, CA, CHM7, HFP, IPB, MGO, LIPDR, TROP ####[facility] [address] [place], [place] [address] [address] [place] [address] 44620 Osmolality 280 278-305 mOsm/kg Normal 12-30-2017 [facility] (00 000) Comment: Performed By: #### CBCDFC, P TPTT, CA, CHM7, HFP, IPB, MGO, LIPDR, TROP ####[facility] [address] [place] [address] [place], [place] [id number] [address] [place] [address] 67348 Potassium molar conc 3.8 3.5-5.0 mmol/L Normal 8 [facility] (00147) Comment: Performed By: #### CBCDFC, P TPTT, CA, CHM7, HFP, IPB, MGO, LIPDR, TROP ####[facility] [address] [place], [place] [address] [address] [place] [address] 13253 Sodium molar conc 132 133-143 mmol/L Low 12-30-2017 [facility] nter (09084) Comment: Performed By: #### CBCDFC, P TPTT, CA, CHM7, HFP, IPB, MGO, LIPDR, TROP ####[facility] [address] [place], [place] [address] [address] [place] [address] 79200 Urea nitrogen mass conc 19 7-22 mg/dL Normal 2017 [facility] nter (09695) Comment: Performed By: #### CBCDFC, P TPTT, CA, CHM7, HFP, IPB, MGO, LIPDR, TROP ####[facility] [address] [place], [place] [address] [address] [place] [address] 13175 Urea nitrogen/Creatinine mass 24 mg/mg Normal 12-30-2017 [facility] (70274) Comment: Performed By: #### CBCDFC, P TPTT, CA, CHM7, HFP, IPB, MGO, LIPDR, TROP ####[facility] [address] [place] [id number] [place], [place] [id number] [address] [place] [address] 26385 *poc glucose battery on 2017-12-30 *POC SAMPLE TYPE Capillary Blood Normal 018 [facility] (10643) Glucose mass conc 134 70-99 mg/dL High 12-30-2017 [facility] (78042) Comment: Result Comment: No BRAVE per RN: PATIENT TYPE *POC SAMPLE TYPE Capillary Blood Normal 018 [facility] (31066) Glucose mass conc 110 70-99 mg/dL High 12-30-2017 [facility] (74654) Comment: Result Comment: Notified RNr ead backNo BRAVE per RN: PATIENT TYPE *POC SAMPLE TYPE Capillary Blood Normal 018 [facility] (44993) Glucose mass conc 110 70-99 mg/dL High 12-30-2017 [facility] (90215) Comment: Result Comment: Notified RNr ead backNo BRAVE per RN: PATIENT TYPE *POC SAMPLE TYPE Capillary Blood Normal 018 [facility] (39729) Glucose mass conc 158 70-99 mg/dL High 12-30-2017 [facility] (29621) Comment: Result Comment: No BRAVE per RN: PATIENT TYPE *POC SAMPLE TYPE Capillary Blood Normal 018 [facility] (37201) Glucose mass conc 127 70-99 mg/dL High 12-30-2017 [facility] (46928) Comment: Result Comment: Notified RNr ead backNo BRAVE per RN: PATIENT TYPE xr chest portable o n 2017-12-29 XR CHEST EXAM: XR CHEST PORTABLE, Normal 12-29 [facility] PORTABLE 12/29/2017 05:31 AMCOMPARISON: University Compared to prior day.CLINICAL [facility] INDICATIONS: post op heart Center (64230) surgeryRELEVANT CLINICAL HISTORY:FINDINGS: (Adequate technique)Life Support Devices: [...] Type and Cross ABO/RH(D): A POSITIVE Normal [facility] ANTIBODY SCREEN: NEGATIVE [facility] (83446) Comment: Performed By: #### CBCDFC, P TPTT, CA, CHM7, HFP, IPB, MGO, LIPDR, TROP ####[facility] [address] [place], [place] [address] [address] [place] [address] 84933 pt*ptt on aPTT Coag time (Bld) 34.7 24.0-34.3 sec High 8 [facility] nter (59060) Comment: Result Comment: Results inco nsistent with the patient's previous results Performed By: #### CBCDFC, P TPTT, CA, CHM7, HFP, IPB, MGO, LIPDR, TROP ####[facility] [address] [place] [id number] [place] [id number] [address] [place] [address] 63827 INR Coag RelTime (PPP) 1.1 0.9-1.1 {INR} Normal 018 [facility] (70404) Comment: Performed By: #### CBCDFC, P TPTT, CA, CHM7, HFP, IPB, MGO, LIPDR, TROP ####[facility] [address] [place] [id number] [place] [id number] [address] [place] [address] 44825 Prothrombin time (PT) Coag 14.4 11.9-14.2 sec High [facility] time (PPP) [facility] (61783) Comment: Performed By: #### CBCDFC, P TPTT, CA, CHM7, HFP, IPB, MGO, LIPDR, TROP ####[facility] [address] [place] [address] 02799PhoeraGreen Cross Hospital[address] [place] [address] 80626 prealbumin on 12-29 Prealbumin mass conc 17 17-34 mg/dL Normal 8 [facility] nter (65819) Comment: Performed By: #### CBCDFC, P TPTT, CA, CHM7, HFP, IPB, MGO, LIPDR, TROP ####[facility] [address] [place], [place] [address] [address] [place] [address] 91630 magnesium on 12-29 Magnesium mass conc 2.2 1.6-2.6 mg/dL Normal 12-29-2017 [facility] n[facility] (05217) Comment: Performed By: #### CBCDFC, P TPTT, CA, CHM7, HFP, IPB, MGO, LIPDR, TROP ####[facility] [address] [place], [place] [address] [address] [place] [address] 91266 hemogram (cbc and platelet) on 2017-12-29 Hematocrit Auto Volume 28.9 40.1-51.0 % Low 018 [facility] Fraction (Bld) [facility] (77017) Comment: Performed By: #### CBCDFC, P TPTT, CA, CHM7, HFP, IPB, MGO, LIPDR, TROP ####[facility] [address] [place] [id number] [place] [id number] [address] [place] [address] 48708 Hemoglobin mass conc (Bld) 9.8 13.7-17.5 g/dL Low [facility] (13993) Comment: Performed By: #### CBCDFC, P TPTT, CA, CHM7, HFP, IPB, MGO, LIPDR, TROP ####[facility] [address] [place] [address] 26264TfdhysGreen Cross Hospital[address] [place] [address] 00075 MCV Auto Entitic volume 91.5 79.0-92.2 fL Normal 2017 [facility] (RBC) [facility] (33179) Comment: Performed By: #### CBCDFC, P TPTT, CA, CHM7, HFP, IPB, MGO, LIPDR, TROP ####[facility] [address] [place] [address] [place] [id number] [address] [place] [address] 33674 Mean Cell Hgb 31.0 25.7-32.2 pg Normal 12-29-2017 [facility] nter (00692) Comment: Performed By: #### CBCDFC, P TPTT, CA, CHM7, HFP, IPB, MGO, LIPDR, TROP ####[facility] [address] [place] [address] [place] [address] [address] [place] [address] 67754 Mean Cell Hgb Conc 33.9 32.3-36.5 g/dL Normal 12-29-2017 [facility] nter (69174) Comment: Performed By: #### CBCDFC, P TPTT, CA, CHM7, HFP, IPB, MGO, LIPDR, TROP ####[facility] [address] [place] [address] [place], [place] [id number] [address] [place] [address] 38273 Nucleated RBC #/vol 0.0 0.0-0.2 /100 WBC Normal 12-29-2017 [facility] (Bld) [facility] (04417) Comment: Performed By: #### CBCDFC, P TPTT, CA, CHM7, HFP, IPB, MGO, LIPDR, TROP ####[facility] [address] [place], [place] [address] [address] [place] [address] 08653 Platelet mean volume 10.5 9.4-12.4 fL Normal 8 [facility] Auto Entitic volume [facility] (Bld) (72505) Comment: Performed By: #### CBCDFC, P TPTT, CA, CHM7, HFP, IPB, MGO, LIPDR, TROP ####[facility] [address] [place], [place] [address] [address] [place] [address] 62751 Platelets Auto #/vol (Bld) 162 163-337 K/uL Low [facility] (13796) Comment: Performed By: #### CBCDFC, P TPTT, CA, CHM7, HFP, IPB, MGO, LIPDR, TROP ####[facility] [address] [place], [place] [address] [address] [place] [address] 21938 RBC Auto #/vol (Bld) 13.3 11.6-14.4 % Normal 8 [facility] (36788) Comment: Performed By: #### CBCDFC, P TPTT, CA, CHM7, HFP, IPB, MGO, LIPDR, TROP ####[facility] [address] [place], [place] [address] [address] [place] [address] 25456 RBC Auto #/vol (Bld) 3.16 4.63-6.08 M/uL Low 8 [facility] (96449) Comment: Performed By: #### CBCDFC, P TPTT, CA, CHM7, HFP, IPB, MGO, LIPDR, TROP ####[facility] [address] [place], [place] [address] [address] [place] [address] 76705 WBC Auto #/vol (Bld) 9.12 4.23-9.07 K/uL High 8 [facility] nter (84784) Comment: Performed By: #### CBCDFC, P TPTT, CA, CHM7, HFP, IPB, MGO, LIPDR, TROP ####[facility] [address] [place], [place] [address] [address] [place] [address] 49288 chem 7 on 9 Anion gap 3 molar conc 10 7-17 mmol/L Normal 018 [facility] nter (70497) Comment: Performed By: #### CBCDFC, P TPTT, CA, CHM7, HFP, IPB, MGO, LIPDR, TROP ####[facility] [address] [place], [place] [address] [address] [place] [address] 00315 Chloride molar conc 101 98-108 mmol/L Normal 12-29-2017 [facility] n[facility] (02006) Comment: Performed By: #### CBCDFC, P TPTT, CA, CHM7, HFP, IPB, MGO, LIPDR, TROP ####[facility] [address] [place], [place] [address] [address] [place] [address] 91891 CO2 molar conc 25 22-30 mmol/L Normal 12-29-2017 [facility] (00 000) Comment: Performed By: #### CBCDFC, P TPTT, CA, CHM7, HFP, IPB, MGO, LIPDR, TROP ####[facility] [address] [place], [place] [address] [address] [place] [address] 62697 Creatinine mass conc 0.83 0.70-1.30 mg/dL Normal 8 [facility] (92380) Comment: Performed By: #### CBCDFC, P TPTT, CA, CHM7, HFP, IPB, MGO, LIPDR, TROP ####[facility] [address] [place] [address] [place] [address] [address] [place] [address] 89342 Est GFR, >60 >60 Normal 07-0 [facility] nter (00112) Comment: Performed By: #### CBCDFC, P TPTT, CA, CHM7, HFP, IPB, MGO, LIPDR, TROP ####[facility] [address] [place], [place] [address] [address] [place] [address] 04714 Est GFR,non >60 >60 Normal 0 12-29-2017 [facility] nter (24904) Comment: Performed By: #### CBCDFC, P TPTT, CA, CHM7, HFP, IPB, MGO, LIPDR, TROP ####[facility] [address] [place], [place] [address] [address] [place] [address] 60481 Glucose mass conc 110 70-99 mg/dL High 12-29-2017 [facility] nter (21930) Comment: Performed By: #### CBCDFC, P TPTT, CA, CHM7, HFP, IPB, MGO, LIPDR, TROP ####[facility] [address] [place], [place] [address] [address] [place] [address] 83959 Osmolality 281 278-305 mOsm/kg Normal 12-29-2017 [facility] (00 000) Comment: Performed By: #### CBCDFC, P TPTT, CA, CHM7, HFP, IPB, MGO, LIPDR, TROP ####[facility] [address] [place], [place] [address] [address] [place] [address] 45259 Potassium molar conc 4.1 3.5-5.0 mmol/L Normal 8 [facility] (62381) Comment: Performed By: #### CBCDFC, P TPTT, CA, CHM7, HFP, IPB, MGO, LIPDR, TROP ####[facility] [address] [place], [place] [address] [address] [place] [address] 42821 Sodium molar conc 132 133-143 mmol/L Low 12-29-2017 [facility] nter (36838) Comment: Performed By: #### CBCDFC, P TPTT, CA, CHM7, HFP, IPB, MGO, LIPDR, TROP ####[facility] [address] [place], [place] [address] [address] [place] [address] 49591 Urea nitrogen mass conc 20 7-22 mg/dL Normal 2017 [facility] nter (06379) Comment: Performed By: #### CBCDFC, P TPTT, CA, CHM7, HFP, IPB, MGO, LIPDR, TROP ####[facility] [address] [place], [place] [address] [address] [place] [address] 48340 Urea nitrogen/Creatinine mass 24 mg/mg Normal 12-29-2017 [facility] (56846) Comment: Performed By: #### CBCDFC, P TPTT, CA, CHM7, HFP, IPB, MGO, LIPDR, TROP ####[facility] [address] [place], [place] [address] [address] [place] [address] 14580 c reactive protein on 2017-12-29 CRP mass conc 220.70 <10.00 mg/L High 12-29-2017 [facility] (00 000) Comment: Performed By: #### CBCDFC, P TPTT, CA, CHM7, HFP, IPB, MGO, LIPDR, TROP ####[facility] [address] [place], [place] [address]Ap[facility] Hospital[address] [place], [place] [address] *poc glucose battery on 2017-12-29 *POC SAMPLE TYPE Capillary Blood Normal 018 [facility] (58270) Glucose mass conc 110 70-99 mg/dL High 12-29-2017 [facility] (03046) Comment: Result Comment: Notified RNr ead backNo BRAVE per RN: PATIENT TYPE *POC SAMPLE TYPE Capillary Blood Normal 018 [facility] (90778) Glucose mass conc 109 70-99 mg/dL High 12-29-2017 [facility] (89370) Comment: Result Comment: Notified RNr ead backNo BRAVE per RN: PATIENT TYPE *POC SAMPLE TYPE Capillary Blood Normal 018 [facility] (02778) Glucose mass conc 152 70-99 mg/dL High 12-29-2017 [facility] (39573) Comment: Result Comment: No BRAVE per RN: PATIENT TYPE *POC SAMPLE TYPE Capillary Blood Normal 018 [facility] (10346) Glucose mass conc 125 70-99 mg/dL High 12-29-2017 [facility] (25873) Comment: Result Comment: No BRAVE per RN: PATIENT TYPE xr chest portable o n 2017-12-28 XR CHEST EXAM: XR CHEST PORTABLE, Normal 12-28 [facility] PORTABLE 12/28/2017 05:34 AMCOMPARISON: University Compared to prior day.CLINICAL [facility] Medical INDICATIONS: post op Center (85267) CABGRELEVANT CLINICAL HISTORY:FINDINGS: (Adequate technique)Life Support Devices: Interval removal of endotracheal tube, nasogastric tubeand Leland-Ramsey catheter. The right-sided chest tube and right jugular vascularsheath remain in place. Chest Wall: Median sternotomy wires are noted.Crissy: NormalMediastinum: NormalPleural Spaces: No definite pleural effusion. No definite pneumothorax.Lungs: Low lung volumes. Bibasilar atelectasis.Cardiac Silhouette: Stable. Thoracic Aorta: Atheromatous vascular calcifications are present. Tortuousaorta.Pulmonary Vessels: Normal, without PVHIMPRESSION:Interval removal of endotracheal tube, nasogastric tube and Leland-Ganzcatheter. Remaining life support devices are stable.Low lung volumes with bibasilar atelectasis. xr abdomen 1 view portable on 2017-12-28 XR ABDOMEN 1 EXAM: XR ABDOMEN 1 VIEW Normal [facility] PORTABLE PORTABLE, 12/27/2017 16:55 University PMCOMPARISON: No prior abdominal [facility] radiographs available for Center (11434) comparison.CLINICAL INDICATIONS: post operative heart surgery Upon [...] time (Bld) 28.5 24.0-34.3 sec Normal 8 [facility] (16752) Comment: Performed By: #### CBCDFC, P TPTT, CA, CHM7, HFP, IPB, MGO, LIPDR, TROP ####[facility] [address] [place], [place] [address] [address] [place], [place] [address] INR Coag RelTime (PPP) 1.1 0.9-1.1 {INR} Normal 018 [facility] (08354) Comment: Performed By: #### CBCDFC, P TPTT, CA, CHM7, HFP, IPB, MGO, LIPDR, TROP ####[facility] [address] [place] [address] [place], [place] [address] [address] [place] [address] 48420 Prothrombin time (PT) 14.0 11.9-14.2 sec Normal 12-29-19 18 [facility] Coag time (PPP) [facility] (48165) Comment: Performed By: #### CBCDFC, P TPTT, CA, CHM7, HFP, IPB, MGO, LIPDR, TROP ####[facility] [address] [place], [place] [address] [address] [place] [address] 69832 potassium on 2017-0 7-08 Potassium molar conc 4.0 3.5-5.0 mmol/L Normal 8 [facility] (97550) Comment: Performed By: #### CBCDFC, P TPTT, CA, CHM7, HFP, IPB, MGO, LIPDR, TROP ####[facility] [address] [place], [place] [address] [address] [place] [address] 03527 magnesium on 2017-0 7-08 Magnesium mass conc 2.4 1.6-2.6 mg/dL Normal 12-28-2017 [facility]ter (93521) Comment: Performed By: #### CBCDFC, P TPTT, CA, CHM7, HFP, IPB, MGO, LIPDR, TROP ####[facility] [address] [place], [place] [address] [address] [place] [address] 34451 Magnesium mass conc 2.8 1.6-2.6 mg/dL High 12-28-2017 [facility] (65228) Comment: Performed By: #### CBCDFC, P TPTT, CA, CHM7, HFP, IPB, MGO, LIPDR, TROP ####[facility] [address] [place] [address] [place] [address] [place] [address] 35911 Magnesium mass conc 2.2 1.6-2.6 mg/dL Normal 12-28-2017 [facility] nter (48401) Comment: Performed By: #### CBCDFC, P TPTT, CA, CHM7, HFP, IPB, MGO, LIPDR, TROP ####[facility] [address] [place] [address] [place], [place] [address] [place] [address] 97601 ionized calcium on 2017-12-28 Ionized Calcium 4.53 4.60-5.30 mg/dL Low 12-28-2017 [facility] nter (37541) Comment: Performed By: #### CBCDFC, P TPTT, CA, CHM7, HFP, IPB, MGO, LIPDR, TROP ####[facility] [address] [place] [address] [place], [place] [address] [place] [address] 32601 hemogram (cbc and platelet) on 2017-12-28 Hematocrit Auto Volume 31.7 40.1-51.0 % Low 018 [facility] ([facility] (61101) Comment: Performed By: #### CBCDFC, P TPTT, CA, CHM7, HFP, IPB, MGO, LIPDR, TROP ####[facility] [address] [place] [address] [place] [address] [place] [address] 04283 Hemoglobin mass conc 10.7 13.7-17.5 g/dL Low 8 [facility] ([facility]) [facility] (12570) Comment: Performed By: #### CBCDFC, P TPTT, CA, CHM7, HFP, IPB, MGO, LIPDR, TROP ####[facility] [address] [place] [address] [place] [address] [place] [address] 97123 MCV Auto Entitic volume 90.8 79.0-92.2 fL Normal 2017 [facility] (RBC) [facility] (30929) Comment: Performed By: #### CBCDFC, P TPTT, CA, CHM7, HFP, IPB, MGO, LIPDR, TROP ####[facility] [address] [place], [place] [address] [place] [address] 73127 Mean Cell Hgb 30.7 25.7-32.2 pg Normal 12-28-2017 [facility] nter (49527) Comment: Performed By: #### CBCDFC, P TPTT, CA, CHM7, HFP, IPB, MGO, LIPDR, TROP ####[facility] [address] [place], [place] [address] [place] [address] 55156 Mean Cell Hgb Conc 33.8 32.3-36.5 g/dL Normal 12-28-2017 [facility] nter (39854) Comment: Performed By: #### CBCDFC, P TPTT, CA, CHM7, HFP, IPB, MGO, LIPDR, TROP ####[facility] [address] [place], [place] [address] [place] [address] 39488 Nucleated RBC #/vol 0.0 0.0-0.2 /100 WBC Normal 12-28-2017 [facility] (Bld) [facility] (68959) Comment: Performed By: #### CBCDFC, P TPTT, CA, CHM7, HFP, IPB, MGO, LIPDR, TROP ####[facility] [address] [place], [place] [address] [place] [address] 11511 Platelet mean volume 10.4 9.4-12.4 fL Normal 8 [facility] Auto Entitic volume [facility] ([facility]) (69148) Comment: Performed By: #### CBCDFC, P TPTT, CA, CHM7, HFP, IPB, MGO, LIPDR, TROP ####[facility] [place] [id number] [place] [address] [place] [address] 88677 Platelets Auto #/vol 186 163-337 K/uL Normal 8 [facility] (Bld) [facility] (50260) Comment: Performed By: #### CBCDFC, P TPTT, CA, CHM7, HFP, IPB, MGO, LIPDR, TROP ####[facility] [address] [place], [place] [address] [place] [address] 06752 RBC Auto #/vol (Bld) 13.3 11.6-14.4 % Normal 8 [facility] (35328) Comment: Performed By: #### CBCDFC, P TPTT, CA, CHM7, HFP, IPB, MGO, LIPDR, TROP ####[facility] [place], [place] [address] [place] [address] 52848 RBC Auto #/vol (Bld) 3.49 4.63-6.08 M/uL Low 8 [facility] (80700) Comment: Performed By: #### CBCDFC, P TPTT, CA, CHM7, HFP, IPB, MGO, LIPDR, TROP ####[facility] [address] [place], [place] [id number] [place] [address] 68555 WBC Auto #/vol (Bld) 9.63 4.23-9.07 K/uL High 8 [facility] nter ([id number]) Comment: Performed By: #### CBCDFC, P TPTT, CA, CHM7, HFP, IPB, MGO, LIPDR, TROP ####[facility] r[address] [place], [place] [address] [place] [address] 21803 chem 7 on 8 Anion gap 3 molar conc 10 7-17 mmol/L Normal 018 [facility] nter (85972) Comment: Performed By: #### CBCDFC, P TPTT, CA, CHM7, HFP, IPB, MGO, LIPDR, TROP ####[facility] r[address] [place], [place] [address] [place] [address] 56805 Chloride molar conc 107 98-108 mmol/L Normal 12-28-2017 [facility] nter (15454) Comment: Performed By: #### CBCDFC, P TPTT, CA, CHM7, HFP, IPB, MGO, LIPDR, TROP ####[facility] [address] [place], [place] [address] [place] [address] 06973 CO2 molar conc 25 22-30 mmol/L Normal 12-28-2017 [facility] (00 000) Comment: Performed By: #### CBCDFC, P TPTT, CA, CHM7, HFP, IPB, MGO, LIPDR, TROP ####[facility] [address] [place], [place] [address] [address] [place] [address] 35108 Creatinine mass conc 0.89 0.70-1.30 mg/dL Normal 8 [facility] (83240) Comment: Performed By: #### CBCDFC, P TPTT, CA, CHM7, HFP, IPB, MGO, LIPDR, TROP ####[facility] [address] [place], [place] [address] [place] [address] 51183 Est GFR, >60 >60 Normal 07-0 [facility] nter (60266) Comment: Performed By: #### CBCDFC, P TPTT, CA, CHM7, HFP, IPB, MGO, LIPDR, TROP ####[facility] [address] [place], [place] [address] [place] [address] 92050 Est GFR,non >60 >60 Normal 0 12-28-2017 [facility] nter (06027) Comment: Performed By: #### CBCDFC, P TPTT, CA, CHM7, HFP, IPB, MGO, LIPDR, TROP ####[facility] r[address] [place], [place] [address] [place] [address] 00693 Glucose mass conc 130 70-99 mg/dL High 12-28-2017 [facility] nter (16874) Comment: Performed By: #### CBCDFC, P TPTT, CA, CHM7, HFP, IPB, MGO, LIPDR, TROP ####[facility] [address] [place], [place] [address] [place] [address] 69554 Osmolality 294 278-305 mOsm/kg Normal 12-28-2017 [facility] (00 000) Comment: Performed By: #### CBCDFC, P TPTT, CA, CHM7, HFP, IPB, MGO, LIPDR, TROP ####[facility] [address] [place], [place] [address] [place] [address] 18399 Potassium molar conc 4.3 3.5-5.0 mmol/L Normal 8 [facility] (22766) Comment: Performed By: #### CBCDFC, P TPTT, CA, CHM7, HFP, IPB, MGO, LIPDR, TROP ####[facility] [address] [place], [place] [address] [place] [address] 61365 Sodium molar conc 138 133-143 mmol/L Normal 12-28-2017 O [facility] Ce nter (42304) Comment: Performed By: #### CBCDFC, P TPTT, CA, CHM7, HFP, IPB, MGO, LIPDR, TROP ####[facility] [address] [place], [place] [address] [place] [address] 54644 Urea nitrogen mass conc 21 7-22 mg/dL Normal 2017 [facility] n[facility] (48922) Comment: Performed By: #### CBCDFC, P TPTT, CA, CHM7, HFP, IPB, MGO, LIPDR, TROP ####[facility] [address] [place], [place] [address] [place] [address] 44226 Urea nitrogen/Creatinine mass 24 mg/mg Normal 12-28-2017 [facility] ical [place] (25814) Comment: Performed By: #### CBCDFC, P TPTT, CA, CHM7, HFP, IPB, MGO, LIPDR, TROP ####[facility] [address] [place], [place] [address] [place] [address] 45171 Anion gap 3 molar conc 11 7-17 mmol/L Normal 018 [facility] n[facility] (35659) Comment: Performed By: #### CBCDFC, P TPTT, CA, CHM7, HFP, IPB, MGO, LIPDR, TROP ####[facility] [address] [place], [place] [address] [place] [address] 01216 Chloride molar conc 107 98-108 mmol/L Normal 12-28-2017 [facility] n[facility] (28397) Comment: Performed By: #### CBCDFC, P TPTT, CA, CHM7, HFP, IPB, MGO, LIPDR, TROP ####[facility] [address] [place], [place] [address] [place] [address] 43728 CO2 molar conc 25 22-30 mmol/L Normal 12-28-2017 [facility] (00 000) Comment: Performed By: #### CBCDFC, P TPTT, CA, CHM7, HFP, IPB, MGO, LIPDR, TROP ####[facility] [address] [place], [place] [address] [place] [address] 39153 Creatinine mass conc 0.91 0.70-1.30 mg/dL Normal 8 [facility] (72245) Comment: Performed By: #### CBCDFC, P TPTT, CA, CHM7, HFP, IPB, MGO, LIPDR, TROP ####[facility] [address] [place], [place] [address] [place] [address] 37206 Est GFR, >60 >60 Normal 07- [facility] nter (75806) Comment: Performed By: #### CBCDFC, P TPTT, CA, CHM7, HFP, IPB, MGO, LIPDR, TROP ####[facility] [address] [place], [place] [address] [place] [address] 64960 Est GFR,non >60 >60 Normal 0 12-28-2017 [facility] n[facility] (57171) Comment: Performed By: #### CBCDFC, P TPTT, CA, CHM7, HFP, IPB, MGO, LIPDR, TROP ####[facility] [address] [place] [address] [place], [place] [address] [place] [address] 25781 Glucose mass conc 141 70-99 mg/dL High 12-28-2017 [facility] nter (51977) Comment: Performed By: #### CBCDFC, P TPTT, CA, CHM7, HFP, IPB, MGO, LIPDR, TROP ####[facility] [address] [place], [place] [address] [place] [address] 15940 Osmolality 296 278-305 mOsm/kg Normal 12-28-2017 [facility] (00 000) Comment: Performed By: #### CBCDFC, P TPTT, CA, CHM7, HFP, IPB, MGO, LIPDR, TROP ####[facility] [address] [place], [place] [address] [place] [address] 79718 Potassium molar conc 4.1 3.5-5.0 mmol/L Normal 8 [facility] (97036) Comment: Performed By: #### CBCDFC, P TPTT, CA, CHM7, HFP, IPB, MGO, LIPDR, TROP ####[facility] [address] [place], [place] [address] [place] [address] 30070 Sodium molar conc 139 133-143 mmol/L Normal 12-28-2017 [facility] nter (75506) Comment: Performed By: #### CBCDFC, P TPTT, CA, CHM7, HFP, IPB, MGO, LIPDR, TROP ####[facility] [address] [place], [place] [address] [place] [address] 90684 Urea nitrogen mass conc 20 7-22 mg/dL Normal 2017 [facility] n[facility] (04804) Comment: Performed By: #### CBCDFC, P TPTT, CA, CHM7, HFP, IPB, MGO, LIPDR, TROP ####[facility] [address] [place] [address] 13274WvoimeGreen Cross Hospital[address] [place] [address] 34936 Urea nitrogen/Creatinine mass 22 mg/mg Normal 12-28-2017 [facility] (88674) Comment: Performed By: #### CBCDFC, P TPTT, CA, CHM7, HFP, IPB, MGO, LIPDR, TROP ####[facility] [address] [place] [address] 03112QrojuwGreen Cross Hospital[address] [place] [address] 85445 *poc glucose battery on 2017-12-28 *POC SAMPLE TYPE Venous Normal 12-28-2017 [facility] nter (42326) Glucose mass conc 117 70-99 mg/dL High 12-28-2017 [facility] nter (72656) Comment: Result Comment: Meets BRAVE per RN: PATIENT TYPE *POC SAMPLE TYPE Venous Normal 12-28-2017 [facility] nter (92942) Glucose mass conc 131 70-99 mg/dL High 12-28-2017 [facility] nter (09315) Comment: Result Comment: Meets BRAVE per RN: PATIENT TYPE *POC SAMPLE TYPE Capillary Blood Normal 018 [facility] (85564) Glucose mass conc 142 70-99 mg/dL High 12-28-2017 O [facility] (44919) Comment: Result Comment: Notified RNr kai [place]ou[place] BRAVE per RN: PATIENT TYPE Result Comment: No BRAVE per RN: PATIENT TYPE xr chest portable o n 2017-12-27 XR CHEST EXAM: XR CHEST PORTABLE, Normal 12-27 [facility] 12/27/2017 16:56 PMCOMPARISON: [place] 12/25/2017CLINICAL INDICATIONS[facility] (16652[facility] CLINICAL HISTORY: On arrival to unit.;FINDINGS: (Adequate technique)FINDINGS: Implanted Devices: Interval placement of endotracheal tube with it's tip atmid trachea, NG tube passing below the left hemidiaphragm with its tip isexcluded from the image, Leland Ramsey catheter with it's tip in proximal [...] time (Bld) 37.5 24.0-34.3 sec High 8 [facility] nter (71274) Comment: Result Comment: Results inco nsistent with the patient's previous results Performed By: #### CBCDFC, P TPTT, CA, CHM7, HFP, IPB, MGO, LIPDR, TROP ####[facility] [address] [place] [id number] [place], [place] [address] [address] [place] [address] 83979 INR Coag RelTime (PPP) 1.1 0.9-1.1 {INR} Normal 018 [facility] (52669) Comment: Performed By: #### CBCDFC, P TPTT, CA, CHM7, HFP, IPB, MGO, LIPDR, TROP ####[facility] [address] [place] [address] [place], [place] [address] [place] [address] 19485 Prothrombin time (PT) Coag 14.5 11.9-14.2 sec High [facility] time (PPP) [facility] (92479) Comment: Performed By: #### CBCDFC, P TPTT, CA, CHM7, HFP, IPB, MGO, LIPDR, TROP ####[facility] [place] [address] 89974UumiceGreen Cross Hospital[address] [place] [address] 78469 aPTT Coag time (Bld) 29.3 24.0-34.3 sec Normal 8 [facility] (31392) Comment: Performed By: #### PTPTT ### #[facility] (DEFAULT)[address] [place] [address] 69311#### FT4, TSH, PALB ####[facility] [place] [address] 43 210[facility] [place] [address] 52948 INR Coag RelTime (PPP) 1.3 0.9-1.1 {INR} High 018 [facility] nter (16958) Comment: Performed By: #### PTPTT ### #[facility] (DEFAULT)[address] [place] [address] 26550#### FT4, TSH, PALB ####[facility] [place] [address] 43 210[facility] [place] [address] 25949 Prothrombin time (PT) Coag 16.0 11.9-14.2 sec High [facility] time (PPP) [facility] (25708) Comment: Performed By: #### PTPTT ### #[facility] (DEFAULT)[address] [place] [address] 56072#### FT4, TSH, PALB ####[facility] [place] [address] 43 210[facility] [place] [address] 92695 magnesium on 12-27 Magnesium mass conc 1.6 1.6-2.6 mg/dL Normal 12-27-2017 [facility] n[facility] (78099) Comment: Performed By: #### CBCDFC, P TPTT, CA, CHM7, HFP, IPB, MGO, LIPDR, TROP ####[facility] r[address] [place] [address] 96645NrwebsGreen Cross Hospital[address] [place] [address] 42903 ionized calcium on 2017-12-27 Ionized Calcium 4.88 4.60-5.30 mg/dL Normal 12-27-2017 [facility] nter (74725) Comment: Performed By: #### CBCDFC, P TPTT, CA, CHM7, HFP, IPB, MGO, LIPDR, TROP ####[facility] r[address] [place] [address] 29062YhupevGreen Cross Hospital[address] [place] [address] 15523 Ionized Calcium 5.06 4.60-5.30 mg/dL Normal 12-27-2017 [facility] nter (78936) Comment: Performed By: #### PTPTT ### #[facility] (DEFAULT)[address] [place] [address] 45827#### FT4, TSH, PALB ####[facility] [place] [address] 43 210[facility] [place] [address] 64352 inorganic phosphate on 2017-12-27 Inorg Phosphate 3.5 2.2-4.6 mg/dL Normal 12-27-2017 [facility] nter (32921) Comment: Performed By: #### CBCDFC, P TPTT, CA, CHM7, HFP, IPB, MGO, LIPDR, TROP ####[facility] [address] [place] [address] [place], [place] [address] [place] [address] 99014 hemogram (cbc and platelet) on 2017-12-27 Hematocrit Auto Volume 32.5 40.1-51.0 % Low 018 [facility] ([facility]) [facility] (18209) Comment: Performed By: #### CBCDFC, P TPTT, CA, CHM7, HFP, IPB, MGO, LIPDR, TROP ####[facility] r[address] [place], [place] [address] [place] [address] 98548 Hemoglobin mass conc 11.0 13.7-17.5 g/dL Low 8 [facility] ([facility]) [facility] (82447) Comment: Performed By: #### CBCDFC, P TPTT, CA, CHM7, HFP, IPB, MGO, LIPDR, TROP ####[facility] [address] [place], [place] [address] [place] [address] 86745 MCV Auto Entitic volume 91.0 79.0-92.2 fL Normal 2017 [facility] (RBC) [facility] (54526) Comment: Performed By: #### CBCDFC, P TPTT, CA, CHM7, HFP, IPB, MGO, LIPDR, TROP ####[facility] [address] [place], [place] [address] [place] [address] 55391 Mean Cell Hgb 30.8 25.7-32.2 pg Normal 12-27-2017 [facility] nter (82663) Comment: Performed By: #### CBCDFC, P TPTT, CA, CHM7, HFP, IPB, MGO, LIPDR, TROP ####[facility] [address] [place], [place] [address] [place] [address] 11844 Mean Cell Hgb Conc 33.8 32.3-36.5 g/dL Normal 12-27-2017 [facility] n[facility] (89626) Comment: Performed By: #### CBCDFC, P TPTT, CA, CHM7, HFP, IPB, MGO, LIPDR, TROP ####[facility] r[address] [place], [place] [address] [place], [place] [address] [place] [address] 19900 Nucleated RBC #/vol 0.0 0.0-0.2 /100 WBC Normal 12-27-2017 [facility] ([facility]) [facility] (17798) Comment: Performed By: #### CBCDFC, P TPTT, CA, CHM7, HFP, IPB, MGO, LIPDR, TROP ####[facility] r[address] [place], [place] [address] [place] [address] 83251 Platelet mean volume 10.3 9.4-12.4 fL Normal 8 [facility] Auto Entitic volume [facility] ([facility]) (70967) Comment: Performed By: #### CBCDFC, P TPTT, CA, CHM7, HFP, IPB, MGO, LIPDR, TROP ####[facility] [address] [place] [address] [place], [place] [address] [place] [address] 41078 Platelets Auto #/vol 194 163-337 K/uL Normal 8 [facility] ([facility]) [facility] (62822) Comment: Performed By: #### CBCDFC, P TPTT, CA, CHM7, HFP, IPB, MGO, LIPDR, TROP ####[facility] [address] [place], [place] [address] [place] [address] 19399 RBC Auto #/vol ([facility]) 13.2 11.6-14.4 % Normal 8 [facility] Ce nter (49511) Comment: Performed By: #### CBCDFC, P TPTT, CA, CHM7, HFP, IPB, MGO, LIPDR, TROP ####[facility] r[address] [place] [address] 44642QrtlnwGreen Cross Hospital[address] [place] [address] 15599 RBC Auto #/vol (Bld) 3.57 4.63-6.08 M/uL Low 8 [facility] nter (86204) Comment: Performed By: #### CBCDFC, P TPTT, CA, CHM7, HFP, IPB, MGO, LIPDR, TROP ####[facility] r[address] [place] [address] 25582FomzalGreen Cross Hospital[address] [place] [address] 14980 WBC Auto #/vol (Bld) 10.09 4.23-9.07 K/uL High 8 [facility] (15055) Comment: Performed By: #### CBCDFC, P TPTT, CA, CHM7, HFP, IPB, MGO, LIPDR, TROP ####[facility] r[address] [place] [address] 16734HrwayeGreen Cross Hospital[address] [place] [address] 82944 Hematocrit Auto Volume 29.8 40.1-51.0 % Low 018 [facility] Fraction (Bld) [facility] (46690) Comment: Performed By: #### PTPTT ### #[facility] (DEFAULT)[address] [place] [address] 60695#### FT4, TSH, PALB ####[facility] [place] [address] 43 210[facility] [place] [address] 36862 Hemoglobin mass conc (Bld) 9.9 13.7-17.5 g/dL Low [facility] (56328) Comment: Result Comment: Called to an d read back by Performed By: #### PTPTT ### #[facility] (DEFAULT)[address] [place] [address] 68373#### FT4, TSH, PALB ####[facility] [place] [address] 210[facility] [place] [address] 39432 MCV Auto Entitic volume 91.4 79.0-92.2 fL Normal 2017 [facility] (RBC) [facility] (00169) Comment: Performed By: #### PTPTT ### #[facility] (DEFAULT)[address] [place] [address] 20960#### FT4, TSH, PALB ####[facility] [place] [address] 210[facility] [place] [address] 21488 Mean Cell Hgb 30.4 25.7-32.2 pg Normal 12-27-2017 [facility] n[facility] (79245) Comment: Performed By: #### PTPTT ### #[facility] (DEFAULT)[address] [place] [address] 04392#### FT4, TSH, PALB ####[facility] [place], [place] [address] [address] [place] [address] 94960 Mean Cell Hgb Conc 33.2 32.3-36.5 g/dL Normal 12-27-2017 [facility] (16482) Comment: Performed By: #### PTPTT ### #[facility] (DEFAULT)[address] [place] [address] 79086#### FT4, TSH, PALB ####[facility] [place] [address] 210[facility] [place] [address] 98331 Nucleated RBC #/vol 0.0 0.0-0.2 /100 WBC Normal 12-27-2017 [facility] (Bld) [facility] (24173) Comment: Performed By: #### PTPTT ### #[facility] (DEFAULT)[address] [place] [address] 97068#### FT4, TSH, PALB ####[facility] [place] [address] 210[facility] [place] [address] 25976 Platelet mean volume Auto 9.9 9.4-12.4 fL Normal 0 [facility] Entitic volume (Bld) [facility] (45854) Comment: Performed By: #### PTPTT ### #[facility] (DEFAULT)[address] [place] [address] 92982#### FT4, TSH, PALB ####[facility] [place] [address] 210[facility] [place] [address] Platelets Auto #/vol (Bld) 151 163-337 K/uL Low [facility] (03999) Comment: Performed By: #### PTPTT ### #[facility] (DEFAULT)[address] [place] [address] 78418#### FT4, TSH, PALB ####[facility] [place] [address] 210[facility] [place] [address] 48106 RBC Auto #/vol (Bld) 13.1 11.6-14.4 % Normal 8 [facility] n[facility] (62576) Comment: Performed By: #### PTPTT ### #[facility] (DEFAULT)[address] [place] [address] 03886#### FT4, TSH, PALB ####[facility] [place] [address] 210[facility] [place] [address] 97502 RBC Auto #/vol (Bld) 3.26 4.63-6.08 M/uL Low 8 [facility] (28842) Comment: Performed By: #### PTPTT ### #[facility] (DEFAULT)[address] [place] [address] 43440#### FT4, TSH, PALB ####[facility] [place] [address] 210[facility] [place] [address] 07132 WBC Auto #/vol (Bld) 9.74 4.23-9.07 K/uL High 8 [facility] (65218) Comment: Performed By: #### PTPTT ### #[facility] (DEFAULT)[address] [place] [address] 98082#### FT4, TSH, PALB ####[facility] [place] [address] 210[facility] [place] [address] 96398 Hematocrit Auto Volume 46.4 40.1-51.0 % Normal 018 [facility] (Bld) [facility] (06146) Comment: Performed By: #### PTPTT ### #[facility] (DEFAULT)[address] [place] [address] 73722#### FT4, TSH, PALB ####[facility] [place] [address] 210[facility] [place] [address] 81410 Hemoglobin mass conc 15.6 13.7-17.5 g/dL Normal 8 [facility] (Bld) [facility] (25280) Comment: Performed By: #### PTPTT ### #[facility] (DEFAULT)[address] [place] [address] 77640#### FT4, TSH, PALB ####[facility] [place], [place] [address] [place] [address] 51602 MCV Auto Entitic volume 89.9 79.0-92.2 fL Normal 2017 [facility] (RBC) [facility] (24878) Comment: Performed By: #### PTPTT ### #[facility] (DEFAULT)[address] [place] [address] 68416#### FT4, TSH, PALB ####[facility] [place], [place] [address] [place] [address] Mean Cell Hgb 30.2 25.7-32.2 pg Normal 12-27-2017 [facility] (77431) Comment: Performed By: #### PTPTT ### #[facility] (DEFAULT)[address] [place] [address] 45273#### FT4, TSH, PALB ####[facility] [place], [place] [address] [place] [address] 05061 Mean Cell Hgb Conc 33.6 32.3-36.5 g/dL Normal 12-27-2017 [facility] (53670) Comment: Performed By: #### PTPTT ### #[facility] (DEFAULT)[address] [place] [address] 56052#### FT4, TSH, PALB ####[facility] [place], [place] 238[address] [address] [place] [address] 62465 Nucleated RBC #/vol 0.0 0.0-0.2 /100 WBC Normal 12-27-2017 [facility] (Bld) [facility] (79477) Comment: Performed By: #### PTPTT ### #[facility] (DEFAULT)[address] [place] [address] 42202#### FT4, TSH, PALB ####[facility] [place] [address] 210[facility] [place] [address] 33748 Platelet mean volume 10.1 9.4-12.4 fL Normal 8 [facility] Auto Entitic volume [facility] ([facility]) (06764) Comment: Performed By: #### PTPTT ### #[facility] (DEFAULT)[address] [place] [address] 47951#### FT4, TSH, PALB ####[facility] [place] [address] 210[facility] [place] [address] 40982 Platelets Auto #/vol 283 163-337 K/uL Normal 8 [facility] (d) [facility] (03567) Comment: Performed By: #### PTPTT ### #[facility] (DEFAULT)[address] [place] [address] [id number]#### FT4, TSH, PALB ####[facility] [place] [address] [facility] [place] [address] 57628 RBC Auto #/vol (d) 5.16 4.63-6.08 M/uL Normal 8 [facility] ([id number]) Comment: Performed By: #### PTPTT ### #[facility] (DEFAULT)[address] [place] [address] 88939#### FT4, TSH, PALB ####[facility] [place] [address] 210[facility] [place] [address] 28207 RBC Auto #/vol (d) 13.1 11.6-14.4 % Normal 8 [facility] nter ([id number]) Comment: Performed By: #### PTPTT ### #[facility] (DEFAULT)[address] [place] [address] 80022#### FT4, TSH, PALB ####[facility] [place] [address] [facility] [place] [address] 80859 WBC Auto #/vol (Bld) 8.17 4.23-9.07 K/uL Normal 8 [facility] ([id number]) Comment: Performed By: #### PTPTT ### #[facility] (DEFAULT)[address] [place] [address] 50224#### FT4, TSH, PALB ####[facility] [place] [address] [facility] [place] [address] 71400 fibrinogen-clottable on 2017-12-27 Fibrinogen-Clottable 205 220-410 mg/dL Low 8 [facility] nter ([id number]) Comment: Performed By: #### PTPTT ### #[facility] (DEFAULT)[address] [place] [address] 88964#### FT4, TSH, PALB ####[facility] [place] [address] [facility] [place] [address] 83894 chem 7 on 7 Anion gap 3 molar conc 9 7-17 mmol/L Normal 018 [facility] nter ([id number]) Comment: Performed By: #### PTPTT ### #[facility] (DEFAULT)[address] [place] [address] 48652#### FT4, TSH, PALB ####[facility] [place] [address] [facility] [place] [address] 41832 Chloride molar conc 109 98-108 mmol/L High 12-27-2017 [facility] nter ([id number]) Comment: Performed By: #### PTPTT ### #[facility] (DEFAULT)[address] [place] [address] 24890#### FT4, TSH, PALB ####[facility] [place] [address] 43 210[facility] [place] [address] 87884 CO2 molar conc 25 22-30 mmol/L Normal 12-27-2017 [facility] (00 000) Comment: Performed By: #### PTPTT ### #[facility] (DEFAULT)[address] [place] [address] 74942#### FT4, TSH, PALB ####[facility] [place] [address] [facility] [place] [address] 65180 Creatinine mass conc 0.89 0.70-1.30 mg/dL Normal 8 [facility] ([id number]) Comment: Performed By: #### PTPTT ### #[facility] (DEFAULT)[address] [place] [address] 03261#### FT4, TSH, PALB ####[facility] [place] [address] [facility] [place] [address] 61674 Est GFR, >60 >60 Normal [facility] nter (95284) Comment: Performed By: #### PTPTT ### #[facility] (DEFAULT)[address] [place] [address] 75508#### FT4, TSH, PALB ####[facility] [place] [address] [facility] [place] [address] 41219 Est GFR,non >60 >60 Normal 0 12-27-2017 [facility] n[facility] ([id number]) Comment: Performed By: #### PTPTT ### #[facility] (DEFAULT)[address] [place] [address] 04214#### FT4, TSH, PALB ####[facility] [place] [address] 43 210[facility] [place] [address] 37014 Glucose mass conc 142 70-99 mg/dL High 12-27-2017 [facility] nter ([id number]) Comment: Performed By: #### PTPTT ### #[facility] (DEFAULT)[address] [place] [address] 19769#### FT4, TSH, PALB ####[facility] [place] [address] [facility] [place] [address] 52593 Osmolality 297 278-305 mOsm/kg Normal 12-27-2017 [facility] (00 000) Comment: Performed By: #### PTPTT ### #[facility] (DEFAULT)[address] [place] [address] 64707#### FT4, TSH, PALB ####[facility] [place] [address] 43 210[facility] [place] [address] 18771 Potassium molar conc 4.3 3.5-5.0 mmol/L Normal 8 [facility] (65525) Comment: Performed By: #### PTPTT ### #[facility] (DEFAULT)[address] [place] [address] 16164#### FT4, TSH, PALB ####[facility] [place] [address] [facility] [place] [address] 99866 Sodium molar conc 139 133-143 mmol/L Normal 12-27-2017 [facility] nter ([id number]) Comment: Performed By: #### PTPTT ### #[facility] (DEFAULT)[address] [place] [address] 29767#### FT4, TSH, PALB ####[facility] [place] [address] 43 210[facility] [place] [address] 99304 Urea nitrogen mass conc 21 7-22 mg/dL Normal 2017 [facility] n[facility] (07094) Comment: Performed By: #### PTPTT ### #[facility] (DEFAULT)[address] [place] [address] 02597#### FT4, TSH, PALB ####[facility] [place] [address] [facility] [place] [address] 63872 Urea nitrogen/Creatinine mass 24 mg/mg Normal 12-27-2017 [facility] (79830) Comment: Performed By: #### PTPTT ### #[facility] (DEFAULT)[address] [place] [address] 18324#### FT4, TSH, PALB ####[facility] [place] [address] 43 [facility] [place] [address] 55043 Anion gap 3 molar conc 13 7-17 mmol/L Normal 018 [facility] n[facility] (63768) Comment: Performed By: #### PTPTT ### #[facility] (DEFAULT)[address] [place] [address] 91319#### FT4, TSH, PALB ####[facility] [place] [address] 43 [facility] [place] [address] 80916 Chloride molar conc 104 98-108 mmol/L Normal 12-27-2017 [facility] n[facility] ([id number]) Comment: Performed By: #### PTPTT ### #[facility] (DEFAULT)[address] [place] [address] 03059#### FT4, TSH, PALB ####[facility] [place] [address] 43 [facility] [place] [address] 86729 CO2 molar conc 25 22-30 mmol/L Normal 12-27-2017 [facility] (00 000) Comment: Performed By: #### PTPTT ### #[facility] (DEFAULT)[address] [place] [address] 65913#### FT4, TSH, PALB ####[facility] [place] [address] [facility] [place] [address] 83669 Creatinine mass conc 1.09 0.70-1.30 mg/dL Normal 8 [facility] (26558) Comment: Performed By: #### PTPTT ### #[facility] (DEFAULT)[address] [place] [address] 54178#### FT4, TSH, PALB ####[facility] [place] [address] [facility] [place] [address] 03387 Est GFR, >60 >60 Normal [facility] n[facility] (79694) Comment: Performed By: #### PTPTT ### #[facility] (DEFAULT)[address] [place] [address] 16726#### FT4, TSH, PALB ####[facility] [place] [address] [facility] [place] [address] 15653 Est GFR,non >60 >60 Normal 0 12-27-2017 [facility] n[facility] (09209) Comment: Performed By: #### PTPTT ### #[facility] (DEFAULT)[address] [place] [address] 22221#### FT4, TSH, PALB ####[facility] [place] [address] 43 210[facility] [place] [address] 47606 Glucose mass conc 116 70-99 mg/dL High 12-27-2017 [facility] nter (70195) Comment: Performed By: #### PTPTT ### #[facility] (DEFAULT)[address] [place] [address] 62415#### FT4, TSH, PALB ####[facility] [place] [address] [facility] [place] [address] 31505 Osmolality 293 278-305 mOsm/kg Normal 12-27-2017 [facility] (00 000) Comment: Performed By: #### PTPTT ### #[facility] (DEFAULT)[address] [place] [address] 63111#### FT4, TSH, PALB ####[facility] [place] [address] 43 210[facility] [place] [address] 66251 Potassium molar conc 3.9 3.5-5.0 mmol/L Normal 8 [facility] (12861) Comment: Performed By: #### PTPTT ### #[facility] (DEFAULT)[address] [place] [address] 04626#### FT4, TSH, PALB ####[facility] [place] [address] [facility] [place] [address] 28968 Sodium molar conc 138 133-143 mmol/L Normal 12-27-2017 [facility] Ce nter (03732) Comment: Performed By: #### PTPTT ### #[facility] (DEFAULT)[address] [place] [address] 15551#### FT4, TSH, PALB ####[facility] [place], [place] 43 210[facility] [place], [place] [address] Urea nitrogen mass conc 21 7-22 mg/dL Normal 2017 [facility] nter (41666) Comment: Performed By: #### PTPTT ### #[facility] (DEFAULT)[address] [place] [address] 48758#### FT4, TSH, PALB ####[facility] [place], [place] 43 210[facility] [place] [address] 74940 Urea nitrogen/Creatinine mass 19 mg/mg Normal 12-27-2017 [facility] (79687) Comment: Performed By: #### PTPTT ### #[facility] (DEFAULT)[address] [place] [address] 27356#### FT4, TSH, PALB ####[facility] [place], [place] 43 210[facility] [place] [address] 67353 *poc glucose battery on 2017-12-27 *POC SAMPLE TYPE Arterial Normal 12-27-2017 [facility] nter ([id number]) Glucose mass conc 138 70-99 mg/dL High 12-27-2017 [facility] nter (08653) Comment: Result Comment: No BRAVE per RN: PATIENT TYPE *POC SAMPLE TYPE Arterial Normal 12-27-2017 [facility] nter (52911) Glucose mass conc 128 70-99 mg/dL High 12-27-2017 [facility] nter (92622) Comment: Result Comment: Meets BRAVE per RN: PATIENT TYPE Glucose mass conc 127 70-99 mg/dL High 12-27-2017 [facility] nter (40230) Comment: Result Comment: Meets BRAVE per RN: PATIENT TYPE Glucose mass conc 130 70-99 mg/dL High 12-27-2017 [facility] nter (55923) Comment: Result Comment: Meets BRAVE per RN: PATIENT TYPE *POC SAMPLE TYPE Arterial Normal 12-27-2017 [facility] nter (02023) Glucose mass conc 142 70-99 mg/dL High 12-27-2017 [facility] nter (60918) Comment: Result Comment: Meets BRAVE per RN: PATIENT TYPE *blood*gas*panel 1 -ross on 2017-12-27 Base Deficit 3.4 0-3.0 mmol/L High 12-27-2017 [facility] (00 000) COMMENT Footwear Sales Representative Normal 12-27-2017 [facility] (00 000) Glucose mass 156 70-99 mg/dL High 12-27-2017 [facility] (00 000) HCO3 molar conc 22 22-26 mmol/L Normal 12[place]27-2017 [place] [facility] (00 000) Hematocrit Auto 34 40.1-51.0 % Low 12-27-2017 [place] [facility] (Bld) [facility] (00 000) Hemoglobin mass 11.1 13.7-17.5 g/dL Low 12-27-2017 [place] [facility] ([place]ld[facility] Univers[facility] (00 000) Lactate, Whole 1.2 0.5-1.6 mmol/L Normal 12-27-2017 [facility] (00 000) Oxygen ppres 112 83-108 mm Hg High 12-27-2017 [facility] (BldA) [facility] (00 000) Oxygen 98 94-98 % Normal 12-27-2017 [place] [facility] [place] saturation in Univer sity Blood [facility] (00 000) PCO2 48 32-48 mm Hg Normal 12-27-2017 [place] [facility] [place] [facility] ( 000) pH (Bld) 7.29 7.35-7.45 [pH] Low 12-27-2017 [place] [facility] [place] [facility] ( 000) Potassium molar 3.8 3.5-5.0 mmol/L Normal 12-27-2017 [facility] [facility] ( 000) Sodium molar 138 133-143 mmol/L Normal 12-27-2017 [facility] ( 000) Specimen type Arterial Normal 12-27-2017 [facility] ( 000) Whole Bld 5.07 4.60-5.30 mg/dL Normal 12-27-2017 [place] [facility] [place] Ionized [place] [facility] ( 000) Base Deficit 0.6 0-3.0 mmol/L Normal 12-27-2017 [facility] ( 000) COMMENT Footwear Sales Representative Normal 12-27-2017 [facility] ( 000) Glucose mass 175 70-99 mg/dL High 12-27-2017 [facility] ( 000) HCO3 molar conc 24 22-26 mmol/L Normal 12-27-2017 [place] [facility] (d) [facility] ( 000) Hematocrit Auto 35 40.1-51.0 % Low 12-27-2017 [place] [facility] (d) [facility] ( 000) Hemoglobin mass 11.3 13.7-17.5 g/dL Low 12-27-2017 [place] [facility] (d[facility] Univers y [facility] ( 000) Lactate, Whole 1.2 0.5-1.6 mmol/L Normal 12-27-2017 [facility] ( 000) Oxygen ppres >488 83-108 mm[Hg] High 12-27-2017 [facility] (BldA) [facility] (00 000) Oxygen 100 94-98 % High 12-27-2017 [place] [facility] [place] saturation in Univer sity Blood [facility] ( 000) PCO2 46 32-48 mm Hg Normal 12-27-2017 [place] [facility] [place] [facility] () pH (Bld) 7.35 7.35-7.45 [pH] Normal 12-27-2017 [place] [facility] [place] [facility] ( 000) Potassium molar 4.6 3.5-5.0 mmol/L Normal 12-27-2017 [place] [facility] () Sodium molar 136 133-143 mmol/L Normal 12-27-2017 [facility] () Specimen type Arterial Normal 12-27-2017 [facility] () Whole Bld 4.57 4.60-5.30 mg/dL Low 12-27-2017 [place] [facility] [place] Ionized [place] [facility] () BASE EXCESS 0.5 mmol/L Normal 12-27-2017 [facility] () COMMENT Footwear Sales Representative Normal 12-27-2017 [facility] () Glucose mass 165 70-99 mg/dL High 12-27-2017 [facility] ( 000) HCO3 molar conc 25 22-26 mmol/L Normal 12-27-2017 [place] (d[place] [facility] ( 000) Hematocrit Auto 34 40.1-51.0 % Low 12-27-2017 [place] [facility] (Bld) [facility] ( 000) Hemoglobin mass 11.0 13.7-17.5 g/dL Low 12-27-2017 [place] [facility] (Bld) [facility] ( 000) Lactate, Whole 0.9 0.5-1.6 mmol/L Normal 12-27-2017 [facility] ( 000) Oxygen ppres >488 83-108 mm[Hg] High 12-27-2017 [place] [facility] ([facility] ( 000) Oxygen 100 94-98 % High 12-27-2017 [place] [facility] [place] saturation in Univer [facility]ity Blood [facility] ( 000) PCO2 45 32-48 mm Hg Normal 12-27-2017 [place] [facility] [place] [facility] ( 000) pH (Bld) 7.37 7.35-7.45 [pH] Normal 12-27-2017 [place] [facility] [place] [facility] ( 000) Potassium molar 4.6 3.5-5.0 mmol/L Normal 12-27-2017 [facility] ( 000) Sodium molar 138 133-143 mmol/L Normal 12-27-2017 [facility] ( 000) Specimen type Arterial Normal 12-27-2017 [facility] ( 000) Whole Bld 4.45 4.60-5.30 mg/dL Low 12-27-2017 [place] [facility] [place] Ionized [place] [facility] () BASE EXCESS 4.2 mmol/L Normal 12-27-2017 [facility] ( 000) COMMENT Footwear Sales Representative Normal 12-27-2017 [facility] ( 000) Glucose mass 141 70-99 mg/dL High 12-27-2017 [facility] ( 000) HCO3 molar conc 27 22-26 mmol/L High 12-27-2017 [place] [facility] ( 000) Hematocrit Auto 35 40.1-51.0 % Low 12-27-2017 [place] [facility] (Bld) [facility] ( 000) Hemoglobin mass 11.5 13.7-17.5 g/dL Low 12-27-2017 [place] (d) [facility] ( 000) Lactate, Whole 0.7 0.5-1.6 mmol/L Normal 12-27-2017 [facility] ( 000) Oxygen ppres >488 83-108 mm[Hg] High 12-27-2017 [facility] (BldA) [facility] ( 000) Oxygen 100 94-98 % High 12-27-2017 [place] saturation in Univer [facility]ity Blood [facility] ( 000) PCO2 51 32-48 mm Hg High 12-27-2017 [place] [facility] [place] [facility] ( 000) pH (Bld) 7.37 7.35-7.45 [pH] Normal 12-27-2017 [place] [facility] [place] [facility] () Potassium molar 4.6 3.5-5.0 mmol/L Normal 12-27-2017 [place] [facility] ( 000) Sodium molar 141 133-143 mmol/L Normal 12-27-2017 [facility] ( 000) Specimen type Arterial Normal 12-27-2017 [facility] ( 000) Whole Bld 4.58 4.60-5.30 mg/dL Low 12-27-2017 [place] [facility] [place] Ionized [place] [facility] ( 000) Base Deficit 3.8 0-3.0 mmol/L High 12-27-2017 [facility] ( 000) COMMENT Footwear Sales Representative Normal 12-27-2017 [facility] ( 000) Glucose mass 124 70-99 mg/dL High 12-27-2017 [facility] ( 000) HCO3 molar conc 22 22-26 mmol/L Normal 12-27-2017 [place] [facility] ( 000) Hematocrit Auto 39 40.1-51.0 % Low 12-27-2017 [place] [facility] (d) [facility] ( 000) Hemoglobin mass 12.8 13.7-17.5 g/dL Low 12-27-2017 [place] [facility] ( [facility] Lactate, Whole 0.9 0.5-1.6 mmol/L Normal 12-27-2017 [facility] ( 000) Oxygen ppres 197 83-108 mm Hg High 12-27-2017 [place] [facility] ([facility] ( 000) Oxygen 99 94-98 % High 12-27-2017 [place] [facility] [place] saturation in Univer sity Blood [facility] ( 000) PCO2 40 32-48 mm Hg Normal 12-27-2017 [place] [facility] [place] [facility] ( 000) pH (Bld) 7.34 7.35-7.45 [pH] Low 12-27-2017 [place] [facility] [place] [facility] ( 000) Potassium molar 4.1 3.5-5.0 mmol/L Normal 12-27-2017 [place] [facility] () Sodium molar 139 133-143 mmol/L Normal 12-27-2017 [facility] ( 000) Specimen type Arterial Normal 12-27-2017 [facility] () Whole Bld 4.65 4.60-5.30 mg/dL Normal 12-27-2017 [place] Ionized [place] [facility] ( 000) Base Deficit 3.9 0-3.0 mmol/L High 12-27-2017 [facility] ( 000) COMMENT Footwear Sales Representative Normal 12-27-2017 [facility] ( [facility] Glucose mass 119 70-99 mg/dL High 12-27-2017 [facility] ( 000) HCO3 molar conc 21 22-26 mmol/L Low 12-27-2017 [place] (Bld) [facility] ( 000) Hematocrit Auto 41 40.1-51.0 % Normal 12-27-2017 [place] [facility] (Bld) [facility] ( 000) Hemoglobin mass 13.5 13.7-17.5 g/dL Low 12-27-2017 [place] [facility] (Bld[place] Universit y [facility] ( 000) Oxygen ppres 91 83-108 mm Hg Normal 12-27-2017 [facility] (BldA) [facility] (00 000) Oxygen 96 94-98 % Normal 12-27-2017 [place] saturation in Univer sity Blood [facility] ( 000) PCO2 46 32-48 mm Hg Normal 12-27-2017 [place] [facility] [place] [facility] ( 000) pH (Bld) 7.30 7.35-7.45 [pH] Low 12-27-2017 [place] [facility] [place] [facility] ( 000) Potassium molar 3.7 3.5-5.0 mmol/L Normal 12-27-2017 [facility] ( 000) Sodium molar 140 133-143 mmol/L Normal 12-27-2017 [facility] ( 000) Specimen type Arterial Normal 12-27-2017 [facility] ( 000) Whole Bld 4.42 4.60-5.30 mg/dL Low 12-27-2017 [place] [facility] [place] [facility] ( [facility]) Base Deficit 0.7 0-3.0 mmol/L Normal 12-27-2017 [facility] ( 000) COMMENT Footwear Sales Representative Normal 12-27-2017 [facility] ( 000) Glucose mass 112 70-99 mg/dL High 12-27-2017 [facility] ( 000) HCO3 molar conc 23 22-26 mmol/L Normal 12-27-2017 [place] [facility]) [facility] ( 000) Hematocrit Auto 44 40.1-51.0 % Normal 12-27-2017 [place] [facility] (Bld) [facility] ( 000) Hemoglobin mass 14.4 13.7-17.5 g/dL Normal 12-27-2017 [place] [facility] ([place]ld[place] Univers[facility] (00 000) Lactate, Whole 0.6 0.5-1.6 mmol/L Normal 12-27-2017 [facility] () Oxygen ppres 261 83-108 mm Hg High 12-27-2017 [place] [facility] ([facility] () Oxygen 99 94-98 % High 12-27-2017 [place] saturation in Univer sity Blood [facility] () PCO2 54 32-48 mm Hg High 12-27-2017 [place] [facility] [place] [facility] () pH (Bld) 7.29 7.35-7.45 [pH] Low 12-27-2017 [place] [facility] () Potassium molar 4.0 3.5-5.0 mmol/L Normal 12-27-2017 [facility] () Sodium molar 140 133-143 mmol/L Normal 12-27-2017 [facility] () Specimen type Arterial Normal 12-27-2017 [facility] () Whole Bld 4.87 4.60-5.30 mg/dL Normal 12-27-2017 [place] Ionized [place] Universit y [facility] () urinalysis reflex culture on 2017-12-26 Appearance Nom (U) Clear Clear Normal 12-26-2017 [facility] nter ([id number]) Comment: Performed By: #### PTPTT ### #[facility] (DEFAULT)[address] [place] [address] 86283#### FT4, TSH, PALB ####[facility] [place] [address] 43 210[facility] [place] [address] 60229 Bacteria Absent Absent Normal 12-26-2017 [place] [facility] ( 000) Comment: Performed By: #### PTPTT ### #[facility] (DEFAULT)[address] [place] [address] 79611#### FT4, TSH, PALB ####[facility] [place] [address] 43 210[facility] [place] [address] 98677 Blood Urine Negative Negative Normal 12-26-2017 [facility] Ce nter ([id number]) Comment: Performed By: #### PTPTT ### #[facility] (DEFAULT)[address] [place] [address] 21071#### FT4, TSH, PALB ####[facility] [place] [address] 43 210[facility] [place] [address] 92329 Color Yellow Yellow Normal 12-26-2017 [facility] ([id number]) Comment: Performed By: #### PTPTT ### #[facility] (DEFAULT)[address] [place] [address] 98631#### FT4, TSH, PALB ####[facility] [place] [address] [facility] [place] [address] 06420 COMMENT URINE None Normal 12-26-2017 [facility] ([id number]) Comment: Performed By: #### PTPTT ### #[facility] (DEFAULT)[address] [place] [address] 17923#### FT4, TSH, PALB ####[facility] [place] [address] 43 210[facility] [place] [address] 47698 Glucose Ql (U) Negative Negative Normal 12-26-2017 [facility] Ce nter ([id number]) Comment: Performed By: #### PTPTT ### #[facility] (DEFAULT)[address] [place] [address] 70295#### FT4, TSH, PALB ####[facility] [place] [address] 43 210[facility] [place] [address] 81924 Ketones Ql (U) Negative Negative Normal 12-26-2017 [facility] (92808) Comment: Performed By: #### PTPTT ### #[facility] (DEFAULT)[address] [place] [address] 48596#### FT4, TSH, PALB ####[facility] [facility], [place] 43 210[facility] [place] [address] 97100 Leukocyte Esterase Negative Negative Normal 12-26-2017 [facility] Ce [facility]ter (43818) Comment: Performed By: #### PTPTT ### #[facility] (DEFAULT)[address] [place] [address] 31070#### FT4, TSH, PALB ####[facility] [place] [address], [place] 43 210[facility] [place] [address] 10124 Nitrites Urine Negative Negative Normal 12-26-2017 [facility] nter (62043) Comment: Performed By: #### PTPTT ### #[facility] (DEFAULT)[address] [place] [address] 08649#### FT4, TSH, PALB ####[facility] [place] [address] 43 210[facility] [place] [address] 71566 pH Test strip (U) 5.5 5.0-7.0 [pH] Normal 12-26-2017 [facility] nter (57329) Comment: Performed By: #### PTPTT ### #[facility] (DEFAULT)[address] [place] [address] 33425#### FT4, TSH, PALB ####[facility] [place] [address] 43 210[facility] [place], [place] [address] Protein Urine Negative Negative Normal 12-26-2017 [facility] nter (63120) Comment: Performed By: #### PTPTT ### #[facility] (DEFAULT)[address] [place] [address] 19205#### FT4, TSH, PALB ####[facility] [place] [address], [place] 43 210[facility] [place] [address] 57092 RBC LM.HPF #/area (Urine 0-2 0-2 Normal 12-26 [facility]) Medical Ce nter (13866) Comment: Performed By: #### PTPTT ### #[facility] (DEFAULT)[address] [place] [address] 15566#### FT4, TSH, PALB ####[facility] [place] [address] 210[facility] [place] [address] 86002 Specific [place] urine 1.019 1.001-1.035 Normal 12-26 [facility] (45384) Comment: Performed By: #### PTPTT ### #[facility] (DEFAULT)[address] [place] [address] 37506#### FT4, TSH, PALB ####[facility] [place] [address] 210[facility] [place] [address] 01457 Squamous Epithelial Absent Normal 12-26-2017 [facility] (00 000) Comment: Performed By: #### PTPTT ### #[facility] (DEFAULT)[address] [place] [address] 08352#### FT4, TSH, PALB ####[facility] [place] [address] 210[facility] [place] [address] 63121 Urobilinogen urine 0.2 <2.0 EU/dL Normal 12-26-2017 [facility] Ce nter (75430) Comment: Performed By: #### PTPTT ### #[facility] (DEFAULT)[address] [place] [address] 81028#### FT4, TSH, PALB ####[facility] [place] [address], [place] 43 210[facility] [place] [address] 00662 WBC LM.HPF #/area (Urine 0-5 0-5 Normal 12-26 [facility] sed) Medical Ce nter (69732) Comment: Performed By: #### PTPTT ### #[facility] (DEFAULT)[address] [place] [address] 05336#### FT4, TSH, PALB ####[facility] [place] [address], [place] 43 210[facility] [place] [address] 31509 type and cross on Type and ABO/RH(D): A POSITIVEANTIBODY Normal 12-26-2017 [facility] SCREEN: NEGATIVEUNIT NUMBER: [facility] [id number] COMPONENT TYPE: [facility] Red Cells, (40178) Leukoreduced_[id number] OF UNIT: REL FROM ALLOCTRANSFUSION STATUS: OK TO TRANSFUSECROSSMATCH RESULT: Electronically CompatibleUNIT NUMBER: [id number] COMPONENT TYPE: Red Cells, Leukoreduced_[id number] OF UNIT: REL FROM ALLOCTRANSFUSION STATUS: OK TO TRANSFUSECROSSMATCH RESULT: Electronically Compatible Comment: Performed By: #### CBCDFC, P TPTT, CA, CHM7, HFP, IPB, MGO, LIPDR, TROP ####[facility] [place] [address]Jkxnms[facility] [place] [address] 83582 hemogram (cbc and platelet) on 2017-12-26 Hematocrit Auto Volume 42.0 40.1-51.0 % Normal 018 [facility] Fraction (Bld) [facility] ([id number]) Comment: Performed By: #### PTPTT ### #[facility] (DEFAULT)[address] [place] [address] 22358#### FT4, TSH, PALB ####[facility] [place] [address] 43 210[facility] [place] [address] 23296 Hemoglobin mass conc 14.0 13.7-17.5 g/dL Normal 8 [facility] (Bld) [facility] (01430) Comment: Performed By: #### PTPTT ### #[facility] (DEFAULT)[address] [place] [address] 38430#### FT4, TSH, PALB ####[facility] [place] [address], [facility] 210[facility] [place] [address] 70117 MCV Auto Entitic volume 90.3 79.0-92.2 fL Normal 2017 [facility] (RBC) [facility] (80515) Comment: Performed By: #### PTPTT ### #[facility] (DEFAULT)[address] [place] [address] 92071#### FT4, TSH, PALB ####[facility] [place] [address] 210[facility] [place] [address] 56622 Mean Cell Hgb 30.1 25.7-32.2 pg Normal 12-26-2017 [facility] nter (06106) Comment: Performed By: #### PTPTT ### #[facility] (DEFAULT)[address] [place] [address] 78836#### FT4, TSH, PALB ####[facility] [place] [address] 43 210[facility] [place] [address] 11311 Mean Cell Hgb Conc 33.3 32.3-36.5 g/dL Normal 12-26-2017 [facility] nter (90705) Comment: Performed By: #### PTPTT ### #[facility] (DEFAULT)[address] [place] [address] 54291#### FT4, TSH, PALB ####[facility] [place] [address] 210[facility] [place] [address] 18656 Nucleated RBC #/vol 0.0 0.0-0.2 /100 WBC Normal - [facility] ([facility]) [facility] (78111) Comment: Performed By: #### PTPTT ### #[facility] (DEFAULT)[address] [place] [address] 57113#### FT4, TSH, PALB ####[facility] [place] [address] 210[facility] [place] [address] Platelet mean volume Auto 9.8 9.4-12.4 fL Normal [facility] Entitic volume (d) [facility] (54217) Comment: Performed By: #### PTPTT ### #[facility] (DEFAULT)[address] [place] [address] 00243#### FT4, TSH, PALB ####[facility] [place] [address] 210[facility] [place] [address] 14495 Platelets Auto #/vol 240 163-337 K/uL Normal 8 [facility] ([facility]) [facility] (06834) Comment: Performed By: #### PTPTT ### #[facility] (DEFAULT)[address] [place] [address] 36713#### FT4, TSH, PALB ####[facility] [place] [address] 210[facility] [place] [address] 32757 RBC Auto #/vol (Bld) 4.65 4.63-6.08 M/uL Normal 8 [facility] (98594) Comment: Performed By: #### PTPTT ### #[facility] (DEFAULT)[address] [place] [address] 79818#### FT4, TSH, PALB ####[facility] [place] [address] 210[facility] [place] [address] 03596 RBC Auto #/vol (Bld) 13.1 11.6-14.4 % Normal 8 [facility] nter (69105) Comment: Performed By: #### PTPTT ### #[facility] (DEFAULT)[address] [place] [address] 45324#### FT4, TSH, PALB ####[facility] [place] [address], [facility] 210[facility] [place] [address] 41962 WBC Auto #/vol (Bld) 5.82 4.23-9.07 K/uL Normal 8 [facility] (15608) Comment: Performed By: #### PTPTT ### #[facility] (DEFAULT)[address] [place] [address] 39711#### FT4, TSH, PALB ####[facility] [place] [address] 210[facility] [place] [address] 88000 echocardiogram on 2 ECHOCARDIOGRAM ? Left Ventricle: Chamber Normal 12-26-2017 [facility] size is normal. Normal wall [facility] thickness. There may be a (21001) subtle apical WMA. Ejection fraction normal (55 [...] molar conc 10 7-17 mmol/L Normal 018 [facility] nter (42398) Comment: Performed By: #### PTPTT ### #[facility] (DEFAULT)[address] [place] [address] 86255#### FT4, TSH, PALB ####[facility] [place] [address] 210[facility] [place] [address] 46514 Chloride molar conc 107 98-108 mmol/L Normal 12-26-2017 [facility] nter (57020) Comment: Performed By: #### PTPTT ### #[facility] (DEFAULT)[address] [place] [address] 50154#### FT4, TSH, PALB ####[facility] [place] [address] 210[facility] [place] [address] 30059 CO2 molar conc 25 22-30 mmol/L Normal 12-26-2017 [facility] (00 000) Comment: Performed By: #### PTPTT ### #[facility] (DEFAULT)[address] [place] [address] 75054#### FT4, TSH, PALB ####[facility] [place] [address] 210[facility] [place] [address] 79582 Creatinine mass conc 1.02 0.70-1.30 mg/dL Normal 8 [facility] (12724) Comment: Performed By: #### PTPTT ### #[facility] (DEFAULT)[address] [place] [address] 47585#### FT4, TSH, PALB ####[facility] [place] [address], [place] 43 210[facility] [place] [address] 94755 Est GFR, >60 >60 Normal 0 [facility] nter (32249) Comment: Performed By: #### PTPTT ### #[facility] (DEFAULT)[address] [place] [address] 06328#### FT4, TSH, PALB ####[facility] [place] [address] 43 210[facility] [place] [address] 37841 Est GFR,non >60 >60 Normal 0 12-26-2017 [facility] nter (29200) Comment: Performed By: #### PTPTT ### #[facility] (DEFAULT)[address] [place] [address] 99996#### FT4, TSH, PALB ####[facility] [place] [address] 210[facility] [place] [address] 21924 Glucose mass conc 88 70-99 mg/dL Normal 12-26-2017 [facility] nter (51647) Comment: Performed By: #### PTPTT ### #[facility] (DEFAULT)[address] [place] [address] 89120#### FT4, TSH, PALB ####[facility] [place] [address] 43 210[facility] [place] [address] 14368 Osmolality 290 278-305 mOsm/kg Normal 12-26-2017 [facility] (00 000) Comment: Performed By: #### PTPTT ### #[facility] (DEFAULT)[address] [place] [address] 94634#### FT4, TSH, PALB ####[facility] [place] [address] 210[facility] [place] [address] 60321 Potassium molar conc 4.0 3.5-5.0 mmol/L Normal 8 [facility] (03723) Comment: Performed By: #### PTPTT ### #[facility] (DEFAULT)[address] [place] [address] 36395#### FT4, TSH, PALB ####[facility] [place] [address] 43 210[facility] [place], [place] [address] Sodium molar conc 138 133-143 mmol/L Normal 12-26-2017 [facility] nter (82309) Comment: Performed By: #### PTPTT ### #[facility] (DEFAULT)[address] [place] [address] 95101#### FT4, TSH, PALB ####[facility] [place] [address] 210[facility] [place], [place] [address] Urea nitrogen mass conc 18 7-22 mg/dL Normal 2017 [facility] nter (67367) Comment: Performed By: #### PTPTT ### #[facility] (DEFAULT)[address] [place] [address] 87495#### FT4, TSH, PALB ####[facility] [place] [address] 43 210[facility] [place] [address] 61811 Urea nitrogen/Creatinine mass 18 mg/mg Normal 12-26-2017 [facility] (70254) Comment: Performed By: #### PTPTT ### #[facility] (DEFAULT)[address] [place] [address] 36372#### FT4, TSH, PALB ####[facility] [place] [address] 210[facility] [place] [address] 86800 xr chest portable o n 2017-12-25 XR CHEST EXAM: XR CHEST PORTABLE, Normal 12-25 [facility] PORTABLE 12/25/2017 05:54 AMCOMPARISON: [facility] INDICATIONS: pleural (45375) effusionRELEVANT CLINICAL HISTORY:FINDINGS: (Adequate technique)Life Support Devices: None Chest Wall: NormalHila: NormalMediastinum: NormalPleural Spaces: No definite pleural effusion. No definite pneumothorax.Lungs: ClearCardiac Silhouette: Normal, without overall or specific chamber enlargement,or abnormal calcification Thoracic Aorta: NormalPulmonary Vessels: Normal, without PVHIMPRESSION:No acute cardiopulmonary disease. hemogram (cbc and platelet) on 2017-12-25 Hematocrit Auto Volume 41.7 40.1-51.0 % Normal 018 [facility] (d) [facility] (29230) Comment: Performed By: #### PTPTT ### #[facility] (DEFAULT)[address] [place] [address] 79304#### FT4, TSH, PALB ####[facility] [place] [address] 43 210[facility] [place] [address] 99641 Hemoglobin mass conc 13.9 13.7-17.5 g/dL Normal 8 [facility] (d) [facility] (84881) Comment: Performed By: #### PTPTT ### #[facility] (DEFAULT)[address] [place] [address] 21270#### FT4, TSH, PALB ####[facility] [place] [address] 43 210[facility] [place] [address] 14515 MCV Auto Entitic volume 91.4 79.0-92.2 fL Normal 2017 [facility] (RBC) [facility] (56894) Comment: Performed By: #### PTPTT ### #[facility] (DEFAULT)[address] [place] [address] 66880#### FT4, TSH, PALB ####[facility] [place] [address] 210[facility] [place] [address] 21281 Mean Cell Hgb 30.5 25.7-32.2 pg Normal 12-25-2017 [facility] nter (18599) Comment: Performed By: #### PTPTT ### #[facility] (DEFAULT)[address] [place] [address] 33663#### FT4, TSH, PALB ####[facility] [place] [address] 210[facility] [place] [address] 91954 Mean Cell Hgb Conc 33.3 32.3-36.5 g/dL Normal 12-25-2017 [facility] Ce nter (33711) Comment: Performed By: #### PTPTT ### #[facility] (DEFAULT)[address] [place] [address] 54851#### FT4, TSH, PALB ####[facility] [place] [address] 210[facility] [place] [address] 05700 Nucleated RBC #/vol 0.0 0.0-0.2 /100 WBC Normal 12-25-2017 [facility] (Bld) [facility] (46313) Comment: Performed By: #### PTPTT ### #[facility] (DEFAULT)[address] [place] [address] 54382#### FT4, TSH, PALB ####[facility] [place] [address] 210[facility] [place] [address] 80116 Platelet mean volume 10.0 9.4-12.4 fL Normal 8 [facility] Auto Entitic volume [facility] ([facility]) (76964) Comment: Performed By: #### PTPTT ### #[facility] (DEFAULT)[address] [place] [address] 78122#### FT4, TSH, PALB ####[facility] [place] [address] 43 210[facility] [place] [address] 86090 Platelets Auto #/vol 253 163-337 K/uL Normal 8 [facility] (d) [facility] (74644) Comment: Performed By: #### PTPTT ### #[facility] (DEFAULT)[address] [place] [address] 54078#### FT4, TSH, PALB ####[facility] [place] [address] 210[facility] [place] [address] 48745 RBC Auto #/vol (d) 4.56 4.63-6.08 M/uL Low 8 [facility] nter (47747) Comment: Performed By: #### PTPTT ### #[facility] (DEFAULT)[address] [place] [address] 73336#### FT4, TSH, PALB ####[facility] [place] [address] 210[facility] [place] [address] 67232 RBC Auto #/vol (d) 13.3 11.6-14.4 % Normal 8 [facility] nter (50146) Comment: Performed By: #### PTPTT ### #[facility] (DEFAULT)[address] [place] [address] 35094#### FT4, TSH, PALB ####[facility] [place] [address] 43 210[facility] [place] [address] 97537 WBC Auto #/vol (Bld) 7.32 4.23-9.07 K/uL Normal 8 [facility] (13337) Comment: Performed By: #### PTPTT ### #[facility] (DEFAULT)[address] [place] [address] 31613#### FT4, TSH, PALB ####[facility] [place] [address] 210[facility] [place] [address] 92002 chem 7 on 5 Anion gap 3 molar conc 9 7-17 mmol/L Normal 018 [facility] nter (92304) Comment: Performed By: #### PTPTT ### #[facility] (DEFAULT)[address] [place] [address] 28715#### FT4, TSH, PALB ####[facility] [place] [address] 210[facility] [place] [address] 26188 Chloride molar conc 107 98-108 mmol/L Normal 12-25-2017 [facility] nter (47704) Comment: Performed By: #### PTPTT ### #[facility] (DEFAULT)[address] [place] [address] 05420#### FT4, TSH, PALB ####[facility] [place] [address] 210[facility] [place] [address] 20830 CO2 molar conc 24 22-30 mmol/L Normal 12-25-2017 [facility] (00 000) Comment: Performed By: #### PTPTT ### #[facility] (DEFAULT)[address] [place] [address] 25785#### FT4, TSH, PALB ####[facility] [place] [address] 210[facility] [place] [address] 68367 Creatinine mass conc 0.93 0.70-1.30 mg/dL Normal 8 [facility] (63232) Comment: Performed By: #### PTPTT ### #[facility] (DEFAULT)[address] [place] [address] 45870#### FT4, TSH, PALB ####[facility] [place] [address] 43 210[facility] [place] [address] 70901 Est GFR, >60 >60 Normal [facility] nter (18179) Comment: Performed By: #### PTPTT ### #[facility] (DEFAULT)[address] [place] [address] 09798#### FT4, TSH, PALB ####[facility] [place] [address] 43 210[facility] [place] [address] 94152 Est GFR,non >60 >60 Normal 0 12-25-2017 [facility] nter (97752) Comment: Performed By: #### PTPTT ### #[facility] (DEFAULT)[address] [place] [address] 15202#### FT4, TSH, PALB ####[facility] [place] [address] 210[facility] [place] [address] 71684 Glucose mass conc 85 70-99 mg/dL Normal 12-25-2017 [facility] nter (82998) Comment: Performed By: #### PTPTT ### #[facility] (DEFAULT)[address] [place] [address] 07821#### FT4, TSH, PALB ####[facility] [place] [address] 43 210[facility] [place] [address] 86747 Osmolality 286 278-305 mOsm/kg Normal 12-25-2017 [facility] (00 000) Comment: Performed By: #### PTPTT ### #[facility] (DEFAULT)[address] [place] [address] 36349#### FT4, TSH, PALB ####[facility] [place] [address] 43 210[facility] [place] [address] 80161 Potassium molar conc 4.1 3.5-5.0 mmol/L Normal 8 [facility] (88898) Comment: Performed By: #### PTPTT ### #[facility] (DEFAULT)[address] [place] [address] 44519#### FT4, TSH, PALB ####[facility] [place], [place] [address] [place] [address] 44248 Sodium molar conc 136 133-143 mmol/L Normal 12-25-2017 [facility] Ce nter (15636) Comment: Performed By: #### PTPTT ### #[facility] (DEFAULT)[address] [place] [address] 40046#### FT4, TSH, PALB ####[facility] [place], [place] [address] [place] [address] 40902 Urea nitrogen mass conc 16 7-22 mg/dL Normal 2017 [facility] nter (53438) Comment: Performed By: #### PTPTT ### #[facility] (DEFAULT)[address] [place] [address] 93733#### FT4, TSH, PALB ####[facility] [place], [place] [address] [place] [address] 54104 Urea nitrogen/Creatinine mass 17 mg/mg Normal 12-25-2017 [facility] (81379) Comment: Performed By: #### PTPTT ### #[facility] (DEFAULT)[address] [place] [address] 34424#### FT4, TSH, PALB ####[facility] [place] [address] 210[facility] [place] [address] 98732 xr chest portable o n 2017-12-24 XR CHEST EXAM: XR CHEST PORTABLE, Normal 12-24 [facility] 12/24/2017 04:50 AMCOMPARISON: [facility] No prior studies available for Medical Center comparison.CLINICAL ([id number]) INDICATIONS: chest painRELEVANT CLINICAL HISTORY:FINDINGS: (Adequate technique)Life Support Devices: None Chest Wall: NormalHila: NormalMediastinum: NormalPleural Spaces: No definite pleural effusion. No definite pneumothorax.Lungs: ClearCardiac Silhouette: Normal, without overall or specific chamber enlargement,or abnormal calcification Thoracic Aorta: NormalPulmonary Vessels: Normal, without PVHIMPRESSION:No acute cardiopulmonary disease. type and cross on 2 Type and Cross ABO/RH(D): A POSITIVE Normal [facility] ANTIBODY SCREEN: NEGATIVE [facility] (72282) Comment: Performed By: #### PTPTT ### #[facility] (DEFAULT)[address] [place] [address] 18046#### FT4, TSH, PALB ####[facility] [place], [place] [address] [address] [place] [address] 22566 tsh, high sensitivity on 2017-12-24 Thyrotropin Qn 3.726 0.550-4.780 uIU/mL Normal 12-24-[address] [facility] (43496) Comment: Performed By: #### PTPTT ### #[facility] (DEFAULT)[address] [place] [address], [place] [address]#### FT4, TSH, PALB ####[facility] [place] [address], [place] 43 210[facility] [place] [address] 26807 troponin i on 12-24 Troponin I.cardiac mass 0.01 <0.11 ng/mL Normal [address] [facility] (37280) Comment: Performed By: #### PTPTT ### #[facility] (DEFAULT)[address] [place] [address], [place] [address]#### FT4, TSH, PALB ####[facility] [place] [address], [place] 43 210[facility] [place] [address] 14644 Troponin I.cardiac mass <0.01 <0.11 ng/mL Normal [address] [facility] (92686) Comment: Performed By: #### PTPTT ### #[facility] (DEFAULT)[address] [place] [address] 50836#### FT4, TSH, PALB ####[facility] [place] [address], [place] 43 210[facility] [place] [address] 70429 Troponin I.cardiac mass <0.01 <0.11 ng/mL Normal [address] [facility] (42677) Comment: Performed By: #### PTPTT ### #[facility] (DEFAULT)[address] [place] [address], [place] [address]#### FT4, TSH, PALB ####[facility] [place] [address], [place] 43 210[facility] [place] [address] 91031 screen: resp staph (high risk surgery) - e on 2017-12-24 Screen: Resp NARES:NegativeNegative This Normal 12-24-2017 [facility] (high risk test was performed using a [facility]) - E real time PCR assay. Results Medical Center should be interpreted in (43292) conjunction with other clinical and laboratory findings. A positive result does not necessarily indicate the presence of viable organism. This test should not be used as a test of cure. For E-swab specimens, this test was developed and its performance characteristics determined by the Clinical Microbiology Laboratory at [facility]. It has not been cleared or approved by the FDA.The laboratory is regulated under CLIA as qualified to perform high-complexity testing. This test is used for clinical purposes. It should not be regarded as investigational or for research. Comment: Performed By: #### PTPTT ### #[facility] (DEFAULT)[address] [place] [address] 89995#### FT4, TSH, PALB ####[facility] 43 210[facility] [place] [address] 22208 pt*ptt on 4 aPTT Coag time (Bld) 27.6 24.0-34.3 sec Normal 8 [facility] (43253) Comment: Performed By: #### CBCDFC, P TPTT, CA, CHM7, HFP, IPB, MGO, LIPDR, TROP ####[facility] r[address] [place] [address] 32763TrtsyuGreen Cross Hospital[address] [address] INR Coag RelTime (PPP) 1.0 0.9-1.1 {INR} Normal 018 [facility] (00728) Comment: Performed By: #### CBCDFC, P TPTT, CA, CHM7, HFP, IPB, MGO, LIPDR, TROP ####[facility] r[address] [place] [address] 54035EhexmaGreen Cross Hospital[address] [place] [address] 17288 Prothrombin time (PT) 12.5 11.9-14.2 sec Normal 12-25-19 18 [facility] Coag time (PPP) [facility] (23876) Comment: Performed By: #### CBCDFC, P TPTT, CA, CHM7, HFP, IPB, MGO, LIPDR, TROP ####[facility] r[address] [place] [address] 12594LydrvfGreen Cross Hospital[address] [place] [address] 95700 aPTT Coag time This result has been Normal [facility] (Bld) cancelled. [facility] (90075) Comment: Performed By: #### PTPTT ### #[facility] (DEFAULT)[address] [place] [address] 31910#### FT4, TSH, PALB ####[facility] [place] [address] 43 210[facility] [place] [address] 26524 prealbumin on 12-24 Prealbumin mass conc 31 17-34 mg/dL Normal 8 [facility] Ce nter (07735) Comment: Performed By: #### PTPTT ### #[facility] (DEFAULT)[address] [place] [address] 30651#### FT4, TSH, PALB ####[facility] [place] [address] 43 210[facility] [place] [address] 47634 magnesium on 12-24 Magnesium mass conc 2.2 1.6-2.6 mg/dL Normal 12-24-2017 [facility] (81273) Comment: Performed By: #### PTPTT ### #[facility] (DEFAULT)[address] [place] [address] 18149#### FT4, TSH, PALB ####[facility] [place] [address] 210[facility] [place] [address] 24743 lipid panel with reflex to johnathon ldl on 2017-12-24 Glucose mass conc 114 mg/dL Normal 12-24-2017 [facility] (00 000) Comment: Performed By: #### PTPTT ### #[facility] (DEFAULT)[address] [place] [address] 36511#### FT4, TSH, PALB ####[facility] [place] [address] 210[facility] [place] [address] 19483 Hemoglobin A1c/Hemoglobin.total 5.6 4.7-5.6 % Normal 12-24-2017 [facility] mass fraction (Bld) [facility] (06730) Comment: Performed By: #### PTPTT ### #[facility] (DEFAULT)[address] [place] [address] 35114#### FT4, TSH, PALB ####[facility] [place], [place] [address] [address] [place] [address] 94204 inorganic phosphate on 2017-12-24 Inorg Phosphate 3.3 2.2-4.6 mg/dL Normal 12-24-2017 [facility] Ce nter (41159) Comment: Performed By: #### CBCDFC, P TPTT, CA, CHM7, HFP, IPB, MGO, LIPDR, TROP ####[facility] [place] [address] 97671TmnndoGreen Cross Hospital[address] [place] [address] 48087 hepatic function panel on 2017-12-24 Albumin mass conc 4.0 3.5-5.0 g/dL Normal 12-24-2017 [facility] nter (97568) Comment: Performed By: #### CBCDFC, P TPTT, CA, CHM7, HFP, IPB, MGO, LIPDR, TROP ####[facility] [place] [address] 84991YopmavGreen Cross Hospital[address] [place] [address] 66720 ALP enzyme act/vol 99 32-126 U/L Normal 12-24-2017 [facility] nter (09727) Comment: Performed By: #### CBCDFC, P TPTT, CA, CHM7, HFP, IPB, MGO, LIPDR, TROP ####[facility] r[address] [place], [place] [address] [place] [address] 81496 ALT enzyme act/vol 5 10-52 U/L Low 12-24-2017 [facility] (00 000) Comment: Performed By: #### CBCDFC, P TPTT, CA, CHM7, HFP, IPB, MGO, LIPDR, TROP ####[facility] r[address] [place] [address] [place], [place] [address] [address] [place] [address] 64939 AST enzyme act/vol 14 14-40 U/L Normal 12-24-2017 [facility] nter (00166) Comment: Performed By: #### CBCDFC, P TPTT, CA, CHM7, HFP, IPB, MGO, LIPDR, TROP ####[facility] r[address] [place], [place] [address] [place] [address] 87120 Bilirubin mass conc 0.5 <1.5 mg/dL Normal 12-24-2017 [facility] nter (05206) Comment: Performed By: #### CBCDFC, P TPTT, CA, CHM7, HFP, IPB, MGO, LIPDR, TROP ####[facility] r[address] [place] [address] [place], [place] [id number] [place] [address] 96113 Bilirubin.direct mass conc 0.1 <0.3 mg/dL Normal [facility] (54532) Comment: Performed By: #### CBCDFC, P TPTT, CA, CHM7, HFP, IPB, MGO, LIPDR, TROP ####[facility] r[address] [place] [address] 76806ZnigrlGreen Cross Hospital[address] [place] [address] 69131 Protein mass conc 6.5 6.4-8.3 g/dL Normal 12-24-2017 [facility] nter (22960) Comment: Performed By: #### CBCDFC, P TPTT, CA, CHM7, HFP, IPB, MGO, LIPDR, TROP ####[facility] r[address] [place] [address] [place] [address] [place] [address] 90478 free t4 on T4 free mass conc 1.15 0.89-1.76 ng/dL Normal 12-24-2017 [facility] nter (73707) Comment: Performed By: #### PTPTT ### #[facility] (DEFAULT)[address] [place] [address] 95359#### FT4, TSH, PALB ####[facility] [place] [address] 43 210[facility] [place] [address] 63754 chem 7 on 4 Anion gap 3 molar conc 13 7-17 mmol/L Normal 018 [facility] nter (67739) Comment: Performed By: #### CBCDFC, P TPTT, CA, CHM7, HFP, IPB, MGO, LIPDR, TROP ####[facility] r[address] [place] [address] 28345JtsjxuGreen Cross Hospital[address] [place] [address] 90409 Chloride molar conc 107 98-108 mmol/L Normal 12-24-2017 [facility] nter (06893) Comment: Performed By: #### CBCDFC, P TPTT, CA, CHM7, HFP, IPB, MGO, LIPDR, TROP ####[facility] r[address] [place] [address] [place], [place] [id number] [place] [address] 79028 CO2 molar conc 20 22-30 mmol/L Low 12-24-2017 [facility] (00 000) Comment: Performed By: #### CBCDFC, P TPTT, CA, CHM7, HFP, IPB, MGO, LIPDR, TROP ####[facility] r[address] [place], [place] [address] [place] [address] 19820 Creatinine mass conc 1.04 0.70-1.30 mg/dL Normal 8 [facility] (21200) Comment: Performed By: #### CBCDFC, P TPTT, CA, CHM7, HFP, IPB, MGO, LIPDR, TROP ####[facility] r[address] [place], [place] [address] [place] [address] 75764 Est GFR, >60 >60 Normal 07- [facility] Ce nter (98101) Comment: Performed By: #### CBCDFC, P TPTT, CA, CHM7, HFP, IPB, MGO, LIPDR, TROP ####[facility] r[address] [place], [place] [address] [place] [address] 87864 Est GFR,non >60 >60 Normal 0 12-24-2017 [facility] (50710) Comment: Performed By: #### CBCDFC, P TPTT, CA, CHM7, HFP, IPB, MGO, LIPDR, TROP ####[facility] [place], [place] [address] [place] [address] 52979 Glucose mass conc 107 70-99 mg/dL High 12-24-2017 [facility] nter (93263) Comment: Performed By: #### CBCDFC, P TPTT, CA, CHM7, HFP, IPB, MGO, LIPDR, TROP ####[facility] r[address] [place], [place] [address] [place] [address] 03059 Osmolality 286 278-305 mOsm/kg Normal 12-24-2017 [facility] (00 000) Comment: Performed By: #### CBCDFC, P TPTT, CA, CHM7, HFP, IPB, MGO, LIPDR, TROP ####[facility] r[address] [place], [place] [address] [place] [address] 71417 Potassium molar conc 3.8 3.5-5.0 mmol/L Normal 8 [facility] (09721) Comment: Performed By: #### CBCDFC, P TPTT, CA, CHM7, HFP, IPB, MGO, LIPDR, TROP ####[facility] r[address] [place], [place] [address] [place] [address] 64106 Sodium molar conc 136 133-143 mmol/L Normal 12-24-2017 [facility] nter (19636) Comment: Performed By: #### CBCDFC, P TPTT, CA, CHM7, HFP, IPB, MGO, LIPDR, TROP ####[facility] r[address] [place], [place] [address] [place] [address] 89725 Urea nitrogen mass conc 14 7-22 mg/dL Normal 2017 [facility] nter (08746) Comment: Performed By: #### CBCDFC, P TPTT, CA, CHM7, HFP, IPB, MGO, LIPDR, TROP ####[facility] r[address] [place], [place] [address] [place] [address] 69853 Urea nitrogen/Creatinine mass 13 mg/mg Normal 12-24-2017 [facility] (12466) Comment: Performed By: #### CBCDFC, P TPTT, CA, CHM7, HFP, IPB, MGO, LIPDR, TROP ####[facility] r[address] [place], [place] [address] [place] [address] cbc,platelet,differential - ccl on 2017-12-24 Abs Baso 0.05 <0.09 K/uL Normal 12-24-2017 [facility] (00 000) Comment: Performed By: #### CBCDFC, P TPTT, CA, CHM7, HFP, IPB, MGO, LIPDR, TROP ####[facility] r[address] [place], [place] [address] [place] [address] Abs Eos 0.24 <0.55 K/uL Normal 12-24-2017 [facility] (29052) Comment: Performed By: #### CBCDFC, P TPTT, CA, CHM7, HFP, IPB, MGO, LIPDR, TROP ####[facility] r[address] [place], [place] [address] [place] [address] 79261 Abs Meigs 0.40 0.30-0.82 K/uL Normal 12-24-2017 [facility] (00 000) Comment: Performed By: #### CBCDFC, P TPTT, CA, CHM7, HFP, IPB, MGO, LIPDR, TROP ####[facility] r[address] [place], [place] [address] [place] [address] 02176 Basophils/100 WBC Auto (Bld) 0.8 % Normal 0 12-24-2017 [facility] nter (69944) Comment: Performed By: #### CBCDFC, P TPTT, CA, CHM7, HFP, IPB, MGO, LIPDR, TROP ####[facility] r[address] [place], [place] [address] [place] [address] 30003 DIFFERENTIAL TYPE Electronic Differential Normal 12-24-2017 [facility] (48570) Comment: Performed By: #### CBCDFC, P TPTT, CA, CHM7, HFP, IPB, MGO, LIPDR, TROP ####[facility] r[address] [place], [place] [address] [place] [address] 57939 Eosinophils/100 WBC Auto (Bld) 3.9 % Normal 12-24-2017 [facility] nter (81673) Comment: Performed By: #### CBCDFC, P TPTT, CA, CHM7, HFP, IPB, MGO, LIPDR, TROP ####[facility] r[address] [place], [place] [address] [place] [address] 89542 Hematocrit Auto Volume 42.6 40.1-51.0 % Normal 018 [facility] (d) [facility] (18703) Comment: Performed By: #### CBCDFC, P TPTT, CA, CHM7, HFP, IPB, MGO, LIPDR, TROP ####[facility] r[address] [place], [place] [address] [place] [address] 97669 Hemoglobin mass conc 14.2 13.7-17.5 g/dL Normal 8 [facility] (d) [facility] (26295) Comment: Performed By: #### CBCDFC, P TPTT, CA, CHM7, HFP, IPB, MGO, LIPDR, TROP ####[facility] r[address] [place] [address] [place], [place] [address] [place] [address] 53476 IMMATURE GRANS % 0.6 % Normal 12-24-2017 [facility] (00 000) Comment: Performed By: #### CBCDFC, P TPTT, CA, CHM7, HFP, IPB, MGO, LIPDR, TROP ####[facility] r[address] [place], [place] [address] [place] [address] 29235 IMMATURE GRANS ABSOLUTE 0.04 <0.04 K/uL High 2017 [facility] nter (20043) Comment: Performed By: #### CBCDFC, P TPTT, CA, CHM7, HFP, IPB, MGO, LIPDR, TROP ####[facility] r[address] [place], [place] [address] [place] [address] 17521 Lymphocytes Auto #/vol 2.05 1.32-3.57 K/uL Normal [address] [place] [address] ([facility]) [facility] (68905) Comment: Performed By: #### CBCDFC, P TPTT, CA, CHM7, HFP, IPB, MGO, LIPDR, TROP ####[facility] r[address] [place], [place] [address] [place] [address] 27842 Lymphocytes/100 WBC Auto ([facility]) 32.9 % Normal 12-24-2017 [facility] (67638) Comment: Performed By: #### CBCDFC, P TPTT, CA, CHM7, HFP, IPB, MGO, LIPDR, TROP ####[facility] r[address] [place], [place] [address] [place] [address] 13038 MCV Auto Entitic volume 91.4 79.0-92.2 fL Normal 2017 [facility] (RBC) [facility] (55825) Comment: Performed By: #### CBCDFC, P TPTT, CA, CHM7, HFP, IPB, MGO, LIPDR, TROP ####[facility] r[address] [place], [place] [address] [place] [address] 82707 Mean Cell Hgb 30.5 25.7-32.2 pg Normal 12-24-2017 [facility] Ce nter (06320) Comment: Performed By: #### CBCDFC, P TPTT, CA, CHM7, HFP, IPB, MGO, LIPDR, TROP ####[facility] r[address] [place], [place] [address] [place] [address] 81516 Mean Cell Hgb Conc 33.3 32.3-36.5 g/dL Normal 12-24-2017 [facility] nter (27393) Comment: Performed By: #### CBCDFC, P TPTT, CA, CHM7, HFP, IPB, MGO, LIPDR, TROP ####[facility] r[address] [place], [place] [address] [place] [address] 50187 Monocytes/100 WBC Auto (Bld) 6.4 % Normal 0 12-24-2017 [facility] Ce nter (66509) Comment: Performed By: #### CBCDFC, P TPTT, CA, CHM7, HFP, IPB, MGO, LIPDR, TROP ####[facility] r[address] [place], [place] [address] [place] [address] 63901 NEUTROPHIL SEGMENTED 55.4 % Normal 8 [facility] (00 000) Comment: Performed By: #### CBCDFC, P TPTT, CA, CHM7, HFP, IPB, MGO, LIPDR, TROP ####[facility] r[address] [place] [address] 99346XancotGreen Cross Hospital[address] [place] [address] 90906 Nucleated RBC #/vol 0.0 0.0-0.2 /100 WBC Normal 12-24-2017 [facility] ([facility]) [facility] (08999) Comment: Performed By: #### CBCDFC, P TPTT, CA, CHM7, HFP, IPB, MGO, LIPDR, TROP ####[facility] r[address] [place], [place] [address] [place] [address] 22731 Platelet mean volume Auto 9.7 9.4-12.4 fL Normal 070 [facility] Entitic [facility] (d) [facility] (38857) Comment: Performed By: #### CBCDFC, P TPTT, CA, CHM7, HFP, IPB, MGO, LIPDR, TROP ####[facility] r[address] [place], [place] [address] [place] [address] 52942 Platelets Auto #/vol 246 163-337 K/uL Normal 8 [facility] ([facility]) [facility] (77403) Comment: Performed By: #### CBCDFC, P TPTT, CA, CHM7, HFP, IPB, MGO, LIPDR, TROP ####[facility] r[address] [place], [place] [address] [place] [address] 95986 RBC Auto #/vol ([facility]) 4.66 4.63-6.08 M/uL Normal 8 [facility] (92315) Comment: Performed By: #### CBCDFC, P TPTT, CA, CHM7, HFP, IPB, MGO, LIPDR, TROP ####[facility] r[address] [place] [address] 46663ZbxgehGreen Cross Hospital[address] [place] [address] 50191 RBC Auto #/vol (Bld) 13.5 11.6-14.4 % Normal 8 [facility] nter (87564) Comment: Performed By: #### CBCDFC, P TPTT, CA, CHM7, HFP, IPB, MGO, LIPDR, TROP ####[facility] r[address] [place], [place] [address] [place] [address] 34158 SEGS + Bands,Absolute 3.45 1.78-5.38 K/uL Normal 12-25-19 18 [facility] (17807) Comment: Performed By: #### CBCDFC, P TPTT, CA, CHM7, HFP, IPB, MGO, LIPDR, TROP ####[facility] r[address] [place] [address] [place], [place] [address] [place] [address] 17377 WBC Auto #/vol (Bld) 6.23 4.23-9.07 K/uL Normal 8 [facility] (13192) Comment: Performed By: #### CBCDFC, P TPTT, CA, CHM7, HFP, IPB, MGO, LIPDR, TROP ####[facility] r[address] [place], [place] [address] [place] [address] 12081 calcium on Calcium mass conc 9.2 8.6-10.5 mg/dL Normal 12-24-2017 [facility] nter (62660) Comment: Performed By: #### CBCDFC, P TPTT, CA, CHM7, HFP, IPB, MGO, LIPDR, TROP ####[facility] r[address] [place], [place] [address]RnykgiGreen Cross Hospital[address] [place], [place] [address] Vital Signs Vital Sign Description Value / Unit Date Location The following section is limited to 5 en tries per type and includes entries from the following time range: 20200205 - 20200323 3. Body Temperature 97.5 [degF] 04-04-2020 [facility] (00138) Body Temperature 97.39 [degF] 02-05-2020 [facility] (75263) Body weight 73.48 kg 04-04-2020 [place] (85925) Body weight 73.03 kg 02-05-2020 [facility] (49609) BP Diastolic 80 mm[Hg] 04-04-2020 [facility] (53227) BP Diastolic 68 mm[Hg] 02-05-2020 [facility] (23485) BP Systolic 150 mm[Hg] 04-04-2020 [facility] (96344) BP Systolic 106 mm[Hg] 02-05-2020 [facility] (72259) Height 167.6 cm 04-04-2020 [facility] (99006) Pulse (Heart Rate) 100 /min 04-04-2020 [facility] (68304) Pulse (Heart Rate) 82 /min 02-05-2020 [facility] amanda (90212) Pulse Oximetry 95 % 04-04-2020 [facility] (37054) Pulse Oximetry 96 % 02-05-2020 [facility] (27521) Respiratory Rate 12 /min 04-04-[facility] (98860[facility] Respiratory Rate 16 /min 02-05-2020 [facility] (07199) Encounters Date Type Reason Provider Location 12-24-2017 - Evaluation and Presence of [facility] [place] [facility] 01-01-2018 management of aortocoronary bypass [facility] inpatient graft [facility] (80709) 04-04-2020 - Patient encounter Requires vaccination Vimal Batista In ternal Medicine 04-04-2020 procedure [place] Comment: Need for vaccination (Primar y Dx); Chronic right-sided low back pain with right-sided sciatica 02-05-2020 - Patient encounter Contact with and Nereida N (It Coordinator Wo gerardo Urgent 02-05-2020 procedure (suspected) exposure Joiners Supervisor) [facility] to other viral communicable diseases Comment: Suspected COVID-19 virus inf ection (Primary Dx) 03-30-2020 - 03-30-2020 Refill Chronic low back [facility] Internal [facility] pain [place] Comment: Refill Request 02-23-2020 - 02-23-2020 Refill Chronic low back [facility] Internal Medicine pain [place] Comment: Refill Request 04-03-2020 - 04-03-2020 Telephone encounter Kiara (Gabby) Monie Berman Comment: Social Work Services 12-08-2019 - Telephone Lumbar radiculopathy [facility] Interna l 12-08-2019 encounter Medicine [place] Comment: Referral Information Procedures Procedure Name Date Provider Location INFLUENZA VACCINE 04-04-2020 - [facility] Clin ic ([id number]) QUADRIVALENT 6 MO - 64 YRS 04-04-2020 IM Plan of Treatment Plan Description Date Location LIPID SCREEN LIPID SCREEN 05-03-2024 - [place] 05-03-2024 ([id number]) DIABETES SCREEN DIABETES SCREEN 05-03-2022 - [place] 05-03-2022 ([id number]) ANNUAL PCP TEAM CHRONIC ANNUAL PCP TEAM CHRONIC 04-04-2021 - [place] DISEASE VISIT DISEASE VISIT 04-04-2021 ([id number]) ANNUAL PCP TEAM CHRONIC ANNUAL PCP TEAM CHRONIC 01-25-2021 - [place] DISEASE VISIT DISEASE VISIT 01-25-2021 ([id number]) LDL CHOLESTEROL LDL CHOLESTEROL 05-03-2020 - [place] 05-03-2020 ([id number]) PROSTATE CANCER PROSTATE CANCER SCREENING 04-04-2020 - [facility] SCREENING DISCUSSION DISCUSSION 04-04-2020 ([id number]) INFLUENZA (#1) INFLUENZA (#1) 2020 - [place] 02-22-2020 ([id number]) FECAL OCCULT BLOOD FECAL OCCULT BLOOD 03-13-2017 [place] ([id number]) FECAL OCCULT BLOOD FECAL OCCULT BLOOD 03-13-2017 - [place] 03-13-2017 ([id number]) LUNG CANCER SCREENING LUNG CANCER SCREENING 2016 - [facility] 2016 ([id number]) SHINGRIX VACCINE (1 of SHINGRIX VACCINE (1 of 2) 11-03-2011 - [place] 2) 11-03-2011 ([id number]) DTAP,TDAP,TD (1 - Tdap) DTAP,TDAP,TD (1 - Tdap) 1980 - [place] 1980 ([id number]) HEPATITIS C SCREENING HEPATITIS C SCREENING 11-03-1979 - [facility] 11-03-1979 ([id number]) HIV SCREENING HIV SCREENING 11-03-1979 - [place] 11-03-1979 ([id number]) SPIROMETRY SPIROMETRY 11-03-1979 - [place] 11-03-1979 ([id number]) XR LUMBAR GENERAL 3V XR LUMBAR GENERAL 3V 01-06-2021 [facility] AP/LAT/L5-S1 AP/LAT/L5-S1 Radiology ([id number]) Routine Lumbar radiculopathy Chronic right-sided low back pain with right-sided sciatica 1 Occurrences starting 12/08/2019 until 01/06/2021 Comment: 1 Occurrences starting 12/07 until 01/06/2021 no information [place] ([id number]) Immunizations Vaccine Notes Status Date Location Influenza Vaccine, influenza virus (completed) 05-04-2013 - [facility] Split-Non Spec vaccine, unspecified 05-04-2013 (4419 5) formulation Influenza Seasonal influenza, injectable, (completed) 04-04-2020 - [place] Inj Quad Age 6 Mo - quadrivalent, contains 04-04-2020 (34076) 64 Yrs preservative Influenza Seasonal influenza, injectable, (completed) 05-14-2019 - [place] Inj Quadrivalent Age quadrivalent, contains 05-14-2019 (51664) 3+ preservative Influenza Seasonal influenza, injectable, (completed) 03-15-2016 - [place] Inj Quadrivalent Age quadrivalent, contains 03-15-2016 (60533) 3+ preservative Influenza Seasonal influenza, injectable, (completed) 04-04-2015 - [place] Inj Quadrivalent Age quadrivalent, contains 04-04-2015 (41990) 3+ preservative Influenza Seasonal influenza, seasonal, (completed) 03-26-2018 [facility] Inj Age 3+ injectable 03-26-2018 (52554) Pneumovax pneumococcal (completed) 02-01-2013 - [facility] polysaccharide vaccine, 02-01-2013 (441 95) 23 valent Payers Payer Name Policy Number Location [facility] [employer] PA[employer]OR [place] (11 152) [employer] MEDICARE [id number] [place] (44 195) MEDICARE A AND B [id number] [facility] ([id number]) The following information is from the original human readable contentNo Payer Records Found Social History Type Social History Date Location Description Tobacco smoking status Current every day smoker 02-05-2020 - [place] NHIS 04-04-2020 ([id number]) Cigarettes smoked 02-05-2020 - [facility] ic current (pack per day) 04-04-2020 ([id number]) - Reported Tobacco use and Never used 02-05-2020 - [place] exposure 04-04-2020 (23079) Alcohol intake Current non-drinker of 02-05-2020 - [place] alcohol (finding) 04-04-2020 (30637) Tobacco Comment started smoking 13yo, 02-01-2013 - [place] usually 1PPD 02-01-2013 ([id number]) Sex Assigned At Not on file [place] ([id number]) Exposure to SARS-CoV-2 Not sure [place] (event) (48098) The following information is from the original [...] 02/01/2013 History of Present Illness Nereida Taylor (It Coordinator Joiners Supervisor) - 02/05/2020 3:10 PM EDTMnida Beckwith is a 59 year old male who presents with continue runny nose, body aches, and cough for the last 8 days. Improvements seen since last week. Patient here asking about his COVID-19 testing- says he went over to [facility] after my order was faxed and had an attempted test, but he could not tolerate it. He did not hear anything about the results- there is none in the [facility] system per Rayna Raines MA. He is in no acute distress. VSS. Encouraged the patient to return to [facility] to see if COVID-19 testing can be re-attempted. Neerida Taylor APRN.[facility] documented in this encounterVimal Batista - 04/04/2020 [...] admission ? Emphysema lung (HCC) 02/14/2020 imaging [facility] ? History of drug abuse (HCC) ? [...] since. ? COPD (chronic obstructive pulmonary disease) ([facility]) ? Depression remote history of suicidal admission ? Emphysema lung (HCC) 02/14/2020 imaging [facility] ? History of drug abuse ([facility]) ? Hyperlipidemia ? Low back pain with [...] Assessments Diagnosis Suspected COVID-19 virus infection - [facility] caroline Diagnosis Chronic right-sided low back [...] BE BASED ON THE PRIMARY CLINICAL RECORDS. [facility] provides no warranty or guarantee of the accuracy or completeness of information in this document. UNRECOGNIZED CONTENT PROVIDED BELOW FOR UNRECOGNIZED SECTION No Status Records FoundNo Status Records Found UNRECOGNIZED CONTENT PROVIDED BELOW FOR UNRECOGNIZED SECTION INFORMATION SOURCE DATE CREATED AUTHOR AUTHOR'S ORGANIZATIO N 01/22/2018 [facility] DATE CREATED AUTHOR AUTHOR'S ORGANIZATIO N 04/07/2020 [facility] UNRECOGNIZED CONTENT PROVIDED BELOW FOR UNRECOGNIZED SECTION Source Comments In the event this information is protected by the Federal Confidentiality of Alcohol and Drug Abuse Patient Records regulations: The Federal rules restrict any use of the information to criminally investigate or prosecute any alcohol or drug abuse patient.[place] event this information is protected by the Federal Confidentiality of Alcohol and Drug Abuse Patient Records regulations: The Federal rules restrict any use of the information to criminally investigate or prosecute any alcohol or drug abuse patient.[place] the event this information is protected by the Federal Confidentiality of Alcohol and Drug Abuse Patient Records regulations: The Federal rules restrict any use of the information to criminally investigate or prosecute any alcohol or drug abuse patient.[place] the event this information is protected by the Federal Confidentiality of Alcohol and Drug Abuse Patient Records regulations: The Federal rules restrict any use of the information to criminally investigate or prosecute any alcohol or drug abuse patient.[place] the event this information is protected by the Federal Confidentiality of Alcohol and Drug Abuse Patient Records regulations: The Federal rules restrict any use of the information to criminally investigate or prosecute any alcohol or drug abuse patient.[place] the event this information is protected by the Federal Confidentiality of Alcohol and Drug Abuse Patient Records regulations: The Federal rules restrict any use of the information to criminally investigate or prosecute any alcohol or drug abuse patient.[place] the event this information is protected by the Federal Confidentiality of Alcohol and Drug Abuse Patient Records regulations: The Federal rules restrict any use of the information to criminally investigate or prosecute any alcohol or drug abuse patient.[place] UNRECOGNIZED CONTENT PROVIDED BELOW FOR UNRECOGNIZED SECTION [...] Dr. Clement d/t unable to travel to [place] for any procedures. Will need updated imaging. elephone Encounter - Hope Jordan - 12/08/2019 3:[address] Clement office just called me back stated that the [facility] reviewed what we did fax to themand [...] No Authorizing Provider: KERRY SANDERS) Kerry Sanders APRN.[facility]ER elephone Encounter - Celena Perera RN - [...] to give him referral to specialist at [facility]. Gabby noted that referrals for specialist typically come from primary care provider and or nurse practitioners. Patient states that recent pcp appt was cancelled due to computers being down. Gabby advised patient to call in and request appt with [employer]CH[employer] to see about discussing referral to specialist. Patient states that he will call and see about seeing [employer] SERVICE MECHANIC for referral. documented in this encounter
== END 2019-11-27 11:39 | disposition home or self-care (01) ==
LOC: ED 11:33
PROVIDERS: Emergency Provider Physician Assistant Medical; PCP Internal Medicine
DX: S61.411A Laceration without foreign body of right hand, initial encounter (principal); I25.10 Atherosclerotic heart disease of native coronary artery without angina pectoris; I10 Essential (primary) hypertension; J44.9 Chronic obstructive pulmonary disease, unspecified; E78.5 Hyperlipidemia, unspecified; F17.200 Nicotine dependence, unspecified, uncomplicated; X58.XXXA Exposure to other specified factors, initial encounter
CPT/HCPCS: 12001; 99282

== ENCOUNTER 2019-12-09 12:02 | Emergency (ER) | payer MEDICARE, SELFPAY ==
[2019-12-09 12:07] VITALS: BP 165/93; PULSE 110; RESP 12; TEMP 37.1; O2SAT 99; BMI 25.4
[2019-12-09 12:11] VITALS: BP 165/93; PULSE 119; RESP 13; O2SAT 98
--- NOTE | 2019-12-09 12:11 | CT_ITS ---
STUDY: CT BRAIN WITHOUT CONTRAST REASON FOR EXAM: Male, 59 years old. RT LEG WEAKNESS RADIATION DOSAGE (If Supplied By Facility): CTDIvol = ( 44.99 ) mGy, DLP = ( 745.49 ) mGycm TECHNIQUE: Transaxial CT imaging of the brain was performed without administration of intravenous contrast material. Individualized dose optimization techniques were used for this CT. COMPARISON: Comparison is made with prior study dated October 26, 2016. FINDINGS: Normal soft tissue structures. Normal calvarium. Normal size ventricles and extra-axial spaces for the patient''s age. Normal white matter tracts of the cerebral hemispheres. Normal basal ganglia and thalami. Normal brainstem. Normal cerebellum. There is no intracranial hemorrhage. There are no findings of an acute ischemic infarction. Normal visualized paranasal sinuses. CT/Brain/Head without Contrast IMPRESSION: Normal unenhanced CT scan of the brain. Electronically Signed: Damir Cisneros, at 12:54 EDT , Service support ,
--- NOTE | 2019-12-09 12:11 | EKG12_ITS ---
Test Reason : CP Blood Pressure : / mmHG Vent. Rate : 102 BPM Atrial Rate : 102 BPM P-R Int : 150 ms QRS Dur : 092 ms QT Int : 336 ms P-R-T Axes : 075 089 063 degrees QTc Int : 437 ms Sinus tachycardia with occasional Premature ventricular complexes Otherwise normal ECG Confirmed by BLESSING JONES, LEIGH ANN ([id number]), map editor FARHAN MAGALLON ([id number]) on 12/14/2019 10:52:23 AM Referred By: CANDY Confirmed By:LEIGH ANN FUNK MD
[2019-12-09 12:17] VITALS: O2SAT 99
[2019-12-09 12:30] LABS: Prothrombin Time (Protime)PT. 12.2 SECONDS (11.7-14.9)
[2019-12-09 12:31] LABS: Partial Thromboplast Time 28.5 Seconds (24.1-36.2)
[2019-12-09 12:32] LABS: Absolute Lymphocyte Count 1.63 X10^3/uL (0.83-4.51); Absolute Neutrophil Count 2.3 X10^3/uL (2.0-7.7); Basophil# 0.04 X10^3/uL; Basophil% 0.9 % (0-1); Eosinophil# 0.19 X10^3/uL; Eosinophils% 4.3 % (0-5); Hemoglobin 15.2 g/dL (13.0-16.5); Lymphocyte # 1.63 X10^3/ul (4.0); Lymphocyte % 37.3 % (19-41); Mean Corp Hgb Conc 31.7 g/dL (32-36); Mean Corpuscular Hgb 30.2 pg (27.0-32.0); Mean Corpuscular Volume 95.2 fL (80-94); Mean Platelet Vol. 9.4 fl (6.2-12.0); Monocyte# 0.24 X10^3/uL; Monocyte% 5.5 % (0-10); NRBC Flagged by Analyzer 0 % (0-5); Neutrophil # 2.26 X10^3/uL (2.7-7.7); Neutrophil % 51.8 % (47-70); Platelet Count 291 K/mm3 (150-450); RBC Distribution Width CV 12.6 % (11.6-14.6); RBC Distribution Width SD 44.5 fl (35.1-43.9); Red Blood Count 5.04 M/mm3 (4.6-6.2); White Blood Count 4.4 K/mm3 (4.4-11.0)
--- NOTE | 2019-12-09 12:33 | RAD_ITS ---
STUDY: X-RAY CHEST REASON FOR EXAM: Male, 59 years old. Numbness, pain bilateral arms for 3-4 days TECHNIQUE: Single AP portable view of the chest. COMPARISON: Comparison is made with prior examination dated April 14, 2018. FINDINGS: There is hyperinflation of the lungs consistent with chronic obstructive lung disease (COPD). There is no demonstrated pleural abnormality. Sternal cerclage wires and vascular clips are present from a prior sternotomy and coronary artery bypass graft procedure (CABG). Normal mediastinum and moni. Normal visualized pulmonary arteries. There is atherosclerotic tortuosity of the aortic arch and descending thoracic aorta. There are diffuse degenerative changes of the visualized thoracic spine. Normal visualized ribs, clavicles, and shoulders. There is no demonstrated abnormality of the visualized soft tissue structures of the upper abdomen. RAD/Chest 1 View IMPRESSION: Hyperinflation. Decreased bronchovascular markings suggestive of emphysematous changes. Electronically Signed: Damir Cisneros, at 12:56 EDT , Service support ,
[2019-12-09 12:50] LABS: Anion Gap 9 (5-15); BUN 18 mg/dL (7-18); BUN/Creat Ratio 16.5 RATIO (10-20); Calcium,Total 8.9 mg/dL (8.5-10.1); Chloride 106 mmol/L (98-107); Creatinine, Serum 1.09 mg/dL (0.70-1.30); EST Glomerular Filtration Rate 74 mL/min (>60); Est Glom Filt Rate - Afr Amer 89 mL/min (>60); Estimated Creatinine Clearance 66.66 ml/min; Glucose 157 mg/dL (74-106); Potassium 4.1 mmol/L (3.5-5.1); Sodium Level 139 mmol/L (136-145)
--- NOTE | 2019-12-09 12:52 | ED.VIS.GEN ---
History of Present Illness Chief Complaint: Numb/Ting Narrative: 59-year-old male sent over from [facility] for stroke symptoms. But the past 3 days he has had weakness in his right leg and bilateral upper extremities as well as numbness in his upper extremities and pain between in both of his upper extremities. Denies any falls or trauma. Onset was gradual. Severity is moderate. No relieving or exacerbating factors. He has a history of previous stroke and this feels similar. He also has a history of cardiac disease with previous CABG. He smokes daily. He took himself off all of his medication 6 months ago because he did not like how it made him feel. Prior similar symptoms: Yes Capacity - Capacity Assessment Tool Can the patient make a choice & communicate that choice?: Yes Past Medical History - Allergies and Home Meds Allergies/Adverse Reactions: Allergies celecoxib [From Celebrex] Allergy (Verified 12/09/19 12:09) Swelling pregabalin [From Lyrica] Allergy (Verified 12/09/19 12:09) Swelling Primary Care Physician: Awa Chavez MD [Primary Care Provider] - Surgical History: angioplasty, herniorrhaphy, - - Ready extent placement, bilateral carpal tunnel surgery, PCI x 1. Smoking Status: Current every day smoker - Family History Maternal Family History: Family History (Last Reviewed 12/21/18 @ 15:36 by Anita Merritt) Father Myocardial infarction Uncle Myocardial infarction Family History: Reports: No pertinent history Paternal Family History: Family History (Last Reviewed 12/21/18 @ 15:36 by Anita Merritt) Father Myocardial infarction Uncle Myocardial infarction Family History: Reports: Heart Disease Review of Systems General: Denies: Chills, Fever, Sweats Eyes: Denies: Visual changes - bilaterally, Diplopia ENT: Denies: Rhinorrhea, Sore throat Cardiovascular: Denies: Chest pain, Palpitations Respiratory: Denies: Dyspnea, Cough, Dyspnea on exertion Gastrointestinal: Denies: Abdominal pain, Nausea, Vomiting, Diarrhea, Melena, Hematochezia Genitourinary: Denies: Dysuria, Hematuria, Frequency Musculoskeletal: Reports: Arthralgias, Extremity Pain. Denies: Back pain Skin: Denies: Rash, Wounds Neurological: Reports: Weakness, Numbness. Denies: Headache Physical Exam Vital Signs/Narrative: Vital Signs Temp Pulse Resp BP Pulse Ox 12/09/19 12:17 99 12/09/19 12:11 119 H 13 165/93 H 98 12/09/19 12:07 98.8 F 110 H 12 165/93 H 99 General: Well nourished, Well developed, No Acute Distress Head: Normocephalic, Atraumatic Eyes: Perrl, EOMI ENT: Moist mucous membranes, No rhinorrhea Neck: Supple, Nontender Cardiovascular: Regular rate, Regular rhythm, No murmurs Respiratory: No distress, CTA bilaterally, Chest nontender Abdomen: Soft, Nontender, Nondistended, Normal bowel sounds Back: Nontender, Normal Inspection Extremities: Nontender, No edema Skin: Normal color, No rash Neurological: Alert, Oriented x3, Cranial nerves II-XII grossly intact, Normal Strength, Normal Sensation, - - NIH is 0. He does have subjective right leg weakness but can still hold it above the bed for 10 seconds. Customer Success Associate are slightly weak but he can still hold both arms above the bed without difficulty. She is clear. Psychological: Normal affect, Normal Mood Diagnostic/Tx/Re-eval Chest X-Ray - ED: 1 View, Read by Radiologist, Normal, Heart, Lungs - Rhythm Strip Rhythm Strip: Sinus Rhythm Rate: 102 Ectopy: None - EKG Initial EKG Interpretation: Sinus Rhythm Prior: Unchanged - Medical Decision Making He is outside of the TPA window since he has had symptoms for essentially 3 days. I am obtaining head CT and labs. Plan is to admit medically. CT brain is negative. Labs are within normal limits. I called the hospitalist to admit him and was going to obtain neurology consultation but the patient is refusing. He states that he wants to leave. He states that he did not want to come here in the first place and he is absolutely refusing to be hospitalized. He has a completely normal neurologic exam. He does not appear intoxicated. He appears to have the capacity to make informed refusal of care. He states that he just absolutely hates hospitals in the healthcare system and he does not want to be here. I told him that he most likely had a stroke or that he could be having a cardiac issue and that it is very likely that this could get worse and he could . I told him I was extremely concerned that he could at home. He states that he understands this and still refuses to stay. I do not feel that I have the right to force him to stay in the hospital nor do we have the right to physically restrain him so I must honor his wishes and allow him to sign out AGAINST MEDICAL ADVICE after I explained all the risks at length. I offered to refill his medications as well and he does not want them. Did tell me that he will consider taking an aspirin every day and that he has some at home. He is going to follow[facility]up at [facility]. Urged him to come back if he changes his mind. ED Disposition - Plan for ED Patient: Disposition: Against Medical Advice Diagnosis: Acute ischemic stroke, Left against medical advice Instructions: ED Stroke Completed Referrals: Awa Chavez MD [Primary Care Provider] -
== END 2019-12-09 13:14 | disposition left against medical advice (07) ==
PROVIDERS: Emergency Provider Emergency Medicine; PCP Internal Medicine
DX: I63.9 Cerebral infarction, unspecified (principal); Z82.49 Family history of ischemic heart disease and other diseases of the circulatory system; Z88.6 Allergy status to analgesic agent; Z95.1 Presence of aortocoronary bypass graft; F17.200 Nicotine dependence, unspecified, uncomplicated; Z86.73 Personal history of transient ischemic attack (TIA), and cerebral infarction without residual deficits
CPT/HCPCS: 70450; 71045; 80048; 84484; 85025; 85610; 85730; 93005; 96360; 99284; J7030; A4216

== ENCOUNTER 2020-01-28 12:44 | Emergency (ER) | payer MEDICARE, SELFPAY ==
[2020-01-28 12:45] VITALS: BP 125/91; PULSE 92; RESP 18; TEMP 36.9; O2SAT 95; BMI 26.6
--- NOTE | 2020-01-28 13:08 | ED.VISSUMM ---
- ER Visit Summary Date of Service: 01/28/20 Chief Complaint: Subjective fever and chills History of Present Illness: The patient is a 59 M 2 CAD with double bypass, COPD and hypertension. Reported cardiac stents. Patient states his is immunocompromised and if she catches this virus she will . They states today he had subjective fever and chills. Mild sore throat. Denies a cough. Denies chest pain. Denies abdominal pain. Denies a rash. Denies any nausea, vomiting or diarrhea. Denies dysuria. Physical Examination: Male no acute distress vital signs stable afebrile temperature 94. Pulse ox 95% on room air no signs hypoxia. HEENT exam unremarkable. Posterior pharynx normal. No erythema or exudate. No trouble swallowing or breathing. No stridor. Neck nontender no lymphadenopathy no meningismus. Trachea midline. Lungs clear to auscultation bilaterally. Heart regular rhythm rate about 90 no murmur. Abdomen soft nontender normal bowel sounds no peritoneal signs. Extremities moves all 4. Skin no rashes. No edema. Neurologically is awake alert. Back nontender. Test Results: Send out COVID test Portable 1 view chest x-ray shows no acute abnormality read by myself. Changes. Prior sternotomy. Repeat exam patient is doing well at 1:56 PM will be discharged home. Emergency Department Course and Treatment: Patient presents with a viral URI type symptoms. My clinical suspicion for COVID is actually low but we will send a outpatient COVID test. Treatment Plan: Plenty of fluids and rest. Tylenol Motrin as needed. He knows the outpatient COVID test will take 3 to 7 days to return with the results most likely. Disposition: Discharge Impression: Viral syndrome Rule out COVID This note was generated with [employer] dictation software. It may contain incorrect words, spelling, and punctuation that were not noted in review of the chart prior to signing ED Disposition - Plan for ED Patient: Disposition: Home or Assisted Living Instructions: ED Viral Syndrome Referrals: Awa Chavez MD [Primary Care Provider] - 3-5 Days if not improving Additional Instructions: Plenty of fluids and rest. Alternate Tylenol and Motrin for fever and body aches. Follow-up with your doctor if not improving. We sent a COVID test that will take at least 3 if not 7 days to return and you will be notified of the results of positive.
--- NOTE | 2020-01-28 13:11 | ED.DEP ---
ED Disposition - Plan for ED Patient: Disposition: Home or Assisted Living Instructions: ED Viral Syndrome Referrals: Awa Chavez MD [Primary Care Provider] - 3-5 Days if not improving Additional Instructions: Plenty of fluids and rest. Alternate Tylenol and Motrin for fever and body aches. Follow-up with your doctor if not improving. We sent a COVID test that will take at least 3 if not 7 days to return and you will be notified of the results of positive.
--- NOTE | 2020-01-28 13:35 | RAD_ITS ---
STUDY: X-RAY CHEST REASON FOR EXAM: Male, 59 years old. FEVER SINCE THIS A.M. HX M.I. W/ STENT INSERTION, CABG DOUBLE BYPASS TECHNIQUE: Single AP portable view of the chest. COMPARISON: Comparison is made with prior examination dated 12/09/2019. FINDINGS: At this time, there is a mild degree of increased linear markings at the lung bases suggestive of bibasilar linear atelectasis and possible early infiltrates. There is no demonstrated pleural abnormality. There are calcifications of the coronary arteries. Normal mediastinum and moni. Normal visualized pulmonary arteries. There is atherosclerotic tortuosity of the aortic arch and descending thoracic aorta. There are diffuse degenerative changes of the visualized thoracic spine. Normal visualized ribs, clavicles, and shoulders. There is no demonstrated abnormality of the visualized soft tissue structures of the upper abdomen. RAD/Chest 1 View (Portable) IMPRESSION: Mild degree of increased markings at the lung bases suggestive of underlying atelectasis and/or early infiltrate. Electronically Signed: Damir Cisneros, at 13:56 EDT , Service support ,
== END 2020-01-28 14:25 | disposition home or self-care (01) ==
LOC: ED 13:31
PROVIDERS: Emergency Provider Emergency Medicine; PCP Internal Medicine
DX: B34.9 Viral infection, unspecified (principal); I10 Essential (primary) hypertension; I25.10 Atherosclerotic heart disease of native coronary artery without angina pectoris; J44.9 Chronic obstructive pulmonary disease, unspecified; Z95.1 Presence of aortocoronary bypass graft; Z95.5 Presence of coronary angioplasty implant and graft
CPT/HCPCS: 71045; 87635; 94799; 99282; U0003

== ENCOUNTER 2020-02-14 18:34 | Observation (INO) | payer MEDICARE, SELFPAY ==
[2020-02-14] VITALS (11 sets, daily range): BP systolic 114–128; BP diastolic 70–78; PULSE 65–73; RESP 13–20; TEMP 36.6–36.8; O2SAT 95–98; BMI 26.4; BMI 26.6
--- NOTE | 2020-02-14 18:53 | RAD_ITS ---
STUDY: X-RAY CHEST REASON FOR EXAM: Male, 59 years old. Chest pain started today, history of previous heart attack and COPD. TECHNIQUE: Single AP portable view of the chest. COMPARISON: January 28, 2020 FINDINGS: There is hyperinflation of the lungs consistent with chronic obstructive lung disease (COPD). Chronic emphysematous cystic changes and interstitial fibrosis of both lungs. No visualized consolidation or active pulmonary edema. There is no demonstrated pleural abnormality. Sternal cerclage wires and vascular clips are present from a prior sternotomy and coronary artery bypass graft procedure (CABG). Normal heart size. Stable osseous structures. RAD/Chest 1 View (Portable) IMPRESSION: COPD/emphysema Electronically Signed: Eliseo Jaeger MD at 19:21 EDT , Service support ,
--- NOTE | 2020-02-14 18:53 | EKG12_ITS ---
Test Reason : CP Blood Pressure : / mmHG Vent. Rate : 064 BPM Atrial Rate : 064 BPM P-R Int : 168 ms QRS Dur : 092 ms QT Int : 408 ms P-R-T Axes : 065 078 068 degrees QTc Int : 420 ms Normal sinus rhythm Confirmed by ADRYAN JONES, MAGGIE ([id number]), publications editor FARHAN MAGALLON ([id number]) on 02/16/2020 1:02:19 PM Referred By: DC Confirmed By:MAGGIE CORNELIUS MD
[2020-02-14] MEDS: Aspirin 81 MG TAB.CHEW 324 MG PO (19:13)
[2020-02-14] MEDS: Nitroglycerin SL (ED/IMG/CATH) 0.4 MG TABLET SUBLINGUAL (19:15)
[2020-02-14 19:25] LABS: Absolute Lymphocyte Count 2.64 X10^3/uL (0.83-4.51); Absolute Neutrophil Count 3.1 X10^3/uL (2.0-7.7); Basophil# 0.06 X10^3/uL; Basophil% 0.9 % (0-1); Eosinophil# 0.32 X10^3/uL; Eosinophils% 4.9 % (0-5); Hematocrit 44.7 % (40-54); Hemoglobin 14.5 g/dL (13.0-16.5); Lymphocyte # 2.64 X10^3/ul (4.0); Lymphocyte % 40.2 % (19-41); Mean Corp Hgb Conc 32.4 g/dL (32-36); Mean Corpuscular Hgb 30.5 pg (27.0-32.0); Mean Corpuscular Volume 94.1 fL (80-94); Mean Platelet Vol. 9.4 fl (6.2-12.0); Monocyte# 0.45 X10^3/uL; Monocyte% 6.8 % (0-10); NRBC Flagged by Analyzer 0 % (0-5); Neutrophil # 3.08 X10^3/uL (2.7-7.7); Neutrophil % 46.9 % (47-70); Platelet Count 337 K/mm3 (150-450); RBC Distribution Width SD 44.9 fl (35.1-43.9); Red Blood Count 4.75 M/mm3 (4.6-6.2); White Blood Count 6.6 K/mm3 (4.4-11.0)
[2020-02-14 19:29] LABS: Anion Gap 1 (5-15); BUN 13 mg/dL (7-18); BUN/Creat Ratio 10.9 RATIO (10-20); Calcium,Total 9.1 mg/dL (8.5-10.1); Chloride 105 mmol/L (98-107); Creatinine, Serum 1.19 mg/dL (0.70-1.30); EST Glomerular Filtration Rate 67 mL/min (>60); Est Glom Filt Rate - Afr Amer 81 mL/min (>60); Estimated Creatinine Clearance 61.06 ml/min; Glucose 83 mg/dL (74-106); Potassium 4.1 mmol/L (3.5-5.1); Sodium Level 139 mmol/L (136-145)
--- NOTE | 2020-02-14 20:14 | ED.DCSUM_ITS ---
- ER Visit Summary Date of Service: 02/14/20 Chief Complaint: Chest pain History of Present Illness: The patient is a 59 M with intermittent chest pain since yesterday. Retrosternal. Associated with lightheadedness and sweating. History of hypertension, hyperlipidemia, and CABG. Takes aspirin. Physical Examination: Vitals reviewed, unremarkable. Alert and oriented. No acute distress. Heart regular. Lungs clear. Skin, calves, pulses unremarkable. Test Results: EKG showed sinus rhythm without signs of ischemia or infarction pattern. CBC, BMP, troponin unremarkable. Chest x-ray normal. Emergency Department Course and Treatment: Patient was placed on the monitor. Treated with aspirin. EKG unremarkable. Labs and work-up unremarkable. He has a history of coronary disease and multiple medical risk factors. No recent stress testing. Hospitalist was contacted and he will be admitted. Treatment Plan: As above Disposition: Admission Impression: Chest pain This note was generated with [email or web address] dictation software. It may contain incorrect words, spelling, and punctuation that were not noted in review of the chart prior to signing ED Disposition - Plan for ED Patient: Disposition: Acute Care Hospital [facility]
--- NOTE | 2020-02-14 20:31 | PCM.HP.STD ---
Problem List (1) Chest pain Status: Acute (2) History of coronary artery stent placement Status: Chronic Comment: PTCA/Stent to LAD 2008 (3) Atherosclerotic heart disease of [place] coronary artery without angina pectoris Status: Chronic Qualifiers: Comment: PTCA/Stent to LAD 2008; CABG x2- AVALOS to OM, DANYELL to RCA 12/27/17 (4) Aortocoronary bypass status Status: Chronic Comment: CABG x2- AVALOS to OM2, DANYELL to RCA 12/27/17 @[facility] (5) History of illicit drug use Status: Chronic (6) History of medication noncompliance Status: Chronic (7) HLD (hyperlipidemia) Status: Chronic Qualifiers: (8) Depression Status: Chronic Qualifiers: (9) COPD (chronic obstructive pulmonary disease) Status: Chronic Qualifiers: (10) Tobacco user Status: Chronic (11) Benign essential hypertension Status: Chronic History of Present Illness Date of Admission: 02/14/20 Chief Complaint: chest pain The patient is a 59 year old male patient with a significant past medical history of coronary artery disease status post two-vessel CABG 2-1/2 years ago, history of noncompliance, hypertension, hyperlipidemia, COPD who presents to the emergency room with chest pain. Onset of chest pain was this afternoon when he was shopping while walking. As he left the store the heaviness and tightness that he experienced in his chest subsided however his convinced him to go get evaluated. He also had a similar episode of chest pain the day prior. The pain was substernal in character and described as a heaviness 7/10 in strength and was nonradiating. He did state the pain felt similar to his previous coronary artery disease episode. No nausea vomiting or diarrhea no fevers or chills at this present time. Patient will be admitted to the progressive care unit for further cardiac work-up. Past Medical History Past Medical History (Chronic Problems): Chronic Problems (Last Reviewed 12/21/18 @ 15:36 by Anita Merritt) History of coronary artery stent placement (Chronic ~2008) PTCA/Stent to LAD 2008 Atherosclerotic heart disease of [place] coronary artery without angina pectoris (Chronic) PTCA/Stent to LAD 2008; CABG x2- AVALOS to OM, DANYELL to RCA 12/27/17 Aortocoronary bypass status (Chronic ~12/27/17) CABG x2- AVALOS to OM2, DANYELL to RCA 12/27/17 @[facility] History of illicit drug use (Chronic) History of medication noncompliance (Chronic) Lumbar radiculopathy (Chronic) HLD (hyperlipidemia) (Chronic) Depression (Chronic) Complicated migraine (Chronic) COPD (chronic obstructive pulmonary disease) (Chronic) Tobacco user (Chronic) Benign essential hypertension (Chronic) Medical History: Medical History (Last Reviewed 12/21/18 @ 15:36 by Anita Merritt) Atherosclerotic heart disease of [place] coronary artery without angina pectoris (Chronic) I25.10 PTCA/Stent to LAD 2008; CABG x2- AVALOS to OM, DANYELL to RCA 12/27/17 History of illicit drug use (Chronic) Z87.898 History of medication noncompliance (Chronic) Z91.14 Lumbar radiculopathy (Chronic) M54.16 HLD (hyperlipidemia) (Chronic) E78.5 Depression (Chronic) F32.9 Complicated migraine (Chronic) G43.109 COPD (chronic obstructive pulmonary disease) (Chronic) J44.9 Tobacco user (Chronic) Z72.0 Benign essential hypertension (Chronic) I10 Chest pain (Resolved) R07.9 Unstable angina (Resolved) I20.0 Allergies celecoxib [From Celebrex] Allergy (Verified 02/14/20 18:39) Swelling pregabalin [From Lyrica] Allergy (Verified 02/14/20 18:39) Swelling Home Medications: Ambulatory Orders Medication Instructions Recorded escitalopram oxalate 20 mg tablet 20 mg PO DAILY 12/21/18 Aspirin [Low Dose Aspirin EC] 81 mg PO DAILY 02/14/20 Atorvastatin Calcium 80 mg PO DAILY 02/14/20 Metoprolol Tartrate [Lopressor 25 mg PO BID 02/14/20 (beta randa)] Surgical History: Surgical History (Last Reviewed 12/21/18 @ 15:36 by Anita Merritt) Aortocoronary bypass status (Chronic) Onset Date: ~12/27/17 Z95.1 CABG x2- AVALOS to OM2, DANYELL to RCA 12/27/17 @[facility] Surgical History: angioplasty, herniorrhaphy, - - Ready extent placement, bilateral carpal tunnel surgery, PCI x 1. Psychiatric History: Depression Smoking Status: Current every day smoker - *Family History Maternal Family History: Family History (Last Reviewed 12/21/18 @ 15:36 by Anita Merritt) Father Myocardial infarction Uncle Myocardial infarction History Items: No pertinent history Paternal Family History: Family History (Last Reviewed 12/21/18 @ 15:36 by Anita Merritt) Father Myocardial infarction Uncle Myocardial infarction History Items: Heart Disease Review of Systems Constitutional: Denies: Chills, Fever, Weight Change HEENT: Denies: Head Aches, Sinus Congestion, Sinus Drainage Cardiovascular: Reports: Chest Pain, Heaviness. Denies: Palpitations Respiratory: Denies: Cough, Shortness of breath at rest, Sputum production Gastrointestinal: Denies: Abdominal Pain, Nausea, Vomiting Genitourinary: Denies: Dysuria Musculoskeletal: Denies: Joint Pain, Joint Tenderness Skin: Denies: Rash, Wounds Neurological: Denies: Numbness, Tingling, Focal weakness Psychiatric: Denies: Anxiety, Depression, Homicidal Ideations, Suicidal Ideations Hematologic/ Lymphatic: Denies: Easy Bruising, Easy Bleeding VTE Information - Inpt Only VTE Present on Admission: No VTE Mechan Device Prophylaxis: None VTE Pharm Prophylaxis ordered?: Yes Patient Problems: Active and Suspected Problems (Last Reviewed 12/21/18 @ 15:36 by Anita Merritt) Chest pain (Acute) - Physical Exam Vitals/I&O's: Vital Signs Temp Pulse Resp BP Pulse Ox 97.8 F 70 14 128/77 H 97 02/14/20 18:36 02/14/20 20:00 02/14/20 20:00 02/14/20 20:00 02/14/20 20:00 Oxygen Delivery Method Room Air Weight: 163 lb 12.855 oz Body Mass Index (BMI) 26.4 Finger Stick Blood Glucose 120 General: Alert, Oriented x3, Cooperative HEENT: Atraumatic, Normocephalic Neck: Supple, Negative Carotid Bruits Lungs: Clear to auscultation, Normal air movement Cardiovascular: Regular rate, No murmurs Abdomen: Bowel Sounds Present, Soft, Non Tender Extremities: No edema, Capillary Refill Less than 3 Seconds Skin: No rashes Musculoskeletal: No Tenderness to Palpation of Joints or Extremities Neurological: Neuro grossly intact Psych/Mental Status: Normal Affect, Appropriate Laboratory Results 02/14/20 18:40: WBC 6.6, RBC 4.75, Hgb 14.5, Hct 44.7, MCV 94.1 H, MCH 30.5, MCHC 32.4, RDW Std Deviation 44.9 H, RDW Coeff of [place] 13.0, Plt Count 337, MPV 9.4, Immature Gran % (Auto) 0.300, Neut % (Auto) 46.9 L, Lymph % (Auto) 40.2, [place] % (Auto) 6.8, Eos % (Auto) 4.9, Baso % (Auto) 0.9, Absolute Neuts (auto) 3.1, Absolute Lymphs (auto) 2.64, Nucleated RBC % 0 02/14/20 18:40: Sodium 139, Potassium 4.1, Chloride 105, Carbon Dioxide 33.0 H, Anion Gap 1 L, BUN 13, Creatinine 1.19, Estim Creat Clear Calc 61.06, Est GFR (MDRD) Af Amer 81, Est GFR (MDRD) Non-Af 67, BUN/Creatinine Ratio 10.9, Glucose 83, Calcium 9.1, Troponin I < 0.015 Current Medications Nitroglycerin (Nitrostat) 0.4 mg SUBLINGUAL Q5M PRN PRN Reason: Chest pain Last Admin: 02/14/20 19:15 Dose: 0.4 mg Documented by: Assessment/Plan All Active Problems (Last Reviewed 12/21/18 @ 15:36 by Anita Merritt) Chest pain (Acute) Chest pain (Resolved) Unstable angina (Resolved) Chronic Problems (Last Reviewed 12/21/18 @ 15:36 by Anita Merritt) History of coronary artery stent placement (Chronic ~2008) PTCA/Stent to LAD 2008 Atherosclerotic heart disease of [place] coronary artery without angina pectoris (Chronic) PTCA/Stent to LAD 2008; CABG x2- AVALOS to OM, DNAYELL to RCA 12/27/17 Aortocoronary bypass status (Chronic ~12/27/17) CABG x2- AVALOS to OM2, DANYELL to RCA 12/27/17 @[facility] History of illicit drug use (Chronic) History of medication noncompliance (Chronic) Lumbar radiculopathy (Chronic) HLD (hyperlipidemia) (Chronic) Depression (Chronic) Complicated migraine (Chronic) COPD (chronic obstructive pulmonary disease) (Chronic) Tobacco user (Chronic) Benign essential hypertension (Chronic) Plan 1. Chest pain rule out DE?admit patient to progressive care unit for observation, order PRN morphine, oxygen, nitroglycerin as needed and aspirin per routine protocol. Will order cardiac nuclear stress test in the a.m. if troponin remains negative. Cycle cardiac markers per routine. I did communicate with Dr. Duran his ramp flight attendant who requested a stress test be done. 2. Hyperlipidemia?continue statin 3. Depression?continue SSRI 4. COPD?continue inhalers and continue smoking cessation encouragement 5. Hypertension?continue home medications 6. DVT prophylaxis?low molecular weight heparin. OBSV E&M: 99247 Initial observation care L2
--- NOTE | 2020-02-14 22:19 | EKG12_ITS ---
Test Reason : CP ADMIT Blood Pressure : / mmHG Vent. Rate : 064 BPM Atrial Rate : 064 BPM P-R Int : 196 ms QRS Dur : 090 ms QT Int : 414 ms P-R-T Axes : 069 082 070 degrees QTc Int : 427 ms Normal sinus rhythm Normal ECG When compared with ECG of 14-FEB-2020 18:41, MANUAL COMPARISON REQUIRED, DATA IS UNCONFIRMED Confirmed by JEFFERSON WHITAKER ([id number]), food editor PRADIP ÁLVAREZ ([id number]) on 02/17/2020 11:24:52 AM Referred By: DR HERNANDEZ Confirmed By:JEFFERSON WHITAKER
[2020-02-14] MEDS: Metoprolol(XL)Succ 25 MG Tablet PO (23:35)
[2020-02-14] MEDS: Atorvastatin Calcium 80 MG Tablet PO (23:35)
[2020-02-15] VITALS (10 sets, daily range): BP systolic 110–144; BP diastolic 54–94; PULSE 60–75; RESP 16–18; TEMP 36.5–37.1; O2SAT 93–99
[2020-02-15] MEDS: Morphine 2 MG/ML Syringe IV ×2 (05:08→10:12)
[2020-02-15] MEDS: 0.9% Saline Lock 10 ML Syringe IV ×3 (05:08→10:12)
[2020-02-15] MEDS: Aspirin E.C. 81 MG Tablet PO (05:13)
--- NOTE | 2020-02-15 05:55 | EKG12_ITS ---
Test Reason : AM EKG Blood Pressure : / mmHG Vent. Rate : 064 BPM Atrial Rate : 064 BPM P-R Int : 196 ms QRS Dur : 100 ms QT Int : 414 ms P-R-T Axes : 074 085 076 degrees QTc Int : 427 ms Normal sinus rhythm Normal ECG When compared with ECG of 14-FEB-2020 22:19, MANUAL COMPARISON REQUIRED, DATA IS UNCONFIRMED Confirmed by JEFFERSON WHITAKER ([id number]), editorial project manager DENG BARBOUR ([id number]) on 02/17/2020 9:13:46 AM Referred By: DR HERNANDEZ Confirmed By:JEFFERSON WHITAKER
[2020-02-15 07:00] LABS: Anion Gap 3 (5-15); BUN 16 mg/dL (7-18); Calcium,Total 8.4 mg/dL (8.5-10.1); Chloride 106 mmol/L (98-107); Cholesterol 112 mg/dL (200); Creatinine, Serum 0.94 mg/dL (0.70-1.30); EST Glomerular Filtration Rate 87 mL/min (>60); Est Glom Filt Rate - Afr Amer 106 mL/min (>60); Glucose 91 mg/dL (74-106); High Density Lipoprotein 34 mg/dL; Potassium 4.1 mmol/L (3.5-5.1); Sodium Level 139 mmol/L (136-145); Triglycerides 174 mg/dL; Very Low Density Lipoprotein 35 mg/dL (5-40)
[2020-02-15 07:50] LABS: Differential Comment MANUAL DIFF; Lymphocyte 31 % (19-41); Monocyte 9 % (0-10); Neutrophil-Segmented 60 % (47-70); Platelet Estimate ADEQUATE (ADEQ); Red Cell Morphology NORM C+C NORMAL (NORM C&C); Total Cells Counted 100 (MANUAL DIFF)
--- NOTE | 2020-02-15 07:50 | NURSING ---
Nicotine patch removed at this time
[2020-02-15 08:34] LABS: Absolute Lymphocyte Count 1.68 X10^3/uL (0.83-4.51); Absolute Neutrophil Count 3.8 X10^3/uL (2.0-7.7); Basophil# 0.04 X10^3/uL; Basophil% 0.6 % (0-1); Eosinophil# 0.29 X10^3/uL; Eosinophils% 4.7 % (0-5); Hematocrit 42.1 % (40-54); Hemoglobin 14.3 g/dL (13.0-16.5); Lymphocyte # 1.68 X10^3/ul (4.0); Lymphocyte % 27.2 % (19-41); Mean Corpuscular Hgb 32.1 pg (27.0-32.0); Mean Corpuscular Volume 94.4 fL (80-94); Mean Platelet Vol. 9.3 fl (6.2-12.0); Monocyte# 0.37 X10^3/uL; NRBC Flagged by Analyzer 0 % (0-5); Neutrophil # 3.77 X10^3/uL (2.7-7.7); Neutrophil % 61.2 % (47-70); Platelet Count 238 K/mm3 (150-450); RBC Distribution Width CV 13.2 % (11.6-14.6); RBC Distribution Width SD 44.6 fl (35.1-43.9); Red Blood Count 4.46 M/mm3 (4.6-6.2); White Blood Count 6.2 K/mm3 (4.4-11.0)
[2020-02-15] MEDS: Metoprolol(XL)Succ 25 MG Tablet PO (10:11)
[2020-02-15] MEDS: Escitalopram Oxalate 20 MG Tablet PO (10:11)
--- NOTE | 2020-02-15 13:06 | STRESSREP ---
Stress Test Report Date: 02-15-2020 Procedure: Exercise tolerance test/imaging study Indications: Chest pain; CAD; PCI; CABG Consent: Per the patient Procedure: The patient exercised on a Wolfgang protocol for 10 minutes and 32 seconds completing Stage III and 1 minute and 32 seconds of Stage IV achieving a peak heart rate of 148 bpm (91 % predicted maximal heart rate) with a peak blood pressure 162/88 mmHg and a peak MET capacity of 12 METs. The baseline ECG demonstrated normal sinus rhythm. The peak exercise ECG demonstrated somatic/motion artifact with no obvious ECG changes. There was a rare to occasional PVC during exercise and a rare PVC during recovery. The functional capacity was considered good. There was no complaint of chest discomfort during exercise or recovery. The examination was discontinued secondary to dyspnea. Impression: 1. Technically adequate (percent predicted maximal heart rate greater than 85%) exercise tolerance test 2. Peak exercise ECG with somatic/motion artifact with no obvious ECG changes 3. There was a rare to occasional PVC during exercise and a rare PVC during recovery 4. Nuclear images pending Myocardial perfusion imaging study: Technique: The patient was injected with 11.9 mCi of technetium 99m Cardiolite and subsequently rest SPECT Cardiolite nuclear imaging was obtained in the horizontal long, vertical long, and short axis views. The patient exercised on a Wolfgang protocol for 10 minutes and 32 seconds completing Stage III and 1 minute and 32 seconds of Stage IV achieving a peak heart rate of 148 bpm (91 % predicted maximal heart rate) with a peak blood pressure 162/88 mmHg and a peak MET capacity of 12 METs. The patient was injected with 34.4 mCi of technetium 99m Cardiolite and subsequently stress SPECT Cardiolite nuclear imaging was obtained in the horizontal long, vertical long, and short axis views. A gated Cardiolite study at peak stress was obtained. Interpretation: Rest and stress SPECT Cardiolite nuclear imaging status post realignment, normalization, and attenuation correction, demonstrates the appearance of relative uniform tracer uptake and myocardial perfusion appearing within normal limits. There is end systolic thickening and brightening. The gated Cardiolite study demonstrates myocardial thickening and inward wall motion. The reported LVEF is 65 %. Impression: 1. Rest and stress SPECT Cardiolite nuclear imaging demonstrate relative uniform tracer uptake and myocardial perfusion appearing within normal limits. 2. The gated Cardiolite study reports an LVEF of 65 %. This note was generated with [employer] software. It may contain incorrect words, spelling, and punctuation that were not noted in checking the note before signing.
--- NOTE | 2020-02-15 14:50 | DCINST_ITS ---
- Discharge Diagnoses Current Active Problems: Current Active and Chronic Problems (Last Reviewed 12/21/18 @ 15:36 by Anita Merritt) Chest pain (Acute) You will use the following diet at home:: No restrictions Your food should be the consistency of: Regular Your liquids should be the consistency of: Regular/Thin Discharge Activity: Return to Normal Activity Weight Bearing Status: Full weight bearing Allergies/Adverse Reactions: Allergies celecoxib [From Celebrex] Allergy (Verified 02/14/20 18:39) Swelling pregabalin [From Lyrica] Allergy (Verified 02/14/20 18:39) Swelling Medications to take at Discharge escitalopram oxalate 20 mg tablet 20 mg PO DAILY 12/21/18 Aspirin [Low Dose Aspirin EC] 81 mg PO DAILY 02/14/20 Atorvastatin Calcium 80 mg PO DAILY 02/14/20 Metoprolol Succinate [Toprol Xl] 25 mg PO BID 02/14/20 Primary Care Physician: Awa Chavez MD [Primary Care Provider] - Please follow up with your Primary Care Physician in: as scheduled Test Results: Test results from this visit will be discussed in further detail at your follow- up appointment, if applicable.
--- NOTE | 2020-02-15 18:07 | DS.PCM_ITS ---
Discharge Date and Diagnosis Date of Admission: 02/14/20 Date of Discharge: 02/15/20 - Primary Discharge Diagnosis Acute Problems: #1 musculoskeletal chest pain #2 atherosclerotic heart disease #3 essential hypertension #4 COPD - Secondary Discharge Diagnosis Chronic Problems: Chronic Problems (Last Reviewed 12/21/18 @ 15:36 by Anita Merritt) History of coronary artery stent placement (Chronic ~2008) PTCA/Stent to LAD 2008 Atherosclerotic heart disease of [place] coronary artery without angina pectoris (Chronic) PTCA/Stent to LAD 2008; CABG x2- AVALOS to OM, DANYELL to RCA 12/27/17 Aortocoronary bypass status (Chronic ~12/27/17) CABG x2- AVALOS to OM2, DANYELL to RCA 12/27/17 @[facility] History of illicit drug use (Chronic) History of medication noncompliance (Chronic) Lumbar radiculopathy (Chronic) HLD (hyperlipidemia) (Chronic) Depression (Chronic) Complicated migraine (Chronic) COPD (chronic obstructive pulmonary disease) (Chronic) Tobacco user (Chronic) Benign essential hypertension (Chronic) Hospital Course and Treatment Operations: None Procedures: Nuclear stress test Summary of Care Provided: The patient is a 59 year old M who was seen in the emergency room at [facility] with a chief complaint of precordial chest discomfort that lasted approximately 3 minutes prior to his arrival. Patient has a history of coronary artery disease, work-up in the emergency room included an EKG which showed no evidence of ischemic changes, chest x-ray which showed evidence of COPD, and cardiac enzymes which were unremarkable. Patient was placed in observation status on PCU and his cardiac enzymes were cycled-these remain normal and he underwent a nuclear stress test on 02/15/2020 which showed no evidence of reversible ischemia. On examination he appeared in good health and spirits. Vital signs as documented. Skin warm and dry and without overt rashes. Neck without JVD, neck was supple, trachea midline, thyroid was normal. Lungs clear bilaterally, normal air movement was noted. Heart exam notable for regular rhythm, normal sounds and absence of murmurs, rubs or gallops. Abdomen unremarkable and without evidence of organomegaly, masses, or abdominal aortic enlargement. Bowel sounds are present, abdomen is not distended. Extremities nonedematous, no cyanosis was noted, no clubbing was noted. Neuro: Cranial nerves II through XII are grossly intact, no focal motor deficits were noted, sensation to light touch and pinprick intact, motor exam 5/5 throughout. Psych: Patient is alert and oriented x3, he does not appear anxious or depressed, he does not appear agitated. Patient appears stable for discharge on 02/15/2020. - Physical Exam Vitals/I&O's: Vital Signs Temp Pulse Resp BP Pulse Ox 98.1 F 68 18 144/87 H 99 02/15/20 15:21 02/15/20 15:21 02/15/20 15:21 02/15/20 15:21 02/15/20 15:21 Oxygen Delivery Method Room Air Weight: 74.8 kg Body Mass Index (BMI) 26.6 Finger Stick Blood Glucose 120 Intake and Output for Last 24 Hours 02/13/20 02/14/20 02/15/20 23:59 23:59 23:59 Intake Total 120 / 120 Balance 120 / 120 Laboratory Results 02/14/20 18:40: WBC 6.6, RBC 4.75, Hgb 14.5, Hct 44.7, MCV 94.1 H, MCH 30.5, MCHC 32.4, RDW Std Deviation 44.9 H, RDW Coeff of [place] 13.0, Plt Count 337, MPV 9.4, Immature Gran % (Auto) 0.300, Neut % (Auto) 46.9 L, Lymph % (Auto) 40.2, [place] % (Auto) 6.8, Eos % (Auto) 4.9, Baso % (Auto) 0.9, Absolute Neuts (auto) 3.1, Absolute Lymphs (auto) 2.64, Nucleated RBC % 0 02/14/20 18:40: Sodium 139, Potassium 4.1, Chloride 105, Carbon Dioxide 33.0 H, Anion Gap 1 L, BUN 13, Creatinine 1.19, Estim Creat Clear Calc 61.06, Est GFR (MDRD) Af Amer 81, Est GFR (MDRD) Non-Af 67, BUN/Creatinine Ratio 10.9, Glucose 83, Calcium 9.1, Troponin I < 0.015 02/14/20 22:22: Troponin I < 0.015 02/15/20 00:55: Troponin I < 0.015 02/15/20 06:30: WBC 6.2, RBC 4.46 L, Hgb 14.3, Hct 42.1, MCV 94.4 H, MCH 32.1 H, MCHC 34.0, RDW Std Deviation 44.6 H, RDW Coeff of [place] 13.2, Plt Count 238, MPV 9.3, Immature Gran % (Auto) 0.300, Neut % (Auto) 61.2, Lymph % (Auto) 27.2, [place] % (Auto) 6.0, Eos % (Auto) 4.7, Baso % (Auto) 0.6, Absolute Neuts (auto) 3.8, Absolute Lymphs (auto) 1.68, Total Counted 100, Neutrophils % (Manual) 60, Lymphocytes % (Manual) 31, Monocytes % (Manual) 9, Nucleated RBC % 0, Differential Comment MANUAL DIFF, Platelet Estimate ADEQUATE, RBC Morphology NORM C+C 02/15/20 06:30: Sodium 139, Potassium 4.1, Chloride 106, Carbon Dioxide 30.0, Anion Gap 3 L, BUN 16, Creatinine 0.94, Estim Creat Clear Calc 77.30, Est GFR (MDRD) Af Amer 106, Est GFR (MDRD) Non-Af 87, BUN/Creatinine Ratio 17.0, Glucose 91, Calcium 8.4 L, Triglycerides 174, Cholesterol 112, LDL Cholesterol 43, VLDL Cholesterol 35, HDL Cholesterol 34 L Discharge Activity: Return to Normal Activity Weight Bearing Status: Full weight bearing Home Medications: Medications to take at Discharge escitalopram oxalate 20 mg tablet 20 mg PO DAILY 12/21/18 Aspirin [Low Dose Aspirin EC] 81 mg PO DAILY 02/14/20 Atorvastatin Calcium 80 mg PO DAILY 02/14/20 Metoprolol Succinate [Toprol Xl] 25 mg PO BID 02/14/20 Primary Care Physician: Awa Chavez MD [Primary Care Provider] - Please follow up with your Primary Care Physician in: as scheduled Disposition: Home Minutes spent on discharge:: 30 Patient Condition:: Stable Medical Necessity - Tobacco Use Smoking Status: Current every day smoker Meaningful Use Info Meaningful Use Diagnoses (Choose all that apply): None applicable OBSV E&M: 49502 Observation care discharge
== END 2020-02-15 15:35 | disposition home or self-care (01) ==
LOC: ED 20:32 → PCU 21:21
PROVIDERS: Admitting Provider Family Medicine; Emergency Provider Emergency Medicine; PCP Internal Medicine; Visit Provider Internal Medicine
DX: R07.89 Other chest pain (principal); E78.5 Hyperlipidemia, unspecified; R42 Dizziness and giddiness; I10 Essential (primary) hypertension; I25.10 Atherosclerotic heart disease of native coronary artery without angina pectoris; Z91.14 Patient's other noncompliance with medication regimen; J44.9 Chronic obstructive pulmonary disease, unspecified; F32.9 Major depressive disorder, single episode, unspecified; F17.210 Nicotine dependence, cigarettes, uncomplicated; Z95.1 Presence of aortocoronary bypass graft; Z79.899 Other long term (current) drug therapy; Z79.82 Long term (current) use of aspirin
CPT/HCPCS: 36415; 71045; 78452; 80048; 80061; 84484; 85025; 93005; 93017; 96374; 96376; 99218; 99285; 99406; A9500; A4216; G0378

== ENCOUNTER 2020-02-24 19:46 | Emergency (ER) | payer MEDICARE, SELFPAY ==
[2020-02-14 21:59] VITALS: BMI 26.6
[2020-02-24 19:47] VITALS: BP 136/78; PULSE 52; RESP 17; TEMP 36.3; O2SAT 99; BMI 26.0
--- NOTE | 2020-02-24 21:40 | ED.VISSUMM ---
- ER Visit Summary Date of Service: 02/24/20 Chief Complaint: Chronic long-term back pain History of Present Illness: The patient is a 59 M history of CAD with prior double bypass. Hypertension high cholesterol. History of degenerative disc disease and depression. Sees pain management Dr. Mandujano. Patient states he usually gets nerve block once a year. He followed up with Dr. Mandujano today and was discharged from the practice. He is going to follow-up with Dr. Clement but that appointment is pending. Patient states in the past he did abuse prescription pain medication and does not want to go down that road again. Physical Examination: Middle-aged male no acute distress vital signs stable afebrile. He does not look septic or toxic. H EENT exam unremarkable. Neck nontender. Lungs clear to auscultation bilaterally. Heart regular rhythm no murmur. Abdomen soft nontender normal bowel sounds no peritoneal signs. Extremities moves all 4. Neurovascular intact. 5/5 turn operator strength both upper extremities. Dorsi plantarflexion intact both lower extremities. Normal motor strength and sensation. No cauda equina. No saddle anesthesia. Normal medial thigh sensation. Negative straight leg raise bilaterally. Back nontender. No reproducible pain. No signs of trauma. Neurologically is awake alert with no focal motor deficits. Test Results: None patient does not warrant imaging at this time. Emergency Department Course and Treatment: Patient has acute on chronic back pain. He is in no distress. He easily stood up from a chair and climbed on the bed and got down from the bed with no problem. He is in no acute distress. He had problems with prescription narcotics in the past. I will write him a prescription for Naprosyn. He can follow-up with his pain management doctor. Treatment Plan: Naprosyn twice daily. Follow-up with Dr. Clement of pain management. Disposition: Discharge Impression: Acute on chronic back pain History of degenerative disc disease History of prior prescription medication abuse. History of pain management This note was generated with [employer] dictation software. It may contain incorrect words, spelling, and punctuation that were not noted in review of the chart prior to signing ED Disposition - Plan for ED Patient: Referrals: Awa Chavez MD [Primary Care Provider] -
--- NOTE | 2020-02-24 21:43 | ED.DEP ---
ED Disposition - Plan for ED Patient: Disposition: Home or Assisted Living Instructions: ED Back Pain Acute or Chronic Prescriptions: Naproxen [Naprosyn] 500 mg PO BID PRN PRN 10 Days #20 tab PRN Reason: Pain Or Fever Prescription Printed Referrals: Awa Chavez MD [Primary Care Provider] - As Needed Additional Instructions: Naprosyn twice a day as needed. This to decrease inflammation and pain in your back. Call and follow-up with your pain management doctor Dr. Clement. Follow-up with your primary as needed. Return emergency department if you are doing a lot worse such as bowel or bladder incontinence or lower extremity weakness.
== END 2020-02-24 21:56 | disposition home or self-care (01) ==
PROVIDERS: Emergency Provider Emergency Medicine; PCP Internal Medicine
DX: M54.9 Dorsalgia, unspecified (principal); G89.29 Other chronic pain; E78.00 Pure hypercholesterolemia, unspecified; I10 Essential (primary) hypertension; I25.10 Atherosclerotic heart disease of native coronary artery without angina pectoris; Z95.1 Presence of aortocoronary bypass graft
CPT/HCPCS: 99282

== ENCOUNTER 2020-03-12 14:15 | Emergency (ER) | payer MEDICARE, SELFPAY ==
[2020-03-12 14:17] VITALS: BP 144/120; PULSE 95; RESP 16; TEMP 36.3; O2SAT 100; BMI 25.4
--- NOTE | 2020-03-12 14:24 | ED.VIS.GEN ---
History of Present Illness Chief Complaint: Back Informant: Patient Onset: Days Context: Gradual Onset Timing: Continuous Current Severity: Moderate Maximum Severity: Severe Narrative: Patient is a 59-year-old male with medical history significant for hypertension, hyperlipidemia, prior two-vessel coronary bypass, and chronic back pain that presents with exacerbation of his back pain. The patient states that he is currently on the waiting list to see Dr. Clement through pain management. He was scheduled to have epidural injection about 2 weeks ago, but did not make his appointment. He states that his pain is just increased. He is here requesting short-term pain relief. He states he has a burning down his left leg which is not abnormal for him. He denies any difficulty urinating or moving his bowels. He states he is otherwise been in his normal state of health. Prior similar symptoms: Yes Recent Illness/Hospitalization: No Past Medical History - Allergies and Home Meds Allergies/Adverse Reactions: Allergies celecoxib [From Celebrex] Allergy (Verified 03/12/20 14:17) Swelling pregabalin [From Lyrica] Allergy (Verified 03/12/20 14:17) Swelling Primary Care Physician: Awa Chavez MD [Primary Care Provider] - Prior records reviewed: Yes Past Medical History: - - Hypertension, hyperlipidemia, coronary vascular disease Surgical History: angioplasty, herniorrhaphy, - - Ready extent placement, bilateral carpal tunnel surgery, PCI x 1. Smoking Status: Current every day smoker - Family History Maternal Family History: Family History (Last Reviewed 12/21/18 @ 15:36 by Anita Merritt) Father Myocardial infarction Uncle Myocardial infarction Family History: Reports: No pertinent history Paternal Family History: Family History (Last Reviewed 12/21/18 @ 15:36 by Anita Merritt) Father Myocardial infarction Uncle Myocardial infarction Family History: Reports: Heart Disease Review of Systems General: Denies: Chills, Fever, Sweats Eyes: Denies: Visual changes - bilaterally, Diplopia ENT: Denies: Rhinorrhea, Sore throat Cardiovascular: Denies: Chest pain, Palpitations Respiratory: Denies: Dyspnea, Cough, Dyspnea on exertion Gastrointestinal: Denies: Abdominal pain, Nausea, Vomiting, Diarrhea, Melena, Hematochezia Genitourinary: Denies: Dysuria, Hematuria, Frequency Musculoskeletal: Reports: Back pain. Denies: Extremity Pain Skin: Denies: Rash, Wounds Neurological: Denies: Headache, Weakness, Numbness Physical Exam Vital Signs/Narrative: Vital Signs Temp Pulse Resp BP Pulse Ox 03/12/20 14:17 97.3 F L 95 16 144/120 H 100 Inital Vital Signs reviewed: Yes General: Well nourished, Well developed, No Acute Distress Head: Normocephalic, Atraumatic Eyes: Perrl, EOMI ENT: Moist mucous membranes, No rhinorrhea Neck: Supple, Nontender Cardiovascular: Regular rate, Regular rhythm, No murmurs Respiratory: No distress, CTA bilaterally, Chest nontender Abdomen: Soft, Nontender, Nondistended, Normal bowel sounds Back: Normal Inspection. Negative for: CVA tenderness, Spinal tenderness Extremities: Nontender, No edema Skin: Normal color, No rash Neurological: Alert, Oriented x3, Cranial nerves II-XII grossly intact, Normal Strength, Normal Sensation Psychological: Normal affect, Normal Mood Diagnostic/Tx/Re-eval - Medical Decision Making Patient presents with an exacerbation of his chronic pain. He has normal reflexes and pulses of the lower extremity. He is a normal steady gait. He has no red flag symptoms. I have no concern for cauda equina. This does seem to be consistent with a lumbar radiculopathy. The patient was treated with Toradol, morphine, and Flexeril. I will write him a short course of Flexeril to help with his muscle spasms and he will follow-up with pain management as previously discussed. Impression 1. Exacerbation of chronic low back pain with radiculopathy ED Disposition - Plan for ED Patient: Instructions: ED LUMBAR RADICULOPATHY Prescriptions: cycloBENZAPRine HCl [Flexeril] 10 mg PO TID PRN #20 tab PRN Reason: Muscle Spasm Prescription Printed Referrals: Awa Chavez MD [Primary Care Provider] -
[2020-03-12] MEDS: Morphine 4 MG/ML Syringe IM (14:37)
[2020-03-12] MEDS: cycloBENZAPRine HCl 10 MG Tablet PO (14:37)
[2020-03-12] MEDS: Ketorolac 30 MG/ML Syringe IM (14:37)
[2020-03-12 15:29] VITALS: PULSE 79; RESP 18; O2SAT 97
--- NOTE | 2020-03-12 18:41 | ED.RN ---
Addendum entered by Ellie Watts 03/12/20 18:46: TIME FOR THIS NOTE SHOULD HAVE BEEN AT 1529 Original Note: THIS NURSE REVIEWED D/C INSTRUCTIONS WITH PT. PT VERBALIZED UNDERSTANDING OF INSTRUCTIONS. PT STATES WHAT THE HELL AM I SUPPOSED TO DO WHEN I'M IN PAIN TOMORROW. THEY FLEXERIL WILL ONLY TAKE MY PAIN DOWN TO A 5. IT WON'T MAKE IT GO AWAY. WHAT ARE YOU GOING TO DO ABOUT THAT? WHAT AM I SUPPOSED TO DO? THIS NURSE INFORMED THE PT THAT I DO NOT HAVE ANY WAY OF HELPING HIM GET INTO HIS NEW PAIN MANAGEMENT DOCTOR SOONER THAN HIS MARCH APPOINTMENT. I OFFERED TO ASK DR VEGA TO COME BACK IN AND SPEAK WITH THE PT. THE PT STATES NO I DON'T WANT HIM TO THINK THAT I AM LOOKING FOR PAIN MEDS. THE PT DENIES FURTHER NEEDS OR QUESTIONS AT THIS TIME. PT AMBULATES FROM ROOM ON OWN WITHOUT ASSISTANCE FROM STAFF
== END 2020-03-12 15:29 | disposition home or self-care (01) ==
LOC: ED 14:43
PROVIDERS: Emergency Provider Emergency Medicine; PCP Internal Medicine
DX: M54.16 Radiculopathy, lumbar region (principal); G89.29 Other chronic pain; M54.5 Low back pain; E78.5 Hyperlipidemia, unspecified; I10 Essential (primary) hypertension; Z82.49 Family history of ischemic heart disease and other diseases of the circulatory system; Z88.6 Allergy status to analgesic agent
CPT/HCPCS: 96372; 99282

== ENCOUNTER 2020-03-14 10:32 | Emergency (ER) | payer MEDICARE, SELFPAY ==
[2020-03-14 10:33] VITALS: BP 149/110; PULSE 129; RESP 17; TEMP 36.1; O2SAT 100; BMI 25.4
--- NOTE | 2020-03-14 11:16 | ED.DCSUM_ITS ---
- ER Visit Summary Date of Service: 03/14/20 Chief Complaint: Back pain History of Present Illness: The patient is a 59 M who presents with back pain that has been getting worse over the past month. Patient states the pain is in his left lower lumbar area and radiates down his left leg. Patient states it is better with standing. Patient describes pain as aching. Patient states the pain is been constant for the past month. Patient states he is scheduled for an MRI on Friday (in 6 days). Patient denies any bowel or bladder changes. Patient denies any saddle anesthesia. Patient denies any weakness. Patient admits to some paresthesias in his left leg. Patient states he called his primary care physician and was told that if his pain gets worse he should go to the emergency department and they can take care of his pain. Physical Examination: Vital signs are stable. Patient is afebrile. Patient is in no acute distress. Musculoskeletal exam reveals tenderness and spasm of the left lumbar paraspinal muscle. There is also tenderness over the sciatic notch. There is no midline tenderness. There is no bony crepitance or step-off. There is no deformity noted. Range of motion was slightly limited in all motion secondary to pain. Strength is 5/5 bilateral in the upper and lower extremities. There are no sensory deficits noted. Deep tendon reflexes are 2+/4 bilaterally in the lower extremities. There is no calf tenderness or edema. Posterior tibial pulses are equal bilaterally. Emergency Department Course and Treatment: Patient was instructed to use ice to the area. Patient was instructed to continue his Flexeril as prescribed. Patient was given injections of Toradol and morphine. Patient did not want a prescription for [place]. Patient was instructed to follow-up with his primary care physician and pain management physician for further management of his chronic pain. Patient understood and was agreeable with the plan. All questions were answered. Disposition: Discharge home Impression: 1. Acute on chronic back pain 2. Sciatica This note was generated with [employer] dictation software. It may contain incorrect words, spelling, and punctuation that were not noted in review of the chart prior to signing ED Disposition - Plan for ED Patient: Disposition: Home or Assisted Living Diagnosis: Acute exacerbation of chronic low back pain, Sciatica of left side Instructions: ED Back Pain Acute or Chronic, ED Pain Management Chronic Referrals: Awa Chavez MD [Primary Care Provider] - 5-7 Days
[2020-03-14] MEDS: Morphine 4 MG/ML Syringe IM (11:45)
[2020-03-14] MEDS: Ketorolac 30 MG/ML Syringe IM (11:45)
--- NOTE | 2020-03-14 11:50 | ED.RN ---
PT DECLINED RX FOR NORCO, STATES IT WON'T HELP. PT REQUESTS SAME SHOTS I GOT LAST TIME. MADE AWARE.
== END 2020-03-14 11:59 | disposition home or self-care (01) ==
LOC: ED 11:36
PROVIDERS: Emergency Provider Emergency Medicine; PCP Internal Medicine
DX: M54.42 Lumbago with sciatica, left side (principal); G89.29 Other chronic pain; E78.00 Pure hypercholesterolemia, unspecified; I25.10 Atherosclerotic heart disease of native coronary artery without angina pectoris; Z95.1 Presence of aortocoronary bypass graft; F17.210 Nicotine dependence, cigarettes, uncomplicated
CPT/HCPCS: 96372; 99282

== ENCOUNTER 2020-03-28 14:22 | Emergency (ER) | payer MEDICARE, SELFPAY ==
[2020-03-28 14:23] VITALS: BP 120/84; PULSE 116; RESP 18; TEMP 36.3; O2SAT 100; BMI 25.2
--- NOTE | 2020-03-28 14:42 | ED.DCSUM_ITS ---
History of Present Illness Chief Complaint: Other, Pain/Inj Narrative: 59-year-old male with past medical history of chronic back pain presents with back pain. States that he has had chronic sciatica worse on his right side over many years. Was previously in pain management and now only receives nerve blocks. States that he is due to have surgery within the next few months at the [facility]. States that he had an appointment today which was canceled due to their computer system being down. States that the pain is the same as his previous pain. Denies any new trauma, bladder or bowel incontinence, fever, chills, IV drug abuse, saddle anesthesia. Past Medical History - Allergies and Home Meds Allergies/Adverse Reactions: Allergies celecoxib [From Celebrex] Allergy (Verified 03/28/20 14:23) Swelling pregabalin [From Lyrica] Allergy (Verified 03/28/20 14:23) Swelling Primary Care Physician: Awa Chavez MD [Primary Care Provider] - Past Medical History: - - CAD, chronic back pain Surgical History: angioplasty, herniorrhaphy, - - Ready extent placement, bilateral carpal tunnel surgery, PCI x 1. Lives: Spouse/ Significant Other Smoking Status: Current every day smoker Alcohol: None Drugs: None - Family History Maternal Family History: Family History (Last Reviewed 12/21/18 @ 15:36 by Anita Merritt) Father Myocardial infarction Uncle Myocardial infarction Family History: Reports: No pertinent history Paternal Family History: Family History (Last Reviewed 12/21/18 @ 15:36 by Anita Merritt) Father Myocardial infarction Uncle Myocardial infarction Family History: Reports: Heart Disease Review of Systems General: Denies: Chills, Fever, Sweats Eyes: Denies: Visual changes - bilaterally, Diplopia ENT: Denies: Rhinorrhea, Sore throat Cardiovascular: Denies: Chest pain, Palpitations Respiratory: Denies: Dyspnea, Cough, Dyspnea on exertion Gastrointestinal: Denies: Abdominal pain, Nausea, Vomiting, Diarrhea, Melena, Hematochezia Genitourinary: Denies: Dysuria, Hematuria, Frequency Musculoskeletal: Reports: Back pain. Denies: Extremity Pain Skin: Denies: Rash, Wounds Neurological: Denies: Headache, Weakness, Numbness Physical Exam Vital Signs/Narrative: Vital Signs Temp Pulse Resp BP Pulse Ox 03/28/20 14:23 97.3 F L 116 H 18 120/84 H 100 Inital Vital Signs reviewed: Yes General: Well nourished, Well developed, No Acute Distress Head: Normocephalic, Atraumatic Eyes: Perrl, EOMI ENT: Moist mucous membranes, No rhinorrhea Neck: Supple, Nontender Cardiovascular: Regular rate, Regular rhythm, No murmurs Respiratory: No distress, CTA bilaterally, Chest nontender Abdomen: Soft, Nontender, Nondistended, Normal bowel sounds Back: - - TTP of the bilateral paraspinal musculature. Muscle spasm presnts. No overlying skin changes. Extremities: Nontender, No edema Skin: Normal color, No rash Neurological: Alert, Oriented x3, Cranial nerves II-XII grossly intact, Normal Strength, Normal Sensation Psychological: Normal affect, Normal Mood Diagnostic/Tx/Re-eval - Medical Decision Making Appears well nontoxic. Vital signs within normal limits. No red flag symptoms for cauda equina syndrome. Patient will be given Toradol and intramuscular morphine. Patient will be asked to follow-up with his surgeon as well as pain medicine specialist. Asked to return for new or worsening symptoms. Patient agreeable and discharged home in stable condition. Impression: 1. Acute on chronic lumbar back pain ED Disposition - Plan for ED Patient: Disposition: Home or Assisted Living Instructions: ED Back Pain Acute or Chronic Referrals: Awa Chavez MD [Primary Care Provider] -
[2020-03-28 14:52] VITALS: BP 133/89; PULSE 103; RESP 16; O2SAT 100
[2020-03-28 14:58] VITALS: BP 133/89; PULSE 105; RESP 14; O2SAT 97
[2020-03-28] MEDS: Ketorolac 15 MG/ML Vial IM (15:01)
[2020-03-28] MEDS: Morphine 4 MG/ML Syringe IM (15:02)
== END 2020-03-28 15:19 | disposition home or self-care (01) ==
LOC: ED 15:02
PROVIDERS: Emergency Provider Emergency Medicine; PCP Internal Medicine
DX: M54.5 Low back pain (principal); G89.29 Other chronic pain; I25.10 Atherosclerotic heart disease of native coronary artery without angina pectoris; F17.200 Nicotine dependence, unspecified, uncomplicated; Z82.49 Family history of ischemic heart disease and other diseases of the circulatory system; Z88.6 Allergy status to analgesic agent
CPT/HCPCS: 96372; 99283

== ENCOUNTER 2020-04-04 17:53 | Emergency (ER) | payer MEDICARE, SELFPAY ==
[2020-04-04 17:54] VITALS: BP 170/104; PULSE 105; RESP 16; TEMP 36.2; O2SAT 99; BMI 26.2
--- NOTE | 2020-04-04 18:10 | ED.VIS.GEN ---
History of Present Illness Chief Complaint: Back Informant: Patient Narrative: 59-year-old male with chronic back pain presents with back pain. States it is been worsening over the past few weeks. I personally saw this patient a few weeks ago for the same issue. Patient at that time was given Toradol and intramuscular morphine. Patient states that the pain is radiating down both of his legs. States the low back pain is aching. Worse with movement. Denies any fever, chills, IV drug abuse, saddle anesthesia, loss of bowel or bladder. Patient is currently looking for a spinal surgeon. Past Medical History - Allergies and Home Meds Allergies/Adverse Reactions: Allergies celecoxib [From Celebrex] Allergy (Verified 04/04/20 17:55) Swelling pregabalin [From Lyrica] Allergy (Verified 04/04/20 17:55) Swelling Primary Care Physician: Awa Chavez MD [Primary Care Provider] - Prior records reviewed: Yes Past Medical History: - - chronic back pain Surgical History: angioplasty, herniorrhaphy, - - Ready extent placement, bilateral carpal tunnel surgery, PCI x 1. Lives: Alone Smoking Status: Current every day smoker Alcohol: None Drugs: None - Family History Maternal Family History: Family History (Last Reviewed 12/21/18 @ 15:36 by Anita Merritt) Father Myocardial infarction Uncle Myocardial infarction Family History: Reports: No pertinent history Paternal Family History: Family History (Last Reviewed 12/21/18 @ 15:36 by Anita Merritt) Father Myocardial infarction Uncle Myocardial infarction Family History: Reports: Heart Disease Review of Systems General: Denies: Chills, Fever, Sweats Eyes: Denies: Visual changes - bilaterally, Diplopia ENT: Denies: Rhinorrhea, Sore throat Cardiovascular: Denies: Chest pain, Palpitations Respiratory: Denies: Dyspnea, Cough, Dyspnea on exertion Gastrointestinal: Denies: Abdominal pain, Nausea, Vomiting, Diarrhea, Melena, Hematochezia Genitourinary: Denies: Dysuria, Hematuria, Frequency Musculoskeletal: Reports: Back pain. Denies: Extremity Pain Skin: Denies: Rash, Wounds Neurological: Denies: Headache, Weakness, Numbness Physical Exam Vital Signs/Narrative: Vital Signs Temp Pulse Resp BP Pulse Ox 04/04/20 17:54 97.1 F L 105 H 16 170/104 H 99 General: Well nourished, Well developed, No Acute Distress Head: Normocephalic, Atraumatic Eyes: Perrl, EOMI ENT: Moist mucous membranes, No rhinorrhea Neck: Supple, Nontender Cardiovascular: Regular rate, Regular rhythm, No murmurs Respiratory: No distress, CTA bilaterally, Chest nontender Abdomen: Soft, Nontender, Nondistended, Normal bowel sounds Back: Normal Inspection, - - TTP in the bilateral paraspinal lumbar musculature. No midline tenderness. Extremities: Nontender, No edema Skin: Normal color, No rash Neurological: Alert, Oriented x3, Cranial nerves II-XII grossly intact, Normal Strength, Normal Sensation Psychological: Normal affect, Normal Mood Diagnostic/Tx/Re-eval - Medical Decision Making Patient appears well and nontoxic. Vital signs within normal limits. No signs of acute cauda equina. Patient be given Toradol, Flexeril, and Lidoderm patch. Patient will be referred to spinal surgeon. Patient advised no narcotics can be given at this time. Agreeable with this plan and discharged home in stable condition. Impression: 1. Acute on chronic lumbar back pain ED Disposition - Plan for ED Patient: Disposition: Home or Assisted Living Instructions: ED Back Pain Acute or Chronic Prescriptions: cycloBENZAPRine HCl [Flexeril] 10 mg PO TID PRN #10 tab PRN Reason: Muscle Spasm Prescription Printed Lidocaine [Lidoderm Patch] 1 patch TOPICAL DAILY #7 patch Prescription Printed Referrals: Awa Chavez MD [Primary Care Provider] - 2 Days Doug Cruz DO [STAFF PHYSICIAN] - 3-5 Days
[2020-04-04] MEDS: Lidocaine 5% Patch 1 PATCH TOPICAL (18:33)
[2020-04-04] MEDS: cycloBENZAPRine HCl 5 MG TABLET PO (18:33)
[2020-04-04] MEDS: Ketorolac 15 MG/ML Vial IM (18:33)
[2020-04-04 18:42] VITALS: PULSE 100; RESP 17; O2SAT 99
== END 2020-04-04 19:09 | disposition home or self-care (01) ==
LOC: ED 18:17
PROVIDERS: Emergency Provider Emergency Medicine; PCP Internal Medicine
DX: M54.5 Low back pain (principal); G89.29 Other chronic pain; F17.200 Nicotine dependence, unspecified, uncomplicated; Z82.49 Family history of ischemic heart disease and other diseases of the circulatory system; Z88.6 Allergy status to analgesic agent
CPT/HCPCS: 96372; 99281; 99284

== ENCOUNTER 2020-04-22 16:51 | Emergency (ER) | payer MEDICARE, SELFPAY ==
[2020-04-22 16:55] VITALS: BP 155/103; PULSE 82; RESP 18; TEMP 35.5; O2SAT 100; BMI 26.1
--- NOTE | 2020-04-22 17:46 | ED.VISSUMM ---
- ER Visit Summary Date of Service: 04/22/20 Chief Complaint: Radiology results History of Present Illness: The patient is a 59 M who is here for radiology results. He had an ultrasound of his aorta yesterday. He called his primary care doctor to get the results, but they said they would call him later. He is not having any symptoms currently. Physical Examination: Afebrile and vital signs unremarkable except for blood pressure 155/103. Heart, lungs, abdominal exam unremarkable. Normal gait. Normal sensation. Moves all extremities. Test Results: None performed Emergency Department Course and Treatment: I was able to pull up the patient's results. He had an abdominal aortic ultrasound that showed mild plaque, fusiform aneurysm 3.2 x 3.2 cm that extends for 3.4 cm to the iliac bifurcation with mild ectasia of the right iliac origin. The dictation mention that this was following up on a previously documented aneurysm. They did not have imaging for comparison. I searched our records and did not have imaging for comparison. The patient does not know where he had the initial testing or if he had initial testing on his aorta. There is no indication for emergency surgery or vascular referral. I advised the patient that he will need to monitor his blood pressure, take his medications, avoid smoking. He needs to follow-up with his primary doctor. They will need to monitor changes in the diameter. Patient voiced understanding and will return for any issues. He tells me that he has no other concerns today and just wanted his results. Treatment Plan: As above Disposition: Discharge Impression: Abdominal aortic aneurysm This note was generated with [employer] dictation software. It may contain incorrect words, spelling, and punctuation that were not noted in review of the chart prior to signing ED Disposition - Plan for ED Patient: Referrals: Awa Chavez MD [Primary Care Provider] -
--- NOTE | 2020-04-22 17:48 | ED.DEP ---
ED Disposition - Plan for ED Patient: Instructions: Understanding?Abdominal Aortic Aneurysm Referrals: Awa Chavez MD [Primary Care Provider] -
[2020-04-22 17:58] VITALS: BP 157/93; PULSE 88; RESP 17; O2SAT 100
== END 2020-04-22 17:59 | disposition home or self-care (01) ==
LOC: ED 17:50
PROVIDERS: Emergency Provider Emergency Medicine; PCP Internal Medicine
DX: I71.4 Abdominal aortic aneurysm, without rupture (principal); Z86.73 Personal history of transient ischemic attack (TIA), and cerebral infarction without residual deficits; Z95.1 Presence of aortocoronary bypass graft; Z72.0 Tobacco use; F12.90 Cannabis use, unspecified, uncomplicated
CPT/HCPCS: 99282

== ENCOUNTER 2020-06-08 21:22 | Emergency (ER) | payer MEDICARE, SELFPAY ==
[2020-06-08 21:22] VITALS: BP 127/85; PULSE 70; RESP 16; TEMP 36.1; O2SAT 98; BMI 27.4
--- NOTE | 2020-06-08 21:36 | ED.DEP ---
ED Disposition - Plan for ED Patient: Instructions: ED Neck Sprain or Strain Prescriptions: Naproxen [Naprosyn] 500 mg PO BID PRN #20 tab Prescription Printed Referrals: Awa Chavez MD [Primary Care Provider] -
[2020-06-08] MEDS: Ketorolac 30 MG/ML Syringe IM (21:37)
--- NOTE | 2020-06-08 21:38 | ED.VISSUMM ---
- ER Visit Summary Date of Service: 06/08/20 Chief Complaint: Neck pain History of Present Illness: The patient is a 59 M presenting with neck pain. He states this started 3 weeks ago. He states he was running in a hallway to help his and he ran into the wall. He has been experiencing neck pain since that time. He went to urgent care 2 times. He says the first time they gave him Toradol. He states the second time they gave him steroids and Flexeril. He still has Flexeril at home but has run out of the steroids. He states they did a neck x-ray which showed no evidence of fracture. He denies other complaints. Physical Examination: Vitals are stable. Patient is afebrile. Alert no acute distress. HEENT exam is unremarkable. Neck is right paraspinal cervical muscle tenderness with no midline tenderness. Lungs are clear and equal bilaterally. Heart is regular rate and rhythm. Extremities are unremarkable. Skin is warm and dry. No focal neurologic deficit. Normal strength and sensation Remainder of exam is unremarkable. Emergency Department Course and Treatment: Patient was given Toradol IM. He is given prescription for Naprosyn. Advised to follow-up with his primary care physician. Advised return to ED for worsening complaints. Disposition: Discharge home Impression: Neck strain This note was generated with [employer] dictation software. It may contain incorrect words, spelling, and punctuation that were not noted in review of the chart prior to signing ED Disposition - Plan for ED Patient: Instructions: ED Neck Sprain or Strain Prescriptions: Naproxen [Naprosyn] 500 mg PO BID PRN #20 tab Prescription Printed Referrals: Awa Chavez MD [Primary Care Provider] -
== END 2020-06-08 21:54 | disposition home or self-care (01) ==
LOC: ED 21:45
PROVIDERS: Emergency Provider Emergency Medicine; PCP Internal Medicine
DX: S16.1XXA Strain of muscle, fascia and tendon at neck level, initial encounter (principal); W22.01XA Walked into wall, initial encounter
CPT/HCPCS: 99282

== ENCOUNTER 2020-07-14 05:37 | Emergency (ER) | payer MEDICARE, SELFPAY ==
[2020-07-14 05:41] VITALS: BP 142/75; PULSE 106; RESP 25; TEMP 36.6; O2SAT 100; BMI 24.0
--- NOTE | 2020-07-14 05:52 | ED.DCSUM_ITS ---
History of Present Illness Chief Complaint: Headache Informant: Patient Narrative: Presents with headache. He stated that he has had discomfort in the back of his neck rating to the base of his skull for the last 2 months. He describes an aching sensation. He stated he saw his family doctor approximately 4 days ago who did an outpatient CAT scan that stated he has a brain tumor. He stated he is referred to the [facility] today for further evaluation. The patient stated the they have already scheduled him for brain surgery on this Friday. He stated they did this without doing an MRI. He stated that he denies any other symptoms other than pain in this area. He initially thought it was whiplash and had x-rays that were negative. He has been using [id number] pain medication. Current severity is mild to moderate. No history of chronic headaches per patient. Past Medical History - Allergies and Home Meds Allergies/Adverse Reactions: Allergies celecoxib [From Celebrex] Allergy (Verified 07/14/20 05:39) Swelling pregabalin [From Lyrica] Allergy (Verified 07/14/20 05:39) Swelling Primary Care Physician: Care Physician,No Primary [Primary Care Provider] - Prior records reviewed: Yes Past Medical History: - - See problem list Surgical History: angioplasty, herniorrhaphy, - - Ready extent placement, bilateral carpal tunnel surgery, PCI x 1. Smoking Status: Current every day smoker Alcohol: None Drugs: None - Family History Maternal Family History: Family History (Last Reviewed 12/21/18 @ 15:36 by Anita Merritt) Father Myocardial infarction Uncle Myocardial infarction Family History: Reports: No pertinent history Paternal Family History: Family History (Last Reviewed 12/21/18 @ 15:36 by Anita Merritt) Father Myocardial infarction Uncle Myocardial infarction Family History: Reports: Heart Disease Review of Systems General: Denies: Chills, Fever, Sweats Eyes: Denies: Visual changes - bilaterally, Diplopia ENT: Denies: Rhinorrhea, Sore throat Cardiovascular: Denies: Chest pain, Palpitations Respiratory: Denies: Dyspnea, Cough, Dyspnea on exertion Gastrointestinal: Denies: Abdominal pain, Nausea, Vomiting, Diarrhea, Melena, Hematochezia Genitourinary: Denies: Dysuria, Hematuria, Frequency Musculoskeletal: Reports: Neck pain. Denies: Back pain, Extremity Pain Skin: Denies: Rash, Wounds Neurological: Reports: Headache. Denies: Weakness, Numbness Physical Exam Vital Signs/Narrative: Vital Signs Temp Pulse Resp BP Pulse Ox 07/14/20 05:41 97.8 F 106 H 25 H 142/75 H 100 General: Well nourished, Well developed, No Acute Distress Head: Normocephalic, Atraumatic Eyes: Perrl, EOMI ENT: Moist mucous membranes, No rhinorrhea Neck: Supple, Nontender Cardiovascular: Regular rate, Regular rhythm, No murmurs Respiratory: No distress, CTA bilaterally, Chest nontender Abdomen: Soft, Nontender, Nondistended, Normal bowel sounds Back: Nontender, Normal Inspection Extremities: Nontender, No edema Skin: Normal color, No rash Neurological: Alert, Oriented x3, Cranial nerves II-XII grossly intact, Normal Strength, Normal Sensation Psychological: Normal affect, Normal Mood Diagnostic/Tx/Re-eval - Medical Decision Making At this time I feel the patient has chronic pain in his neck and head. I did review a CT scan from his head in November of last year which was negative. He stated he has a new brain tumor. Nonetheless I feel that can warrant his outpatient work-up with us if this is indeed true. Do not feel he needs repeat imaging. He is nontoxic. We will follow-up as an outpatient. Given injection of Toradol. ED Disposition - Plan for ED Patient: Disposition: Home or Assisted Living Diagnosis: Headache Instructions: ED Headache, Tension Referrals: Care Physician,No Primary [Primary Care Provider] -
[2020-07-14] MEDS: Ketorolac 15 MG/ML Vial IM (06:15)
[2020-07-14 06:17] VITALS: BP 107/58; PULSE 86; RESP 18; O2SAT 98
== END 2020-07-14 06:45 | disposition home or self-care (01) ==
PROVIDERS: Emergency Provider Emergency Medicine; PCP Nurse Practitioner Primary Care
DX: R51.9 Headache, unspecified (principal); F17.200 Nicotine dependence, unspecified, uncomplicated; Z82.49 Family history of ischemic heart disease and other diseases of the circulatory system; Z88.6 Allergy status to analgesic agent
CPT/HCPCS: 96372; 99282

== ENCOUNTER 2020-08-03 18:35 | Emergency (ER) | payer MEDICARE, SELFPAY ==
[2020-08-03 18:35] VITALS: BP 87/48; PULSE 93; RESP 18; TEMP 36.9; O2SAT 97; BMI 26.6
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
[2020-08-03] MEDS: Metoclopramide 10 MG/2 ML Vial IV (19:34)
[2020-08-03] MEDS: DiphenhydrAMINE 50 MG/ML Syringe 25 MG IV (19:35)
[2020-08-03 19:37] LABS: Absolute Lymphocyte Count 1.71 X10^3/uL (0.83-4.51); Absolute Neutrophil Count 2.4 X10^3/uL (2.0-7.7); Basophil# 0.05 X10^3/uL; Eosinophil# 0.35 X10^3/uL; Eosinophils% 7.1 % (0-5); Hematocrit 45.4 % (40-54); Hemoglobin 14.6 g/dL (13.0-16.5); Lymphocyte # 1.71 X10^3/ul (4.0); Lymphocyte % 34.6 % (19-41); Mean Corp Hgb Conc 32.2 g/dL (32-36); Mean Corpuscular Hgb 29.9 pg (27.0-32.0); Mean Corpuscular Volume 92.8 fL (80-94); Monocyte# 0.39 X10^3/uL; Monocyte% 7.9 % (0-10); NRBC Flagged by Analyzer 0 % (0-5); Neutrophil # 2.43 X10^3/uL (2.7-7.7); Neutrophil % 49.2 % (47-70); Platelet Count 349 K/mm3 (150-450); RBC Distribution Width CV 13.3 % (11.6-14.6); RBC Distribution Width SD 45.4 fl (35.1-43.9); Red Blood Count 4.89 M/mm3 (4.6-6.2); White Blood Count 4.9 K/mm3 (4.4-11.0)
[2020-08-03 19:59] LABS: AST(SGOT) 16 U/L (15-37); Alanine Aminotransfer ALT/SGPT 16 U/L (16-61); Albumin, Serum 3.8 g/dL (3.2-5.0); Alkaline Phosphatase 118 U/L (45-117); Anion Gap 0 (5-15); BUN 14 mg/dL (7-18); BUN/Creat Ratio 13.3 RATIO (10-20); Calcium,Total 9.3 mg/dL (8.5-10.1); Chloride 106 mmol/L (98-107); Creatinine, Serum 1.05 mg/dL (0.70-1.30); EST Glomerular Filtration Rate 77 mL/min (>60); Est Glom Filt Rate - Afr Amer 93 mL/min (>60); Globulin 3.7 g/dL (2.2-4.2); Glucose 85 mg/dL (74-106); Potassium 4.3 mmol/L (3.5-5.1); Protein, Total 7.5 g/dL (6.4-8.2); Sodium Level 137 mmol/L (136-145)
[2020-08-03] MEDS: 0.9% Normal Saline 1,000 ML 999 ML IV (20:15)
[2020-08-03 20:21] VITALS: BP 120/83; PULSE 66; RESP 16; O2SAT 99
[2020-08-03 21:22] VITALS: BP 146/84; PULSE 70; RESP 16; O2SAT 99
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
== END 2020-08-03 21:25 | disposition short-term general hospital (02) ==
LOC: ED 19:18
PROVIDERS: Emergency Provider Student in an Organized Health Care Education/Training Program
DX: S06.2X9A Diffuse traumatic brain injury with loss of consciousness of unspecified duration, initial encounter (principal); V49.40XA Driver injured in collision with unspecified motor vehicles in traffic accident, initial encounter; Y93.9 Activity, unspecified; Y92.89 Other specified places as the place of occurrence of the external cause; Y99.9 Unspecified external cause status; F17.200 Nicotine dependence, unspecified, uncomplicated; I10 Essential (primary) hypertension; J44.9 Chronic obstructive pulmonary disease, unspecified; Z82.49 Family history of ischemic heart disease and other diseases of the circulatory system; Z88.6 Allergy status to analgesic agent; F32.9 Major depressive disorder, single episode, unspecified; R51.9 Headache, unspecified; M54.2 Cervicalgia
CPT/HCPCS: 70450; 80053; 85025; 96361; 96374; 96375; 99285; J7030; A4216

== ENCOUNTER 2020-08-14 17:36 | Observation (INO) | payer MEDICARE, SELFPAY ==
[2020-08-14] VITALS (7 sets, daily range): BP systolic 118–164; BP diastolic 79–101; PULSE 79–116; RESP 14–20; TEMP 36.6–36.9; O2SAT 95–99; BMI 27.3; BMI 26.5
--- NOTE | 2020-08-14 17:42 | ED.RN ---
PT REPORTS SX ONSET SINCE AROUND 8PM LAST NIGHT, PT UNSURE OF EXACT TIME. REPORTS RECENT HEAD TRAUMA AND BRAIN BLEED THAT HE WAS TX TO [facility]. LOLA SHEETS NOTIFIED ON TRIAGE ON PT SX.
--- NOTE | 2020-08-14 18:06 | CT_ITS ---
STUDY: CT BRAIN WITHOUT CONTRAST REASON FOR EXAM: Male, 59 years old. left sided paresthesias RADIATION DOSAGE (If Supplied By Facility): CTDIvol = ( 44.99 ) mGy, DLP = ( 779.24 ) mGycm TECHNIQUE: Transaxial CT imaging of the brain was performed without administration of intravenous contrast material. Individualized dose optimization techniques were used for this CT. COMPARISON: CT brain 08/03/2020 FINDINGS: Normal soft tissue structures. Normal calvarium. Normal size ventricles and extra-axial spaces for the patient''s age. Normal white matter tracts of the cerebral hemispheres. Normal basal ganglia and thalami. Normal brainstem. Normal cerebellum. There is no intracranial hemorrhage. There are no findings of an acute ischemic infarction. Normal visualized paranasal sinuses. CT/Brain/Head without Contrast IMPRESSION: Normal unenhanced CT scan of the brain. Electronically Signed: Bg Hall MD at 19:13 EST , Service support ,
--- NOTE | 2020-08-14 18:06 | EKG12_ITS ---
Test Reason : NUMBNESS Blood Pressure : / mmHG Vent. Rate : 105 BPM Atrial Rate : 105 BPM P-R Int : 144 ms QRS Dur : 094 ms QT Int : 334 ms P-R-T Axes : 057 084 053 degrees QTc Int : 441 ms Sinus tachycardia Otherwise normal ECG Confirmed by BLESSING JONES, LEIGH ANN ([id number]), graphics editor FARHAN MAGALLON ([id number]) on 08/16/2020 12:45:28 PM Referred By: BB Confirmed By:LEIGH ANN FUNK MD
--- NOTE | 2020-08-14 18:07 | ED.DCSUM_ITS ---
History of Present Illness Chief Complaint: Numb/Ting Informant: Patient Onset: Yesterday Context: - - Unsure concerning exact onset time and gradual versus sudden Quality and Location: Left Face Parasthesia, Left Arm Parasthesia, Left Leg Parasthesia, Left Arm Weakness - Maybe. Negative for: Left Leg Weakness, Slurred Speech Current Severity: Mild Maximum Severity: Moderate Worsened by: Nothing in particular Relieved by: Nothing in particular Associated Symptoms: Chest Pain - See below. Negative for: Headache, Nausea, Vomiting Narrative: Patient had the numbness yesterday in his left cheek, left arm, and left leg, he did have some achy nonpleuritic substernal chest discomfort that lasted for a short amount of time but he states he was panicking and thinks it was related. He has had no further episodes of chest discomfort today and states throughout the day, the paresthesias have been gradually improving. He denies any new headache or changes in his headache, but states that he has had a headache for the last week or 2 since he had a traumatic intracranial hemorrhage and was transferred to [facility]. He was inpatient there for about a week, he states he had multiple MR studies done, did not have surgery, and has been home now for 3 or 4 days. He did not have lateralizing neurologic symptoms in his arms or legs while he was there that he knows of but admits that he was confused for a couple days, he does not feel confused now and has had no trouble speaking or walking today or yesterday. He denies any new injuries. He denies any lapses in consciousness. No other systemic symptoms or fevers/illness. - Past Medical History (1) Atherosclerotic heart disease of [place] coronary artery without angina pectoris Status: Chronic Comment: PTCA/Stent to LAD 2008; CABG x2- AVALOS to OM, DANYELL to RCA 12/27/17 (2) Benign essential hypertension Status: Chronic (3) COPD (chronic obstructive pulmonary disease) Status: Chronic (4) Complicated migraine Status: Chronic (5) Depression Status: Chronic (6) HLD (hyperlipidemia) Status: Chronic (7) History of coronary artery stent placement Status: Chronic Comment: PTCA/Stent to LAD 2008 (8) History of illicit drug use Status: Chronic (9) History of medication noncompliance Status: Chronic (10) Lumbar radiculopathy Status: Chronic Past Medical History - Allergies and Home Meds Allergies/Adverse Reactions: Allergies celecoxib [From Celebrex] Allergy (Verified 08/14/20 17:36) Swelling pregabalin [From Lyrica] Allergy (Verified 08/14/20 17:36) Swelling Primary Care Physician: Care Physician,No Primary [Primary Care Provider] - Surgical History: angioplasty, herniorrhaphy, - - Ready extent placement, bilateral carpal tunnel surgery, PCI x 1. Lives: Spouse/ Significant Other Smoking Status: Current every day smoker - Family History Maternal Family History: Family History (Last Reviewed 12/21/18 @ 15:36 by Anita Merritt) Father Myocardial infarction Uncle Myocardial infarction Family History: Reports: No pertinent history Paternal Family History: Family History (Last Reviewed 12/21/18 @ 15:36 by Anita Merritt) Father Myocardial infarction Uncle Myocardial infarction Family History: Reports: Heart Disease Review of Systems General: Denies: Chills, Fever, Sweats Eyes: Denies: Visual changes - bilaterally, Diplopia ENT: Denies: Bilateral ear pain, Rhinorrhea, Sore throat Cardiovascular: Denies: Chest pain, Palpitations Respiratory: Denies: Dyspnea, Cough, Dyspnea on exertion Gastrointestinal: Denies: Abdominal pain, Nausea, Vomiting, Diarrhea, Melena, Hematochezia Genitourinary: Denies: Dysuria, Hematuria, Frequency Musculoskeletal: Reports: Neck pain - x weeks, improving. Denies: Back pain, Swelling, Extremity Pain Skin: Denies: Rash, Wounds Neurological: Reports: Headache, Parasthesia, Numbness. Denies: Weakness STROKE Vital Signs/Narrative: Vital Signs Temp Pulse Resp BP Pulse Ox 08/14/20 17:37 98.5 F 116 H 18 164/94 H 99 Inital Vital Signs reviewed: Yes - NIHSS Initial 1a Level of Consciousness: 0 1b LOC Questions (Score 2 if aphasic/stupor): 0 1c LOC Commands (Only score 1st attempt): 0 2 Best Gaze (If aphasic, use reflexive mvmts.): 0 3 Visual: 0 4 Facial Palsy: 0 5 Motor Arm Right (UN = amputation/fusion): 0 5 Motor Arm Left: 0 6 Motor Leg Right: 0 6 Motor Leg Left: 0 7 Limb ataxia (Only + if out of proportion): 0 8 Sensory (Aphasia/stupor=0 or 1, coma=2): 1 9 Best Language: 0 10 Dysarthria (mute, coma=2, intubated=UN): 0 11 Extinction and Inattention (only scored if +): 0 Total Score: 1 General: Well nourished, Well developed, - - Well-appearing no distress, conversive in full sentences Head: Normocephalic, Atraumatic Eyes: Perrl, EOMI ENT: Moist mucous membranes, No rhinorrhea Neck: Supple, Nontender, No lymphadenopathy, - - No carotid bruits bilaterally Cardiovascular: Regular rate, Regular rhythm, No murmurs Respiratory: No distress, CTA bilaterally, Chest nontender Abdomen: Soft, Nontender, Nondistended, Normal bowel sounds Back: Nontender, Normal Inspection Extremities: Nontender, No edema Skin: Normal color, No rash Neurological: Alert, Oriented x3, Cranial nerves II-XII grossly intact - Except for paresthesias left cheek. No facial droop., Normal Strength, Parasthesia - Subjective decrease in sensation left arm, left leg, and left cheek Psychological: Normal affect, Normal Mood Diagnostic/Tx/Re-eval Impressions Brain CT 08/14/20 18:06 IMPRESSION: Normal unenhanced CT scan of the brain. Electronically Signed: Bg Hall MD at 19:13 EST , Service support , Chest X-Ray 08/14/20 18:20 IMPRESSION: Normal x-ray examination of the chest. Electronically Signed: Bg Hall MD at 19:23 EST , Service support , 08/14/20 18:06 Brain/Head without Contrast [CT] Stat 08/14/20 18:20 Chest 1 View [RAD] Stat Laboratory Results 08/14/20 08/14/20 08/14/20 18:19 18:19 18:19 WBC 5.2 RBC 4.72 Hgb 14.1 Hct 43.7 MCV 92.6 MCH 29.9 MCHC 32.3 RDW Std Deviation 44.9 H RDW Coeff of [place] 13.2 Plt Count 299 MPV 9.4 Immature Gran % (Auto) 0.200 Neut % (Auto) 60.2 Lymph % (Auto) 31.3 [place] % (Auto) 5.2 Eos % (Auto) 2.1 Baso % (Auto) 1.0 Absolute Neuts (auto) 3.1 Absolute Lymphs (auto) 1.61 Nucleated RBC % 0 PT 12.3 INR 1.0 APTT 25.9 Sodium 140 Potassium 3.6 Chloride 108 H Carbon Dioxide 26.0 Anion Gap 6 BUN 17 Creatinine 1.02 Estim Creat Clear Calc 71.24 Est GFR (MDRD) Af Amer 96 Est GFR (MDRD) Non-Af 80 BUN/Creatinine Ratio 16.7 Glucose 113 H Calcium 8.6 Troponin I < 0.015 POC Glucose 08/14/20 18:32 WBC RBC Hgb Hct MCV MCH MCHC RDW Std Deviation RDW Coeff of [place] Plt Count MPV Immature Gran % (Auto) Neut % (Auto) Lymph % (Auto) [place] % (Auto) Eos % (Auto) Baso % (Auto) Absolute Neuts (auto) Absolute Lymphs (auto) Nucleated RBC % PT INR APTT Sodium Potassium Chloride Carbon Dioxide Anion Gap BUN Creatinine Estim Creat Clear Calc Est GFR (MDRD) Af Amer Est GFR (MDRD) Non-Af BUN/Creatinine Ratio Glucose Calcium Troponin I POC Glucose 143 H Chest X-Ray - ED: 1 View, Read by ED Physician, No Acute Disease, Chronic Changes - Hyperexpansion bilaterally - Rhythm Strip Rhythm Strip: Sinus Tach Rate: 105 Ectopy: None - EKG Initial EKG Interpretation: No Acute Injury Pattern, Sinus Tachycardia - Medical Decision Making Stroke Team Activated: No - Patient with improving symptoms, low NIH w/o cortical signs, out tpa window Was Patient considered for Endovascular Intervention?: No Patient CT is negative. It seems that 1 to 2 weeks ago, he had a CT that was ambiguous, whether it had acute bleeding or if it was artifact. He was sent to [facility] as a precaution, where he had MRI/MRI/MRV. Other than an old nonacute lacunar infarct, this imaging was negative. I spoke with someone at [facility] who was able to access these results. Once this was known and he was neurologically intact with diagnosis of concussion and cervicalgia, he was discharged. Patient now has new acute symptoms. When I obtain the results of all of the patient's testing, I discussed with [facility] neurologist over the phone Dr. Kothari, she agrees that an LVO was extremely unlikely with an NIH of 1, only numbness, and no cortical signs, so CTA would not necessarily be helpful, but she does agree with admitting the patient for further TIA/stroke work-up. Discussed with the patient, his symptoms are improved but he still has some tingling in his cheek, arm, and leg. No new symptoms or weakness. Discussed with hospitalist for PCU admission/observation. ED Disposition - Plan for ED Patient: Disposition: Acute Care Hospital [facility] Diagnosis: Paresthesia of left arm and leg Referrals: Care Physician,No Primary [Primary Care Provider] -
--- NOTE | 2020-08-14 18:20 | RAD_ITS ---
STUDY: X-RAY CHEST REASON FOR EXAM: Male, 59 years old. Neuro deficit, acute, stroke suspected. N/T TO LEFT SIDE OF FACE, HAND, AND LEG SINCE YESTERDAY EVENING AROUND 8PM. INTERMITENT CHEST TIGHTNESS ALSO. RECENTLY TREATED FOR HEAD TRAUMA. TECHNIQUE: Single frontal view of the chest. COMPARISON: Chest x-ray 02/14/2020 FINDINGS: Sternotomy wires. Mediastinal clips. The lungs are clear and expanded. There is no demonstrated pleural abnormality. Normal size heart. Normal mediastinum and moni. Normal visualized pulmonary arteries. Normal visualized aortic arch and descending thoracic aorta. Normal visualized thoracic spine. Normal visualized ribs, clavicles, and shoulders. There is no demonstrated abnormality of the visualized soft tissue structures of the upper abdomen. RAD/Chest 1 View IMPRESSION: Normal x-ray examination of the chest. Electronically Signed: Bg Hall MD at 19:23 EST , Service support ,
[2020-08-14] MEDS: 0.9% Normal Saline 1,000 ML 999 ML IV (18:27)
[2020-08-14 18:34] LABS: Absolute Lymphocyte Count 1.61 X10^3/uL (0.83-4.51); Absolute Neutrophil Count 3.1 X10^3/uL (2.0-7.7); Basophil# 0.05 X10^3/uL; Eosinophil# 0.11 X10^3/uL; Eosinophils% 2.1 % (0-5); Hematocrit 43.7 % (40-54); Hemoglobin 14.1 g/dL (13.0-16.5); Lymphocyte # 1.61 X10^3/ul (4.0); Lymphocyte % 31.3 % (19-41); Mean Corp Hgb Conc 32.3 g/dL (32-36); Mean Corpuscular Hgb 29.9 pg (27.0-32.0); Mean Corpuscular Volume 92.6 fL (80-94); Mean Platelet Vol. 9.4 fl (6.2-12.0); Monocyte# 0.27 X10^3/uL; Monocyte% 5.2 % (0-10); NRBC Flagged by Analyzer 0 % (0-5); Neutrophil % 60.2 % (47-70); Platelet Count 299 K/mm3 (150-450); RBC Distribution Width CV 13.2 % (11.6-14.6); RBC Distribution Width SD 44.9 fl (35.1-43.9); Red Blood Count 4.72 M/mm3 (4.6-6.2); White Blood Count 5.2 K/mm3 (4.4-11.0)
[2020-08-14 18:35] LABS: Bedside Glucose 143 mg/dL (70-110)
[2020-08-14 18:40] LABS: Partial Thromboplast Time 25.9 Seconds (24.1-36.2); Prothrombin Time (Protime)PT. 12.3 SECONDS (11.7-14.9)
[2020-08-14 18:44] LABS: Anion Gap 6 (5-15); BUN 17 mg/dL (7-18); BUN/Creat Ratio 16.7 RATIO (10-20); Calcium,Total 8.6 mg/dL (8.5-10.1); Chloride 108 mmol/L (98-107); Creatinine, Serum 1.02 mg/dL (0.70-1.30); EST Glomerular Filtration Rate 80 mL/min (>60); Est Glom Filt Rate - Afr Amer 96 mL/min (>60); Estimated Creatinine Clearance 71.24 ml/min; Glucose 113 mg/dL (74-106); Potassium 3.6 mmol/L (3.5-5.1); Sodium Level 140 mmol/L (136-145)
--- NOTE | 2020-08-14 22:04 | PCM.HP.STD ---
Problem List (1) Paresthesia of left arm and leg Status: Acute (2) History of coronary artery stent placement Status: Chronic Comment: PTCA/Stent to LAD 2008 (3) Aortocoronary bypass status Status: Chronic Comment: CABG x2- AVALOS to OM2, DANYELL to RCA 12/27/17 @[facility] (4) History of illicit drug use Status: Chronic (5) History of medication noncompliance Status: Chronic (6) Depression Status: Chronic Qualifiers: (7) COPD (chronic obstructive pulmonary disease) Status: Chronic Qualifiers: (8) Tobacco user Status: Chronic (9) Benign essential hypertension Status: Chronic History of Present Illness Date of Admission: 08/14/20 Chief Complaint: left face,arm and leg weakness and tingling The patient is a 59 year old patient with a significant past medical history of having been at [facility] for stroke work-up for 1 week and was discharged 4 days ago who presents to the emergency room with left arm left leg and left face weakness and tingling. Onset of the symptoms began yesterday. The patient also reports having fallen and hitting the back of his head 2 months ago and has had subsequent neck and headache since that time. He has gone to urgent care on several occasions and cervical fracture had been ruled out but when pain continued to be severe he came to the emergency room and was evaluated by CT scan. At that time a intracranial hemorrhage could not be ruled out therefore he was transferred to [facility] where he was observed and monitored for a week and found to have no intracranial hemorrhage. He then went home and states he was working on his portable washing machine and exerting himself 3 days ago and then when he woke up the next day he is left arm face and leg were weak. He did not seek help until he spoke with his spouse who made him get help this evening. CT scan of the head here is negative for acute findings. He will be admitted for observation and MRI in the morning. Past Medical History Past Medical History (Chronic Problems): Chronic Problems (Last Reviewed 12/21/18 @ 15:36 by Anita Merritt) History of coronary artery stent placement (Chronic ~2008) PTCA/Stent to LAD 2008 Atherosclerotic heart disease of [place] coronary artery without angina pectoris (Chronic) PTCA/Stent to LAD 2008; CABG x2- AVALOS to OM, DANYELL to RCA 12/27/17 Aortocoronary bypass status (Chronic ~12/27/17) CABG x2- AVALOS to OM2, DANYELL to RCA 12/27/17 @[facility] History of illicit drug use (Chronic) History of medication noncompliance (Chronic) Lumbar radiculopathy (Chronic) HLD (hyperlipidemia) (Chronic) Depression (Chronic) Complicated migraine (Chronic) COPD (chronic obstructive pulmonary disease) (Chronic) Tobacco user (Chronic) Benign essential hypertension (Chronic) Medical History: Medical History (Last Reviewed 12/21/18 @ 15:36 by Anita Merritt) Atherosclerotic heart disease of [place] coronary artery without angina pectoris (Chronic) I25.10 PTCA/Stent to LAD 2008; CABG x2- AVALOS to OM, DANYELL to RCA 12/27/17 History of illicit drug use (Chronic) Z87.898 History of medication noncompliance (Chronic) Z91.14 Lumbar radiculopathy (Chronic) M54.16 HLD (hyperlipidemia) (Chronic) E78.5 Depression (Chronic) F32.9 Complicated migraine (Chronic) G43.109 COPD (chronic obstructive pulmonary disease) (Chronic) J44.9 Tobacco user (Chronic) Z72.0 Benign essential hypertension (Chronic) I10 Chest pain (Resolved) R07.9 Unstable angina (Resolved) I20.0 Allergies celecoxib [From Celebrex] Allergy (Verified 08/14/20 17:36) Swelling pregabalin [From Lyrica] Allergy (Verified 08/14/20 17:36) Swelling Home Medications: Ambulatory Orders Medication Instructions Recorded escitalopram oxalate 20 mg tablet 20 mg PO DAILY 12/21/18 Aspirin [Low Dose Aspirin EC] 81 mg PO DAILY 02/14/20 Atorvastatin Calcium 80 mg PO DAILY 02/14/20 cycloBENZAPRine HCl [Flexeril] 10 mg PO TID PRN #20 tab 03/12/20 Surgical History: Surgical History (Last Reviewed 12/21/18 @ 15:36 by Anita Merritt) Aortocoronary bypass status (Chronic) Onset Date: ~12/27/17 Z95.1 CABG x2- AVALOS to OM2, DANYELL to RCA 12/27/17 @[facility] Surgical History: angioplasty, herniorrhaphy, - - Ready extent placement, bilateral carpal tunnel surgery, PCI x 1. Psychiatric History: Depression Lives: Spouse/ Significant Other Smoking Status: Current every day smoker - *Family History Maternal Family History: Family History (Last Reviewed 12/21/18 @ 15:36 by Anita Merritt) Father Myocardial infarction Uncle Myocardial infarction History Items: No pertinent history Paternal Family History: Family History (Last Reviewed 12/21/18 @ 15:36 by Anita Merritt) Father Myocardial infarction Uncle Myocardial infarction History Items: Heart Disease Review of Systems Constitutional: Denies: Chills, Fever, Weight Change HEENT: Denies: Head Aches, Sinus Congestion, Sinus Drainage Cardiovascular: Denies: Chest Pain, Palpitations Respiratory: Denies: Cough, Shortness of breath at rest, Sputum production Gastrointestinal: Denies: Abdominal Pain, Nausea, Vomiting Genitourinary: Denies: Dysuria Musculoskeletal: Denies: Joint Pain, Joint Tenderness Skin: Denies: Rash, Wounds Neurological: Reports: Numbness, Tingling. Denies: Focal weakness Psychiatric: Denies: Anxiety, Depression, Homicidal Ideations, Suicidal Ideations Hematologic/ Lymphatic: Denies: Easy Bruising, Easy Bleeding VTE Information - Inpt Only VTE Present on Admission: No VTE Mechan Device Prophylaxis: None VTE Pharm Prophylaxis ordered?: Yes Patient Problems: Active and Suspected Problems (Last Reviewed 12/21/18 @ 15:36 by Anita Merritt) Paresthesia of left arm and leg (Acute) - Physical Exam Vitals/I&O's: Vital Signs Temp Pulse Resp BP Pulse Ox 98.5 F 79 14 118/85 H 95 08/14/20 17:37 08/14/20 21:08 08/14/20 21:08 08/14/20 21:08 08/14/20 21:08 Oxygen Flow Rate (L/min) 2 Oxygen Delivery Method Room Air Weight: 169 lb 5.04 oz Body Mass Index (BMI) 27.3 Finger Stick Blood Glucose 143 Intake and Output for Last 24 Hours 08/12/20 08/13/20 08/14/20 23:59 23:59 23:59 Intake Total 1000 / 1000 Balance 1000 / 1000 General: Alert, Oriented x3, Cooperative HEENT: Atraumatic, PERRLA, EOMI, Normocephalic Neck: Supple, No JVD, Negative Carotid Bruits Lungs: Clear to auscultation, Normal air movement Cardiovascular: Regular rate, No murmurs Abdomen: Bowel Sounds Present, Soft Extremities: No edema, Capillary Refill Less than 3 Seconds Skin: No rashes Musculoskeletal: No Tenderness to Palpation of Joints or Extremities Neurological: Cranial nerves II-XII grossly intact Psych/Mental Status: Normal Affect, Appropriate Laboratory Results 08/14/20 18:19: WBC 5.2, RBC 4.72, Hgb 14.1, Hct 43.7, MCV 92.6, MCH 29.9, MCHC 32.3, RDW Std Deviation 44.9 H, RDW Coeff of [place] 13.2, Plt Count 299, MPV 9.4, Immature Gran % (Auto) 0.200, Neut % (Auto) 60.2, Lymph % (Auto) 31.3, [place] % (Auto) 5.2, Eos % (Auto) 2.1, Baso % (Auto) 1.0, Absolute Neuts (auto) 3.1, Absolute Lymphs (auto) 1.61, Nucleated RBC % 0 08/14/20 18:19: PT 12.3, INR 1.0, APTT 25.9 08/14/20 18:19: Sodium 140, Potassium 3.6, Chloride 108 H, Carbon Dioxide 26.0, Anion Gap 6, BUN 17, Creatinine 1.02, Estim Creat Clear Calc 71.24, Est GFR (MDRD) Af Amer 96, Est GFR (MDRD) Non-Af 80, BUN/Creatinine Ratio 16.7, Glucose 113 H, Calcium 8.6, Troponin I < 0.015 08/14/20 18:32: POC Glucose 143 H Current Medications Labetalol HCl (Labetalol (Prefilled) 20 Mg/4 Ml) 20 mg IV X1 PRN PRN Reason: Blood Pressure Assessment/Plan All Active Problems (Last Reviewed 12/21/18 @ 15:36 by Anita Merritt) Chest pain (Acute) Paresthesia of left arm and leg (Acute) Chest pain (Resolved) Unstable angina (Resolved) Chronic Problems (Last Reviewed 12/21/18 @ 15:36 by Anita Merritt) History of coronary artery stent placement (Chronic ~2008) PTCA/Stent to LAD 2008 Atherosclerotic heart disease of [place] coronary artery without angina pectoris (Chronic) PTCA/Stent to LAD 2008; CABG x2- AVALOS to OM, DANYELL to RCA 12/27/17 Aortocoronary bypass status (Chronic ~12/27/17) CABG x2- AVALOS to OM2, DANYELL to RCA 12/27/17 @[facility] History of illicit drug use (Chronic) History of medication noncompliance (Chronic) Lumbar radiculopathy (Chronic) HLD (hyperlipidemia) (Chronic) Depression (Chronic) Complicated migraine (Chronic) COPD (chronic obstructive pulmonary disease) (Chronic) Tobacco user (Chronic) Benign essential hypertension (Chronic) Plan 1. Paresthesia of left arm leg and face?admit for observation to progressive care unit, neuro checks every 4 hours, MRI of brain to rule out cerebrovascular accident. 2. Hyperlipidemia?continue statin 3. Hypertension?continue home medications 4. Tobacco use cessation encouraged 5. DVT prophylaxis?low molecular weight heparin 6. Depression?continue home medication OBSV E&M: [id number] Initial observation care L2
[2020-08-14] MEDS: 0.9% Normal Saline 1,000 ML 100 ML IV (23:54)
[2020-08-15] VITALS (7 sets, daily range): BP systolic 132–147; BP diastolic 71–91; PULSE 61–95; RESP 14–16; TEMP 36.3–36.8; O2SAT 94–97; BMI 26.5
[2020-08-15 06:37] LABS: Absolute Lymphocyte Count 1.97 X10^3/uL (0.83-4.51); Absolute Neutrophil Count 1.8 X10^3/uL (2.0-7.7); Basophil# 0.04 X10^3/uL; Basophil% 0.9 % (0-1); Eosinophil# 0.19 X10^3/uL; Eosinophils% 4.4 % (0-5); Hematocrit 42.8 % (40-54); Hemoglobin 13.4 g/dL (13.0-16.5); Lymphocyte # 1.97 X10^3/ul (4.0); Lymphocyte % 46.1 % (19-41); Mean Corp Hgb Conc 31.3 g/dL (32-36); Mean Corpuscular Hgb 29.5 pg (27.0-32.0); Mean Corpuscular Volume 94.3 fL (80-94); Mean Platelet Vol. 9.3 fl (6.2-12.0); Monocyte# 0.24 X10^3/uL; Monocyte% 5.6 % (0-10); NRBC Flagged by Analyzer 0 % (0-5); Neutrophil # 1.83 X10^3/uL (2.7-7.7); Platelet Count 269 K/mm3 (150-450); RBC Distribution Width CV 13.2 % (11.6-14.6); RBC Distribution Width SD 45.8 fl (35.1-43.9); Red Blood Count 4.54 M/mm3 (4.6-6.2); White Blood Count 4.3 K/mm3 (4.4-11.0)
[2020-08-15 06:57] LABS: Anion Gap 4 (5-15); BUN 13 mg/dL (7-18); BUN/Creat Ratio 15.9 RATIO (10-20); Calcium,Total 8.3 mg/dL (8.5-10.1); Chloride 110 mmol/L (98-107); Creatinine, Serum 0.82 mg/dL (0.70-1.30); EST Glomerular Filtration Rate 103 mL/min (>60); Est Glom Filt Rate - Afr Amer 125 mL/min (>60); Estimated Creatinine Clearance 91.81 ml/min; Glucose 95 mg/dL (74-106); Potassium 3.9 mmol/L (3.5-5.1); Sodium Level 141 mmol/L (136-145)
--- NOTE | 2020-08-15 08:14 | PN_ITS ---
Patient Problems: Active and Suspected Problems (Last Reviewed 12/21/18 @ 15:36 by Anita Merritt) Paresthesia of left arm and leg (Acute) Vitals/I&O's: Vital Signs Temp Pulse Resp BP Pulse Ox 98.2 F 95 16 147/87 H 94 08/15/20 06:15 08/15/20 07:00 08/15/20 06:15 08/15/20 06:15 08/15/20 07:10 Oxygen Flow Rate (L/min) 2 Oxygen Delivery Method Room Air Weight: 169 lb 5.04 oz Body Mass Index (BMI) 26.5 Finger Stick Blood Glucose 143 Intake and Output for Last 24 Hours 08/13/20 08/14/20 08/15/20 23:59 23:59 23:59 Intake Total 1240 / 1240 50 / 50 Balance 1240 / 1240 50 / 50 Laboratory Results 08/14/20 18:19: WBC 5.2, RBC 4.72, Hgb 14.1, Hct 43.7, MCV 92.6, MCH 29.9, MCHC 32.3, RDW Std Deviation 44.9 H, RDW Coeff of [place] 13.2, Plt Count 299, MPV 9.4, Immature Gran % (Auto) 0.200, Neut % (Auto) 60.2, Lymph % (Auto) 31.3, [place] % (Auto) 5.2, Eos % (Auto) 2.1, Baso % (Auto) 1.0, Absolute Neuts (auto) 3.1, Absolute Lymphs (auto) 1.61, Nucleated RBC % 0 08/14/20 18:19: PT 12.3, INR 1.0, APTT 25.9 08/14/20 18:19: Sodium 140, Potassium 3.6, Chloride 108 H, Carbon Dioxide 26.0, Anion Gap 6, BUN 17, Creatinine 1.02, Estim Creat Clear Calc 71.24, Est GFR (MDRD) Af Amer 96, Est GFR (MDRD) Non-Af 80, BUN/Creatinine Ratio 16.7, Glucose 113 H, Calcium 8.6, Troponin I < 0.015 08/14/20 18:32: POC Glucose 143 H 08/15/20 06:05: WBC 4.3 L, RBC 4.54 L, Hgb 13.4, Hct 42.8, MCV 94.3 H, MCH 29.5, MCHC 31.3 L, RDW Std Deviation 45.8 H, RDW Coeff of [place] 13.2, Plt Count 269, MPV 9.3, Immature Gran % (Auto) 0.000, Neut % (Auto) 43.0 L, Lymph % (Auto) 46.1 H, [place] % (Auto) 5.6, Eos % (Auto) 4.4, Baso % (Auto) 0.9, Absolute Neuts (auto) 1.8 L, Absolute Lymphs (auto) 1.97, Nucleated RBC % 0 08/15/20 06:05: Sodium 141, Potassium 3.9, Chloride 110 H, Carbon Dioxide 27.0, Anion Gap 4 L, BUN 13, Creatinine 0.82, Estim Creat Clear Calc 91.81, Est GFR (MDRD) Af Amer 125, Est GFR (MDRD) Non-Af 103, BUN/Creatinine Ratio 15.9, Glucose 95, Calcium 8.3 L Current Medications Acetaminophen (Acetaminophen 325 Mg Tablet) 650 mg PO Q6H PRN PRN PRN Reason: Pain Score 1-10/Temp > 100.7 F Aspirin (Aspirin E.C. 81 Mg Tablet) 81 mg PO DAILYCM [facility] Atorvastatin Calcium (Atorvastatin Calcium 80 Mg Tablet) 80 mg PO DAILY@2200 [facility] Enoxaparin Sodium (Enoxaparin 40 Mg/0.4 Ml Syringe) 40 mg SC DAILY [facility] Escitalopram Oxalate (Escitalopram Oxalate 20 Mg Tablet) 20 mg PO DAILY [facility] Sodium Chloride () 1,000 mls @ 100 mls/hr IV .Q10H [facility] Last Admin: 08/14/20 23:54 Dose: 100 mls/hr Documented by: Sodium Chloride () 250 mls @ 15 mls/hr IV .[id number] PRN PRN Reason: Saline Flush Sodium Chloride () 250 mls @ 15 mls/hr IV .[id number] PRN PRN Reason: Additional IVPB Infusion Labetalol HCl (Labetalol (Prefilled) 20 Mg/4 Ml) 10 - 20 mg IV Q10M PRN PRN PRN Reason: to Maintain BP Goals Sodium Chloride (0.9% Saline Lock 10 Ml Syringe) 10 - 40 ml IV UD PRN PRN Reason: SALINE FLUSH STROKE Vital Signs/Narrative: Vital Signs Temp Pulse Resp BP Pulse Ox 08/15/20 07:10 94 08/15/20 07:00 95 08/15/20 06:15 98.2 F 61 16 147/87 H 95 Medical Necessity - Tobacco Use Smoking Status: Current every day smoker Assessment/Plan All Active Problems (Last Reviewed 12/21/18 @ 15:36 by Anita Merritt) Chest pain (Acute) Paresthesia of left arm and leg (Acute) Chest pain (Resolved) Unstable angina (Resolved) 1. Paresthesia of left arm leg and face?admit for observation to progressive care unit, neuro checks every 4 hours, MRI of brain to rule out cerebrovascular accident. 2. Hyperlipidemia?continue statin 3. Hypertension?continue home medications 4. Tobacco use cessation encouraged 5. DVT prophylaxis?low molecular weight heparin 6. Depression?continue home medication
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
[2020-08-15] MEDS: Escitalopram Oxalate 20 MG Tablet PO (09:45)
[2020-08-15] MEDS: Enoxaparin 40 MG/0.4 ML Syringe SC (09:45)
[2020-08-15] MEDS: Aspirin E.C. 81 MG Tablet PO (09:46)
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
--- NOTE | 2020-08-15 14:05 | TELEMED_ITS ---
SOC Telemed has confirmed receipt of a request for visit. This document confirms receipt of the order initiating the consult. To find the results of the consultation, please view the patient's reports for the scanned Telemed Consult.
--- NOTE | 2020-08-15 17:05 | PCM.DC.SUM ---
Discharge Date and Diagnosis - Problem List Patient Problems: Active and Suspected Problems (Last Reviewed 12/21/18 @ 15:36 by Anita Merritt) Paresthesia of left arm and leg (Acute) Date of Admission: 08/14/20 Date of Discharge: 08/15/20 - Primary Discharge Diagnosis Acute Problems: Active Problems (Last Reviewed 12/21/18 @ 15:36 by Anita Merritt) Paresthesia of left arm and leg (Acute) most probably due to complicated migraine - Secondary Discharge Diagnosis Chronic Problems: Chronic Problems (Last Reviewed 12/21/18 @ 15:36 by Anita Merritt) History of coronary artery stent placement (Chronic ~2008) PTCA/Stent to LAD 2008 Atherosclerotic heart disease of [place] coronary artery without angina pectoris (Chronic) PTCA/Stent to LAD 2008; CABG x2- AVALOS to OM, DANYELL to RCA 12/27/17 Aortocoronary bypass status (Chronic ~12/27/17) CABG x2- AVALOS to OM2, DANYELL to RCA 12/27/17 @[facility] History of illicit drug use (Chronic) History of medication noncompliance (Chronic) Lumbar radiculopathy (Chronic) HLD (hyperlipidemia) (Chronic) Depression (Chronic) Complicated migraine (Chronic) COPD (chronic obstructive pulmonary disease) (Chronic) Tobacco user (Chronic) Benign essential hypertension (Chronic) Hospital Course and Treatment Imaging Results: 08/15/20 08:30 Brain without Contrast [MRI] Stat Operations: None Summary of Care Provided: The patient is a 59 year old M with history of complicated migraine and other comorbidities admitted with left-sided whole body and facial numbness. Prior to that he slipped and fell in early June 2020 and injured the back of his neck feels he might have suffered concussion. Last week he was in [facility] for 1 week and extensive evaluation of MRI, MRA, TTE although records are unavailable. Patient was admitted in PCU as an observation status. His numbness and tingling resolved. He had MRI which was negative of acute or subacute ischemic infarct but raise suspicion of MS plaques. SOC neurologist consult was done. Discussed with the neurologist and he feels periventricular white matter T2 hyperintensities are unchanged. He thinks it is unlikely to have multiple sclerosis as it is not in the right demographic area and there may be other possible causes of white matter periventricular changes including migraine, small vessel disease. He suggested Topamax 25 g nightly for 1 week followed by 25 mg twice daily for next 1 week and then 50 mg twice daily from third week onwards. Follow-up outpatient neurology. Discharge diagnosis: Paresthesia of left arm and face mostly secondary to complicated migraine. Other comorbidities include dyslipidemia, hypertension, chronic smoking/tobacco use and depression. Patient signed AMA and does not want to wait for whole discharge process. Discharge medication reconciliation done. Topamax prescription sent to the patient's pharmacy. Patient Problems: Active and Suspected Problems (Last Reviewed 12/21/18 @ 15:36 by Anita Merritt) Paresthesia of left arm and leg (Acute) Objective: Seen and examined. Patient admitted with left-sided facial numbness along with left Side numbness. Patient has history of migraine. Physical exam General: Alert, Oriented x3, Cooperative HEENT: Atraumatic, PERRLA, EOMI, Normocephalic Oral: No Gingival or Mucosal Lesions/ Ulcerations Neck: Supple, No JVD, Negative Carotid Bruits Lungs: Air entry diminished in bilateral lung bases. No crepitation/rhonchi. No tachypnea or hypoxia Cardiovascular: Regular rate, Regular Rhythm, Normal S1, Normal S2, No murmurs Abdomen: Bowel Sounds Present, Soft, Non Tender, Non-Distended : No renal angle tenderness. No suprapubic tenderness. Extremities: No edema, Capillary Refill Less than 3 Seconds Skin: No rashes, No breakdown Musculoskeletal: No Tenderness to Palpation of Joints or Extremities Neurological: NIH stroke scale 0. Cranial nerves II-XII grossly intact, Deep Tendon Reflexes 2+/4 and Symmetrical, Neuro grossly intact Psych/Mental Status: Normal Affect, Appropriate. - Physical Exam Vitals/I&O's: Vital Signs Temp Pulse Resp BP Pulse Ox 98.1 F 90 16 137/88 H 96 08/15/20 15:14 08/15/20 15:14 08/15/20 15:14 08/15/20 15:14 08/15/20 15:14 Oxygen Flow Rate (L/min) 2 Oxygen Delivery Method Room Air Weight: 169 lb 5.04 oz Body Mass Index (BMI) 26.5 Finger Stick Blood Glucose 143 Intake and Output for Last 24 Hours 08/13/20 08/14/20 08/15/20 23:59 23:59 23:59 Intake Total 1240 / 1240 1050 / 1050 Balance 1240 / 1240 1050 / 1050 Laboratory Results 08/14/20 18:19: WBC 5.2, RBC 4.72, Hgb 14.1, Hct 43.7, MCV 92.6, MCH 29.9, MCHC 32.3, RDW Std Deviation 44.9 H, RDW Coeff of [place] 13.2, Plt Count 299, MPV 9.4, Immature Gran % (Auto) 0.200, Neut % (Auto) 60.2, Lymph % (Auto) 31.3, [place] % (Auto) 5.2, Eos % (Auto) 2.1, Baso % (Auto) 1.0, Absolute Neuts (auto) 3.1, Absolute Lymphs (auto) 1.61, Nucleated RBC % 0 08/14/20 18:19: PT 12.3, INR 1.0, APTT 25.9 08/14/20 18:19: Sodium 140, Potassium 3.6, Chloride 108 H, Carbon Dioxide 26.0, Anion Gap 6, BUN 17, Creatinine 1.02, Estim Creat Clear Calc 71.24, Est GFR (MDRD) Af Amer 96, Est GFR (MDRD) Non-Af 80, BUN/Creatinine Ratio 16.7, Glucose 113 H, Calcium 8.6, Troponin I < 0.015 08/14/20 18:32: POC Glucose 143 H 08/15/20 06:05: WBC 4.3 L, RBC 4.54 L, Hgb 13.4, Hct 42.8, MCV 94.3 H, MCH 29.5, MCHC 31.3 L, RDW Std Deviation 45.8 H, RDW Coeff of [place] 13.2, Plt Count 269, MPV 9.3, Immature Gran % (Auto) 0.000, Neut % (Auto) 43.0 L, Lymph % (Auto) 46.1 H, [place] % (Auto) 5.6, Eos % (Auto) 4.4, Baso % (Auto) 0.9, Absolute Neuts (auto) 1.8 L, Absolute Lymphs (auto) 1.97, Nucleated RBC % 0 08/15/20 06:05: Sodium 141, Potassium 3.9, Chloride 110 H, Carbon Dioxide 27.0, Anion Gap 4 L, BUN 13, Creatinine 0.82, Estim Creat Clear Calc 91.81, Est GFR (MDRD) Af Amer 125, Est GFR (MDRD) Non-Af 103, BUN/Creatinine Ratio 15.9, Glucose 95, Calcium 8.3 L Home Medications: Medications to take at Discharge escitalopram oxalate 20 mg tablet 20 mg PO DAILY 12/21/18 Aspirin [Low Dose Aspirin EC] 81 mg PO DAILY 02/14/20 Atorvastatin Calcium 80 mg PO DAILY 02/14/20 cycloBENZAPRine HCl [Flexeril] 10 mg PO TID PRN #20 tab 03/12/20 Melatonin 3 mg Tablet 1 tab PO PRN 08/14/20 Metoprolol Succinate 1 tab PO BID 08/14/20 Oxycodone HCl 1 tab PO Q6H PRN PRN 08/14/20 Topiramate [Topamax] 25 mg PO QHS #60 tab 08/15/20 Following Prescriptions Were Given to Patient: Topiramate [Topamax] 25 mg PO QHS #60 tab Transmission Status: Received by [employer]30 Primary Care Physician: Care Physician,No Primary [Primary Care Provider] - Medical Necessity - Tobacco Use Smoking Status: Current every day smoker Meaningful Use Info Meaningful Use Diagnoses (Choose all that apply): None applicable OBSV E&M: 34558 Observation care discharge
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
== END 2020-08-15 16:59 | disposition left against medical advice (07) ==
LOC: ED 21:47 → PCU 22:53
PROVIDERS: Admitting Provider Family Medicine; Emergency Provider Emergency Medicine; Visit Provider Internal Medicine
DX: R20.2 Paresthesia of skin (principal); E78.5 Hyperlipidemia, unspecified; R07.89 Other chest pain; I25.10 Atherosclerotic heart disease of native coronary artery without angina pectoris; J44.9 Chronic obstructive pulmonary disease, unspecified; I10 Essential (primary) hypertension; M54.16 Radiculopathy, lumbar region; F32.9 Major depressive disorder, single episode, unspecified; R29.701 NIHSS score 1; F17.210 Nicotine dependence, cigarettes, uncomplicated; R42 Dizziness and giddiness; G43.109 Migraine with aura, not intractable, without status migrainosus; Z95.1 Presence of aortocoronary bypass graft; Z79.899 Other long term (current) drug therapy; Z91.14 Patient's other noncompliance with medication regimen; Z79.82 Long term (current) use of aspirin; Z86.73 Personal history of transient ischemic attack (TIA), and cerebral infarction without residual deficits
CPT/HCPCS: 36415; 70450; 70551; 71045; 80048; 82962; 84484; 85025; 85610; 85730; 93005; 94762; 96360; 96361; 96366; 96372; 99218; 99285; 99406; J7030; A4216; G0378

== ENCOUNTER 2020-09-03 17:56 | Emergency (ER) | payer MEDICARE, SELFPAY ==
[2020-08-15 14:25] VITALS: BMI 26.5
[2020-09-03 17:58] VITALS: BP 145/82; PULSE 99; RESP 15; TEMP 36.2; O2SAT 98; BMI 27.2
--- NOTE | 2020-09-03 18:27 | ED.VIS.GEN ---
History of Present Illness Chief Complaint: Neuro S/Sx Informant: Patient Onset: Yesterday Current Severity: Mild Maximum Severity: Moderate Narrative: Patient reports chronic pain to the back of his head and upper neck after an injury where he ran into a wall. Patient has had recent hospital admissions with multiple CT scans and MRIs secondary to this injury as well as possible strokelike symptoms. Patient states last evening he had several knots develop in his neck. He is concerned that they are pinching on the blood vessels and causing decreased blood flow to his brain. He states his son was able to massage out some of the knots last evening. - Past Medical History (1) Aortocoronary bypass status Status: Chronic Comment: CABG x2- AVALOS to OM2, DANYELL to RCA 12/27/17 @[facility] (2) Atherosclerotic heart disease of [place] coronary artery without angina pectoris Status: Chronic Comment: PTCA/Stent to LAD 2008; CABG x2- AVALOS to OM, DANYELL to RCA 12/27/17 (3) Benign essential hypertension Status: Chronic (4) COPD (chronic obstructive pulmonary disease) Status: Chronic (5) Depression Status: Chronic (6) HLD (hyperlipidemia) Status: Chronic Past Medical History - Allergies and Home Meds Allergies/Adverse Reactions: Allergies celecoxib [From Celebrex] Allergy (Verified 08/14/20 22:43) Swelling pregabalin [From Lyrica] Allergy (Verified 08/14/20 22:43) Swelling Primary Care Physician: [facility] Doctor,Out of [NON-STAFF] - Prior records reviewed: Yes Surgical History: angioplasty, herniorrhaphy, - - Ready extent placement, bilateral carpal tunnel surgery, PCI x 1. Lives: Spouse/ Significant Other Smoking Status: Current every day smoker - Family History Maternal Family History: Family History (Last Reviewed 12/21/18 @ 15:36 by Anita Merritt) Father Myocardial infarction Uncle Myocardial infarction Family History: Reports: No pertinent history Paternal Family History: Family History (Last Reviewed 12/21/18 @ 15:36 by Anita Merritt) Father Myocardial infarction Uncle Myocardial infarction Family History: Reports: Heart Disease Review of Systems General: Denies: Chills, Fever Eyes: Denies: Visual changes - bilaterally ENT: Denies: Bilateral ear pain Cardiovascular: Denies: Chest pain Respiratory: Denies: Dyspnea, Cough Gastrointestinal: Denies: Abdominal pain, Nausea, Vomiting, Diarrhea Musculoskeletal: Reports: Neck pain. Denies: Swelling, Extremity Pain Skin: Denies: Rash, Wounds Neurological: Reports: Headache Hematologic: Denies: Easy bruising, Easy bleeding Allergy: Denies: Uticaria Physical Exam Vital Signs/Narrative: Vital Signs Temp Pulse Resp BP Pulse Ox 09/03/20 17:58 97.2 F L 99 15 145/82 H 98 Inital Vital Signs reviewed: Yes General: Well nourished, Well developed Head: Normocephalic ENT: Moist mucous membranes Neck: Supple, - - No midline cervical tenderness. Tenderness is noted in the cervical paraspinal muscles. Cardiovascular: Regular rate, Regular rhythm Respiratory: No distress, CTA bilaterally Abdomen: Soft, Nontender Back: Nontender Extremities: Nontender Skin: Normal color, No rash Neurological: Alert, Oriented x3, Normal Strength, Normal Sensation Psychological: Normal affect Diagnostic/Tx/Re-eval - Medical Decision Making Patient has had multiple CT and MRI scans recently. Symptoms tonight all seem to be secondary to muscle spasm in his neck. He will be written for Toradol and Flexeril tabs as this is worked well for him in the past. He has an appointment with his doctor this coming week for follow-up. ED Disposition - Plan for ED Patient: Disposition: Home or Assisted Living Diagnosis: Muscle spasm Instructions: ED Muscle Spasm Prescriptions: cycloBENZAPRine HCl [Flexeril] 10 mg PO TID PRN #20 tab PRN Reason: Muscle Spasm Transmission Status: Received by CHRISTOPHER ESCALANTE RD Ketorolac [Toradol] 10 mg PO Q12H PRN #10 tab PRN Reason: Pain Score 4-10 Transmission Status: Received by CHRISTOPHER ESCALANTE RD Referrals: [facility] Doctor,Out of [NON-STAFF] - Additional Instructions: Follow-up with your doctor on the as scheduled.
[2020-09-03] MEDS: Ketorolac 60 MG/2 ML Vial IM (18:34)
== END 2020-09-03 18:59 | disposition home or self-care (01) ==
LOC: ED 18:31
PROVIDERS: Emergency Provider Emergency Medicine
DX: M62.838 Other muscle spasm (principal); I25.10 Atherosclerotic heart disease of native coronary artery without angina pectoris; I10 Essential (primary) hypertension; F32.9 Major depressive disorder, single episode, unspecified; E78.5 Hyperlipidemia, unspecified; J44.9 Chronic obstructive pulmonary disease, unspecified; F17.200 Nicotine dependence, unspecified, uncomplicated; Z82.49 Family history of ischemic heart disease and other diseases of the circulatory system; Z88.6 Allergy status to analgesic agent; Z95.5 Presence of coronary angioplasty implant and graft; W22.01XA Walked into wall, initial encounter; G89.29 Other chronic pain
CPT/HCPCS: 96372; 99282

== ENCOUNTER 2020-09-22 23:30 | Emergency (ER) | payer MEDICARE, SELFPAY ==
[2020-09-22 23:31] VITALS: BP 143/74; PULSE 110; RESP 14; TEMP 36.6; O2SAT 98; BMI 25.5
--- NOTE | 2020-09-22 23:44 | ED.DCSUM_ITS ---
History of Present Illness Chief Complaint: Other, Pain/Inj Informant: Patient Narrative: Patient has a chronic radiculopathy in his neck. I saw him recently and given injection of Toradol which helped him. He has Toradol at home as well as ibuprofen and Tylenol. He supposed to see a nerve neurologic specialist but he missed his appointment. Comes in for chronic pain in his neck as well as the last 2 days has had a burning pain in his right calf without injury. No swelling. No history of DVT. Current severity is mild. - Past Medical History (1) Chest pain Status: Acute (2) Aortocoronary bypass status Status: Chronic Comment: CABG x2- AVALOS to OM2, DANYELL to RCA 12/27/17 @[facility] (3) Atherosclerotic heart disease of [place] coronary artery without angina pectoris Status: Chronic Comment: PTCA/Stent to LAD 2008; CABG x2- AAVLOS to OM, DANYELL to RCA 12/27/17 (4) Benign essential hypertension Status: Chronic (5) COPD (chronic obstructive pulmonary disease) Status: Chronic (6) Complicated migraine Status: Chronic (7) Depression Status: Chronic (8) HLD (hyperlipidemia) Status: Chronic (9) History of coronary artery stent placement Status: Chronic Comment: PTCA/Stent to LAD 2008 (10) History of illicit drug use Status: Chronic (11) History of medication noncompliance Status: Chronic (12) Lumbar radiculopathy Status: Chronic (13) Paresthesia of left arm and leg Status: Chronic (14) Tobacco user Status: Chronic Past Medical History - Allergies and Home Meds Allergies/Adverse Reactions: Allergies celecoxib [From Celebrex] Allergy (Verified 09/22/20 23:34) Swelling pregabalin [From Lyrica] Allergy (Verified 09/22/20 23:34) Swelling Primary Care Physician: TEOFILO HAMMOND [Other] Prior records reviewed: Yes Past Medical History: - - Problem list Surgical History: angioplasty, herniorrhaphy, - - Ready extent placement, bilateral carpal tunnel surgery, PCI x 1. Smoking Status: Current every day smoker Alcohol: None Drugs: None - Family History Maternal Family History: Family History (Last Reviewed 12/21/18 @ 15:36 by Anita Merritt) Father Myocardial infarction Uncle Myocardial infarction Family History: Reports: No pertinent history Paternal Family History: Family History (Last Reviewed 12/21/18 @ 15:36 by Anita Merritt) Father Myocardial infarction Uncle Myocardial infarction Family History: Reports: Heart Disease Review of Systems General: Denies: Chills, Fever, Sweats Eyes: Denies: Visual changes - bilaterally, Diplopia ENT: Denies: Rhinorrhea, Sore throat Cardiovascular: Denies: Chest pain, Palpitations Respiratory: Denies: Dyspnea, Cough, Dyspnea on exertion Gastrointestinal: Denies: Abdominal pain, Nausea, Vomiting, Diarrhea, Melena, Hematochezia Genitourinary: Denies: Dysuria, Hematuria, Frequency Musculoskeletal: Reports: Neck pain, Extremity Pain - See HPI. Denies: Back pain Skin: Denies: Rash, Wounds Neurological: Denies: Headache, Weakness, Numbness Physical Exam Vital Signs/Narrative: Vital Signs Temp Pulse Resp BP Pulse Ox 09/22/20 23:31 97.8 F 110 H 14 143/74 H 98 General: Well nourished, Well developed, No Acute Distress Head: Normocephalic, Atraumatic Eyes: Perrl, EOMI ENT: Moist mucous membranes, No rhinorrhea Neck: Supple, Nontender Cardiovascular: Regular rate, Regular rhythm, No murmurs Respiratory: No distress, CTA bilaterally, Chest nontender Abdomen: Soft, Nontender, Nondistended, Normal bowel sounds Back: Nontender, Normal Inspection Extremities: No edema, Tenderness - Numbness in the proximal right calf without swelling or discoloration. Negative Homans' sign. Normal range of motion Skin: Normal color, No rash Neurological: Alert, Oriented x3, Cranial nerves II-XII grossly intact, Normal Strength, Normal Sensation Psychological: Normal affect, Normal Mood Diagnostic/Tx/Re-eval - Medical Decision Making Outpatient ultrasound ordered of the calf. Have a low suspicion for DVT. Is likely a strain. He has anti-inflammatories. Offered injection of Toradol he declined. His neck pain is chronic. He is following up with a neurologist for this. I do not feel he needs new imaging. We will follow-up as an outpatient ED Disposition - Plan for ED Patient: Disposition: Home or Assisted Living Diagnosis: Chronic neck pain, Right calf pain Instructions: ED Back and Neck Pain, General Referrals: TEOFILO HAMMOND [Other] Additional Instructions: Follow-up tomorrow for your ultrasound of your leg
== END 2020-09-23 00:04 | disposition home or self-care (01) ==
PROVIDERS: Emergency Provider Emergency Medicine
DX: M54.2 Cervicalgia (principal); M79.661 Pain in right lower leg; G89.29 Other chronic pain; F17.200 Nicotine dependence, unspecified, uncomplicated; E78.5 Hyperlipidemia, unspecified; I10 Essential (primary) hypertension; I25.10 Atherosclerotic heart disease of native coronary artery without angina pectoris; J44.9 Chronic obstructive pulmonary disease, unspecified; Z82.49 Family history of ischemic heart disease and other diseases of the circulatory system; Z88.6 Allergy status to analgesic agent; Z95.1 Presence of aortocoronary bypass graft; Z95.5 Presence of coronary angioplasty implant and graft; F32.9 Major depressive disorder, single episode, unspecified; G43.109 Migraine with aura, not intractable, without status migrainosus; M54.16 Radiculopathy, lumbar region
CPT/HCPCS: 99282

== ENCOUNTER → 2020-09-25 13:26 | Outpatient (CLI) | payer MEDICARE, SELFPAY ==
[2020-09-22 23:31] VITALS: BMI 25.5
--- NOTE | 2020-09-25 13:31 | VDLE_ITS ---
Reason For Study: PAIN RIGHT GSV is normal. CFV is compressible, spontaneous, phasic, competent and demonstrates normal augmentation. FV is compressible, spontaneous, phasic, competent and demonstrates normal augmentation. POP V is compressible, spontaneous, phasic, competent and demonstrates normal augmentation. T/P Trunk is compressible. PTV is compressible. RT PerV is compressible. Procedure This is a venous duplex using B-mode, color flow and spectral Doppler. Exam performed in department. A preliminary report was called and/or faxed to ED. VL/Venous Duplex US, Unilateral Interpretation Summary Deep veins of the right lower extremity are patent and compressible segmentally . There is no evidence of right lower extremity deep vein thrombosis. Valvular competence jenn ears intact within the proximal deep venous system on the right . The right great saphenous vein a ppears patent and compressible segmentally. Ordering Physician: Samir Zavaleta Referring Physician: OUT OF TOWN Performed By: Edith Florentino, RDCS, RVT
== END ==
PROVIDERS: Referring Provider Emergency Medicine; Visit Provider Emergency Medicine
DX: M79.604 Pain in right leg (principal)
CPT/HCPCS: 93971

== ENCOUNTER 2020-10-26 13:31 | Observation (INO) | payer MEDICARE, SELFPAY ==
[2020-10-26] VITALS (12 sets, daily range): BP systolic 112–153; BP diastolic 73–95; PULSE 79–110; RESP 15–18; TEMP 36.2–36.4; O2SAT 95–98; BMI 28.0
--- NOTE | 2020-10-26 13:43 | RAD_ITS ---
STUDY: X-RAY CHEST REASON FOR EXAM: Male, 59 years old. Chest pain/pressure TECHNIQUE: Single AP portable view of the chest. COMPARISON: None. FINDINGS: EKG leads overlie the chest The lungs are clear and expanded. There is no demonstrated pleural abnormality. Sternal cerclage wires and vascular clips are present from a prior sternotomy and coronary artery bypass graft procedure (CABG). Normal mediastinum and moni. Normal visualized pulmonary arteries. Normal visualized aortic arch and descending thoracic aorta. Normal visualized thoracic spine. Normal visualized ribs, clavicles, and shoulders. There is no demonstrated abnormality of the visualized soft tissue structures of the upper abdomen. RAD/Chest 1 View IMPRESSION: No acute pulmonary process Electronically Signed: Gómez Johnson MD at 16:29 EDT , Service support ,
--- NOTE | 2020-10-26 13:43 | CT_ITS ---
We are attempting to reach an attending provider to discuss findings. An addendum with communication details will be sent when the communication is complete. STUDY: CTA HEAD AND NECK WITH CONTRAST REASON FOR EXAM: Male, 59 years old. Neuro deficit, acute, stroke suspected RADIATION DOSAGE (If Supplied By Facility): CTDIvol = ( 19.19 ) mGy, DLP = ( 656.50 ) mGycm TECHNIQUE: CT angiography was performed with a multi-detector CT scanner. Data acquisition was obtained from the skull base through the vertex following intravenous administration of IV 100mL [id number]-[id number]. MIP images were reconstructed from the axial data set. Post-processing of the angiographic images was performed, with multiplanar reformation and 3D reconstruction. Individualized dose optimization techniques were used for this CT. COMPARISON: No relevant priors. FINDINGS: Normal bilateral petrous carotid arteries. Normal right cavernous carotid artery with a normal supraclinoid bifurcation. Normal left cavernous carotid artery with a normal supraclinoid bifurcation. Normal right A1 segments of the anterior cerebral artery. Normal left A1 segments of the anterior cerebral artery. Normal intact anterior communicating artery (ACOM). Normal bilateral A2 segments of the anterior cerebral arteries. Normal right M1 and M2 segments of the middle cerebral arteries, with a normal M1 bifurcation. Normal left M1 and M2 segments of the middle cerebral arteries, with a normal M1 bifurcation. Normal right posterior communicating artery (PCOM). Normal left posterior communicating artery (PCOM). Normal bilateral vertebral arteries. Normal basilar artery with a normal basilar bifurcation. The visualized bilateral superior cerebellar (SCA) arteries are normal. Normal bilateral P1, P2 and visualized P3 segments of the posterior cerebral arteries. There is no demonstrated aneurysm of the [place] of [place]. There is no demonstrated abnormality of the visualized brain. AORTIC ARCH: Normal visualized aortic arch. Normal origins of the brachiocephalic, left common carotid, and left subclavian arteries. RIGHT CAROTID ARTERIES: Normal right common carotid artery (CCA). Normal right common carotid bulb. Normal origin of the right internal carotid (ICA) artery without a hemodynamically significant stenosis. Normal visualized cervical portion of the right internal carotid artery. Normal origin of the right external carotid artery (ECA). LEFT CAROTID ARTERIES: Normal left common carotid artery (CCA). Normal left common carotid bulb. Normal origin of the left internal carotid (ICA) artery without a hemodynamically significant stenosis. Normal visualized cervical portion of the left internal carotid artery. Normal origin of the left external carotid artery (ECA). VERTEBRAL ARTERIES: There is enhancement within the bilateral vertebral arteries with a small left vertebral artery, and a dominant right vertebral artery. There is no suspicious enhancing lesion, airway narrowing or deviation. CT/STROKE CTA Head AND Neck W/Con IMPRESSION: Normal CTA Head and neck with contrast. Electronically Signed: Gómez Johnson MD at 15:16 EDT , Service support ,
--- NOTE | 2020-10-26 13:43 | CT_ITS ---
STUDY: CT HEAD STROKE PROTOCOL W/O CONTRAST INJECTION REASON FOR EXAM: Male, 59 years old. Headache, neurological deficit RADIATION DOSAGE (If Supplied By Facility): CTDIvol = ( ) mGy, DLP = ( ) mGycm TECHNIQUE: Transaxial CT imaging of the brain was performed without administration of intravenous contrast material. Individualized dose optimization techniques were used for this CT. COMPARISON: 08/15/2020 FINDINGS: Normal soft tissue structures. Normal calvarium. Normal size ventricles and extra-axial spaces for the patient''s age. Normal white matter tracts of the cerebral hemispheres. Normal basal ganglia and thalami. Normal brainstem. Normal cerebellum. There is no intracranial hemorrhage. There are no findings of an acute ischemic infarction. Normal visualized paranasal sinuses. ASPECT score: 10 CT/STROKE Brain/Head without Cont IMPRESSION: No acute intracranial abnormalities, no interval change N.B. : The above information has been verbally conveyed by Gómez Johnson MD to Miracle Chery MD, on 10/26/2020 15:13:02 (ET). Electronically Signed: Gómez Johnson MD at 15:14 EDT , Service support ,
--- NOTE | 2020-10-26 13:43 | EKG12_ITS ---
Test Reason : NEURO S SX Blood Pressure : / mmHG Vent. Rate : 094 BPM Atrial Rate : 094 BPM P-R Int : 154 ms QRS Dur : 092 ms QT Int : 340 ms P-R-T Axes : -16 087 045 degrees QTc Int : 425 ms Normal sinus rhythm Normal ECG Confirmed by BLESSING JONES, LEIGH ANN ([id number]), managing editor FARHAN MAGALLON ([id number]) on 10/30/2020 12:37:33 PM Referred By: EVI Confirmed By:LEIGH ANN FUNK MD
[2020-10-26 13:56] LABS: Bedside Glucose 94 mg/dL (70-110)
[2020-10-26 14:11] LABS: Absolute Lymphocyte Count 1.48 X10^3/uL (0.83-4.51); Absolute Neutrophil Count 2.7 X10^3/uL (2.0-7.7); Basophil# 0.03 X10^3/uL; Basophil% 0.6 % (0-1); Eosinophil# 0.16 X10^3/uL; Eosinophils% 3.4 % (0-5); Hematocrit 47.6 % (40-54); Hemoglobin 15.5 g/dL (13.0-16.5); Lymphocyte # 1.48 X10^3/ul (0.83-4.51); Lymphocyte % 31.7 % (19-41); Mean Corp Hgb Conc 32.6 g/dL (32-36); Mean Corpuscular Hgb 30.1 pg (27.0-32.0); Mean Corpuscular Volume 92.4 fL (80-94); Monocyte# 0.32 X10^3/uL; Monocyte% 6.9 % (0-10); NRBC Flagged by Analyzer 0 % (0-5); Neutrophil # 2.67 X10^3/uL (2.7-7.7); Neutrophil % 57.2 % (47-70); Platelet Count 282 K/mm3 (150-450); RBC Distribution Width CV 13.1 % (11.6-14.6); RBC Distribution Width SD 44.6 fl (35.1-43.9); Red Blood Count 5.15 M/mm3 (4.6-6.2); White Blood Count 4.7 K/mm3 (4.4-11.0)
[2020-10-26 14:23] LABS: International Normalized Ratio 0.9
[2020-10-26 14:24] LABS: Partial Thromboplast Time 26.8 Seconds (24.1-36.2)
[2020-10-26 14:29] LABS: Anion Gap 4 (5-15); BUN 12 mg/dL (7-18); BUN/Creat Ratio 12.2 RATIO (10-20); Chloride 104 mmol/L (98-107); Creatinine, Serum 0.99 mg/dL (0.70-1.30); EST Glomerular Filtration Rate 83 mL/min (>60); Est Glom Filt Rate - Afr Amer 100 mL/min (>60); Glucose 83 mg/dL (74-106); Potassium 4.1 mmol/L (3.5-5.1); Sodium Level 139 mmol/L (136-145)
--- NOTE | 2020-10-26 15:45 | EDS_ITS ---
HPI History of Present Illness Chief Complaint: Neuro S/Sx Informant: patient Onset/Context/Timing Onset: Days (2 days) Narrative Narrative: 59-year-old male presenting with left-sided weakness and numbness. He does not know the exact onset, he believes it was between 36 to 48 hours ago. He also complains of difficulty getting words out over the past couple of days and being off balance. He has a history of traumatic brain injury and has been dealing with chronic headaches. He is scheduled to see neurology at the end of the month. He denies vision changes. Denies recent fever. Denies chest pain or shortness of breath. Prior similar symptoms: No Recent Illness/Hospitalization: No [facility] Medical History (Updated 10/26/20 @ 15:[address] Miracle Chery MD) Atherosclerotic heart disease of [place] coronary artery without angina pectoris Benign essential hypertension Chest pain Complicated migraine COPD (chronic obstructive pulmonary disease) Depression History of illicit drug use History of medication noncompliance HLD (hyperlipidemia) Lumbar radiculopathy Tobacco user Unstable angina Home Medications escitalopram oxalate 20 mg tablet 20 mg PO DAILY 12/21/18 [History Last Taken 03/12/20] aspirin 81 mg PO DAILY 02/14/20 [History Last Taken 03/12/20] atorvastatin 80 mg PO DAILY 02/14/20 [History Last Taken 03/12/20] cyclobenzaprine 10 mg PO TID PRN #20 tab 03/12/20 [Rx Last Taken Unknown] Melatonin 3 mg Tablet 1 tab PO PRN 08/14/20 [History Last Taken Unknown] metoprolol succinate 1 tab PO BID 08/14/20 [History Last Taken Unknown] oxycodone 1 tab PO Q6H PRN PRN 08/14/20 [History Last Taken Unknown] topiramate 25 mg PO QHS #60 tab 08/15/20 [Rx Last Taken Unknown] cyclobenzaprine 10 mg PO TID PRN #20 tab 09/03/20 [Rx Last Taken Unknown] ketorolac 10 mg PO Q12H PRN #10 tab 09/03/20 [Rx Last Taken Unknown] Allergy/AdvReac Type Severity Reaction Status Date / Time celecoxib [From Celebrex] Allergy Swelling Verified 09/22/20 23:34 pregabalin [From Lyrica] Allergy Swelling Verified 09/22/20 23:34 Family History Father Myocardial infarction from [place] age 48 Uncle Myocardial infarction from [place] in 50's Surgical History Aortocoronary bypass status (~12/27/17) Social History (Updated 10/26/20 @ 13:42 by Ellie Watts) household members: spouse Smoking Status: Current every day smoker ROS ROS ED Constitutional Constitutional ED: Denies fever(s) Eyes Eyes: Denies change in vision ENT ENT ED: Denies rhinorrhea or sore throat Cardiovascular Cardiovascular: Denies chest pain or palpitations Respiratory/Chest Respiratory/Chest: Denies cough or dyspnea Gastrointestinal Gastrointestinal: Denies abdominal pain, diarrhea, nausea or vomiting Genitourinary Genitourinary ED: Denies dysuria Musculoskeletal Musculoskeletal: Denies myalgias Integumentary Denies rash Neurologic Neurologic: Reports headache(s), paresthesias and weakness Psychiatric Psychiatric: Denies suicidal thoughts EXAM Physical Exam Const Vital Signs: 10/26/20 13:32 10/26/20 14:03 10/26/20 15:37 Temperature 97.1 F L Temperature Source Temporal Pulse Rate 110 H 101 H 102 H Respiratory Rate 15 18 16 Blood Pressure 145/91 H 135/95 H 142/84 H Blood Pressure Mean 109 108 103 Pulse Ox 97 97 95 Oxygen Delivery Method Room Air Room Air Room Air Positive well nourished and well developed General Appearance ED: well developed HEENT Reports normocephalic and head/scalp atraumatic Eyes PERRL and EOMs intact bilaterally Neck supple General: Negative for tenderness Chest Wall inspection of chest normal Resp normal respiratory effort and clear to auscultation bilaterally Cardio regular rate and regular rhythm GI non-tender and non-distended Palpation: soft; Negative for guarding or rebound tenderness present no CVA tenderness Extremity normal to inspection Neuro oriented x3 Neuro Narrative: NIH 2: 1 for sensation and 1 for left leg weakness Sensorium / Orientation: alert Psych mental status grossly normal Skin no rashes or lesions noted MDM MDM MDM Narrative Medical decision making narrative: Stroke team was not called due to his symptom onset being over 24 hours ago. His NIH is 2. CT and CTA are unremarkable. Will discuss with hospitalist for observation. Lab Data Attestation: I reviewed the patient's lab results. Labs: Laboratory Results - last 24 hr 10/26/20 10/26/20 10/26/20 13:52 14:00 14:00 WBC 4.7 RBC 5.15 Hgb 15.5 Hct 47.6 MCV 92.4 MCH 30.1 MCHC 32.6 RDW Std Deviation 44.6 H RDW Coeff of [place] 13.1 Plt Count 282 MPV 9.0 Immature Gran % (Auto) 0.200 Neut % (Auto) 57.2 Lymph % (Auto) 31.7 [place] % (Auto) 6.9 Eos % (Auto) 3.4 Baso % (Auto) 0.6 Absolute Neuts (auto) 2.7 Absolute Lymphs (auto) 1.48 Nucleated RBC % 0 PT 12.0 INR 0.9 APTT 26.8 Sodium Potassium Chloride Carbon Dioxide Anion Gap BUN Creatinine Estim Creat Clear Calc Est GFR (MDRD) Af Amer Est GFR (MDRD) Non-Af BUN/Creatinine Ratio Glucose Calcium Troponin I POC Glucose 94 10/26/20 14:00 WBC RBC Hgb Hct MCV MCH MCHC RDW Std Deviation RDW Coeff of [place] Plt Count MPV Immature Gran % (Auto) Neut % (Auto) Lymph % (Auto) [place] % (Auto) Eos % (Auto) Baso % (Auto) Absolute Neuts (auto) Absolute Lymphs (auto) Nucleated RBC % PT INR APTT Sodium 139 Potassium 4.1 Chloride 104 Carbon Dioxide 31.0 Anion Gap 4 L BUN 12 Creatinine 0.99 Estim Creat Clear Calc 73.40 Est GFR (MDRD) Af Amer 100 Est GFR (MDRD) Non-Af 83 BUN/Creatinine Ratio 12.2 Glucose 83 Calcium 9.0 Troponin I < 0.015 POC Glucose Radiography Diagnostic Testing: Radiology Impression Brain CT 10/26/20 13:43 IMPRESSION: No acute intracranial abnormalities, no interval change N.B. : The above information has been verbally conveyed by Gómez Johnson MD to Miracle Chery MD, on 10/26/2020 15:13:02 (ET). Electronically Signed: Gómez Johnson MD at 15:14 EDT , Service support , ADDENDUM: 10/26/20 1521 IMPRESSION: No acute intracranial abnormalities, no interval change N.B. : The above information has been verbally conveyed by Gómez Johnson MD to Miracle Chery MD, on 10/26/2020 15:13:02 (ET). Electronically Signed: Gómez Johnson MD at 15:14 EDT , Service support , Head/Neck CTA 10/26/20 13:43 IMPRESSION: Normal CTA Head and neck with contrast. Electronically Signed: Gómez Johnson MD at 15:16 EDT , Service support , ADDENDUM: 10/26/20 1525 IMPRESSION: Normal CTA Head and neck with contrast. N.B. : The above information has been verbally conveyed by Gómez Johnson MD to Miracle Chery MD, on 10/26/2020 15:18:20 (ET). Electronically Signed: Gómez Johnson MD at 15:16 EDT , Service support , ADDENDUM: 10/26/20 1526 EKG Initial EKG: Attestation: I personally reviewed and interpreted this EKG as follows: Interpretation: Sinus Rhythm and No Acute Injury Pattern Discharge Plan Dx/Rx/DC Orders Clinical Impression: Left-sided weakness Disposition Disposition: Acute Care Hospital [facility]
--- NOTE | 2020-10-26 17:05 | HP.PCM.HOS_ITS ---
HPI - General General Date of Admission: 10/26/20 HPI Narrative BALJINDER CABRERA, is a 59 M who presents to the hospital with numbness and tingling in his right upper extremity as well as his left upper extremity and left lower extremity. He denies any weakness, but also expresses some word finding issues, he states that it takes all bit longer to think of what he needs to say. He is also been feeling very fatigued for the last several months it all started after he had a concussion when he hit his head on a door frame in July. He states that he also had to spend some time in [facility] secondary to a head bleed and was told that part of his issue with the pressure in the back of his head is due to the nerves being tangled. He missed his neurology appointment this Friday and is scheduled for November 15. [facility] Medical History (Updated 10/26/20 @ 17:[address] Samir De La Garza MD) Atherosclerotic heart disease of [place] coronary artery without angina pectoris Benign essential hypertension Chest pain Complicated migraine COPD (chronic obstructive pulmonary disease) Depression History of illicit drug use History of medication noncompliance HLD (hyperlipidemia) Lumbar radiculopathy Tobacco user Unstable angina Home Medications escitalopram oxalate 20 mg tablet 20 mg PO DAILY 12/21/18 [History Last Taken 10/25/20] aspirin 81 mg PO DAILY 02/14/20 [History Last Taken 10/25/20] atorvastatin 80 mg PO DAILY 02/14/20 [History Last Taken 10/25/20] cyclobenzaprine 10 mg PO TID PRN #20 tab 03/12/20 [Rx Last Taken 10/25/20] metoprolol succinate 25 tab PO BID 08/14/20 [History Last Taken 10/25/20] topiramate 25 mg PO QHS #60 tab 08/15/20 [Rx Last Taken 10/25/20] mirtazapine 15 mg PO QHS 10/26/20 [History Last Taken 10/25/20] Allergy/AdvReac Type Severity Reaction Status Date / Time celecoxib [From Celebrex] Allergy Swelling Verified 09/22/20 23:34 pregabalin [From Lyrica] Allergy Swelling Verified 09/22/20 23:34 Family History Father Myocardial infarction from [place] age 48 Uncle Myocardial infarction from [place] in 50's Surgical History Aortocoronary bypass status (~12/27/17) Social History (Updated 10/26/20 @ 13:42 by Ellie Watts) household members: spouse Smoking Status: Current every day smoker ROS Constitutional Constitutional: Reports fatigue; Denies chills or fever(s) Eyes Eyes: Denies blurry vision or eye pain ENT HEENT: Reports headache(s); Denies hearing loss or nasal congestion Cardiovascular Cardiovascular: Denies chest pain, dyspnea on exertion or palpitations Respiratory/Chest Respiratory/Chest: Denies cough, shortness of breath at rest or shortness of breath with exertion Gastrointestinal Gastrointestinal: Denies abdominal pain, diarrhea, nausea or vomiting Genitourinary Genitourinary: Denies burning urination or dysuria Musculoskeletal Musculoskeletal: Denies joint pain or myalgias Neurologic Neurologic: Reports numbness Psychiatric Psychiatric: Denies anxiety or depression Vital Signs Vital Signs Vital Signs: 10/26/20 13:32 10/26/20 14:03 10/26/20 15:37 Temperature 97.1 F L Temperature Source Temporal Pulse Rate 110 H 101 H 102 H Respiratory Rate 15 18 16 Blood Pressure 145/91 H 135/95 H 142/84 H Blood Pressure Mean 109 108 103 Pulse Ox 97 97 95 Oxygen Delivery Method Room Air Room Air Room Air 10/26/20 15:55 10/26/20 16:01 Temperature 97.2 F L Temperature Source Temporal Pulse Rate 105 H 95 Respiratory Rate 17 16 Blood Pressure 132/73 H 124/89 H Blood Pressure Mean 92 100 Pulse Ox 98 96 Oxygen Delivery Method Room Air Room Air Physical Exam Const alert, oriented x3 and no apparent distress General Appearance: cooperative HEENT normocephalic and moist oral mucous membranes Eyes PERRL, EOMs intact bilaterally and conjunctivae normal Neck no lymphadenopathy, supple and no JVD Resp normal respiratory effort Auscultation: Negative for crackles, rales, rhonchi or wheezes Cardio regular rate, regular rhythm, S1 normal heart sound, S2 normal heart sound and no murmurs GI soft to palpation, non-tender and non-distended; Negative for hepatosplenomegaly Extremity no clubbing, cyanosis or edema Skin no rashes or lesions noted Neuro moves all extremities and no focal motor deficits Coordination / Balance: [id number] test normal Speech: speech abnormal Details: Positive for other (Hesitant and slow) Motor Exam: strength 5/5 throughout Psych affect normal Lab / Micro Data Result Diagrams: 10/26/20 14:00 10/26/20 14:00 Labs: Laboratory Results - last 24 hr 10/26/20 10/26/20 10/26/20 13:52 14:00 14:00 WBC 4.7 RBC 5.15 Hgb 15.5 Hct 47.6 MCV 92.4 MCH 30.1 MCHC 32.6 RDW Std Deviation 44.6 H RDW Coeff of [place] 13.1 Plt Count 282 MPV 9.0 Immature Gran % (Auto) 0.200 Neut % (Auto) 57.2 Lymph % (Auto) 31.7 [place] % (Auto) 6.9 Eos % (Auto) 3.4 Baso % (Auto) 0.6 Absolute Neuts (auto) 2.7 Absolute Lymphs (auto) 1.48 Nucleated RBC % 0 PT 12.0 INR 0.9 APTT 26.8 Sodium Potassium Chloride Carbon Dioxide Anion Gap BUN Creatinine Estim Creat Clear Calc Est GFR (MDRD) Af Amer Est GFR (MDRD) Non-Af BUN/Creatinine Ratio Glucose Calcium Troponin I POC Glucose 94 10/26/20 14:00 WBC RBC Hgb Hct MCV MCH MCHC RDW Std Deviation RDW Coeff of [place] Plt Count MPV Immature Gran % (Auto) Neut % (Auto) Lymph % (Auto) [place] % (Auto) Eos % (Auto) Baso % (Auto) Absolute Neuts (auto) Absolute Lymphs (auto) Nucleated RBC % PT INR APTT Sodium 139 Potassium 4.1 Chloride 104 Carbon Dioxide 31.0 Anion Gap 4 L BUN 12 Creatinine 0.99 Estim Creat Clear Calc 73.40 Est GFR (MDRD) Af Amer 100 Est GFR (MDRD) Non-Af 83 BUN/Creatinine Ratio 12.2 Glucose 83 Calcium 9.0 Troponin I < 0.015 POC Glucose Radiology Impression Brain CT 10/26/20 13:43 IMPRESSION: No acute intracranial abnormalities, no interval change N.B. : The above information has been verbally conveyed by Gómez Johnson MD to Miracle Chery MD, on 10/26/2020 15:13:02 (ET). Electronically Signed: Gómez Johnson MD at 15:14 EDT , Service support , ADDENDUM: 10/26/20 1521 IMPRESSION: No acute intracranial abnormalities, no interval change N.B. : The above information has been verbally conveyed by Gómez Johnson MD to Miracle Chery MD, on 10/26/2020 15:13:02 (ET). Electronically Signed: Gómez Johnson MD at 15:14 EDT , Service support , Chest X-Ray 10/26/20 13:43 IMPRESSION: No acute pulmonary process Electronically Signed: Gómez Johnson MD at 16:29 EDT , Service support , Head/Neck CTA 10/26/20 13:43 IMPRESSION: Normal CTA Head and neck with contrast. Electronically Signed: Gómez Johnson MD at 15:16 EDT , Service support , ADDENDUM: 10/26/20 1525 IMPRESSION: Normal CTA Head and neck with contrast. N.B. : The above information has been verbally conveyed by Gómez Johnson MD to Miracle Chery MD, on 10/26/2020 15:18:20 (ET). Electronically Signed: Gómez Johnson MD at 15:16 EDT , Service support , ADDENDUM: 10/26/20 1526 Assessment & Plan Assessment/Plan (1) CVA (cerebral vascular accident): PLAN: 1. CVA versus TIA versus complex migraine -He was here in July with a complex migraine that he thought was a stroke he also had a history of a concussion and he states that he was in [facility] for head bleed at some point -CT of the head and neck was unremarkable, will proceed with an MRI in the morning -Continue with the stroke protocol, will continue his home blood pressure as well as Lipitor and aspirin -Given the sort of abnormal presentation, will consult neurology for assistance and evaluation. He does have an outpatient neurology appointment on November 15. CAD status post CABG and stent, hypertension, hyperlipidemia, COPD, depres soraida are all chronic medical conditions, will continue with his home medications as appropriate Visit Charges OBSV E&M: 77586 Initial observation care L2
--- NOTE | 2020-10-26 18:15 | ECHOD_ITS ---
Reason For Study: TIA/CVA Procedure This was a 2D Doppler, Color Flow transthoracic echocardiogram. Exam performed portable in patient room. Left Ventricle Normal LV size. Left ventricular systolic function is normal. The estimated ejection fraction is 53 %. Stage 1 diastolic dysfunction. No regional wall motion abnormalities noted. Right Ventricle Normal RV size. Normal systolic function. Atria Normal left atrium. Normal right atrium. Bubble contrast study negative for right to left interatrial shunt. Mitral Valve Normal mitral valve. Tricuspid Valve Normal tricuspid valve. Aortic Valve Normal aortic valve. Pulmonic Valve Normal pulmonic valve. Great Vessels Normal aortic root. The pulmonary artery is normal size. Normal inferior vena cava. Pericardium/Pleural No pericardial effusion. Medication Performed a rapid injection of agitated mix of 9 cc saline and 1cc air to assess for atrial septal defect. MMode/2D Measurements & Calculations LVIDd: 4.8 cm IVSd: 1.00 cm Ao root diam: 3.3 cm LVIDs: 3.7 cm LVPWd: 1.0 cm RVDd: 3.0 cm FS: 22.9 % LAV(MOD-bp): 38.7 ml LA A4 area: 13.7 cm2 LA dimension(2D): 3.8 cm LAV(MOD-bp) Indexed: 20.8 ml/m2 LAV(MOD-sp2): 39.8 ml LAV(MOD-sp4): 34.7 ml RA A4 area: 11.7 cm2 Doppler Measurements & Calculations MV E max pedro: 43.5 cm/sec Lat Peak E' Pedro: 10.5 cm/sec Med Peak E' Pedro: 7.5 cm/sec MV A max pedro: 63.9 cm/sec E/E' lat: 4.1 E/E' med: 5.8 MV E/A: 0.68 Ao V2 max: 86.7 cm/sec LV V1 max: 67.1 cm/sec PA V2 max: 64.1 cm/sec Ao max P.0 mmHg LV V1 max P.8 mmHg ECHO/Echo Complete Interpretation Summary Normal LV size. Left ventricular systolic function is normal. The estimated ejection fraction is 53 %. Stage 1 diastolic dysfunction. Bubble contrast study negative for right to left interatrial shunt. Ordering Physician: Samir De La Garza Referring Physician: MARQUIS PCP Performed By: Blanca Bejarano, YESY, RVT
--- NOTE | 2020-10-26 18:15 | MRI_ITS ---
STUDY: MRI BRAIN WITHOUT CONTRAST REASON FOR EXAM: Male, 59 years old. CVA TECHNIQUE: Standardized multiplanar fat and water weighted pulse sequences were obtained. COMPARISON: CT of the brain 10/26/2020 FINDINGS: Normal size of the ventricles and extra-axial spaces for the patient''s age. Mild nonspecific periventricular white matter disease more pronounced on the right without mass effect or restricted diffusion. The appearance of the lesions are suggestive of demyelinating plaques however coexisting small vessel ischemic change cannot be excluded in patient of this age Normal bilateral basal ganglia. Normal thalami. There is no extra-axial fluid accumulation. Normal flow voids within the major intracranial circulation suggesting patency by spin echo criteria. Normal sella turcica, pituitary gland, infundibular stalk, optic chiasm and hypothalamus. Normal tectal plate and pineal gland. Normal midbrain, alta and medulla. Normal cerebellum. Normal basal cisterns. Normal bilateral temporal bones. Normal bilateral internal auditory canals. No demonstrated orbital abnormality, within the constraints of a routine brain study. Normal visualized paranasal sinuses. Normal calvarium and skull base. Normal visualized soft tissue structures. Normal visualized upper cervical spine. No significant change since prior exam MRI/Brain without Contrast IMPRESSION: Mild periventricular white matter disease more pronounced on the right which may be consistent with demyelinating disease although cannot exclude coexisting deep white matter ischemic changes. Clinical correlation is recommended. No evidence for acute infarct Electronically Signed: Jose Bonilla MD at 22:17 EDT , Service support ,
[2020-10-26] MEDS: Atorvastatin Calcium 80 MG Tablet PO (20:49)
[2020-10-26] MEDS: MELATONIN 3 MG TABLET PO (20:50)
[2020-10-26] MEDS: Mirtazapine 15 MG Tablet PO (20:50)
[2020-10-26] MEDS: Acetaminophen 325 MG Tablet 650 MG PO (20:50)
[2020-10-26] MEDS: Metoprolol(XL)Succ 25 MG Tablet PO (20:52)
[2020-10-26] MEDS: cycloBENZAPRine HCl 10 MG Tablet PO (20:56)
[2020-10-26] MEDS: Topiramate 50 MG Tablet PO (20:59)
[2020-10-27 03:22] VITALS: BP 119/68; PULSE 66; RESP 18; TEMP 36.3; O2SAT 95
[2020-10-27 03:24] VITALS: PULSE 65
[2020-10-27 05:19] LABS: Absolute Lymphocyte Count 2.02 X10^3/uL (0.83-4.51); Basophil# 0.06 X10^3/uL; Basophil% 1.3 % (0-1); Eosinophil# 0.24 X10^3/uL; Eosinophils% 5.2 % (0-5); Hematocrit 51.6 % (40-54); Hemoglobin 16.3 g/dL (13.0-16.5); Lymphocyte # 2.02 X10^3/ul (0.83-4.51); Lymphocyte % 43.3 % (19-41); Mean Corp Hgb Conc 31.6 g/dL (32-36); Mean Corpuscular Hgb 29.9 pg (27.0-32.0); Mean Corpuscular Volume 94.5 fL (80-94); Mean Platelet Vol. 9.4 fl (6.2-12.0); Monocyte# 0.35 X10^3/uL; Monocyte% 7.5 % (0-10); NRBC Flagged by Analyzer 0 % (0-5); Neutrophil # 1.98 X10^3/uL (2.7-7.7); Neutrophil % 42.5 % (47-70); Platelet Count 282 K/mm3 (150-450); RBC Distribution Width CV 13.2 % (11.6-14.6); RBC Distribution Width SD 45.7 fl (35.1-43.9); Red Blood Count 5.46 M/mm3 (4.6-6.2); White Blood Count 4.7 K/mm3 (4.4-11.0)
[2020-10-27 05:38] LABS: Anion Gap 5 (5-15); BUN 12 mg/dL (7-18); BUN/Creat Ratio 12.9 RATIO (10-20); Calcium,Total 8.9 mg/dL (8.5-10.1); Chloride 107 mmol/L (98-107); Cholesterol 172 mg/dL (200); Creatinine, Serum 0.93 mg/dL (0.70-1.30); EST Glomerular Filtration Rate 88 mL/min (>60); Est Glom Filt Rate - Afr Amer 107 mL/min (>60); Estimated Creatinine Clearance 78.13 ml/min; Glucose 91 mg/dL (74-106); High Density Lipoprotein 44 mg/dL; Potassium 4.5 mmol/L (3.5-5.1); Sodium Level 136 mmol/L (136-145); Triglycerides 242 mg/dL; Very Low Density Lipoprotein 48 mg/dL (5-40)
[2020-10-27 07:06] VITALS: PULSE 71
[2020-10-27 07:09] VITALS: O2SAT 96
[2020-10-27 08:27] VITALS: BP 114/70; PULSE 79; RESP 16; TEMP 36.8; O2SAT 98
[2020-10-27 08:29] VITALS: PULSE 79
[2020-10-27] MEDS: Aspirin E.C. 81 MG Tablet PO (08:29)
[2020-10-27] MEDS: Metoprolol(XL)Succ 25 MG Tablet PO (08:29)
[2020-10-27] MEDS: Escitalopram Oxalate 20 MG Tablet PO (08:29)
[2020-10-27] MEDS: Topiramate 50 MG Tablet PO (08:29)
--- NOTE | 2020-10-27 11:05 | PCM.DC ---
Discharge Instructions Diet Discharge Diet: Low fat / Low cholesterol and 2000 mg Sodium Diet Activity Discharge Activity: May Not Drive Weight Bearing Status: Weight bearing as tolerated Follow Up Care Test Results: Test results from this visit will be discussed in further detail at your follow-up appointment, if applicable. Discharge Plan Admission Admit Date/Time: 10/26/20 17:04 Attending Provider: Amol Gaffney Primary Care Provider: Care Physician,No Primary Instructions Patient Instructions: ED Chest Pain, Noncardiac Additional Instructions / Restrictions: Follow-up with neurologist, Dr. Wagoner with MRI brain with contrast as an outpatient. Discharge Orders/Prescriptions Prescriptions: New topiramate 50 mg Tablet 50 mg PO BID 30 Days Qty: 60 RF: 0 Continued escitalopram oxalate [Lexapro] 20 mg tablet 20 mg PO DAILY RF: 0 atorvastatin 80 MG tablet 80 mg PO DAILY RF: 0 aspirin 81 MG tablet,delayed release (DR/EC) 81 mg PO DAILY RF: 0 cyclobenzaprine 10 MG tablet 10 mg PO TID PRN (Reason: Muscle Spasm) Qty: 20 RF: 0 metoprolol succinate 25 MG tablet extended release 24 hr 25 tab PO BID RF: 0 topiramate 25 MG tablet 25 mg PO QHS Qty: 60 RF: 0 mirtazapine 15 mg tablet 15 mg PO QHS Qty: 0 RF: 0 Referrals / Follow Up: Care Physician,No Primary [Primary Care Provider] - Disposition Disposition (needs filled in before D/C Order can be placed): Home, self care
--- NOTE | 2020-10-27 11:11 | DS.PCM_ITS ---
Providers Date of Admission: 10/26/20 Primary Care Physician: No Primary Care Phys Reason For Visit: LEFT SIDED WEAKNESS Diagnosis Discharge Diagnosis (1) CVA (cerebral vascular accident): Status: Acute Code(s): I63.9 - Cerebral infarction, unspecified Medications at Discharge Home Medications escitalopram oxalate 20 mg tablet 20 mg PO DAILY 12/21/18 aspirin 81 mg PO DAILY 02/14/20 atorvastatin 80 mg PO DAILY 02/14/20 cyclobenzaprine 10 mg PO TID PRN #20 tab 03/12/20 metoprolol succinate 25 tab PO BID 08/14/20 topiramate 25 mg PO QHS #60 tab 08/15/20 mirtazapine 15 mg PO QHS #0 tab 10/27/20 topiramate 50 mg PO BID 30 Days #60 tab 10/27/20 Hospital Course Summary of Care Provided Hospital Course: This 59-year-old question gentleman admitted with numbness and tingling in right and left upper extremity and left lower extremity for 2 to 3 days along with dropping objects. This was similar to his previous admission in July 2020. Patient also has history of possible concussion/head injury in June 2090. He has history of complicated migraine and during previous admission he was given Topamax and is taking it. Patient was admitted in PCU. NIH stroke scale 0. MRI brain does not show acute infarct. MRI brain also showed mild periventricular white changes more pronounced right side similar to previous MRI brain in July 2020. He recommended MRI brain with contrast to see enhancement and LP if MRI brain shows enhancement but patient wants to get it done as an outpatient. It seems he fol lows Dr. Wagoner, neurologist in [place]. During previous admission, [facility] neurologist was consulted and he did not think MS or other demyelinating lesion. Patient is neurologically stable although wants MRI brain with contrast as an outpatient therefore discharged. CT angiogram head and neck no reported normal. Echo reported EF 53% but normal LV function stage I diastolic dysfunction suggestive of mild chronic diastolic heart failure. Bubble contrast read negative. Fasting profile shows triglyceride 242, LDL 80, HDL 44. Patient already on atorvastatin 80 mg daily and baby aspirin daily. Prescription given for Topamax. Patient has other comorbidities including coronary status post CABG and stent, hypertension, dyslipidemia, COPD and depression, all chronic conditions are stable. Discharge medication reconciliation done. Discharge follow-up instructions completed. Discharge process discussed with the patient and all questions were answered to patient's satisfaction. Total time spent, exact 35 minutes on discharge meds reconciliation, examination, coordination of care with nurses and ancillary staff, review of imaging and blood test and discussion with the patient on follow-up instructions Clinical Impression(s) from Imaging Studies Brain CT 10/26/20 13:43 IMPRESSION: No acute intracranial abnormalities, no interval change Chest X-Ray 10/26/20 13:43 IMPRESSION: No acute pulmonary process Head/Neck CTA 10/26/20 13:43 IMPRESSION: Normal CTA Head and neck with contrast. Brain MRI 10/26/20 18:15 IMPRESSION: Mild periventricular white matter disease more pronounced on the right which may be consistent with demyelinating disease although cannot exclude coexisting deep white matter ischemic changes. Clinical correlation is recommended. No evidence for acute infarct Echocardiogram 10/26/20 18:15 Interpretation Summary Normal LV size. Left ventricular systolic function is normal. The estimated ejection fraction is 53 %. Stage 1 diastolic dysfunction. Bubble contrast study negative for right to left interatrial shunt. Physical Exam Narrative Patient was admitted with left-sided numbness and weakness similar to previous admission in July 2020 and at that time MRI brain and stroke work-up was negative. In the morning his symptoms are resolved. No loss of vision. Physical exam General: Alert, Oriented x3, Cooperative HEENT: Atraumatic, PERRLA, EOMI, Normocephalic, no peripheral loss of vision. Oral: No Gingival or Mucosal Lesions/ Ulcerations Neck: Supple, No JVD, Negative Carotid Bruits Lungs: Air entry diminished in bilateral lung bases. No crepitation/rhonchi Cardiovascular: Regular rate, Regular Rhythm, Normal S1, Normal S2, No murmurs Abdomen: Bowel Sounds Present, Soft, Non Tender, Non-Distended : No renal angle tenderness. No suprapubic tenderness. Extremities: No edema, Capillary Refill Less than 3 Seconds Skin: No rashes, No breakdown Musculoskeletal: No Tenderness to Palpation of Joints or Extremities Neurological: NIH stroke scale 0. Cranial nerves II-XII grossly intact, Deep Tendon Reflexes 2+/4 and Symmetrical, Neuro grossly intact Psych/Mental Status: Normal Affect, Appropriate. ABG / Lab / Microbiology Data Result Diagrams: 10/27/20 04:52 10/27/20 04:52 Laboratory: Laboratory Results - last 24 hr 10/26/20 10/26/20 10/26/20 13:52 14:00 14:00 WBC 4.7 RBC 5.15 Hgb 15.5 Hct 47.6 MCV 92.4 MCH 30.1 MCHC 32.6 RDW Std Deviation 44.6 H RDW Coeff of [place] 13.1 Plt Count 282 MPV 9.0 Immature Gran % (Auto) 0.200 Neut % (Auto) 57.2 Lymph % (Auto) 31.7 [place] % (Auto) 6.9 Eos % (Auto) 3.4 Baso % (Auto) 0.6 Absolute Neuts (auto) 2.7 Absolute Lymphs (auto) 1.48 Nucleated RBC % 0 PT 12.0 INR 0.9 APTT 26.8 Sodium Potassium Chloride Carbon Dioxide Anion Gap BUN Creatinine Estim Creat Clear Calc Est GFR (MDRD) Af Amer Est GFR (MDRD) Non-Af BUN/Creatinine Ratio Glucose Calcium Troponin I Triglycerides Cholesterol LDL Cholesterol VLDL Cholesterol HDL Cholesterol POC Glucose 94 10/26/20 10/26/20 10/27/20 14:00 17:20 04:52 WBC 4.7 RBC 5.46 Hgb 16.3 Hct 51.6 MCV 94.5 H MCH 29.9 MCHC 31.6 L RDW Std Deviation 45.7 H RDW Coeff of [place] 13.2 Plt Count 282 MPV 9.4 Immature Gran % (Auto) 0.200 Neut % (Auto) 42.5 L Lymph % (Auto) 43.3 H [place] % (Auto) 7.5 Eos % (Auto) 5.2 H Baso % (Auto) 1.3 H Absolute Neuts (auto) 2.0 Absolute Lymphs (auto) 2.02 Nucleated RBC % 0 PT INR APTT Sodium 139 Potassium 4.1 Chloride 104 Carbon Dioxide 31.0 Anion Gap 4 L BUN 12 Creatinine 0.99 Estim Creat Clear Calc 73.40 Est GFR (MDRD) Af Amer 100 Est GFR (MDRD) Non-Af 83 BUN/Creatinine Ratio 12.2 Glucose 83 Calcium 9.0 Troponin I < 0.015 < 0.015 Triglycerides Cholesterol LDL Cholesterol VLDL Cholesterol HDL Cholesterol POC Glucose 10/27/20 04:52 WBC RBC Hgb Hct MCV MCH MCHC RDW Std Deviation RDW Coeff of [place] Plt Count MPV Immature Gran % (Auto) Neut % (Auto) Lymph % (Auto) [place] % (Auto) Eos % (Auto) Baso % (Auto) Absolute Neuts (auto) Absolute Lymphs (auto) Nucleated RBC % PT INR APTT Sodium 136 Potassium 4.5 Chloride 107 Carbon Dioxide 24.0 Anion Gap 5 BUN 12 Creatinine 0.93 Estim Creat Clear Calc 78.13 Est GFR (MDRD) Af Amer 107 Est GFR (MDRD) Non-Af 88 BUN/Creatinine Ratio 12.9 Glucose 91 Calcium 8.9 Troponin I Triglycerides 242 H Cholesterol 172 LDL Cholesterol 80 VLDL Cholesterol 48 H HDL Cholesterol 44 POC Glucose Radiography Diagnostic Testing: Radiology Impression Brain CT 10/26/20 13:43 IMPRESSION: No acute intracranial abnormalities, no interval change N.B. : The above information has been verbally conveyed by Gómez Johnson MD to Miracle Chery MD, on 10/26/2020 15:13:02 (ET). Electronically Signed: Gómez Johnson MD at 15:14 EDT , Service support , ADDENDUM: 10/26/20 1521 IMPRESSION: No acute intracranial abnormalities, no interval change N.B. : The above information has been verbally conveyed by Gómez Johnson MD to Miracle Chery MD, on 10/26/2020 15:13:02 (ET). Electronically Signed: Gómez Johnson MD at 15:14 EDT , Service support , Chest X-Ray 10/26/20 13:43 IMPRESSION: No acute pulmonary process Electronically Signed: Gómez Johnson MD at 16:29 EDT , Service support , Head/Neck CTA 10/26/20 13:43 IMPRESSION: Normal CTA Head and neck with contrast. Electronically Signed: Gómez Johnson MD at 15:16 EDT , Service support , ADDENDUM: 10/26/20 1525 IMPRESSION: Normal CTA Head and neck with contrast. N.B. : The above information has been verbally conveyed by Gómez Johnson MD to Miracle Chery MD, on 10/26/2020 15:18:20 (ET). Electronically Signed: Gómez Johnson MD at 15:16 EDT , Service support , ADDENDUM: 10/26/20 1526 Brain MRI 10/26/20 18:15 IMPRESSION: Mild periventricular white matter disease more pronounced on the right which may be consistent with demyelinating disease although cannot exclude coexisting deep white matter ischemic changes. Clinical correlation is recommended. No evidence for acute infarct Electronically Signed: Jose Bonilla MD at 22:17 EDT , Service support , D/C Instructions Discharge Diet: Low fat / Low cholesterol and 2000 mg Sodium Diet Discharge Activity: May Not Drive Weight Bearing Status: Weight bearing as tolerated Meaningful Use Info Meaningful Use Diagnoses (Choose all that apply): None applicable Discharge Plan Admission Admit Date/Time: 10/26/20 17:04 Primary Reason for Your Visit: Complex migraine. TIA/stroke ruled out Attending Provider: Amol Gaffney Primary Care Provider: Care Physician,No Primary Instructions Patient Instructions: ED Chest Pain, Noncardiac Additional Instructions / Restrictions: Follow-up with neurologist, Dr. Wagoner with MRI brain with contrast as an outpatient. Discharge Orders/Prescriptions Prescriptions: New topiramate 50 mg Tablet 50 mg PO BID 30 Days Qty: 60 RF: 0 Continued escitalopram oxalate [Lexapro] 20 mg tablet 20 mg PO DAILY RF: 0 atorvastatin 80 MG tablet 80 mg PO DAILY RF: 0 aspirin 81 MG tablet,delayed release (DR/EC) 81 mg PO DAILY RF: 0 cyclobenzaprine 10 MG tablet 10 mg PO TID PRN (Reason: Muscle Spasm) Qty: 20 RF: 0 metoprolol succinate 25 MG tablet extended release 24 hr 25 tab PO BID RF: 0 topiramate 25 MG tablet 25 mg PO QHS Qty: 60 RF: 0 mirtazapine 15 mg tablet 15 mg PO QHS Qty: 0 RF: 0 Referrals / Follow Up: Care Physician,No Primary [Primary Care Provider] - Disposition Disposition (needs filled in before D/C Order can be placed): Home, self care Visit Charges OBSV E&M: 51669 Observation care discharge
--- NOTE | 2020-10-27 12:05 | NURSING ---
Arrived to pts room to go over dc instructions and pt was not in room, tele monitor was off and pts belongings were gone. Pt called and per pt he took out his IV and left. This RN went over pts dc instructions verbally. Pt had no questions and requested that his written dc instructions be discarded. Sona Huertas RN
--- NOTE | 2020-10-27 13:07 | CASEMGMT ---
SW did not do a PHQ9 as per physician patient did not have a Stroke or TIA. Ellie Moody RELAY DISPATCHER KRISSY
== END 2020-10-27 11:45 | disposition home or self-care (01) ==
LOC: ED 15:55 → PCU 19:22
PROVIDERS: Admitting Provider Family Medicine; Emergency Provider Emergency Medicine; Visit Provider Internal Medicine
DX: I63.9 Cerebral infarction, unspecified (principal); R53.1 Weakness; I25.110 Atherosclerotic heart disease of native coronary artery with unstable angina pectoris; I10 Essential (primary) hypertension; J44.9 Chronic obstructive pulmonary disease, unspecified; F32.9 Major depressive disorder, single episode, unspecified; G43.109 Migraine with aura, not intractable, without status migrainosus; E78.5 Hyperlipidemia, unspecified; M54.16 Radiculopathy, lumbar region; F17.200 Nicotine dependence, unspecified, uncomplicated; Z79.899 Other long term (current) drug therapy; Z87.820 Personal history of traumatic brain injury; Z79.82 Long term (current) use of aspirin; Z91.14 Patient's other noncompliance with medication regimen; Z95.1 Presence of aortocoronary bypass graft; R29.702 NIHSS score 2; R47.89 Other speech disturbances
CPT/HCPCS: 36415; 70450; 70496; 70498; 70551; 71045; 80048; 80061; 82962; 84484; 85025; 85610; 85730; 92523; 92610; 93005; 93306; 99218; 99285; Q9967; A4216; G0378

== ENCOUNTER 2020-12-23 09:12 | Emergency (ER) | payer MEDICARE, SELFPAY ==
[2020-10-26 13:41] VITALS: BMI 28.0
[2020-12-23 09:13] VITALS: BP 136/77; PULSE 99; RESP 16; TEMP 35.9; O2SAT 99; BMI 27.4
--- NOTE | 2020-12-23 09:29 | EKG12_ITS ---
Test Reason : GENILL Blood Pressure : / mmHG Vent. Rate : 091 BPM Atrial Rate : 091 BPM P-R Int : 152 ms QRS Dur : 100 ms QT Int : 392 ms P-R-T Axes : 079 088 074 degrees QTc Int : 482 ms Normal sinus rhythm Prolonged QT Abnormal ECG Confirmed by ADRYAN JONES, MAGGIE ([id number]), associate editor DENG BARBOUR ([id number]) on 12/27/2020 1:46:08 PM Referred By: SAVI Confirmed By:MAGGIE CORNELIUS MD
--- NOTE | 2020-12-23 09:37 | EX.ED.DYSGE1 ---
HPI History of Present Illness Chief Complaint: General Illness Informant: patient Narrative Narrative: Patient is a 60-year-old male with a past medical history of intracranial hemorrhage, coronary artery bypass who presents to the emergency department for multiple complaints. For his words he states that he has nerves that not up in the back of his head. This cuts off the blood supply to his brain. He has been having pressure in the posterior aspect of his scalp. This started yesterday. He states that this has been an intermittent issue. He was prescribed opioid medications for this issue 1 month ago. He is supposed to go to pain management for this but he does not want to. He states he has been feeling off balance since yesterday he feels like his hands and legs cramp up. He believes he has nerve damage in his lower extremities it causes burning. He denies any falls or trauma. Whenever had intracranial hemorrhage she states he hit his head. He is on any blood thinning medications. He denies any headache. No vision problems. No issues with word finding or slurred speech. Denies any chest pain, shortness of breath or heart palpitations. No abdominal pain or nausea/vomiting. Patient denies any alcohol or drug use. [facility] Medical History (Updated 12/23/20 @ 13:[address] Galdino Obrien, DO) Atherosclerotic heart disease of [place] coronary artery without angina pectoris Benign essential hypertension Chest pain Complicated migraine COPD (chronic obstructive pulmonary disease) Depression History of illicit drug use History of medication noncompliance HLD (hyperlipidemia) Lumbar radiculopathy Tobacco user Unstable angina Home Medications escitalopram oxalate 20 mg tablet 20 mg PO DAILY 12/21/18 [History Last Taken 10/25/20] aspirin 81 mg PO DAILY 02/14/20 [History Last Taken 10/25/20] atorvastatin 80 mg PO DAILY 02/14/20 [History Last Taken 10/25/20] cyclobenzaprine 10 mg PO TID PRN #20 tab 03/12/20 [Rx Last Taken 10/25/20] metoprolol succinate 25 tab PO BID 08/14/20 [History Last Taken 10/25/20] topiramate 25 mg PO QHS #60 tab 08/15/20 [Rx Last Taken 10/25/20] mirtazapine 15 mg PO QHS #0 tab 10/27/20 [Rx Last Taken 10/25/20] topiramate 50 mg PO BID 30 Days #60 tab 10/27/20 [Rx Last Taken Unknown] Allergy/AdvReac Type Severity Reaction Status Date / Time celecoxib [From Celebrex] Allergy Swelling Verified 12/23/20 09:17 pregabalin [From Lyrica] Allergy Swelling Verified 12/23/20 09:17 Family History Father Myocardial infarction from [place] age 48 Uncle Myocardial infarction from [place] in 50's Surgical History Aortocoronary bypass status (~12/27/17) Social History household members: spouse Smoking Status: Current every day smoker tobacco type: cigarettes ROS ROS ED Constitutional Constitutional ED: Denies chills or fever(s) Eyes Eyes: Denies change in vision ENT ENT ED: Denies epistaxis or rhinorrhea Cardiovascular Cardiovascular: Denies chest pain or palpitations Respiratory/Chest Respiratory/Chest: Denies cough, dyspnea or dyspnea on exertion Gastrointestinal Gastrointestinal: Denies abdominal pain, diarrhea, nausea or vomiting Genitourinary Genitourinary ED: Denies dysuria, hematuria or urinary frequency Musculoskeletal Musculoskeletal: Denies back pain or neck pain Integumentary Denies rash Neurologic Neurologic: Denies dizziness, headache(s) or weakness EXAM Physical Exam Const Vital Signs: 12/23/20 09:13 12/23/20 09:22 Temperature 96.7 F L Temperature Source Temporal Pulse Rate 99 Respiratory Rate 16 Respiratory Pattern Normal Blood Pressure 136/77 H Blood Pressure Mean 96 Pulse Ox 99 Oxygen Delivery Method Room Air Positive well nourished and well developed General Appearance ED: well developed and NAD HEENT Reports normocephalic, head/scalp atraumatic and moist mucous membranes Eyes PERRL and EOMs intact bilaterally Neck no lymphadenopathy and supple General: Negative for tenderness Chest Wall inspection of chest normal Resp normal respiratory effort and clear to auscultation bilaterally Auscultation: Negative for rales, rhonchi or wheezes Cardio regular rate, regular rhythm and no murmurs GI normal to inspection, nondistended, normoactive bowel sounds and non-tender Palpation: soft; Negative for guarding or rebound tenderness present Back/Spine no CVA tenderness Extremity normal to inspection General Extremety ED: Negative for edema or tenderness General Extremity: Negative for edema Neuro oriented x3, CN's II-XII intact bilaterally and no sensory deficits noted Neuro Narrative: No discoordination with [id number] or [id number] test. NIH score 0. Sensorium / Orientation: alert Motor Exam: strength 5/5 throughout Psych Appearance: other Mood & Affect: anxious Skin no rashes or lesions noted MDM MDM MDM Narrative Medical decision making narrative: Patient presents to the emergency department for feeling off balance. He states his difficulty walking although he walked into the emerge department fine. He states that this is very intermittent. He is also having a pressure in the back of his head. He feels cramping in his hands bilaterally. On arrival to the emergency department he is in no acute distress. NIH score is 0. Vital signs within normal limits. Will check CT scan of his head as well as basic lab work. Patient was willing to have his lab work drawn. Whenever CT imaging came to get the patient he states that he did not want this performed anyone to be transferred to a different facility. Patient ended up eloping prior to me discussing this with him. I did follow-up on patient's lab work which did not reveal any significant acute abnormality. Does not have a leukocytosis. His enzymes are normal. His AST is mildly elevated. Patient's alcohol level is within normal limits. Lab Data Labs: Laboratory Results - last 24 hr 12/23/20 12/23/20 12/23/20 09:35 09:35 09:35 WBC 5.5 RBC 4.56 L Hgb 13.4 Hct 41.9 MCV 91.9 MCH 29.4 MCHC 32.0 RDW Std Deviation 45.2 H RDW Coeff of [place] 13.2 Plt Count 292 MPV 9.2 Immature Gran % (Auto) 0.200 Neut % (Auto) 48.1 Lymph % (Auto) 36.5 [place] % (Auto) 7.8 Eos % (Auto) 6.7 H Baso % (Auto) 0.7 Absolute Neuts (auto) 2.7 Absolute Lymphs (auto) 2.01 Nucleated RBC % 0 Sodium 137 Potassium 3.4 L Chloride 103 Carbon Dioxide 25.0 Anion Gap 9 BUN 26 H Creatinine 1.26 Estim Creat Clear Calc 56.96 Est GFR (MDRD) Af Amer 75 Est GFR (MDRD) Non-Af 62 BUN/Creatinine Ratio 20.6 H Glucose 115 H Calcium 8.7 Total Bilirubin 0.80 AST 46 H ALT 23 Alkaline Phosphatase 118 H Total Protein 7.3 Albumin 3.7 Globulin 3.6 Albumin/Globulin Ratio 1.0 Ethyl Alcohol < 3.0 EKG Initial EKG: Attestation: I personally reviewed and interpreted this EKG as follows: (Rate of 91 bpm and normal sinus rhythm. Normal intervals. Normal axis. No significant ST elevations or depressions. No T wave abnormalities.) Discharge Plan Triage Chief Complaint: General Illness ED Provider: Galdino Obrien Dx/Rx/DC Orders Clinical Impression: Headache, Balance problem Prescriptions: No Action escitalopram oxalate [Lexapro] 20 mg tablet 20 mg PO DAILY RF: 0 atorvastatin 80 MG tablet 80 mg PO DAILY RF: 0 aspirin 81 MG tablet,delayed release (DR/EC) 81 mg PO DAILY RF: 0 cyclobenzaprine 10 MG tablet 10 mg PO TID PRN (Reason: Muscle Spasm) Qty: 20 RF: 0 metoprolol succinate 25 MG tablet extended release 24 hr 25 tab PO BID RF: 0 topiramate 25 MG tablet 25 mg PO QHS Qty: 60 RF: 0 topiramate 50 mg Tablet 50 mg PO BID 30 Days Qty: 60 RF: 0 mirtazapine 15 mg tablet 15 mg PO QHS Qty: 0 RF: 0 Primary Care Provider: Care Physician,No Primary Referrals: Care Physician,No Primary [Primary Care Provider] - Disposition Disposition: Against Medical Advice Discharge Date/Time: 12/23/20 10:08
[2020-12-23 09:47] LABS: Absolute Lymphocyte Count 2.01 X10^3/uL (0.83-4.51); Absolute Neutrophil Count 2.7 X10^3/uL (2.0-7.7); Basophil# 0.04 X10^3/uL; Basophil% 0.7 % (0-1); Eosinophil# 0.37 X10^3/uL; Eosinophils% 6.7 % (0-5); Hematocrit 41.9 % (40-54); Hemoglobin 13.4 g/dL (13.0-16.5); Lymphocyte # 2.01 X10^3/ul (0.83-4.51); Lymphocyte % 36.5 % (19-41); Mean Corpuscular Hgb 29.4 pg (27.0-32.0); Mean Corpuscular Volume 91.9 fL (80-94); Mean Platelet Vol. 9.2 fl (6.2-12.0); Monocyte# 0.43 X10^3/uL; Monocyte% 7.8 % (0-10); NRBC Flagged by Analyzer 0 % (0-5); Neutrophil # 2.65 X10^3/uL (2.7-7.7); Neutrophil % 48.1 % (47-70); Platelet Count 292 K/mm3 (150-450); RBC Distribution Width CV 13.2 % (11.6-14.6); RBC Distribution Width SD 45.2 fl (35.1-43.9); Red Blood Count 4.56 M/mm3 (4.6-6.2); White Blood Count 5.5 K/mm3 (4.4-11.0)
--- NOTE | 2020-12-23 10:06 | ED.RN ---
PT WAS YELLING AT SOMEONE ON THE PHONE AND THREW HIS PHONE. REGISTRATION WAS IN THE ROOM AND PT THREW THE PEN WHEN ASKED TO SIGN HIS FORM. PT TOOK HIS IV OUT AND BLOOD IS ALL OVER THE ROOM. PT AMBULATED FROM ER STATING HE WAS GOING HOME. SECURITY, HRO AND PHYSICIAN NOTIFIED.
--- NOTE | 2020-12-23 10:08 | ED.RN ---
pt aggressive and rude towards staff. pt continously flailing in bed.
[2020-12-23 10:42] LABS: Alcohol, Blood (Medical)-Serum < 3.0 mg/dL
[2020-12-23 10:43] LABS: AST(SGOT) 46 U/L (15-37); Alanine Aminotransfer ALT/SGPT 23 U/L (16-61); Albumin, Serum 3.7 g/dL (3.2-5.0); Alkaline Phosphatase 118 U/L (45-117); Anion Gap 9 (5-15); BUN 26 mg/dL (7-18); BUN/Creat Ratio 20.6 RATIO (10-20); Calcium,Total 8.7 mg/dL (8.5-10.1); Chloride 103 mmol/L (98-107); Creatinine, Serum 1.26 mg/dL (0.70-1.30); EST Glomerular Filtration Rate 62 mL/min (>60); Est Glom Filt Rate - Afr Amer 75 mL/min (>60); Estimated Creatinine Clearance 56.96 ml/min; Globulin 3.6 g/dL (2.2-4.2); Glucose 115 mg/dL (74-106); Potassium 3.4 mmol/L (3.5-5.1); Protein, Total 7.3 g/dL (6.4-8.2); Sodium Level 137 mmol/L (136-145)
== END 2020-12-23 10:08 | disposition left against medical advice (07) ==
PROVIDERS: Emergency Provider Emergency Medicine
DX: R51.9 Headache, unspecified (principal); R26.89 Other abnormalities of gait and mobility; R26.2 Difficulty in walking, not elsewhere classified; F17.210 Nicotine dependence, cigarettes, uncomplicated; Z95.1 Presence of aortocoronary bypass graft; E78.5 Hyperlipidemia, unspecified; F32.9 Major depressive disorder, single episode, unspecified; I10 Essential (primary) hypertension; I25.10 Atherosclerotic heart disease of native coronary artery without angina pectoris; J44.9 Chronic obstructive pulmonary disease, unspecified; Z79.1 Long term (current) use of non-steroidal anti-inflammatories (NSAID); Z79.82 Long term (current) use of aspirin; Z79.899 Other long term (current) drug therapy; Z91.14 Patient's other noncompliance with medication regimen
CPT/HCPCS: 80053; 82077; 85025; 93005; 99283; A4216

== ENCOUNTER 2021-03-23 00:29 | Emergency (ER) | payer MEDICARE, SELFPAY ==
[2021-03-23 00:29] VITALS: BP 150/104; PULSE 65; RESP 18; TEMP 36.9; O2SAT 98; BMI 27.4
--- NOTE | 2021-03-23 01:15 | EDS_ITS ---
HPI History of Present Illness Chief Complaint: Other, Pain/Inj Informant: patient Onset/Context/Timing Onset: Days Context: Gradual Onset Timing: Continuous Quality: Pruritic Location: Scalp, face, bilateral arms Worsened by: Nothing Relieved by: Nothing Narrative Narrative: Patient presents with possible bedbugs or lice that has been getting worse over the past several days. Patient states he has been staying in a motel for the last 6 days. Patient states he has noted some sores and itching over his scalp, face, and arms. Patient states nothing makes it better nothing makes it worse. Patient states he has been noticing some bleeding from scratching. Patient denies any difficulty breathing or difficulty swallowing. [facility] Medical History (Updated 03/23/21 @ 01:[address] Gutierrez Peters, DO) Atherosclerotic heart disease of [place] coronary artery without angina pectoris Benign essential hypertension Chest pain Complicated migraine COPD (chronic obstructive pulmonary disease) Depression History of illicit drug use History of medication noncompliance HLD (hyperlipidemia) Lumbar radiculopathy Tobacco user Unstable angina Home Medications escitalopram oxalate 20 mg tablet 20 mg PO DAILY 12/21/18 [History Last Taken 10/25/20] aspirin 81 mg PO DAILY 02/14/20 [History Last Taken 10/25/20] atorvastatin 80 mg PO DAILY 02/14/20 [History Last Taken 10/25/20] cyclobenzaprine 10 mg PO TID PRN #20 tab 03/12/20 [Rx Last Taken 10/25/20] metoprolol succinate 25 tab PO BID 08/14/20 [History Last Taken 10/25/20] topiramate 25 mg PO QHS #60 tab 08/15/20 [Rx Last Taken 10/25/20] mirtazapine 15 mg PO QHS #0 tab 10/27/20 [Rx Last Taken 10/25/20] topiramate 50 mg PO BID 30 Days #60 tab 10/27/20 [Rx Last Taken Unknown] loratadine [Claritin] 10 mg PO DAILY PRN #10 tab 03/23/21 [Rx Last Taken Unknown] Allergy/AdvReac Type Severity Reaction Status Date / Time celecoxib [From Celebrex] Allergy Swelling Verified 03/23/21 00:31 pregabalin [From Lyrica] Allergy Swelling Verified 03/23/21 00:31 Family History Father Myocardial infarction from [place] age 48 Uncle Myocardial infarction from [place] in 50's Surgical History Aortocoronary bypass status (~12/27/17) Social History household members: spouse Smoking Status: Current every day smoker tobacco type: cigarettes ROS ROS ED Constitutional Constitutional ED: Denies chills or fever(s) Eyes Eyes: Denies blurry vision or change in vision ENT ENT ED: Denies rhinorrhea or sore throat Cardiovascular Cardiovascular: Denies chest pain or palpitations Respiratory/Chest Respiratory/Chest: Denies cough or dyspnea Gastrointestinal Gastrointestinal: Denies nausea or vomiting Genitourinary Genitourinary ED: Denies dysuria or hematuria Musculoskeletal Musculoskeletal: Denies back pain or neck pain Integumentary Reports rash; Denies abscess Neurologic Neurologic: Denies headache(s) or weakness Allergic/Immunologic Allergic/Immunologic ED: Denies mouth swelling or urticaria EXAM Physical Exam Const Vital Signs: 03/23/21 00:29 03/23/21 00:32 Temperature 98.5 F Temperature Source Temporal Pulse Rate 65 Respiratory Rate 18 Respiratory Effort Normal Non-Labored Blood Pressure 150/104 H Blood Pressure Mean 119 Pulse Ox 98 Oxygen Delivery Method Room Air Positive well nourished and well developed General Appearance ED: well developed HEENT Reports moist mucous membranes Neck supple and no JVD Resp normal respiratory effort and clear to auscultation bilaterally Cardio regular rate, regular rhythm and no murmurs GI normal to inspection, nondistended, normoactive bowel sounds and non-tender Palpation: soft Extremity normal to inspection General Extremety ED: Negative for edema or tenderness General Extremity: Negative for edema Neuro oriented x3, CN's II-XII intact bilaterally and no sensory deficits noted Sensorium / Orientation: alert Motor Exam: strength 5/5 throughout Psych mental status grossly normal Skin Skin Narrative: There are some excoriations noted over the scalp and bilateral forearms. There is no discharge or drainage. There is no bleeding noted. There are no petechia noted. There are no urticaria noted. There were some bedbugs noted on the sheets in the room as well as in the scalp. MDM MDM MDM Narrative Medical decision making narrative: Patient was given a dose of Atarax here. Patient was given a prescription for Claritin. Patient was instructed to follow-up with his primary care physician in 5 to 7 days. Patient understood and was agreeable with the plan. All questions were answered. Discharge Plan Triage Chief Complaint: Other, Pain/Inj ED Provider: Gutierrez Peters Dx/Rx/DC Orders Clinical Impression: Bedbug bite Instructions: ED Bedbug Bites Prescriptions: New loratadine [Claritin] 10 mg tablet 10 mg PO DAILY PRN (Reason: itching) Qty: 10 RF: 0 No Action escitalopram oxalate [Lexapro] 20 mg tablet 20 mg PO DAILY RF: 0 atorvastatin 80 MG tablet 80 mg PO DAILY RF: 0 aspirin 81 MG tablet,delayed release (DR/EC) 81 mg PO DAILY RF: 0 cyclobenzaprine 10 MG tablet 10 mg PO TID PRN (Reason: Muscle Spasm) Qty: 20 RF: 0 metoprolol succinate 25 MG tablet extended release 24 hr 25 tab PO BID RF: 0 topiramate 25 MG tablet 25 mg PO QHS Qty: 60 RF: 0 topiramate 50 mg Tablet 50 mg PO BID 30 Days Qty: 60 RF: 0 mirtazapine 15 mg tablet 15 mg PO QHS Qty: 0 RF: 0 Primary Care Provider: Care Physician,No Primary Referrals: Paty Patricio [NON-STAFF] - 5-7 Days Care Physician,No Primary [Primary Care Provider] - Disposition Disposition: Home, Self Care
[2021-03-23] MEDS: hydrOXYzine 10 MG Tablet PO (02:01)
[2021-03-23 02:03] VITALS: BP 148/70; PULSE 67; RESP 18
== END 2021-03-23 02:03 | disposition home or self-care (01) ==
PROVIDERS: Emergency Provider Emergency Medicine
DX: S50.862A Insect bite (nonvenomous) of left forearm, initial encounter (principal); S50.861A Insect bite (nonvenomous) of right forearm, initial encounter; S00.06XA Insect bite (nonvenomous) of scalp, initial encounter; W57.XXXA Bitten or stung by nonvenomous insect and other nonvenomous arthropods, initial encounter; E78.5 Hyperlipidemia, unspecified; F32.9 Major depressive disorder, single episode, unspecified; F17.210 Nicotine dependence, cigarettes, uncomplicated; I10 Essential (primary) hypertension; I25.10 Atherosclerotic heart disease of native coronary artery without angina pectoris; J44.9 Chronic obstructive pulmonary disease, unspecified; Z79.1 Long term (current) use of non-steroidal anti-inflammatories (NSAID); Z79.82 Long term (current) use of aspirin; Z91.14 Patient's other noncompliance with medication regimen
CPT/HCPCS: 99282

== ENCOUNTER 2021-03-28 01:30 | Emergency (ER) | payer MEDICARE, SELFPAY ==
[2021-03-28 01:32] VITALS: BP 158/96; PULSE 114; RESP 18; TEMP 36.6; O2SAT 98; BMI 27.3
--- NOTE | 2021-03-28 02:10 | EX.ED.DYSGE1 ---
HPI History of Present Illness Chief Complaint: Itching Detail of Chief Complaint: Bedbugs Informant: patient Onset/Context/Timing Onset: Today Context: Gradual Onset Timing: Continuous Current Severity: Gone Maximum Severity: Mild Narrative Narrative: 60-year-old male says been seen in the [facility] for last 6 to 8 weeks. States that there is been bedbugs. He is complained about it. He was having itching tonight and came in. States now is resolved. He denies any other complaints. He denies any recent illness. Prior similar symptoms: Yes Recent Illness/Hospitalization: No [facility] Medical History (Updated 03/28/21 @ 02:[address] Kenny Stacy MD) Atherosclerotic heart disease of [place] coronary artery without angina pectoris Benign essential hypertension Chest pain Complicated migraine COPD (chronic obstructive pulmonary disease) Depression History of illicit drug use History of medication noncompliance HLD (hyperlipidemia) Lumbar radiculopathy Tobacco user Unstable angina Home Medications escitalopram oxalate 20 mg tablet 20 mg PO DAILY 12/21/18 [History Last Taken 10/25/20] aspirin 81 mg PO DAILY 02/14/20 [History Last Taken 10/25/20] atorvastatin 80 mg PO DAILY 02/14/20 [History Last Taken 10/25/20] cyclobenzaprine 10 mg PO TID PRN #20 tab 03/12/20 [Rx Last Taken 10/25/20] metoprolol succinate 25 tab PO BID 08/14/20 [History Last Taken 10/25/20] topiramate 25 mg PO QHS #60 tab 08/15/20 [Rx Last Taken 10/25/20] mirtazapine 15 mg PO QHS #0 tab 10/27/20 [Rx Last Taken 10/25/20] topiramate 50 mg PO BID 30 Days #60 tab 10/27/20 [Rx Last Taken Unknown] loratadine [Claritin] 10 mg PO DAILY PRN #10 tab 03/23/21 [Rx Last Taken Unknown] Allergy/AdvReac Type Severity Reaction Status Date / Time celecoxib [From Celebrex] Allergy Swelling Verified 03/28/21 01:31 pregabalin [From Lyrica] Allergy Swelling Verified 03/28/21 01:31 Family History Father Myocardial infarction from [place] age 48 Uncle Myocardial infarction from [place] in 50's Surgical History Aortocoronary bypass status (~12/27/17) Social History household members: spouse Smoking Status: Current every day smoker tobacco type: cigarettes ROS ROS ED ROS Narrative Denies recent illness. Review of Systems ROS Unobtainable: Denies due to encephalopathy Constitutional Constitutional ED: Denies fever(s) Eyes Eyes: Denies change in vision ENT ENT ED: Denies ear pain Cardiovascular Cardiovascular: Denies chest pain Respiratory/Chest Respiratory/Chest: Denies dyspnea Gastrointestinal Gastrointestinal: Denies abdominal pain, diarrhea, nausea or vomiting Genitourinary Genitourinary ED: Denies dysuria Musculoskeletal Musculoskeletal: Denies myalgias Integumentary Denies rash Neurologic Neurologic: Denies headache(s) Psychiatric Psychiatric: Denies depression Endocrine Endocrinology: Denies polyuria Allergic/Immunologic Allergic/Immunologic ED: Denies urticaria EXAM Physical Exam Narrative Exam Narrative: Middle-age male no acute distress vital signs stable afebrile. HEENT exam unremarkable. Lungs are clear. Heart regular rhythm. Abdomen soft nontender. Moving all 4 extremities. No edema. Back unremarkable. Skin no rashes. Const Vital Signs: 03/28/21 01:32 Temperature 97.8 F Temperature Source Temporal Pulse Rate 114 H Respiratory Rate 18 Blood Pressure 158/96 H Blood Pressure Mean 116 Pulse Ox 98 Oxygen Delivery Method Room Air Positive well nourished and well developed; Negative for obese, cachectic, contractures or unkempt General Appearance ED: well developed and NAD; Negative for unkempt, cachectic, contractures, cyanotic, diaphoretic or pallor Nutritional Appearance: Negative for cachectic or obese HEENT Reports moist mucous membranes Negative for trauma or tenderness Eyes PERRL and EOMs intact bilaterally Neck no lymphadenopathy, supple and no JVD General: Negative for tenderness Chest Wall inspection of chest normal and palpation of chest normal Resp normal respiratory effort and clear to auscultation bilaterally Effort and Inspection: Negative for pain with movement Auscultation: Negative for rales, rhonchi or wheezes Cardio regular rate, regular rhythm, S1 normal heart sound, S2 normal heart sound and no murmurs GI normal to inspection, nondistended, normoactive bowel sounds, non-tender and non-distended Auscultation: normoactive bowel sounds Palpation: soft Back/Spine no CVA tenderness Extremity normal to inspection General Extremety ED: Negative for edema or tenderness General Extremity: Negative for edema Neuro oriented x3 Sensorium / Orientation: alert Motor Exam: strength 5/5 throughout Psych mental status grossly normal Appearance: Negative for unkempt Skin no rashes or lesions noted and no wounds General Skin Exam: Negative for jaundice or pallor Rashes: No rashes noted MDM MDM MDM Narrative Medical decision making narrative: Patient had bedbugs was seen in hotel. He has been taken out of his close and we put him in paper garments that we had here. He denies any complaints. He has no rashes. To be discharged. Patient states he and his are going to a different hotel. Discharge Plan Triage Chief Complaint: Itching ED Provider: Kenny Stacy Dx/Rx/DC Orders Clinical Impression: Bedbug bite Instructions: Bedbugs Prescriptions: No Action escitalopram oxalate [Lexapro] 20 mg tablet 20 mg PO DAILY RF: 0 atorvastatin 80 MG tablet 80 mg PO DAILY RF: 0 aspirin 81 MG tablet,delayed release (DR/EC) 81 mg PO DAILY RF: 0 cyclobenzaprine 10 MG tablet 10 mg PO TID PRN (Reason: Muscle Spasm) Qty: 20 RF: 0 metoprolol succinate 25 MG tablet extended release 24 hr 25 tab PO BID RF: 0 topiramate 25 MG tablet 25 mg PO QHS Qty: 60 RF: 0 topiramate 50 mg Tablet 50 mg PO BID 30 Days Qty: 60 RF: 0 mirtazapine 15 mg tablet 15 mg PO QHS Qty: 0 RF: 0 loratadine [Claritin] 10 mg tablet 10 mg PO DAILY PRN (Reason: itching) Qty: 10 RF: 0 Primary Care Provider: Care Physician,No Primary Referrals: Jose Bailey MD [STAFF PHYSICIAN] - As Needed Care Physician,No Primary [Primary Care Provider] - Activity Restrictions/Additional Instructions: Follow-up as needed. Disposition Disposition: Home, Self Care
== END 2021-03-28 02:26 | disposition home or self-care (01) ==
PROVIDERS: Emergency Provider Emergency Medicine
DX: L29.9 Pruritus, unspecified (principal); W57.XXXA Bitten or stung by nonvenomous insect and other nonvenomous arthropods, initial encounter; F32.9 Major depressive disorder, single episode, unspecified; E78.5 Hyperlipidemia, unspecified; I10 Essential (primary) hypertension; I25.10 Atherosclerotic heart disease of native coronary artery without angina pectoris; J44.9 Chronic obstructive pulmonary disease, unspecified; M54.16 Radiculopathy, lumbar region; F17.210 Nicotine dependence, cigarettes, uncomplicated; Z79.1 Long term (current) use of non-steroidal anti-inflammatories (NSAID); Z79.82 Long term (current) use of aspirin; Z79.899 Other long term (current) drug therapy; Z91.14 Patient's other noncompliance with medication regimen
CPT/HCPCS: 99282

== ENCOUNTER 2021-04-16 20:00 | Emergency (ER) | payer MEDICARE, SELFPAY ==
[2021-04-16 20:01] VITALS: BP 135/95; PULSE 18; RESP 110; TEMP 35.7; O2SAT 99; BMI 29.0
--- NOTE | 2021-04-16 20:23 | EDS_ITS ---
HPI History of Present Illness Chief Complaint: Wound Detail of Chief Complaint: Wounds to scalp, face, extremities Informant: patient Onset/Context/Timing Onset: Days Context: Sudden Onset Timing: Continuous Quality: Patient has wounds on his extremities due to picking some are secondarily i Location: He also has pustular rash on his scalp Current Severity: Mild Maximum Severity: Mild Worsened by: Nursing Home Physician syndrome Relieved by: Nothing Associated Symptoms Associated Symptoms: None other than anxiousness Narrative Narrative: Patient is a middle-age male with multiple medical problems who presents because of rash and is nervous because of the rash. He denies fever, chills night sweats. He denies ocular, visual auditory symptoms. He denies ca rdiac respiratory symptoms. No GI or symptoms. He denies any new neurologic symptoms. Prior similar symptoms: Yes (He has been told in the past nothing is wrong with him) Recent Illness/Hospitalization: No [facility] Medical History (Updated 04/16/21 @ 20:[address] Denver Greer MD) Atherosclerotic heart disease of [place] coronary artery without angina pectoris Benign essential hypertension Chest pain Complicated migraine COPD (chronic obstructive pulmonary disease) Depression History of illicit drug use History of medication noncompliance HLD (hyperlipidemia) Lumbar radiculopathy Tobacco user Unstable angina Home Medications escitalopram oxalate 20 mg tablet 20 mg PO DAILY 12/21/18 [History Last Taken 10/25/20] aspirin 81 mg PO DAILY 02/14/20 [History Last Taken 10/25/20] atorvastatin 80 mg PO DAILY 02/14/20 [History Last Taken 10/25/20] cyclobenzaprine 10 mg PO TID PRN #20 tab 03/12/20 [Rx Last Taken 10/25/20] metoprolol succinate 25 tab PO BID 08/14/20 [History Last Taken 10/25/20] topiramate 25 mg PO QHS #60 tab 08/15/20 [Rx Last Taken 10/25/20] mirtazapine 15 mg PO QHS #0 tab 10/27/20 [Rx Last Taken 10/25/20] topiramate 50 mg PO BID 30 Days #60 tab 10/27/20 [Rx Last Taken Unknown] loratadine [Claritin] 10 mg PO DAILY PRN #10 tab 03/23/21 [Rx Last Taken Unknown] doxycycline monohydrate 100 mg PO BID #14 capsule 04/16/21 [Rx Last Taken Unknown] Allergy/AdvReac Type Severity Reaction Status Date / Time celecoxib [From Celebrex] Allergy Swelling Verified 04/16/21 20:01 pregabalin [From Lyrica] Allergy Swelling Verified 04/16/21 20:01 Family History Father Myocardial infarction from [place] age 48 Uncle Myocardial infarction from [place] in 50's Surgical History Aortocoronary bypass status (~12/27/17) Social History (Updated 04/16/21 @ 20:[address] Denver Greer MD) household members: spouse Smoking Status: Current every day smoker tobacco type: cigarettes substance use type: does not use ROS ROS ED Constitutional Constitutional ED: Denies chills, fever(s), subjective or sweats Eyes Eyes: Denies blurry vision, change in vision or diplopia ENT ENT ED: Denies ear pain, rhinorrhea or sore throat Cardiovascular Cardiovascular: Denies chest pain, orthopnea, palpitations or paroxysmal nocturnal dyspnea Respiratory/Chest Respiratory/Chest: Denies cough, dyspnea, dyspnea on exertion, orthopnea, paroxysmal nocturnal dyspnea or sputum Gastrointestinal Gastrointestinal: Denies abdominal pain, diarrhea, nausea or vomiting Genitourinary Genitourinary ED: Denies dysuria, hematuria or urinary frequency Musculoskeletal Musculoskeletal: Denies arthralgias, myalgias or neck pain Integumentary Denies rash Neurologic Neurologic: Denies headache(s) or weakness Allergic/Immunologic Allergic/Immunologic ED: Reports other Details: 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 Positive pustular rash as previously noted Tympanic Membrane ED: Yes TM's clear Eyes PERRL and EOMs intact bilaterally General Eye ED: Negative for pale conjunctiva or scleral icterus Neck no lymphadenopathy, supple and no JVD Chest Wall inspection of chest normal Resp normal respiratory effort and clear to auscultation bilaterally Cardio regular rate, regular rhythm, S1 normal heart sound, S2 normal heart sound and no murmurs GI normal to inspection, nondistended, normoactive bowel sounds and non-tender Palpation: soft Back/Spine no CVA tenderness Extremity Negative for normal to inspection Extremity Narrative: Lesions due to picking with secondary infection General Extremety ED: Negative for edema or tenderness General Extremity: Negative for edema Neuro oriented x3 and CN's II-XII intact bilaterally Sensorium / Orientation: alert Motor Exam: strength 5/5 throughout Psych Mood & Affect: anxious Skin skin turgor normal Skin Narrative: Previously described MDM MDM MDM Narrative Medical decision making narrative: 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 He has wounds that are secondarily infected and he also has a pustular rash. He does have history of skin infection in the past. Will treat with doxycycline for streptococcal and staphylococcal coverage. Discharge Plan Triage Chief Complaint: Wound ED Provider: Denver Greer Dx/Rx/DC Orders Clinical Impression: Pustular rash, Infected open wound Instructions: ED Wound Check (Infection) Prescriptions: New doxycycline monohydrate 100 MG capsule 100 mg PO BID Qty: 14 RF: 0 No Action escitalopram oxalate [Lexapro] 20 mg tablet 20 mg PO DAILY RF: 0 atorvastatin 80 MG tablet 80 mg PO DAILY RF: 0 aspirin 81 MG tablet,delayed release (DR/EC) 81 mg PO DAILY RF: 0 cyclobenzaprine 10 MG tablet 10 mg PO TID PRN (Reason: Muscle Spasm) Qty: 20 RF: 0 metoprolol succinate 25 MG tablet extended release 24 hr 25 tab PO BID RF: 0 topiramate 25 MG tablet 25 mg PO QHS Qty: 60 RF: 0 topiramate 50 mg Tablet 50 mg PO BID 30 Days Qty: 60 RF: 0 mirtazapine 15 mg tablet 15 mg PO QHS Qty: 0 RF: 0 loratadine [Claritin] 10 mg tablet 10 mg PO DAILY PRN (Reason: itching) Qty: 10 RF: 0 Primary Care Provider: Debbie Vee NP Referrals: Vee,Debbie INDUSTRIAL EDITOR, INDUSTRIAL EDITOR-C [Primary Care Provider] - 1 Week if not improving Disposition Disposition: Home, Self Care
[2021-04-16] MEDS: Doxycycline 100 MG CAPSULE PO (20:35)
== END 2021-04-16 20:37 | disposition home or self-care (01) ==
PROVIDERS: Emergency Provider Emergency Medicine; PCP Clinical Nurse Specialist
DX: L08.0 Pyoderma (principal); F17.210 Nicotine dependence, cigarettes, uncomplicated; I25.110 Atherosclerotic heart disease of native coronary artery with unstable angina pectoris; Z91.14 Patient's other noncompliance with medication regimen
CPT/HCPCS: 99284

== ENCOUNTER 2021-04-23 22:03 | Emergency (ER) | payer MEDICARE, SELFPAY ==
[2021-04-23 22:04] VITALS: BP 146/87; PULSE 101; RESP 18; TEMP 36; O2SAT 92; BMI 27.6
--- NOTE | 2021-04-23 23:17 | EX.ED.DYSGE1 ---
HPI History of Present Illness Chief Complaint: Mental Health Informant: patient Onset/Context/Timing Onset: Month(s) (2) Context: Gradual Onset Timing: Continuous Quality: pruritic Location: all over Current Severity: Severe Maximum Severity: Severe Worsened by: nothing Relieved by: anti-itch cream but only partially and temporarily Narrative Narrative: Patient states bugs are crawling all over him for the last 2 months and as a result he cannot stop scratching and he feels like he is going crazy as a result and wants me to help him stop this. States he has been using creams and ointments on occasion, he states someone prescribed an antibiotic the last time he was here for this, but nothing is helping. He states he sleeps in the same bed as his and she has none. No bugs, no bites. But they are eating me alive. He denies any systemic symptoms. Denies any visual or auditory hallucinations, he states that he sees them on occasion but if he wants me to see them right now he would have to digs some out. [facility] Medical History (Updated 04/23/21 @ 23:[address] Curly Enriquez MD) Atherosclerotic heart disease of [place] coronary artery without angina pectoris Benign essential hypertension Chest pain Complicated migraine COPD (chronic obstructive pulmonary disease) Depression History of illicit drug use History of medication noncompliance HLD (hyperlipidemia) Lumbar radiculopathy Tobacco user Unstable angina Home Medications escitalopram oxalate 20 mg tablet 20 mg PO DAILY 12/21/18 [History Last Taken 10/25/20] aspirin 81 mg PO DAILY 02/14/20 [History Last Taken 10/25/20] atorvastatin 80 mg PO DAILY 02/14/20 [History Last Taken 10/25/20] cyclobenzaprine 10 mg PO TID PRN #20 tab 03/12/20 [Rx Last Taken 10/25/20] metoprolol succinate 25 tab PO BID 08/14/20 [History Last Taken 10/25/20] topiramate 25 mg PO QHS #60 tab 08/15/20 [Rx Last Taken 10/25/20] mirtazapine 15 mg PO QHS #0 tab 10/27/20 [Rx Last Taken 10/25/20] topiramate 50 mg PO BID 30 Days #60 tab 10/27/20 [Rx Last Taken Unknown] loratadine [Claritin] 10 mg PO DAILY PRN #10 tab 03/23/21 [Rx Last Taken Unknown] doxycycline monohydrate 100 mg PO BID #14 capsule 04/16/21 [Rx Last Taken Unknown] permethrin [Elimite] 1 applic TOPICAL Q14D #60 g 04/23/21 [Rx Last Taken Unknown] Allergy/AdvReac Type Severity Reaction Status Date / Time celecoxib [From Celebrex] Allergy Swelling Verified 04/23/21 22:04 pregabalin [From Lyrica] Allergy Swelling Verified 04/23/21 22:04 Family History Father Myocardial infarction from [place] age 48 Uncle Myocardial infarction from [place] in 50's Surgical History Aortocoronary bypass status (~12/27/17) Social History household members: spouse Smoking Status: Current every day smoker tobacco type: cigarettes substance use type: does not use ROS ROS ED Constitutional Constitutional ED: Denies chills or fever(s) Eyes Eyes: Denies change in vision or diplopia ENT ENT ED: Denies rhinorrhea or sore throat Cardiovascular Cardiovascular: Denies chest pain or palpitations Respiratory/Chest Respiratory/Chest: Denies cough or dyspnea Gastrointestinal Gastrointestinal: Denies abdominal pain, diarrhea, nausea or vomiting Genitourinary Genitourinary ED: Denies dysuria or hematuria Musculoskeletal Musculoskeletal: Denies back pain or neck pain Integumentary Reports as per HPI and rash; Denies abscess Neurologic Neurologic: Denies headache(s), paresthesias or weakness Psychiatric Psychiatric: Reports anxiety; Denies auditory hallucinations, paranoia, suicidal thoughts or visual hallucinations EXAM Physical Exam Const Vital Signs: 04/23/21 22:04 Temperature 96.8 F L Temperature Source Temporal Pulse Rate 101 H Respiratory Rate 18 Blood Pressure 146/87 H Blood Pressure Mean 106 Pulse Ox 92 Oxygen Delivery Method Room Air Positive well nourished and well developed General Appearance ED: well developed and NAD HEENT Reports moist mucous membranes normocephalic and atraumatic Eyes PERRL and EOMs intact bilaterally Neck full ROM and supple Resp normal respiratory effort and clear to auscultation bilaterally Cardio regular rate, regular rhythm and no murmurs GI non-tender and non-distended Auscultation: normoactive bowel sounds Palpation: soft Back/Spine no CVA tenderness General Back: other FROM Extremity normal to inspection General Extremety ED: Negative for edema, pulses abnormal or tenderness General Extremity: Negative for edema or pulses abnormal Neuro oriented x3, CN's II-XII intact bilaterally and no sensory deficits noted Sensorium / Orientation: awake and alert Motor Exam: strength 5/5 throughout Psych cooperative Psych Narrative: Fidgety. Anxious. Skin Skin Narrative: Patient has multiple scabbed over small lesions on his hands, his scalp, his face and neck, very few on his chest wall, and some on his distal lower extremities. None of them appear to be infected at this time, none of them are tender. He does have neuropathy in his feet. MDM MDM MDM Narrative Medical decision making narrative: During his prior evaluation about 1 week ago, some of the wounds, which I suspect are caused by him picking and scratching, appeared to be infected and he was put on doxycycline which he is still taking. None of the wounds appear to be infected now on my evaluation/judgment. I discussed with the patient that it is possible that he does not actually have a pediculosis, and that this may be either a primary psychological/psychiatric problem, or side effect from his medications. I advise he follow-up with the physician who prescribes them for that reason, and in case he actually does have a pediculosis, I am happy to prescribe him Elimite. Unable to safely prescribe him Vistaril at this time since he is at risk of QT prolongation given his other medications. Discharge Plan Triage Chief Complaint: Mental Health ED Provider: Curly Enriquez Dx/Rx/DC Orders Clinical Impression: Formication Instructions: Rosario Prescriptions: New permethrin [Elimite] 5 % cream 1 applic topical Q14D Qty: 60 RF: 0 No Action escitalopram oxalate [Lexapro] 20 mg tablet 20 mg PO DAILY RF: 0 atorvastatin 80 MG tablet 80 mg PO DAILY RF: 0 aspirin 81 MG tablet,delayed release (DR/EC) 81 mg PO DAILY RF: 0 cyclobenzaprine 10 MG tablet 10 mg PO TID PRN (Reason: Muscle Spasm) Qty: 20 RF: 0 metoprolol succinate 25 MG tablet extended release 24 hr 25 tab PO BID RF: 0 topiramate 25 MG tablet 25 mg PO QHS Qty: 60 RF: 0 topiramate 50 mg Tablet 50 mg PO BID 30 Days Qty: 60 RF: 0 mirtazapine 15 mg tablet 15 mg PO QHS Qty: 0 RF: 0 loratadine [Claritin] 10 mg tablet 10 mg PO DAILY PRN (Reason: itching) Qty: 10 RF: 0 doxycycline monohydrate 100 MG capsule 100 mg PO BID Qty: 14 RF: 0 Primary Care Provider: Debbie Vee NP Referrals: Debbie Vee NP, PROGRAM EVALUATION CONSULTANT-C [Primary Care Provider] - 3-5 Days if not improving Disposition Disposition: Home, Self Care
== END 2021-04-23 23:30 | disposition home or self-care (01) ==
LOC: ED 23:29
PROVIDERS: Emergency Provider Emergency Medicine; PCP Clinical Nurse Specialist
DX: R20.2 Paresthesia of skin (principal); E78.5 Hyperlipidemia, unspecified; F32.9 Major depressive disorder, single episode, unspecified; I25.10 Atherosclerotic heart disease of native coronary artery without angina pectoris; J44.9 Chronic obstructive pulmonary disease, unspecified; F17.210 Nicotine dependence, cigarettes, uncomplicated; Z79.1 Long term (current) use of non-steroidal anti-inflammatories (NSAID); Z79.82 Long term (current) use of aspirin; Z91.14 Patient's other noncompliance with medication regimen
CPT/HCPCS: 99282

== ENCOUNTER 2021-05-02 16:54 | Emergency (ER) | payer MEDICARE, SELFPAY ==
[2021-05-02 16:56] VITALS: RESP 16
[2021-05-02 16:57] VITALS: BP 117/79; PULSE 107; RESP 18; TEMP 36.8; O2SAT 97; BMI 29.0
--- NOTE | 2021-05-02 17:10 | CT_ITS ---
HISTORY: Acute change in mental status TECHNIQUE: Multiple axial images were obtained of the brain without intravenous contrast. A radiation dose optimization technique was used for this scan. IV Contrast dosage and agent: None. COMPARISON: 10/26/20 FINDINGS: # of images incl. paperwork: 251 PARANASAL SINUSES AND MASTOID AIR CELLS: Clear. INTRACRANIAL HEMORRHAGE: None. BRAIN PARENCHYMA: No CT evidence of stroke. No intracranial masses. There is preservation of the lynch/white matter interface. Posterior fossa structures are unremarkable. CSF SPACES: Appropriate for age. There is no hydrocephalus. MASS EFFECT: None. CALVARIUM: Intact. CT/Brain/Head without Contrast IMPRESSION: No acute intracranial findings. Individualized dose optimization techniques were used for this CT. at 1905 Reported and signed by: Harsh Renee MD Electronically Signed: Harsh Renee MD at 19:04 EST Tel , Service support ,
--- NOTE | 2021-05-02 17:11 | EX.ED.DYSGE1 ---
HPI History of Present Illness Chief Complaint: General Illness Informant: patient Onset/Context/Timing Onset: - (Apparently 4 to 5 weeks) Context: - (Unable to determine) Timing: Waxes and wanes (Presumed) Quality: Paranoia and visual hallucinations Location: Patient states he has been living in the [facility] for the last 5 weeks Current Severity: Unable to determine Maximum Severity: Unable to determine Worsened by: Wrongfully objective from his apartment Relieved by: Nothing Associated Symptoms Associated Symptoms: Per HPI Narrative Narrative: Patient is a 60-year-old male with history of atherosclerotic heart disease, illicit drug use, medication noncompliance, hypercholesterolemia, hypertension and COPD who was on the hospital property. He was at the entrance greeting people to the hospital. He was escorted off the premises. He was then found in the bushes by a eating establishment. He was brought to the hospital after paramedics determined that he has visual hallucinations and paranoid ideations. Patient informed me he pulled a tapeworm out of his right great toe. He was able to remove 3 inches before it broke. He complains of headache which is a chronic issue. This is no different than prior. He denies double vision, blurred vision or change in vision. He denies ringing in his ears or decreased hearing. He denies rhinorrhea or postnasal drainage. He denies sore throat. He denies cough, shortness of breath, orthopnea or PND. He denies chest discomfort. He denies nausea, vomiting or diarrhea. He does not recall the last time he urinated. Patient states he has not had any to eat or drink for 3 days. Prior similar symptoms: No Recent Illness/Hospitalization: No [facility] Medical History (Updated 05/02/21 @ 21:[address] Denver Greer MD) Atherosclerotic heart disease of [place] coronary artery without angina pectoris Benign essential hypertension Chest pain Complicated migraine COPD (chronic obstructive pulmonary disease) Depression History of illicit drug use History of medication noncompliance HLD (hyperlipidemia) Lumbar radiculopathy Tobacco user Unstable angina Home Medications escitalopram oxalate 20 mg tablet 20 mg PO DAILY 12/21/18 [History Last Taken 10/25/20] aspirin 81 mg PO DAILY 02/14/20 [History Last Taken 10/25/20] atorvastatin 80 mg PO DAILY 02/14/20 [History Last Taken 10/25/20] cyclobenzaprine 10 mg PO TID PRN #20 tab 03/12/20 [Rx Last Taken 10/25/20] metoprolol succinate 25 tab PO BID 08/14/20 [History Last Taken 10/25/20] topiramate 25 mg PO QHS #60 tab 08/15/20 [Rx Last Taken 10/25/20] mirtazapine 15 mg PO QHS #0 tab 10/27/20 [Rx Last Taken 10/25/20] topiramate 50 mg PO BID 30 Days #60 tab 10/27/20 [Rx Last Taken Unknown] loratadine [Claritin] 10 mg PO DAILY PRN #10 tab 03/23/21 [Rx Last Taken Unknown] doxycycline monohydrate 100 mg PO BID #14 capsule 04/16/21 [Rx Last Taken Unknown] permethrin [Elimite] 1 applic TOPICAL Q14D #60 g 04/23/21 [Rx Last Taken Unknown] Allergy/AdvReac Type Severity Reaction Status Date / Time celecoxib [From Celebrex] Allergy Swelling Verified 05/02/21 16:57 pregabalin [From Lyrica] Allergy Swelling Verified 05/02/21 16:57 Family History Father Myocardial infarction from [place] age 48 Uncle Myocardial infarction from [place] in 50's Surgical History Aortocoronary bypass status (~12/27/17) Social History (Updated 05/02/21 @ 17:[address] Denver Greer MD) household members: spouse and none housing: homeless Smoking Status: Current every day smoker tobacco type: cigarettes details: Denies alcohol use recently substance use type: methamphetamine ROS ROS ED Constitutional Constitutional ED: Denies chills, fever(s), subjective or sweats Eyes Eyes: Denies blurry vision, change in vision or diplopia ENT ENT ED: Denies ear pain, rhinorrhea or sore throat Cardiovascular Cardiovascular: Denies chest pain, orthopnea, palpitations, paroxysmal nocturnal dyspnea or racing heartbeat Respiratory/Chest Respiratory/Chest: Denies cough, dyspnea, dyspnea on exertion, orthopnea, paroxysmal nocturnal dyspnea or sputum Gastrointestinal Gastrointestinal: Denies abdominal pain, diarrhea, nausea or vomiting Genitourinary Genitourinary ED: Denies dysuria, hematuria or urinary frequency Musculoskeletal Musculoskeletal: Denies arthralgias, back pain, myalgias or neck pain Integumentary Reports rash Neurologic Neurologic: Reports headache(s); Denies paresthesias or weakness Psychiatric Psychiatric: Reports depression; Denies suicidal ideation or suicidal thoughts Endocrine Endocrinology: Denies polydipsia, polyphagia or polyuria Hematologic/Lymphatic Hematologic/Lymphatic: Denies easy bleeding or easy bruising Allergic/Immunologic Allergic/Immunologic ED: Denies mouth swelling, tongue swelling or urticaria EXAM Physical Exam Const Vital Signs: 05/02/21 16:56 05/02/21 16:57 05/02/21 18:29 Temperature 98.2 F Temperature Source Temporal Pulse Rate 107 H Respiratory Rate 16 18 16 Respiratory Effort Normal Non-Labored Respiratory Pattern Normal Blood Pressure 117/79 Blood Pressure Mean 91 Pulse Ox 97 Oxygen Delivery Method Room Air 05/02/21 21:28 05/02/21 22:18 Temperature Temperature Source Pulse Rate 95 Respiratory Rate 18 16 Respiratory Effort Respiratory Pattern Blood Pressure 145/96 H Blood Pressure Mean 112 Pulse Ox 95 Oxygen Delivery Method Room Air Positive well nourished, well developed and unkempt General Appearance ED: unkempt, well developed and NAD; Negative for cyanotic, diaphoretic or pallor HEENT Reports dry mucous membranes HEENT Narrative: Head is atraumatic normocephalic. There is no clinical findings of basal skull fracture. Ears normal. TMs normal. Nares patent. Posterior pharynx out erythema or exudate. Uvula midline. Mouth ED: Yes dry mucous membranes Mouth: dry mucous membranes Eyes PERRL and EOMs intact bilaterally General Eye ED: Negative for pale conjunctiva or scleral icterus Neck no lymphadenopathy, supple and no JVD General: other Chest Wall inspection of chest normal Resp normal respiratory effort and clear to auscultation bilaterally Cardio regular rate, regular rhythm, S1 normal heart sound, S2 normal heart sound and no murmurs GI normal to inspection, nondistended, normoactive bowel sounds, non-tender and non-distended Palpation: soft Back/Spine no CVA tenderness Cervical Spine: Negative for cervical spine tenderness Thoracic Spine / Upper Back: Negative for thoracic spinal tenderness or paraspinal muscle tenderness Extremity normal to inspection General Extremety ED: Negative for edema or tenderness General Extremity: Negative for edema Neuro No oriented x3, CN's II-XII intact bilaterally and no sensory deficits noted Sensorium / Orientation: alert Motor Exam: strength 5/5 throughout Psych Negative for mental status grossly normal Appearance: unkempt and other Paranoid ideation and visual hallucinations Skin Skin Narrative: Patient has multiple wounds on his extremities scalp and face due to picking there is no evidence of infection i.e. erythema, warmth, induration or fluctuance. There is no lymphangitis. General Skin Exam: Negative for jaundice or pallor MDM MDM MDM Narrative Medical decision making narrative: Patient presents with altered mental status with visual hallucination and paranoid ideation. This may be due to drug-induced psychosis or psychiatric illness. Also need to rule out metabolic and infectious causes. Work-up was initiated. Because he complains of headache and has abrupt onset of mental status change CT of the head was obtained. Patient was evaluated by case management. The increased he is acutely floridly psychotic with hallucinations. Covid test was ordered for medical clearance to psychiatric facility. In my professional medical opinion patient has no metabolic, infectious or intracranial process to explain his paranoia and psychosis. In my professional opinion patient is stable for transfer to psychiatric facility for appropriate care. Lab Data Attestation: I reviewed the patient's lab results. Lab results narrative: Laboratory work is unremarkable. CPK was ordered because requested by psychiatric facility since he is positive for methamphetamine. Labs: Laboratory Results - last 24 hr 05/02/21 05/02/21 05/02/21 17:25 17:25 17:25 WBC 5.9 RBC 4.51 L Hgb 13.5 Hct 41.8 MCV 92.7 MCH 29.9 MCHC 32.3 RDW Std Deviation 46.4 H RDW Coeff of [place] 13.6 Plt Count 292 MPV 9.5 Immature Gran % (Auto) 0.200 Neut % (Auto) 64.9 Lymph % (Auto) 24.1 Cotton % (Auto) 7.2 Eos % (Auto) 3.1 Baso % (Auto) 0.5 Absolute Neuts (auto) 3.8 Absolute Lymphs (auto) 1.41 Nucleated RBC % 0 Sodium 138 Potassium 3.8 Chloride 105 Carbon Dioxide 30.0 Anion Gap 3 L BUN 23 H Creatinine 1.09 Estim Creat Clear Calc 65.85 Est GFR (MDRD) Af Amer 89 Est GFR (MDRD) Non-Af 74 BUN/Creatinine Ratio 21.1 H Glucose 119 H Calcium 9.0 Total Bilirubin 0.80 AST 23 ALT 24 Alkaline Phosphatase 111 Total Creatine Kinase Total Protein 6.7 Albumin 3.3 Globulin 3.4 Albumin/Globulin Ratio 1.0 Urine Color Urine Clarity Urine pH Ur Specific [place] Urine Protein Urine Glucose (UA) Urine Ketones Urine Occult Blood Urine Nitrite Urine Bilirubin Urine Urobilinogen Ur Leukocyte Esterase Urine RBC Urine WBC Ur Squamous Epith Cells Urine Bacteria Urine Mucus Urine Opiates Screen Urine Methadone Screen Ur Barbiturates Screen Ur Phencyclidine Scrn Ur Amphetamines Screen U Methamphetamin-MDMA U Benzodiazepines Scrn Urine Cocaine Screen U Cannabinoids Screen Ur Drug Screen Comment Ethyl Alcohol 4.0 05/02/21 05/02/21 05/02/21 17:25 19:28 19:28 WBC RBC Hgb Hct MCV MCH MCHC RDW Std Deviation RDW Coeff of [place] Plt Count MPV Immature Gran % (Auto) Neut % (Auto) Lymph % (Auto) Cotton % (Auto) Eos % (Auto) Baso % (Auto) Absolute Neuts (auto) Absolute Lymphs (auto) Nucleated RBC % Sodium Potassium Chloride Carbon Dioxide Anion Gap BUN Creatinine Estim Creat Clear Calc Est GFR (MDRD) Af Amer Est GFR (MDRD) Non-Af BUN/Creatinine Ratio Glucose Calcium Total Bilirubin AST ALT Alkaline Phosphatase Total Creatine Kinase 215 Total Protein Albumin Globulin Albumin/Globulin Ratio Urine Color Yellow Urine Clarity Clear Urine pH 6.0 Ur Specific [place] 1.020 Urine Protein 30 H Urine Glucose (UA) Normal Urine Ketones 5 H Urine Occult Blood Negative Urine Nitrite Negative Urine Bilirubin Negative Urine Urobilinogen 4 H Ur Leukocyte Esterase 25 H Urine RBC 0 SEEN Urine WBC 0 SEEN Ur Squamous Epith Cells 0 SEEN Urine Bacteria 0 SEEN Urine Mucus 1+ Urine Opiates Screen NEGATIVE Urine Methadone Screen NEGATIVE Ur Barbiturates Screen NEGATIVE Ur Phencyclidine Scrn NEGATIVE Ur Amphetamines Screen POSITIVE H U Methamphetamin-MDMA POSITIVE H U Benzodiazepines Scrn NEGATIVE Urine Cocaine Screen NEGATIVE U Cannabinoids Screen POSITIVE H Ur Drug Screen Comment Ethyl Alcohol Radiography Diagnostic Testing: Clinical Impression(s) from Imaging Studies Brain CT 05/02/21 17:10 IMPRESSION: No acute intracranial findings. Individualized dose optimization techniques were used for this CT. at 1905 Reported and signed by: Harsh Renee MD Electronically Signed: Harsh Renee MD at 19:04 EST Tel , Service support , EKG Initial EKG: Attestation: I personally reviewed and interpreted this EKG as follows: Interpretation: Sinus Rhythm (Normal sinus rhythm with a ventricular rate of 99 and computer is reading premature ventricular complexes. There are no occasional premature ventricular complexes. ID interval is under 48 ms. QRS durations 100 ms. QT durations 354 ms. [place] is normal. EKG is normal.) Discharge Plan Triage Chief Complaint: General Illness ED Provider: Denver Greer Dx/Rx/DC Orders Clinical Impression: Acute psychosis, Severe visual hallucinations, Paranoid ideation, Cannabis use disorder, moderate, dependence, Methamphetamine abuse Prescriptions: No Action escitalopram oxalate [Lexapro] 20 mg tablet 20 mg PO DAILY RF: 0 atorvastatin 80 MG tablet 80 mg PO DAILY RF: 0 aspirin 81 MG tablet,delayed release (DR/EC) 81 mg PO DAILY RF: 0 cyclobenzaprine 10 MG tablet 10 mg PO TID PRN (Reason: Muscle Spasm) Qty: 20 RF: 0 metoprolol succinate 25 MG tablet extended release 24 hr 25 tab PO BID RF: 0 topiramate 25 MG tablet 25 mg PO QHS Qty: 60 RF: 0 topiramate 50 mg Tablet 50 mg PO BID 30 Days Qty: 60 RF: 0 mirtazapine 15 mg tablet 15 mg PO QHS Qty: 0 RF: 0 loratadine [Claritin] 10 mg tablet 10 mg PO DAILY PRN (Reason: itching) Qty: 10 RF: 0 doxycycline monohydrate 100 MG capsule 100 mg PO BID Qty: 14 RF: 0 permethrin [Elimite] 5 % cream 1 applic topical Q14D Qty: 60 RF: 0 Primary Care Provider: Debbie Vee NP Referrals: Debbie Vee TIRE SERVICE SUPERVISOR, TIRE SERVICE SUPERVISOR-C [Primary Care Provider] - Disposition Disposition: Acute Care Hospital
[2021-05-02 17:59] LABS: Absolute Lymphocyte Count 1.41 X10^3/uL (0.83-4.51); Absolute Neutrophil Count 3.8 X10^3/uL (2.0-7.7); Basophil# 0.03 X10^3/uL; Basophil% 0.5 % (0-1); Eosinophil# 0.18 X10^3/uL; Eosinophils% 3.1 % (0-5); Hematocrit 41.8 % (40-54); Hemoglobin 13.5 g/dL (13.0-16.5); Lymphocyte # 1.41 X10^3/ul (0.83-4.51); Lymphocyte % 24.1 % (19-41); Mean Corp Hgb Conc 32.3 g/dL (32-36); Mean Corpuscular Hgb 29.9 pg (27.0-32.0); Mean Corpuscular Volume 92.7 fL (80-94); Mean Platelet Vol. 9.5 fl (6.2-12.0); Monocyte# 0.42 X10^3/uL; Monocyte% 7.2 % (0-10); NRBC Flagged by Analyzer 0 % (0-5); Neutrophil % 64.9 % (47-70); Platelet Count 292 K/mm3 (150-450); RBC Distribution Width CV 13.6 % (11.6-14.6); RBC Distribution Width SD 46.4 fl (35.1-43.9); Red Blood Count 4.51 M/mm3 (4.6-6.2); White Blood Count 5.9 K/mm3 (4.4-11.0)
[2021-05-02 18:15] LABS: AST(SGOT) 23 U/L (15-37); Alanine Aminotransfer ALT/SGPT 24 U/L (16-61); Albumin, Serum 3.3 g/dL (3.2-5.0); Alkaline Phosphatase 111 U/L (45-117); Anion Gap 3 (5-15); BUN 23 mg/dL (7-18); BUN/Creat Ratio 21.1 RATIO (10-20); Chloride 105 mmol/L (98-107); Creatinine, Serum 1.09 mg/dL (0.70-1.30); EST Glomerular Filtration Rate 74 mL/min (>60); Est Glom Filt Rate - Afr Amer 89 mL/min (>60); Estimated Creatinine Clearance 65.85 ml/min; Globulin 3.4 g/dL (2.2-4.2); Glucose 119 mg/dL (74-106); Potassium 3.8 mmol/L (3.5-5.1); Protein, Total 6.7 g/dL (6.4-8.2); Sodium Level 138 mmol/L (136-145)
[2021-05-02 18:29] VITALS: RESP 16
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
[2021-05-02] MEDS: Ziprasidone IM 20 MG/ML VIAL IM (19:43)
--- NOTE | 2021-05-02 19:45 | CM.ED ---
Referral called to [facility]. Per intake, beds available on dual diagnosis unit. This worker to fax referral once patient is medically cleared. Evelyn Shafer, LEAD INSPECTOR, POLYGRAPH OPERATOR
[2021-05-02 19:50] LABS: Bacteria 0 SEEN /hpf (None Seen); Red Blood Cells-Urine 0 SEEN /hpf (0-5); Squamous Epithelial Cells - UA 0 SEEN /hpf (0-5); White Blood Cells 0 SEEN /hpf (0-5)
[2021-05-02 19:51] LABS: Color, Urine Yellow (Yellow); Glucose, Dipstick Normal (Normal); Ketone-Dipstick 5 mg/dl (Negative); Leukocyte Esterase-Dipstick 25 /ul (Negative); Nitrite-Dipstick Negative (Negative); Occult Blood-Urine Negative /ul (Negative); Protein-Dipstick 30 mg/dl (Negative); Urine Bilirubin Dipstick Negative (Negative); Urine Clarity Clear (Clear); Urine Urobilinogen 4 mg/dl (Normal)
[2021-05-02 20:03] LABS: Mucous, Urine 1+ /hpf (<or=2+)
[2021-05-02 20:06] LABS: Amphetamine Urine VISTA POSITIVE (<1000 ng/mL); Barbiturate Urine VISTA NEGATIVE (< 200 ng/mL); Benzodiazepine Urine VISTA NEGATIVE (< 200 ng/mL); Cocaine Urine VISTA NEGATIVE (< 300 ng/mL); Ecstacy Urine VISTA POSITIVE (< 500 ng/mL); Methadone Urine VISTA NEGATIVE (< 300 ng/mL); PCP Urine VISTA NEGATIVE (< 25 ng/mL); THC Urine VISTA POSITIVE (< 50 ng/mL); Vista UDS pH Range 5
[2021-05-02 20:38] LABS: CPK Total, Creatine Kinase 215 U/L (39-308)
--- NOTE | 2021-05-02 20:38 | CM.ED ---
Referral has been faxed to [facility] and [facility]. Pending review at this time. Evelyn Shafer, STRUCTURAL BIOLOGIST, SUPERVISOR TELEPHONE INFORMATION
[2021-05-02 21:28] VITALS: RESP 18
--- NOTE | 2021-05-02 21:41 | CM.ED ---
Call to [facility] to verify referral received. Intake reports yes, we will call you. Call to [facility]. Intake asking if patient has been medicated. Informed patient was medicated with Geodon. Intake states patient would not be accepted until 4 hours after time shot was given. Plan: Pending acceptance to inpatient psych-dual diagnosis unit DESIREE New, COMPOUNDING PHARMACY TECHNICIAN
--- NOTE | 2021-05-02 22:11 | EKG12_ITS ---
Test Reason : [facility] [place] Blood Pressure : / mmHG Vent. Rate : 099 BPM Atrial Rate : 099 BPM P-R Int : 148 ms QRS Dur : 100 ms QT Int : 354 ms P-R-T Axes : 066 087 073 degrees QTc Int : 454 ms Sinus rhythm with occasional Premature ventricular complexes Otherwise normal ECG When compared with ECG of 23-DEC-2020 09:37, Premature ventricular complexes are now Present Confirmed by BLESSING JONES, LEIGH ANN ([id number]), digital editor FARHAN MAGALLON ([id number]) on 05/08/2021 11:31:38 AM Referred By: JENNA Confirmed By:LEIGH ANN FUNK MD
--- NOTE | 2021-05-02 22:16 | CM.ED ---
Received call from [facility] requesting EKG and statement of medical clearance from physician. Evelyn Shafer, LOCAL COMPANY REFRIGERATED TRUCK DRIVER, ELECTRICAL SUPERINTENDENT
[2021-05-02 22:18] VITALS: BP 145/96; PULSE 95; RESP 16; O2SAT 95
--- NOTE | 2021-05-02 23:08 | CM.ED ---
Addendum entered by Kelly Shafer 05/02/21 23:09: [facility] updated placement has been obtained. Original Note: Patient accepted to [facility] by Dr. Leroy to room 111B. Nurse to call report to [phone]. Call to [facility], ETA 1 hour- 12a molded goods spot picker. Staff updated. Evelyn Shafer, BACTERIOLOGIST FISHERY, NEUROSURGERY RESEARCH DIRECTOR
--- NOTE | 2021-05-04 14:16 | ED.RN ---
ATTEMPTED TO CONTACT PT TO NOTIFY HIM SOME HIS BELONGINGS WERE LEFT HERE. PT CELL PHONE NOT ACCEPTING CALLS. SON CELL PHONE DOES NOT HAVE VOICEMAIL SET UP
== END 2021-05-03 00:27 | disposition short-term general hospital (02) ==
PROVIDERS: Emergency Provider Emergency Medicine; PCP Clinical Nurse Specialist
DX: F23 Brief psychotic disorder (principal); F15.10 Other stimulant abuse, uncomplicated; F12.20 Cannabis dependence, uncomplicated; E78.00 Pure hypercholesterolemia, unspecified; E78.5 Hyperlipidemia, unspecified; F32.9 Major depressive disorder, single episode, unspecified; I10 Essential (primary) hypertension; I25.10 Atherosclerotic heart disease of native coronary artery without angina pectoris; J44.9 Chronic obstructive pulmonary disease, unspecified; F17.210 Nicotine dependence, cigarettes, uncomplicated; Z79.82 Long term (current) use of aspirin; Z91.14 Patient's other noncompliance with medication regimen; Z79.1 Long term (current) use of non-steroidal anti-inflammatories (NSAID); Z79.899 Other long term (current) drug therapy
CPT/HCPCS: 70450; 80053; 80307; 81001; 82077; 82550; 85025; 87426; 93005; 96372; 99285; J7030; J3486